=== PATIENT | female | born 1980 | race Caucasian/White ===

== ENCOUNTER 2020-07-13 09:06 | Outpatient (REF) | payer OTHER, SELFPAY | END 2020-07-13 09:07 | disposition home or self-care (01) | LOC: HO.LAB 09:06 | PROVIDERS: PCP Internal Medicine; Visit Provider Internal Medicine | DX: Z20.828 Contact with and (suspected) exposure to other viral communicable diseases (principal) | CPT/HCPCS: C9803; U0003 ==

== ENCOUNTER 2020-07-16 09:55 | Outpatient (REF) | payer OTHER, SELFPAY | END 2020-07-16 09:56 | disposition home or self-care (01) | LOC: HO.LAB 09:55 | PROVIDERS: Visit Provider Internal Medicine | DX: Z20.828 Contact with and (suspected) exposure to other viral communicable diseases (principal) | CPT/HCPCS: C9803; U0003 ==

== ENCOUNTER 2021-01-24 06:27 | Emergency (ER) | payer OTHER, SELFPAY ==
[2021-01-24 06:44] VITALS: BP 129/61; PULSE 81; RESP 18; TEMP 37; O2SAT 97; BMI 29.0
[2021-01-24 07:28] VITALS: BP 122/62; PULSE 69; RESP 18; TEMP 36.9; O2SAT 97
--- NOTE | 2021-01-24 07:32 | ED.SKABFB ---
HPI - Skin/Abscess/Foreign Bdy General Chief complaint: Skin/Abscess/Foreign Body Stated complaint: cyst Time Seen by Provider: 01/24/21 07:19 Source: patient Mode of arrival: ambulatory Limitations: no limitations History of Present Illness HPI narrative: 40-year-old female who presents emergency department for evaluation of a painful vaginal cyst. The patient states that she has had a cyst on her right external labial area for approximately 13 years but it has never bothered her. She states that 2 days prior, she developed pain in this area of the cyst. She states that the pain his gotten worse and is now constant. The pain is 6/10 at its worst. The pain is worse if she puts pressure on the cyst area. She states that she has never had to have this cyst drained. She denied being ill in any other way, she denied fever, chills, fatigue, nausea, vomiting, myalgias or arthralgias. She denied frequency, urgency, dysuria or vaginal discharge. 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 She states it has been difficult to work secondary to the vaginal pain. Related Data Previous Rx's Medication Instructions Recorded citalopram 40 mg tablet 40 mg PO DAILY #90 tab 05/21/20 clonidine HCl 0.1 mg tablet 0.3 mg PO TID PRN #90 tab 08/21/20 clonazepam 1 mg tablet 1.5 mg PO DAILY #90 tab 01/18/21 Allergies Allergy/AdvReac Type Severity Reaction Status Date / Time No Known Allergies Allergy Unverified 04/12/20 19:32 [No Known Allergies*] Review of Systems Review of Systems: Yes all other systems are reviewed and are negative [facility] Past Medical History [facility] Narrative: Past medical history: None. Past surgical history: Cholecystectomy, (14 years prior). Social history: Patient works in healthcare and a dementia unit. She smokes 2-3 cigarettes per day times 22 years. She states she drinks alcohol occasionally. She denies drug use. Medical History (Updated 01/24/21 @ 07:44 by Reyes Minaya MD) Anxiety delivery delivered Depression Surgical History (Updated 01/24/21 @ 06:48 by Yahaira Castro) History of cholecystectomy Social History Social History Patient Tobacco Use Status: Current everyday Tobacco user Use of substances other than those prescribed or required for medical reasons: No Advance Directives: No Advance Directives Information Provided: Yes Patient : Yes Physical Exam Vital Signs: Vital Signs: Last Vital Signs Temp 98.6 F 01/24/21 06:44 Pulse 81 01/24/21 06:44 Resp 18 01/24/21 06:44 BP 129/61 01/24/21 06:44 Pulse Ox 97 01/24/21 06:44 Body Mass Index 29.0 Const: General: cooperative and healthy appearing Orientation/consciousness: oriented to person and oriented to place Limitations: no limitations HENMT: Head: Yes normal to inspection, Yes normocephalic and Yes atraumatic Ears: external ears normal General nose exam: Normal external nose present Face and sinus: Yes normal facial exam Mouth: Normal oral and palatal mucosa present Throat: Yes posterior oropharynx normal Eyes: Periorbital: periorbital findings normal Eyelids: Yes eyelids normal Conjunctivae: conjunctivae normal Sclerae: sclerae normal Corneas: corneas normal Pupils: Equal, round and reactive pupils present Direct Ophthalmoscopy: normal light reflex Neck: Neck: Yes full ROM, Yes no lymphadenopathy, Yes no meningeal signs, Yes trachea midline and Yes supple Chest: Chest palpation & inspection: normal inspection of the chest and normal palpation of entire chest wall Resp: Effort & Inspection: normal respiratory effort and able to speak in complete sentences Auscultation: clear to auscultation bilaterally Cardio: Rate: regular rate Rhythm: regular rhythm Heart sounds: S1 normal heart sound present, S2 normal heart sound present and no murmurs GI: Inspection: Yes normal to inspection Palpation (GI): Soft to palpation, nontender, no guarding, not rigid and No hepatosplenomegaly present : Other: The patient has a area of induration over the lower aspect of the right external labia, this indurated area measures approximately 2 x 1 cm, this area is tender to palpation, there is no flocculence, no erythema or increased warmth. General: Yes no CVA tenderness Back/Spine/Pelvis: Back: no CVA tenderness Cervical Spine: normal cervical lordosis Thoracic/Lumbar Spine: thoracic and lumbar spine normal to inspection Skin: Rashes: no rashes Wounds: no wounds Neuro: General: oriented to person, oriented to place and no meningeal signs Cranial nerves: Yes Equal, round and reactive pupils present Cognition (Neuro): normal cognition Extrem: General: Yes normal to inspection and Yes full ROM Psych: Appearance: well kempt Mental Status: mental status grossly normal Speech and movement: Normal speech and movement present Affect: normal affect Attitude: cooperative Thought process: Normal thought process present Thought content: Normal thought content present Course Course Course Narrative: 40-year-old female who presents emergency department for evaluation of pain and her right vaginal region, the patient has had a cyst in this area for approximately 13 years which is become painful over the past 2 days. Physical examination did reveal induration of the patient's chronic cyst located in the right inferior,external vaginal labia. At this time I think that the patient has an early abscess, there is no flocculence or evidence of cellulitis and I do not think that needs to be drained at this time. The patient will be started on doxycycline 100 mg twice a day, ibuprofen 600 mg 3 times a day and acetaminophen 1000 mg 3 times a day. She will referred to the on-call press assistant and feeder for follow-up within 1 week. The patient was given verbal and printed instructions prior to discharge. The patient was advised to follow-up with Gynecology and to return to the emergency department if their symptoms get worse or if they develop any new symptoms that are concerning to them Discharge Plan Discharge Clinical Impression: Abscess of vagina Patient Disposition: Home, Self-Care Instructions: Abscess (ED) Additional Instructions: Your examination is consistent with an early abscess of the vaginal labia (lip). At this time, the abscess is firm to the touch and is not soft, I do not think that you need this abscess drained at this time however if the abscess starts to get soft then it may need to be drained to remove any pus that may be in the abscess. I am going to start you on an antibiotic, doxycycline 100 mg, 1 pill twice a day for 10 days, hopefully this will treat the early abscess and you do not need an incision and drainage. I do want you to follow-up with our on-call press assistant and feeder for re-evaluation to see if this abscess needs to be drained or if you need any further treatment of the cyst. Take ibuprofen 200 mg pills, 3 pills every 6 hours as needed for pain. Take Tylenol (acetaminophen) 500 mg pills, 2 pills every 6hours as needed for pain. Follow-up with the on-call press assistant and feeder in 7 days Please return to the emergency department if your symptoms get worse or if you develop any symptoms that are concerning to you. Soaking in a warm tub for 15-20 minutes or applying a heating pad on low to the area of pain for 15-20 minutes will help increase the blood flow to the area and help the healing process. Prescriptions: No Action citalopram 40 mg tablet 40 mg PO DAILY Qty: 90 RF: 8 clonidine HCl 0.1 mg tablet 0.3 mg PO TID PRN (Reason: anxiety) Qty: 90 RF: 8 clonazepam 1 mg tablet 1.5 mg PO DAILY Qty: 90 RF: 5 Referrals: Lele Schwarz MD [Physician] - 1 week ( patient with cyst to right inferior external vaginal labia times 13 years, pain x2 days, early abscess with induration , no cellulitis. Started on doxycycline 100 mg twice a day for 10 days. Needs follow-up to determine abscess needs to be drained) Stand Alone Forms: Work/School Release
--- NOTE | 2021-01-24 07:41 | PC.NURSE ---
This RN at bedside while MD evaluated pts vaginal area where abscess is. Pt tolerated well. Pt sts she has had this abscess before but has never had it drained and she has never taken abx for it.
== END 2021-01-24 08:13 | disposition home or self-care (01) ==
PROVIDERS: Emergency Provider Emergency Medicine Emergency Medical Services; PCP Internal Medicine
DX: N76.0 Acute vaginitis (principal)
CPT/HCPCS: 99283; 99284

== ENCOUNTER 2023-03-10 22:57 | Emergency (ER) | payer OTHER, SELFPAY ==
[2023-03-10 23:00] VITALS: BP 130/80; PULSE 92; O2SAT 95
[2023-03-10 23:02] VITALS: BP 144/88; PULSE 74; RESP 18; TEMP 36.4; O2SAT 97; BMI 28.2
--- NOTE | 2023-03-11 00:46 | ED_ITS ---
HPI - Animal Bite General Chief Complaint: Animal Bite Stated Complaint: skunk bite Time Seen by Provider: 03/10/23 23:47 Source: patient Mode of arrival: ambulatory Limitations: no limitations History of Present Illness HPI narrative: Patient is a 42-year-old female who presents to the emergency department via EMS. She reports that 10 minutes prior to arrival she was outdoors pushing the trash down in her trash can when she subsequently got bit by a baby skin on the right middle digit at the distal tip. No acute bleeding. Denies numbness, tingling, cold sensation. Has never received vaccination for rabies. Last tetanus vaccination date is unknown. Full AROM is intact to the digit at this time. Related Data Previous Rx's Medication Instructions Recorded citalopram 40 mg tablet 40 mg PO DAILY #90 tabs 09/29/22 clonidine HCl 0.1 mg tablet 0.3 mg PO TID PRN anxiety #90 tabs 10/09/22 clonazepam 1 mg tablet 1.5 mg PO DAILY #90 tabs 12/03/22 amoxicillin 875 mg-potassium 1 tab PO BID #13 tabs 03/11/23 clavulanate 125 mg tablet Allergies Allergy/AdvReac Type Severity Reaction Status Date / Time No Known Allergies Allergy Verified 11/20/21 10:19 [No Known Allergies*] Review of Systems Review of Systems: Yes all other systems are reviewed and are negative PMFSH Past Medical History Attestation statement: The following information was validated with the patient. Source: old records reviewed Medical History Anxiety delivery delivered Depression Surgical History History of cholecystectomy Social History Social History Housing: House Alcohol intake: never Patient Tobacco Use Status: Former Tobacco user Years Smoked: x 3 months non-smoker Smoked in Last 30 Days: No e-Cigarette/Vaping Use: Never Used Second Hand Smoke Exposure: No Use of substances other than those prescribed or required for medical reasons: No Advance Directives: No Advance Directives Information Provided: Yes service: No Current occupational status: employed Cognitive needs: No Hearing needs: No Vision needs: No Physical Exam ED Vital Signs: Vital Signs - 24 hr 03/10/23 23:02 Temperature 97.5 F Pulse Rate 74 Respiratory Rate 18 Blood Pressure 144/88 H Pulse Oximetry 97 Oxygen Delivery Method Room Air BMI result Body Mass Index 28.2 Appearance: Alert.?Oriented to person, place and time. No acute distress.?Normal affect. Neck: Normal inspection.? Neck supple.?? CVS: Heart sounds normal. Normal heart rate and rhythm.? Pulses normal.?? Respiratory: No respiratory distress.? Lung sounds clear to auscultation bilaterally?? Abdomen: Soft and non-tender. Normoactive bowel sounds. Skin: Skin warm and dry.? Normal skin color.? Right 3rd digit distal tip with 2 puncture cronin, no active bleeding, erythema, swelling. Full AROM is intact to the digit. Neuro: Moves all extremities spontaneously. Sensation intact bilaterally. Ambulates with normal steady gait. Medical Decision Making Medical Decision Making MDM Narrative: Patient is a 42 old female who presents emergency department for evaluation after animal bite as per HPI. Examination of the digit is overall unremarkable aside from puncture cronin present. No obvious deformity. Would defer XR imaging, unlikely to have any osseous involvement at this time. Discussed treatment including tetanus vaccination, rabies vaccination in addition to rabies immune globulin, prophylactic treatment with Augmentin for which she received the 1st dose while in the emergency department. Discussed outpatient management for additional rabies vaccination series. All questions were a nswered. We reviewed signs of infection that would warrant re-evaluation in the emergency department. Stable for discharge. Differential Diagnosis Differential Diagnoses: The differential diagnosis associated with the presentation includes (As noted above) Tests considered The following testing was considered but not selected: I considered XR imaging, as noted above this was deferred. Prescription Management I considered prescription management with: Antibiotic Discharge Plan Discharge Clinical Impression: Bite by animal Patient Disposition: Home, Self-Care Instructions: Rabies Vaccine (By injection), Rabies Immune Globulin (By injection) Additional Instructions: Your tetanus vaccine was updated today, you received the 1st dose of the rabies vaccine in addition to rabies immunoglobulin. You also received the 1st dose of your antibiotic, Augmentin. I have sent a prescription for the remainder of your antibiotic to the pharmacy, please complete this entire course. You should have this re-evaluated if you develop fevers, chills, increasing pain, redness, swelling, warmth, pus-like discharge, inability to move the finger. Please follow the instructions regarding additional rabies vaccination dosing. Follow- up with your primary care provider as needed. Prescriptions: New amoxicillin-pot clavulanate 875-125 mg tablet 1 tab PO BID Qty: 13 0RF No Action citalopram 40 mg tablet 40 mg PO DAILY Qty: 90 8RF clonidine HCl 0.1 mg tablet 0.3 mg PO TID PRN (Reason: anxiety) Qty: 90 8RF Rx Instructions: 1-3 tabs every 8 hours as needed clonazepam 1 mg tablet 1.5 mg PO DAILY Qty: 90 5RF Referrals: Haris Holley MD [Primary Care Provider] -
[2023-03-11] MEDS: Amoxicillin/Potassium Clav 875 MG TABLET PO (01:08)
[2023-03-11] MEDS: Diphth,Pertus(ACell),Tet Adult 0.5 ML SYRINGE IM (01:08)
[2023-03-11] MEDS: Rabies Immune Globulin/PF 900 UNIT/3 ML VIAL 1636 UNIT IM (01:09)
[2023-03-11] MEDS: Rabies Vaccine, Human Diploid (Imovax) 1 ML VIAL IM (01:09)
== END 2023-03-11 01:25 | disposition home or self-care (01) ==
PROVIDERS: Emergency Provider Emergency Medicine Emergency Medical Services; PCP Internal Medicine
DX: S61.252A Open bite of right middle finger without damage to nail, initial encounter (principal); W55.81XA Bitten by other mammals, initial encounter; Y93.H9 Activity, other involving exterior property and land maintenance, building and construction; Y92.007 Garden or yard of unspecified non-institutional (private) residence as the place of occurrence of the external cause; Y99.9 Unspecified external cause status; Z20.3 Contact with and (suspected) exposure to rabies
CPT/HCPCS: 90375; 90471; 90472; 90675; 90715; 96372; 99284

== ENCOUNTER 2023-03-14 09:48 | Outpatient (REF) | payer OTHER, SELFPAY | END 2023-03-14 09:49 | disposition home or self-care (01) | LOC: HO.MDS 09:48 | PROVIDERS: PCP Internal Medicine; Visit Provider Nurse Practitioner Family | DX: T14.8XXA Other injury of unspecified body region, initial encounter (principal); W64.XXXA Exposure to other animate mechanical forces, initial encounter; Y93.9 Activity, unspecified; Y92.9 Unspecified place or not applicable; Y99.9 Unspecified external cause status; Z20.3 Contact with and (suspected) exposure to rabies | CPT/HCPCS: 90471; 90675 ==

== ENCOUNTER 2023-03-18 14:19 | Outpatient (REF) | payer OTHER, SELFPAY | END 2023-03-18 14:20 | disposition home or self-care (01) | LOC: HO.MDS 14:19 | PROVIDERS: PCP Internal Medicine; Visit Provider Nurse Practitioner Family | DX: Z20.3 Contact with and (suspected) exposure to rabies (principal) | CPT/HCPCS: 90471; 90675 ==

== ENCOUNTER 2023-03-23 10:21 | Outpatient (AMB) | payer OTHER, SELFPAY ==
--- NOTE | 2023-03-23 10:22 | MHC.PC.OV ---
Vital Signs 03/23/23 10:25 Height 5 ft 7 in Weight 196 lb 4 oz BMI 30.7 BP 120/70 Blood Pressure Location Lt brachial Position Sitting Pulse 85 Pulse Source Pulse Oximeter Pulse Oximetry (%) 96 Oxygen Delivery Method Room Air Intake Visit Reasons: Skunk bite-excuse for work Intake Note: Patient is here today for a skunk bite, requesting for excuse note. 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: No HPI Skunk bite-excuse for work HPI Details bitten by a skunk 3 weeks ago; has been getting rabies shots and due to pain has been oow ; ready to return on Labor day [facility] Medical History Anxiety delivery delivered Depression Surgical History History of cholecystectomy Family History (Updated 03/23/23 @ 10:29 by ORALIA Rodriguez) Other Mental health disorder Substance use disorder Social History (Updated 03/23/23 @ 10:29 by ORALIA Rodriguez) Housing: House Alcohol intake: current Alcohol intake frequency: holidays/special occasions only Patient Tobacco Use Status: Former Tobacco user Years Smoked: x 3 months non-smoker e-Cigarette/Vaping Use: Never Used Second Hand Smoke Exposure: No service: No Current occupational status: employed Cognitive needs: No Hearing needs: No Vision needs: No Questionnaire PHQ-9 Over the last 2 weeks, how often have you been bothered by any of the following problems? 1. Little interest or pleasure in doing things: not at all 2. Feeling down, depressed, or hopeless: not at all 3. Trouble falling or staying asleep, or sleeping too much: not at all 4. Feeling tired or having little energy: not at all 5. Poor appetite or overeating: not at all 6. Feeling bad about yourself - or that you are a failure or have let yourself or your family down: not at all 7. Trouble concentrating on things, such as reading the newspaper or watching television: not at all 8. Moving or speaking so slowly that other people could have noticed. Or the opposite - being so fidgety or restless that you have been moving around a lot more than usual: not at all 9. Thoughts that you would be better off or of hurting yourself in some way: not at all Total score: 0 Depression Screening Interpretation: Negative Source: Developed by Drs. Harry Pino, Makayla Vasquez, Wenceslao Fenton and colleagues, with an educational benita from [employer]. Thrive Questionnaire Date Thrive assessed: 03/23/23 I am a: Patient What is your living situation today?: I have a steady place to live Within the past 12 months, did the food you bought not last and you didn't have the money to get more?: Never true Within the past 12 months, did you worry whether your food would run out before you got money to buy more?: Never true Do you have trouble paying for medicines?: No Do you have trouble getting transportation to medical appointments?: No Do you have trouble paying your heating and electricity bill?: No Do you have trouble taking care of your child, family member or friend?: No Do you have trouble with day-to-day activities such as bathing, preparing meals, shopping, managing finances, etc.?: No Are you currently unemployed and looking for a job?: No Are you interested in more education?: No Currently or been in a relationship where the following occur: no concerns reported AUDIT C Alcohol Use Questionnaire (AUDIT-C) 1. How often do you have a drink containing alcohol?: Never Total Score: 0 KATHERYN-7 AMB Questionnaire KATHERYN-7 Date KATHERYN - 7 assessed: 03/23/23 Feeling nervous, anxious, or on edge: 1 = Several days (currently on medication) Not being able to stop or control worryin = Not at all Worrying too much about different things: 0 = Not at all Trouble relaxin = Not at all Being so restless that it is hard to sit still: 0 = Not at all Becoming easily annoyed or irritable: 0 = Not at all Feeling afraid as if something awful might happen: 0 = Not at all Total KATHERYN-7 score (0-4 normal; 5-9 mild; 10-14 moderate; 15-21 severe): 1 Source: Developed by Drs. Harry Pino, Makayla Vasquez, Wenceslao Fenton and colleagues, with an educational benita from [employer]. Review of Systems Const Denies chills, Denies headache(s) and Denies weight loss ENT Denies headache(s) Card Denies chest pain, Denies syncope, Denies irregular heart rhythm and Denies dyspnea Resp Denies chest congestion, Denies cough and Denies dyspnea GI Denies abdominal pain, Denies change in stool character, Denies nausea and Denies vomiting Musc Denies deformity and Denies joint swelling Neuro Denies syncope and Denies headache(s) Physical exam (Primary Care) Vital Signs: Last Vital Signs Pulse 85 03/23/23 10:25 BP 120/70 03/23/23 10:25 Pulse Ox 96 03/23/23 10:25 Oxygen Delivery Method Room Air 03/23/23 10:25 BMI result Body Mass Index 30.7 Tobacco/Smoking Status: Tobacco use Status Tobacco use date assessed 03/23/23 03/23/23 10:31 Patient Tobacco Use Status Former Tobacco user 03/23/23 10:31 e-Cigarette/Vaping Use Never Used 03/23/23 10:31 PHQ-9: PHQ-9 Score PHQ-9: Total score 0 03/23/23 10:31 Depression Screening Interpretation: Negative Thrive Assessment: Date of Thrive Assessment Date Thrive assessed 03/23/23 03/23/23 10:31 Currently or been in a relationship where the following occur: no concerns reported Const General: cooperative, healthy appearing and no acute distress HENMT Head: Yes normal to inspection Resp Effort & Inspection: normal respiratory effort Skin Other: puncture wound right index finger; clean Assessment and Plan Assessment & Plan (1) Animal bite of finger: Code(s): S61.259A - Open bite of unspecified finger without damage to nail, initial encounter Plan: cont rabies shots Coding Level of Care Code Est Pt Level 3 (86034) Diagnoses Animal bite of finger S61.259A
[2023-03-23 10:25] VITALS: BP 120/70; PULSE 85; O2SAT 96; BMI 30.7
== END 2023-03-23 10:41 | disposition home or self-care (01) ==
PROVIDERS: PCP Internal Medicine; Visit Provider Internal Medicine
DX: S61.259A Open bite of unspecified finger without damage to nail, initial encounter (principal)
CPT/HCPCS: 99213

== ENCOUNTER 2023-03-25 15:20 | Outpatient (REF) | payer OTHER, SELFPAY | END 2023-03-25 15:21 | disposition home or self-care (01) | LOC: HO.MDS 15:20 | PROVIDERS: PCP Internal Medicine; Visit Provider Nurse Practitioner Family | DX: T14.8XXA Other injury of unspecified body region, initial encounter (principal); W64.XXXA Exposure to other animate mechanical forces, initial encounter; Y93.9 Activity, unspecified; Y92.9 Unspecified place or not applicable; Z20.3 Contact with and (suspected) exposure to rabies | CPT/HCPCS: 90675; 96372 ==

== ENCOUNTER 2023-06-12 11:39 | Outpatient (AMB) | payer OTHER, SELFPAY ==
[2023-06-12 11:33] VITALS: BMI 30.5
--- NOTE | 2023-06-12 11:33 | A.OFFPC_ITS ---
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 per policy Accompanied by: Self / Same As Patient Allergies amoxicillin Allergy (Intermediate, Verified 06/12/23 11:35) Diarrhea Medication List - Last Reconciled 06/12/23 by Haris Holley MD citalopram 40 mg PO DAILY clonazepam 1.5 mg (1.5 x 1 mg) PO DAILY clonidine HCl 0.3 mg (3 x 0.1 mg) PO TID PRN Tobacco use date assessed: 03/23/23 Dental Screening Dental Screen Date: 06/12/23 Did you have a dental visit in the last 12 months?: No Did you have a dental problem in the last 6 months where you did not have access to dental care?: No Was dental information given to patient?: Patient has dentist HPI Covid [phone] HPI Details has covid and still positive and symptomatic a week later; needs oow note for another 5 days [facility] Medical History delivery delivered Anxiety Depression Surgical History History of cholecystectomy Family History Other Mental health disorder Substance use disorder Social History Housing: House Alcohol intake: current Alcohol intake frequency: holidays/special occasions only Patient Tobacco Use Status: Former Tobacco user Years Smoked: x 3 months non-smoker e-Cigarette/Vaping Use: Never Used Second Hand Smoke Exposure: No service: No Current occupational status: employed Cognitive needs: No Hearing needs: No Vision needs: No Questionnaire PHQ-9 Over the last 2 weeks, how often have you been bothered by any of the following problems? 1. Little interest or pleasure in doing things: not at all 2. Feeling down, depressed, or hopeless: not at all 3. Trouble falling or staying asleep, or sleeping too much: not at all 4. Feeling tired or having little energy: not at all 5. Poor appetite or overeating: not at all 6. Feeling bad about yourself - or that you are a failure or have let yourself or your family down: not at all 7. Trouble concentrating on things, such as reading the newspaper or watching television: not at all 8. Moving or speaking so slowly that other people could have noticed. Or the opposite - being so fidgety or restless that you have been moving around a lot more than usual: not at all 9. Thoughts that you would be better off or of hurting yourself in some way: not at all Total score: 0 Depression Screening Interpretation: Negative Depression Screening Done: Yes Source: Developed by Drs. Harry Pino, Makayla Vasquez, Wenceslao Fenton and colleagues, with an educational benita from [employer]. Thrive Questionnaire Date Thrive assessed: 03/23/23 AUDIT C Alcohol Use Questionnaire (AUDIT-C) 1. How often do you have a drink containing alcohol?: Never Total Score: 0 KATHERYN-7 AMB Questionnaire KATHERYN-7 Date KATHERYN - 7 assessed: 03/23/23 Source: Developed by Drs. Harry Pino, Makayla Vasquez, Wenceslao Fenton and colleagues, with an educational benita from [employer]. Review of Systems Const Denies chills, Denies headache(s) and Denies weight loss ENT Denies headache(s) Card Denies chest pain, Denies syncope, Denies irregular heart rhythm and Denies dyspnea Resp Denies chest congestion, Denies cough and Denies dyspnea GI Denies abdominal pain, Denies change in stool character, Denies nausea and Denies vomiting Musc Denies deformity and Denies joint swelling Neuro Denies syncope and Denies headache(s) Physical exam (Primary Care) Vital Signs: Oxygen Delivery Method Room Air 06/12/23 11:33 BMI result Body Mass Index 30.5 Tobacco/Smoking Status: Tobacco use Status Tobacco use date assessed 03/23/23 06/12/23 11:36 Patient Tobacco Use Status Former Tobacco user 06/12/23 11:36 e-Cigarette/Vaping Use Never Used 06/12/23 11:36 PHQ-9: PHQ-9 Score PHQ-9: Total score 0 06/12/23 11:36 Depression Screening Interpretation: Negative Thrive Assessment: Date of Thrive Assessment Date Thrive assessed 03/23/23 06/12/23 11:36 Telehealth Telehealth Location of provider rendering services: practice address Location of patient: address on file Patient Identification confirmed using: Name, : Yes Telehealth method: voice only Patient verbally consented to treatment: Yes Patient verbally consented to billing insurance company: Yes Patient informed of any privacy concerns related to visit: Yes Minutes spent on Phone/Video with Pt.: 15 (telephone) Assessment and Plan Assessment & Plan (1) COVID-19: Code(s): U07.1 - COVID-19 Plan: cont supportive rx; oow another 5 days Coding Level of Care Code Tele Est Pt Level 3 (53257) Diagnoses COVID-19 U07.1
== END 2023-06-12 12:41 | disposition home or self-care (01) ==
LOC: HO.HMGH 11:39
PROVIDERS: PCP Internal Medicine; Visit Provider Internal Medicine
DX: U07.1 COVID-19 (principal)
CPT/HCPCS: 99213

== ENCOUNTER 2023-09-03 13:51 | Outpatient (AMB) | payer OTHER, SELFPAY ==
--- NOTE | 2023-09-03 13:51 | MHC.PC.OV ---
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 Required: No Allergies amoxicillin Allergy (Intermediate, Verified 09/03/23 13:52) Diarrhea Medication List - Last Reconciled 09/04/23 by Haris Holley MD azithromycin take 500 mg today (day 1), then 250 mg for 4 days (days 2-5) PO citalopram 40 mg PO DAILY clonazepam 1.5 mg (1.5 x 1 mg) PO DAILY clonidine HCl 0.3 mg (3 x 0.1 mg) PO TID PRN Tobacco use date assessed: 09/03/23 Dental Screening Dental Screen Date: 09/03/23 HPI flu symptoms HPI Details congested cough for two weeks PFSH Medical History delivery delivered Anxiety Depression Surgical History History of cholecystectomy Family History Other Mental health disorder Substance use disorder Social History Housing: House Alcohol intake: current Alcohol intake frequency: holidays/special occasions only Patient Tobacco Use Status: Former Tobacco user Years Smoked: x 3 months non-smoker e-Cigarette/Vaping Use: Never Used Second Hand Smoke Exposure: No service: No Current occupational status: employed Cognitive needs: No Hearing needs: No Vision needs: No Questionnaire Thrive Questionnaire Date Thrive assessed: 09/03/23 I am a: Patient What is your living situation today?: I have a steady place to live Within the past 12 months, did the food you bought not last and you didn't have the money to get more?: Never true Within the past 12 months, did you worry whether your food would run out before you got money to buy more?: Never true Do you have trouble paying for medicines?: No Do you have trouble getting transportation to medical appointments?: No Do you have trouble paying your heating and electricity bill?: No Do you have trouble taking care of your child, family member or friend?: No Do you have trouble with day-to-day activities such as bathing, preparing meals, shopping, managing finances, etc.?: No Are you currently unemployed and looking for a job?: No Are you interested in more education?: No Please select the resources that you would like help with: None THRIVE Score: 0 AUDIT C Alcohol Use Questionnaire (AUDIT-C) 1. How often do you have a drink containing alcohol?: Never Total Score: 0 KATHERYN-7 AMB Questionnaire KATHERYN-7 Date KATHERYN - 7 assessed: 03/23/23 Source: Developed by Drs. Harry Pino, Makayla Vasquez, Wenceslao Fenton and colleagues, with an educational benita from [employer]. Review of Systems Const Denies chills, Denies headache(s) and Denies weight loss ENT Denies headache(s) Card Denies chest pain, Denies syncope, Denies irregular heart rhythm and Denies dyspnea Resp Denies dyspnea GI Denies abdominal pain, Denies change in stool character, Denies nausea and Denies vomiting Musc Denies deformity and Denies joint swelling Neuro Denies syncope and Denies headache(s) Physical exam (Primary Care) Tobacco/Smoking Status: Tobacco use Status Tobacco use date assessed 09/03/23 09/03/23 13:54 Patient Tobacco Use Status Former Tobacco user 09/03/23 13:54 e-Cigarette/Vaping Use Never Used 09/03/23 13:54 Thrive Assessment: Date of Thrive Assessment Date Thrive assessed 09/03/23 09/03/23 13:54 Telehealth Telehealth Location of provider rendering services: practice address Location of patient: address on file Patient Identification confirmed using: Name, : Yes Telehealth method: video ([employer]) Patient verbally consented to treatment: Yes Patient verbally consented to billing insurance company: Yes Patient informed of any privacy concerns related to visit: Yes Minutes spent on Phone/Video with Pt.: 15 (telephone) Assessment and Plan Assessment & Plan (1) Cough: Code(s): R05.9 - Cough, unspecified Plan: rx sent Medications: New azithromycin take 500 mg today (day 1), then 250 mg for 4 days (days 2-5) PO 6 tabs 0RF Coding Level of Care Code Tele Est Pt Level 3 (07947) Diagnoses Cough R05.9
== END 2023-09-03 14:58 | disposition home or self-care (01) ==
LOC: HO.HMGH 13:51
PROVIDERS: PCP Internal Medicine; Visit Provider Internal Medicine
DX: R05.9 Cough, unspecified (principal); F33.9 Major depressive disorder, recurrent, unspecified
CPT/HCPCS: 99213

== ENCOUNTER 2024-03-10 07:46 | Outpatient (REF) | payer OTHER, SELFPAY ==
--- NOTE | ~2024-03-10 | MM_ITS ---
EXAMINATION: MM DIAGNOSTIC DIGITAL BREAST TOMOSYNTHESIS, BILATERAL US BREAST LIMITED, BILATERAL MAMMOGRAPHY: CLINICAL INFORMATION: 43-year-old female baseline exam, complaining of ulcerated mass with skin dimpling upper outer quadrant right breast, which the patient attributed to her brassiere; noticed since August 2023. Also complaining of thick, milky nipple discharge right side x1 year. Patient has history of breast cancer in paternal grandmother age 58, and 2 maternal cousins. COMPARISON: Mammography: None. Baseline exam. TECHNIQUE: Digital breast tomosynthesis is performed in both the craniocaudal and mediolateral oblique views along with computer-aided detection (CAD). Synthesized 2D images are generated from the tomosynthesis. In addition, full-field bilateral 3-D mediolateral views, a second full-field left CC view, full-field left MLO view, and spot compression 3-D right CC views x2, and MLO view x1. This was followed by bilateral breast ultrasound. FINDINGS: The breasts are heterogeneously dense, which may obscure small masses (ACR BI-RADS breast composition Category c). LEFT BREAST: -There is a spiculated dense irregular mass in the upper outer quadrant left breast, mid to posterior one third, with indistinct borders, desmoplasia, measuring approximately 2.8 x 2.0 cm by mammography. This extends to the skin with associated probable skin ulceration and localized skin containing and retraction. -Immediately anterior and inferior to the mass is a prominent lymph node measuring 1.1 cm in length, suspicious. -Immediately posteromedial to the primary mass is a small satellite spiculated mass measuring 4 mm in diameter. -In the left axilla, there is a subtle spiculated focus abutting and axillary lobe lymph node, suggesting metastasis/metastatic implant. Many left axillary nodes have mildly prominent cortex well, measuring up to 5 mm. -In the lower outer quadrant of the left breast, middle one third, approximate 5:00 axis, there is an oval circumscribed mass which ultrasound will be performed. RIGHT BREAST: -In the periareolar 5:00 region, there is a 3 x 3 mm oval nodule, for which ultrasound will be performed. -There is retroareolar duct ectasia present. -Otherwise, no suspicious masses, grouped calcifications, or areas of architectural distortion in the right breast. No skin or axillary abnormalities. ULTRASOUND: CLINICAL INFORMATION: Numerous abnormalities mammographically left breast, highly suspicious. Ultrasound for characterization. Right breast retroareolar examination for milky discharge. COMPARISON: None TECHNIQUE: Targeted sonographic evaluation was performed using a high frequency linear transducer. Selected archived documentation. FINDINGS: LEFT BREAST: -In the 5:00 axis of the left breast, 2 cm from the nipple, there is a 7 x 8 x 5 mm oval hypoechoic mass with good through transmission, no internal color Doppler flow, circumscribed margins, wider than tall, most likely a benign fibroadenoma. Six-month follow-up recommended of this finding. -In the 2:00 axis, 10 cm from the nipple, there is a extremely hypoechoic irregular spiculated mass with surrounding desmoplasia and internal color Doppler signal, measuring an approximate 1.8 x 2.1 x 1.6 cm sonographically. There is abundant posterior shadowing. This extends into and invades the skin. There is mass effect and retraction of the pectoralis fascia posterior to the mass. This is highly suspicious and ultrasound-guided biopsy recommended (BI-RADS 5). -In the left breast 2:00 low axilla, 15 cm from the nipple, there is a 5 mm hypoechoic irregular spiculated mass, highly suspicious. -Also in the left axilla slightly higher, there is an additional hypoechoic irregular spiculated mass measuring approximately 4 x 5 mm with posterior shadowing. This is highly suspicious. -Left axilla demonstrates several lymph nodes with mildly thickened cortex measuring up to 4 mm, suspicious. RIGHT BREAST: -The 5:00 axis of the right breast, periareolar location, there is an oval hypoechoic complicated cyst versus mass with no internal blood flow, circumscribed margins, wider than tall, no posterior features, measuring 4 x 3 x 3 mm. This correlates well with the 5:00 finding on mammography. This is probably benign, and six-month interval follow-up recommended to ensure stability. -There is retroareolar duct ectasia present throughout the retroareolar region of the right breast. Best seen in the longitudinal plane, immediately inferomedial to the nipple is an irregular appearing dilated duct with some internal echoes, possibly debris although cannot exclude a mass. No internal color Doppler flow. No posterior features. This could represent a papilloma. Recommend ultrasound-guided biopsy (on a separate day than the 3 biopsies recommended for the left). MM/MM tomosynthesis diagnostic BI IMPRESSION: 1. Dominant spiculated irregular hypoechoic shadowing mass left breast 2:00 axis, with small satellite lesion, abutting suspected metastatic lymph node, and 2 metastatic implants within the left mid and low axilla. These are highly suspicious, BI-RADS 5, and 3 site ultrasound-guided biopsy recommended (left axilla, mainly large mass at 2:00, and abutting suspected metastatic node). Surgical and oncologic consultation also recommended. 2. Right breast demonstrating retroareolar duct ectasia, with a ductal irregular filling defect immediately inferomedial to the nipple, for which ultrasound-guided biopsy is recommended. (To be performed on a separate day than the left breast) This may represent an intraductal papilloma. 3. Right breast also demonstrating a 5:00 periareolar small complicated cyst versus small mass, 4 x 3 x 3 mm, probably benign, and six-month follow-up ultrasound recommended. Findings and recommendations discussed with the patient in detail, who is in understanding of the plan. OVERALL ASSESSMENT: Mammography: BI-RADS 5 - Highly suggestive of malignancy Ultrasound: BI-RADS 5 - Highly suggestive of malignancy RECOMMENDATION: Biopsy recommended
== END 2024-03-10 07:47 | disposition home or self-care (01) ==
LOC: HO.MAMMO 07:46
PROVIDERS: PCP Internal Medicine; Visit Provider Internal Medicine
DX: N64.52 Nipple discharge (principal); N63.21 Unspecified lump in the left breast, upper outer quadrant
CPT/HCPCS: 76642; 77062; 77066

== ENCOUNTER → 2024-03-10 08:00 | Outpatient (BNV) | payer OTHER, SELFPAY | PROVIDERS: PCP Internal Medicine; Visit Provider Radiology Diagnostic Radiology | DX: N64.52 Nipple discharge (principal) | CPT/HCPCS: 76642; 77062; 77066 ==

== ENCOUNTER 2024-03-15 08:16 | Outpatient (AMB) | payer OTHER, SELFPAY ==
--- NOTE | 2024-03-15 08:22 | A.OFFVIS_ITS ---
Vital Signs 3 03/15/24 08:23 Height 5 ft 7 in Weight 212 lb BMI 33.2 BP 121/56 L Blood Pressure Location Rt brachial Position Sitting Pulse 72 Intake Visit Reasons: (L) breast mass upper outer quadrant and Intake Note: Patient is seen in office for ultrasound biopsy consult, following left breast upper outer quadrant, 2 axillary masses. Pt c/o: reports mass/lump, reports breast pain and tenderness. 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 She denies a previous history of breast problems or breast surgery but does have a family history of breast cancer in her paternal grandmother and 2 maternal cousins. She reports complaints of pain and skin dimpling in the left breast at the upper outer quadrant since 09/15/2023 and initially thought that this was due to her bra. The pain seems to be increasing and is associated with swelling of the left breast. She reports whitish discharge from the right nipple usually after taking a shower. The discharge is not spontaneous but requires squeezing of the nipple. She denies any bleeding from the nipple. She is 3 para 1 and breastfed her child (Son) for only a very short period of time. Mammogram and ultrasound performed on 03/10/2024 revealed a left breast spiculated mass with an irregular shape in the upper outer quadrant, 2.8 x 2.0 cm extending to the skin. This was felt to be highly suggestive of malignancy ( BI-RADS 5). A dilated duct on the right side in the 5 o'clock periareolar position was felt to be ductal ectasia and six-month follow-up ultrasound recommended. A separate intraductal papilloma was also identified and biopsy was also recommended of this patient under ultrasound guidance. [facility] Medical History delivery delivered Anxiety Depression Surgical History History of cholecystectomy Family History Paternal Grandmother Breast cancer Family/Other Breast cancer Other Mental health disorder Substance use disorder Social History Housing: House Alcohol intake: current Alcohol intake frequency: holidays/special occasions only Patient Tobacco Use Status: Former Tobacco user Years Smoked: x 3 months non-smoker e-Cigarette/Vaping Use: Never Used Second Hand Smoke Exposure: No service: No Current occupational status: employed Cognitive needs: No Hearing needs: No Vision needs: No Female Reproductive History Menstrual Age of Menarche: 10 Total pregnancies: 3 Full term: 1 Review of Systems Const All systems reviewed & are unremarkable except as noted in HPI and below Denies chills, Denies fever(s), Denies headache(s), Denies poor appetite and Denies weakness ENT Denies headache(s) Card Denies chest pain, Denies irregular heart rhythm, Denies palpitations and Denies dyspnea Resp Denies cough, Denies excessive phlegm production and Denies dyspnea GI Denies abdominal pain, Denies bloating, Denies change in bowel habits, Denies constipation, Denies heartburn, Denies diarrhea, Denies nausea and Denies vomiting Denies urinary frequency and Reports nipple discharge Musc Denies back pain, Denies muscle weakness and Denies numbness Skin/Breast Reports breast swelling, Reports breast skin changes, Reports breast pain, Reports breast mass, Denies changing lesions, Reports nipple discharge and Denies unusual bruising Neuro Denies headache(s), Denies numbness, Denies paresthesias and Denies weakness Psych Denies anxiety and Denies depression Endo Denies palpitations Bret/Lymph Denies lymphadenopathy Physical Exam Vital Signs: Last Vital Signs Pulse 72 03/15/24 08:23 BP 121/56 L 03/15/24 08:23 BMI result Body Mass Index 33.2 Const General: cooperative and no acute distress Nutritional Appearance: well nourished Orientation/consciousness: patient oriented x3 Limitations: no limitations HEENT Head: Yes normocephalic and Yes atraumatic Ears: hearing grossly normal bilaterally Chest Other: Left breast: Area of skin dimpling located in the upper outer quadrant with underlying mass measured at least 3 cm in diameter, not apparently fixed to chest wall. Lesion is tender to palpation but no area of redness is noted in the skin. Palpable lymph nodes noted in the low axilla. These were also tender to palpation. No other skin change, nipple discharge or palpable masses appreciated in the left breast. Right breast: No skin change, no nipple retraction, no nipple discharge, no palpable mass, no enlarged lymph nodes Chest/axillae images: 2 1. Area of skin dimpling upper outer quadrant left breast with underlying palpable mass Resp Effort & Inspection: normal respiratory effort, no audible wheezes, no cough and no respiratory distress Cardio Jugular venous distension: no JVD GI Inspection: Yes normal to inspection Skin Other: Warm, dry, no rash Neuro General: patient oriented x3 Extrem General: Yes no clubbing, cyanosis or edema Assessment & Plan Assessment & Plan (1) Breast cancer, left: Code(s): C50.912 - Malignant neoplasm of unspecified site of left female breast Category: Medical Qualifiers: Breast location: upper outer quadrant of breast Estrogen receptor status: unspecified Patient sex: female Qualified Code(s): C50.412 - Malignant neoplasm of upper-outer quadrant of left female breast Plan 43-year-old female patient with an area of palpable mass and skin dimpling located in left breast upper outer quadrant found on mammogram and ultrasound to have a spiculated mass highly suggestive of malignancy (BI-RADS 5. She is scheduled for a ultrasound-guided core biopsy of the breast mass and lymph nodes on 03/21/2024. Examination today does confirm a suspicious mass which is highly suggestive of malignancy. We discussed the biopsy and possible surgical management. We also discussed genetic testing given her family history of breast cancer. She expressed understanding and agrees to proceed with the genetic testing today. I also recommended consultation with Hematology Oncology and discuss this with the oncology department today. They will contact her directly to set up an appointment. The patient expressed understanding and agrees with the plan. Orders: Referrals 2 Hematology & Oncology Referral C50.912 - Malignant neoplasm of unspecified site of left female breast Coding Level of Care Code New Pt Level 4 (08986) Diagnoses Malignant neoplasm of upper-outer quadrant of left female breast, unspecified estrogen receptor status C50.412 Breast location: upper outer quadrant of breast Estrogen receptor status: unspecified Patient sex: female
[2024-03-15 08:23] VITALS: BP 121/56; PULSE 72; BMI 33.2
== END 2024-03-15 08:50 | disposition home or self-care (01) ==
PROVIDERS: PCP Internal Medicine; Visit Provider Surgery
DX: C50.412 Malignant neoplasm of upper-outer quadrant of left female breast (principal)
CPT/HCPCS: 99204

== ENCOUNTER → 2024-03-15 08:16 | Outpatient (BNVA) | payer OTHER, SELFPAY | PROVIDERS: PCP Internal Medicine; Visit Provider Surgery | DX: C50.412 Malignant neoplasm of upper-outer quadrant of left female breast (principal) | CPT/HCPCS: 99202 ==

== ENCOUNTER 2024-03-21 07:50 | Outpatient (REF) | payer OTHER, SELFPAY ==
--- NOTE | ~2024-03-21 | MM_ITS ---
PROCEDURE: US GUIDED BREAST BIOPSY, LEFT CLINICAL INFORMATION: 3 site biopsy left breast: 2:00 axis dominant mass, 2:00 axis abnormal lymph node, and low axillary abnormal lymph node. COMPARISON: Left breast ultrasound and diagnostic mammography 03/10/2024. PROCEDURAL DETAILS: The details of the procedure, as well as the risks, benefits, and alternatives to the procedure were explained to the patient in detail and all of her questions were answered, after which written informed consent was obtained. Site and side were confirmed. SITE A: Prior to the procedure, sonography revealed a dominant large near anechoic shadowing mass at the 2:00 axis left breast, 10 cm from the nipple, with estimated measurements of 2.8 x 2.0 cm. A time-out was performed, the lesion intended for biopsy was targeted, and the overlying skin of the left breast was then marked, prepped and draped in the usual sterile fashion. Using sonographic guidance, sterile technique, and 1% lidocaine without epinephrine for local anesthesia, multiple core biopsies were obtained through the targeted area with a 14G spring loaded Sertera core biopsy device. There was real-time confirmation of appropriate needle passage. Sampling was documented. At the completion of tissue sampling, a single barrel shaped metallic clip was deposited at the biopsy site. There was no evidence of immediate complication. SPECIMEN: 3 well formed core samples were obtained SITE B: Prior to the procedure, sonography revealed an abnormal lymph node immediately anterior and inferior to the dominant mass, measuring 1.1 cm in length, 2:00 axis, 8 cm from the nipple. The lesion intended for biopsy was targeted, and the previous 2 mm skin incision was utilized for biopsy. Using sonographic guidance, sterile technique, and 1% lidocaine without epinephrine for local anesthesia, multiple core biopsies were obtained through the targeted area with a 14G spring loaded Sertera core biopsy device. There was real-time confirmation of appropriate needle passage. Sampling was documented. At the completion of tissue sampling, a single open coil metallic clip was deposited at the biopsy site. There was no evidence of immediate complication. SPECIMEN: 3 well formed core samples were obtained SITE C, AXILLA: Prior to the procedure, sonography revealed a left low axillary lymph node with cortex measuring up to 4 mm, suspicious. A time-out was performed, the lesion intended for biopsy was targeted, and the skin of the overlying left axilla was then marked, prepped and draped in the usual sterile fashion. Using sonographic guidance, sterile technique, and 1% lidocaine without epinephrine for local anesthesia, multiple core biopsies were obtained through the targeted area with a 14G spring loaded [employer] core biopsy device. There was real-time confirmation of appropriate needle passage. Sampling was documented. At the completion of tissue sampling, a single ribbon-shaped metallic clip was deposited at the biopsy site. There was no evidence of immediate complication. SPECIMEN: 3 well formed core samples were obtained DIGITAL POST-PROCEDURE MAMMOGRAPHY: Breast density: The tissue is heterogeneously dense which may obscure small masses. BI-RADS version 5, category C. There are no new mammographic findings demonstrated. The postprocedure 2-view direct digital mammogram reveals satisfactory and accurate positioning of all 3 biopsy clips. No hematoma or complication present. The patient tolerated the procedure well and, after assuring adequate hemostasis, was discharged in good condition after reviewing postbiopsy breast care instructions. Final pathology results are pending. MM/MM tomosynthesis diagnostic LT IMPRESSION: 1. No immediate complication from 3 site ultrasound guided percutaneous biopsy left breast, 2:00 axis, 10 cm from the nipple; 2:00 axis, 8 cm from the nipple; and left low axillary thickened lymph node. 2. Ultrasound was used to localize and guide all 3 marker clip placements. 3. The 2-view direct digital postprocedure mammogram good and accurate positioning of all 3 biopsy clips. No evidence of migration. No complication seen. 4. Final pathology results are pending. A separate report with final recommendations will be issued once these results are made available. Electronically signed by: Jay Kearney MD 03/21/2024 11:19 AM EDT
[2024-03-21] MEDS: Sodium Bicarbonate 8.4% 50 MEQ/50 ML VIAL SUBCUT (09:49)
[2024-03-21] MEDS: Lidocaine HCl 1 % 20 ML VIAL 27 ML SUBCUT (09:51)
== END 2024-03-21 07:51 | disposition home or self-care (01) ==
LOC: HO.MAMMO 07:50
PROVIDERS: Pathology Anatomic Pathology & Clinical Pathology; PCP Internal Medicine; Visit Provider Surgery
DX: C50.412 Malignant neoplasm of upper-outer quadrant of left female breast (principal); R92.8 Other abnormal and inconclusive findings on diagnostic imaging of breast
CPT/HCPCS: 19083; 19084; 36415; 77061; 77065; 88305; 88341; 88342; 88360; 88374; A4648; C1894

== ENCOUNTER → 2024-03-21 08:00 | Outpatient (BNV) | payer OTHER, SELFPAY | PROVIDERS: PCP Internal Medicine; Visit Provider Radiology Diagnostic Radiology | DX: R92.8 Other abnormal and inconclusive findings on diagnostic imaging of breast (principal) | CPT/HCPCS: 19083; 19084; 77065 ==

== ENCOUNTER 2024-03-25 10:23 | Outpatient (AMB) | payer OTHER, SELFPAY ==
--- NOTE | 2024-03-25 10:29 | MHC.OFFVIS ---
Vital Signs 03/25/24 10:36 Height 5 ft 7 in Weight 210 lb BMI 32.9 BP 129/80 Blood Pressure Location Lt brachial Position Sitting Pulse 80 Intake Visit Reasons: biopsy results (L) breast mass Intake Note: Patient is seen in office for ultrasound biopsy results, following left breast upper outer quadrant, 2 axillary masses. Pt c/o: sore in the area, denies discharge, redness or other concerns Pig Breeder Required: No Accompanied by: Self / Same As Patient Allergies tramadol Allergy (Severe, Verified 03/25/24 10:35) Rash amoxicillin Allergy (Intermediate, Verified 03/25/24 10:35) Diarrhea Medication List - Last Reconciled 03/25/24 by Jason Guevara MD citalopram 40 mg PO DAILY clonazepam 1.5 mg (1.5 x 1 mg) PO DAILY clonidine HCl 0.3 mg (3 x 0.1 mg) PO TID PRN HPI Comments Details: 43-year-old female patient presenting for evaluation of pain in the left breast and discharge in the right breast. She denies a previous history of breast problems or breast surgery but does have a family history of breast cancer in her paternal grandmother and 2 maternal cousins. She reports complaints of pain and skin dimpling in the left breast at the upper outer quadrant since 09/15/2023 and initially thought that this was due to her bra. The pain seems to be increasing and is associated with swelling of the left breast. She reports whitish discharge from the right nipple usually after taking a shower. The discharge is not spontaneous but requires squeezing of the nipple. She denies any bleeding from the nipple. She is 3 para 1 and breastfed her child (Son, 16 years old) for only a very short period of time. Mammogram and ultrasound performed on 03/10/2024 revealed a left breast spiculated mass with an irregular shape in the upper outer quadrant, 2.8 x 2.0 cm extending to the skin. This was felt to be highly suggestive of malignancy ( BI-RADS 5). A dilated duct on the right side in the 5 o'clock periareolar position was felt to be ductal ectasia and six-month follow-up ultrasound recommended. A separate intraductal papilloma was also identified and biopsy was also recommended of this patient under ultrasound guidance. She returns today following ultrasound-guided biopsy on 03/21/2024 at the [facility]. Pathology revealed invasive ductal carcinoma grade 2 including the 2nd lesion with lymphoid and adipose tissue. The pathology results were discussed in detail with the patient today. She indicated her preference to undergo bilateral mastectomies given her grandmother's cancer history. [facility] Medical History delivery delivered Anxiety Depression Surgical History History of cholecystectomy Family History Paternal Grandmother Breast cancer Family/Other Breast cancer Other Mental health disorder Substance use disorder Social History Housing: House Alcohol intake: current Alcohol intake frequency: holidays/special occasions only Patient Tobacco Use Status: Former Tobacco user Years Smoked: x 3 months non-smoker e-Cigarette/Vaping Use: Never Used Second Hand Smoke Exposure: No service: No Current occupational status: employed Cognitive needs: No Hearing needs: No Vision needs: No Female Reproductive History Menstrual Age of Menarche: 10 Review of Systems Const All systems reviewed & are unremarkable except as noted in HPI and below Denies chills, Denies fever(s), Denies headache(s), Denies poor appetite and Denies weakness ENT Denies headache(s) Card Denies chest pain, Denies irregular heart rhythm, Denies palpitations and Denies dyspnea Resp Denies cough, Denies excessive phlegm production and Denies dyspnea GI Denies abdominal pain, Denies bloating, Denies change in bowel habits, Denies constipation, Denies heartburn, Denies diarrhea, Denies nausea and Denies vomiting Denies urinary frequency and Reports nipple discharge Musc Denies back pain, Denies muscle weakness and Denies numbness Skin/Breast Reports breast swelling, Reports breast skin changes, Reports breast pain, Reports breast mass, Denies changing lesions, Reports nipple discharge and Denies unusual bruising Neuro Denies headache(s), Denies numbness, Denies paresthesias and Denies weakness Psych Denies anxiety and Denies depression Endo Denies palpitations Bret/Lymph Denies lymphadenopathy Physical Exam Vital Signs: Last Vital Signs Pulse 80 03/25/24 10:36 BP 129/80 03/25/24 10:36 BMI result Body Mass Index 32.9 Const General: cooperative and no acute distress Nutritional Appearance: well nourished Orientation/consciousness: patient oriented x3 Limitations: no limitations HEENT Head: Yes normocephalic and Yes atraumatic Ears: hearing grossly normal bilaterally Chest Other: (previous examination) Left breast: Area of skin dimpling located in the upper outer quadrant with underlying mass measured at least 3 cm in diameter, not apparently fixed to chest wall. Lesion is tender to palpation but no area of redness is noted in the skin. Palpable lymph nodes noted in the low axilla. These were also tender to palpation. No other skin change, nipple discharge or palpable masses appreciated in the left breast. Right breast: No skin change, no nipple retraction, no nipple discharge, no palpable mass, no enlarged lymph nodes Resp Effort & Inspection: normal respiratory effort, no audible wheezes, no cough and no respiratory distress Cardio Jugular venous distension: no JVD GI Inspection: Yes normal to inspection Skin Other: Warm, dry, no rash Neuro General: patient oriented x3 Extrem General: Yes no clubbing, cyanosis or edema Assessment & Plan Assessment & Plan (1) Invasive ductal carcinoma of left breast: Code(s): C50.912 - Malignant neoplasm of unspecified site of left female breast Category: Medical Plan 43-year-old female patient with a strong family history of breast cancer presenting following her recent ultrasound-guided core biopsy of 2 lesions in the left breast. Both lesions are noted to contain invasive ductal carcinoma grade 2. I reviewed the pathology results in detail with the patient. Also genetic testing revealed no clinically significant mutations and 1 variant of unknown significance. A copy of the report was provided to the patient today. As noted above the patient has requested bilateral mastectomies. I recommended left axillary sentinel node biopsy along with the left breast simple mastectomy and prophylactic right breast mastectomy (bilateral simple mastectomies). We also discussed the possibility of immediate reconstruction versus delayed reconstruction. She is comfortable with a delayed reconstruction but wishes to proceed with a mastectomy as soon as possible. After a discussion of the procedure, risks, and alternatives, she consents to bilateral simple mastectomy and left axillary sentinel node biopsy. She will be scheduled as a short-stay admit at her earliest convenience. Coding Level of Care Code Est Pt Level 4 (02682) Diagnoses Invasive ductal carcinoma of left breast C50.912
[2024-03-25 10:36] VITALS: BP 129/80; PULSE 80; BMI 32.9
== END 2024-03-25 11:05 | disposition home or self-care (01) ==
PROVIDERS: PCP Internal Medicine; Visit Provider Surgery
DX: C50.912 Malignant neoplasm of unspecified site of left female breast (principal)
CPT/HCPCS: 99214

== ENCOUNTER → 2024-03-25 10:23 | Outpatient (BNVA) | payer OTHER, SELFPAY | PROVIDERS: PCP Internal Medicine; Visit Provider Surgery | DX: N63.21 Unspecified lump in the left breast, upper outer quadrant (principal); C50.412 Malignant neoplasm of upper-outer quadrant of left female breast; Z80.3 Family history of malignant neoplasm of breast | CPT/HCPCS: 99212 ==

== ENCOUNTER → 2024-04-25 09:48 | Outpatient (BNV) | payer OTHER, SELFPAY | PROVIDERS: PCP Internal Medicine; Referring Provider Surgery; Visit Provider Internal Medicine | DX: C50.412 Malignant neoplasm of upper-outer quadrant of left female breast (principal) | CPT/HCPCS: 99205; 99212; 99214; G2211 ==

== ENCOUNTER → 2024-05-16 07:44 | Outpatient (REF) | payer OTHER, SELFPAY ==
--- NOTE | 2024-05-16 08:09 | CA_ITS ---
Transthoracic Echocardiogram Patient (Last, First, Middle): Lisa Nicole E Gender: Female Date of : 1980 Age: 43 Procedure Date: 05/16/2024 Procedure Type: Transthoracic Echocardiogram Location: OP Height: 170.18 cm Weight: 90.72 kg BSA: 2.02 m2 Heart Rate: bpm BP: 118 / 78 mmHg Flange Turner: ANGUS Referring MD: Sunitha Vivas MD Symptoms: Pre chemo evaluation Study Quality: Adequate ECG Rhythm: Sinus Conclusions: - The left ventricular systolic function is normal. The calculated ejection fraction is 60% by biplane method. - No obvious valvular pathology seen on this study. Findings Left Ventricle Normal left ventricular cavity size. There is normal left ventricular wall thickness. The left ventricular systolic function is normal. The calculated ejection fraction is 60% by biplane method. There is no evidence of regional wall motion abnormalities. Diastolic function is normal for age. LV peak GLS -21.1%. Right Ventricle Normal right ventricular cavity size and systolic function. Atria Both atria are normal in size. Aortic Valve There is a normal trileaflet aortic valve. There is no aortic valve stenosis. There is no aortic valve regurgitation. Mitral Valve The mitral valve appears normal. There is no mitral valve regurgitation. There is no mitral valve stenosis. Pulmonic Valve The pulmonic valve is likely normal. Tricuspid Valve There is no tricuspid valve regurgitation. Tricuspid regurgitation envelope is inadequate for calculation of right ventricular systolic pressure. Great Vessels The asc aorta and aortic arch are normal in size. Venous The inferior vena cava is normal in size and collapses greater than 50% with inspiration. Pericardium/Pleural There is no evidence of pericardial effusion. Prior Study Comparison No prior study available for comparison. Recommendations, Care & Conclusions No obvious valvular pathology seen on this study. Measurements 2D Linear Measurements IVSd: 0.73 0.6-0.9/0.6-1.0 cm LVIDd: 4.63 3.9-5.3/4.2-5.9 cm LVIDd Index: 2.29 2.4-3.2/2.2-3.1 cm/m2 LVIDs: 2.88 2.0-3.6 cm LVPWd: 0.78 0.7-1.1 cm LA Diam: 3.50 2.7-3.8/3.0-4.0 cm LAIDs Index: 1.73 1.5-2.3 cm/m2 LV Mass: 137.04 67-162/88-224 g LV Mass Index: 67.84 43-95/49-115 g/m2 LVOT Diam: 1.90 3.0+(-)1.3 cm 2D Systolic Function EF 4C: 58.10 >55% EF 2C: 63.10 >55% EF BiP: 60.30 >55% Mitral Valve MV Pk E: 0.78 MV PK A: 0.57 MV Decel Time: 254.00 E/A: 1.40 E'Lateral: 12.30 E'Medial: 9.25 E/E' Med: 8.40 E/E' Lat: 6.30 PHT: 74.00 MVA PHT: 2.97 Decel [place]: 3.06 Aortic Valve AoV Pk Ricardo: 1.31 AoV Mn Ricardo: 0.86 AoV VTI: 0.27 AoV Pk Grad: 7.00 Aov Mn Grad: 3.00 CHRISTA Cont.VTI: 2.77 LVOT LVOT Pk Ricardo: 1.17 LVOT Mn Ricardo: 0.76 LVOT VTI: 0.26 LVOT Pk Grad: 5.00 LVOT Mn Grad: 3.00 LVOT Diam: 1.90 LVOT Area: 2.84 Diastolic Function MV Pk E: 0.78 MV Pk A: 0.57 E/A: 1.40 E'Medial: 9.25 E/E' Med: 8.40 E' Laterial: 12.30 E/E' Lat: 6.30 Right Ventricle TAPSE (mm): 26.10 TVS' Ricardo: 11.10 Tricuspid Valve RA Press: 3.00 Great Vessels Aorta Sinus of Valsalva: 2.99 2.0-3.[address] [place]: 2.27 1.7-3.4 cm Ao Asc: 2.90 2.1-3.4 cm Ao Arch: 2.80 Updated in Other Vendor System with Status of Final Vincent Partida MD electronically signed on 05/16/2024 12:36:49 PM with status of Final
== END ==
LOC: HO.CARD 07:44
PROVIDERS: PCP Internal Medicine; Visit Provider Internal Medicine
DX: C50.912 Malignant neoplasm of unspecified site of left female breast (principal)
CPT/HCPCS: 93306; 93356

== ENCOUNTER → 2024-05-16 08:09 | Outpatient (BNV) | payer OTHER, SELFPAY | PROVIDERS: PCP Internal Medicine; Visit Provider Internal Medicine | DX: Z01.818 Encounter for other preprocedural examination (principal) | CPT/HCPCS: 93306; 93356 ==

== ENCOUNTER → 2024-05-17 10:27 | Outpatient (BNV) | payer OTHER, SELFPAY | PROVIDERS: PCP Internal Medicine; Visit Provider Internal Medicine | DX: C50.812 Malignant neoplasm of overlapping sites of left female breast (principal) | CPT/HCPCS: 77049 ==

== ENCOUNTER 2024-05-17 10:28 | Outpatient (REF) | payer OTHER, SELFPAY ==
--- NOTE | ~2024-05-17 | MR_ITS ---
EXAMINATION: MR BREAST WITHOUT AND WITH CONTRAST, BILATERAL CLINICAL INFORMATION: Biopsy-proven invasive ductal carcinoma in the left breast 2 sites 2:00 10 cm from the nipple and 2:00 8 cm from the nipple. Left axillary lymph node biopsy was benign. COMPARISON: Comparison is made with available prior examinations. TECHNIQUE: MR imaging of the breasts was performed using T1, T2 and fat saturation techniques. Dynamic multiphase imaging was also performed after administration of intravenous gadolinium contrast agent. Computer generated 3-D reconstruction was utilized by the radiologist. FINDINGS: There are heterogeneous fibroglandular densities with marked background enhancement. LEFT BREAST: There is a spiculated mass with adjacent mass both previously biopsied with pathology of invasive ductal carcinoma together measuring 33 anterior to posterior by 33 transverse by 37 superior to inferior in the upper outer quadrant 2:00 10 and 8 cm from the nipple. This mass demonstrates skin retraction enhancement and thickening.e Marker clip in the left axilla from previous benign biopsy. There is a spiculated mass in the axilla which was not biopsied series 17 image 39/148 better seen on previous ultrasound at 2:00 15 cm from the nipple. This was not biopsied. There is a suspicious enhancing mass in the central to lower outer breast posterior depth measuring 7 x 6 x 5 mm series 17 image 92/148. There is a 6 x 4 mm oval enhancing mass in the lower anterior outer breast which could represent the previously seen solid mass at 5:00 2 cm from the nipple on ultrasound. RIGHT BREAST: No suspicious enhancing mass or nonmass enhancement. No suspicious internal mammary or axillary adenopathy. Limited views of the chest and abdomen are unremarkable. MR/MR breast BI wo/w con IMPRESSION: Left: 1. Biopsy-proven malignancy at 2:00 2 sites adjacent to each other together measuring 37 mm superior to inferior with associated skin thickening and enhancement and retraction. The patient is under the care of a breast surgeon for excision further management. 2. Additional suspicious spiculated mass in the left axilla 2:00 15 cm from the nipple suspicious mass in the central to lower outer breast posterior depth if conservation therapy is being considered recommend ultrasound-guided core needle biopsy at this time. Left breast mass on ultrasound at 5:00 2 cm from the nipple which could correlate with the enhancing mass in the lower outer breast anterior depth on MRI. If conservation therapy is considered recommend ultrasound guided core needle biopsy at this time for confirmation. Suspicious enhancing mass in the lower outer breast posterior depth for which second look MR edirected ultrasound is recommended at this time for further evaluation if no ultrasound correlate is seen MRI guided core needle biopsy is recommended at this time if conservation therapy is being considered. Right: No MRI evidence of malignancy. As per prior diagnostic report recommend 6 month follow-up ultrasound for the area seen in the retroareolar region and 5:00 for further evaluation of stability these areas were not seen on today's MR imaging. ASSESSMENT: LEFT BREAST: BI-RADS 4 suspicious additional biopsies recommended.. RIGHT BREAST: BI-RADS 1-Negative RECOMMENDATIONS: Recommend breast surgical consultation at this time for excision and further management. If conservation therapy is being considered then additional Second Look MRI directed ultrasound is recommended and biopsy of 3 suspicious masses in the left breast. Electronically signed by: Gypsy Benton DO 06/02/2024 11:05 AM [facility] Workstation: [id number]
[2024-05-17] MEDS: gadobutroL 10 ML VIAL IVPUSH (11:28)
== END 2024-05-17 10:29 | disposition home or self-care (01) ==
LOC: HO.MRI 10:28
PROVIDERS: PCP Internal Medicine; Visit Provider Internal Medicine
DX: C50.912 Malignant neoplasm of unspecified site of left female breast (principal)
CPT/HCPCS: 77049; A9585

== ENCOUNTER 2024-05-19 08:36 | Day surgery (SDC) | payer OTHER, SELFPAY ==
--- NOTE | ~2024-05-19 | IR_ITS ---
CLINICAL HISTORY: Left breast cancer. The patient presents to interventional radiology for placement of a port for chemotherapy. PROCEDURES: 1. Real-time ultrasound-guided access into the right internal jugular vein after documentation of selected vessel patency, and permanent image storing in the patient records. 2. Placement of a 6.6 Armenian single-lumen power port. CLINICIAN: Yony Whalen PA-C MEDICATIONS: - Versed 1 mg, Fentanyl 50 mcg, Lidocaine 1% 10 mL SQ -Antibiotics: Ancef 2g -For additional details, please see nursing flowsheet. Complications: None. Estimated blood loss: <5 ml Specimens: None. Contrast: None. Fluoroscopy time: 0.9 min MODERATE SEDATION TIME: 29 min PROCEDURE NOTE: The procedure, risks, benefits, and alternatives were carefully explained to the patient and written informed consent was obtained. The patient was placed supine on the fluoroscopy table. A timeout was performed. The right neck and chest was prepped and draped in usual sterile fashion. Maximum barrier technique was utilized. Local anesthesia was administered to the access site with 1% lidocaine. Under ultrasound guidance, the right internal jugular vein was accessed with a 5 fr micropuncture set. A 0.035 in wire was advanced into the IVC. A peel-away sheath was advanced over the wire and into the SVC, and the wire was removed. Next, subcutaneous lidocaine was administered to the chest. The port pocket was created after the skin incision, utilizing blunt dissection. Using blunt dissection, a subcutaneous tunnel was created that connects from the port pocket to the venotomy site. Through the peel-away sheath, the 6.6 Armenian port catheter was placed. The catheter position was verified with fluoroscopy to be at the superior vena cava/right atrial junction. The port was connected to the catheter and was placed in the pocket. The venotomy site was closed with a 3-0 Vicryl subcutaneous suture. The port incision site was closed with interrupted 3-0 Vicryl subcutaneous sutures and surgical glue. Prior to closing the skin, 1 g of Ancef solution was placed in the pocket. The port was tested, flushed, and packed with heparin per routine protocol. The patient tolerated the procedure well. The patient was stable after the procedure and was transferred to the PACU. The procedure was performed under moderate sedation and with a dedicated nurse with continuous monitoring of vital signs. A permanent image of the ultrasound the neck and fluoroscopic image of the chest was saved and sent to PACS. FINDINGS: 1. Patent right internal jugular vein 2. Placement of a 6.6 Armenian single lumen power port. 3. Port flushes and aspirates very well with a 10 mL syringe. No pneumothorax. IR/IR cvc insert tunnel w prt/color receiver IMPRESSION: Placement of a 6.6 Armenian single-lumen power port. PLAN: - The patient will be discharged home when stable by sedation protocol. - Port may be used immediately. This procedure was performed by Yony Whalen PA-C, and directly supervised by Dr. Johnson Electronically signed by: Lj Johnson MD 05/19/2024 02:10 PM EDT
[2024-05-19 09:44] VITALS: BMI 31.3
[2024-05-19 10:01] LABS: UPreg QC Valid YES; Urine Pregnancy NEGATIVE (NEGATIVE)
[2024-05-19 10:02] VITALS: BP 114/64; PULSE 62; RESP 16; TEMP 36.6; O2SAT 98
--- NOTE | 2024-05-19 10:30 | MHC.SHP ---
Pre-Procedural Eval Section A - 24 Hr Update-Section A only Date of Service: 05/19/24 Section B - Complete if H&P > 30 days Chief Complaint: MALIGNANT NEOPLASM OF LEFT BREAST Details of Present Illness: 43 y/o female with left breast cancer and poor iv access Relevant Family History (Specify if Yes): No Relevant Social History: None Present Medications: see Short Stay Collaborative assessment Medical History: Significant History History of Previous Operations: Relevant previous surgery/procedure and date(s) Allergies: Allergies Allergy/AdvReac Type Severity Reaction Status Date / Time tramadol Allergy Severe Rash Verified 04/25/24 10:02 amoxicillin Allergy Intermediate Diarrhea Verified 04/25/24 10:02 Review of Systems Sugical H&P ROS: Negative: Constitution, Cardiovascular, Respiratory and Integumentary Exam Surgical H&P Exam: Normal: Heart, Normal: Lungs, Normal: Skin and Normal: Neurological Plan 43 y/o female with left breast cancer -Right port Time Spent With Patient Time: Total time managing care of this patient today ____ minutes.
[2024-05-19 11:50] VITALS: BP 101/56; PULSE 60; RESP 16; TEMP 36.2; O2SAT 96
[2024-05-19 12:05] VITALS: BP 109/56; PULSE 56; RESP 16; TEMP 36.2; O2SAT 100
== END 2024-05-19 12:49 | disposition home or self-care (01) ==
PROVIDERS: Physician Assistant Surgical; Student in an Organized Health Care Education/Training Program; PCP Internal Medicine; Visit Provider Internal Medicine
DX: Z45.2 Encounter for adjustment and management of vascular access device (principal); C50.812 Malignant neoplasm of overlapping sites of left female breast
CPT/HCPCS: 36561; 76937; 81025; 99152; 99153; C1769; C1788; J0131; J0690; J1642; J1644; J2003; J2250; J2310; J3010

== ENCOUNTER → 2024-05-19 10:16 | Outpatient (BNV) | payer OTHER, SELFPAY | PROVIDERS: PCP Internal Medicine; Visit Provider Physician Assistant Surgical | DX: C34.92 Malignant neoplasm of unspecified part of left bronchus or lung (principal) | CPT/HCPCS: 36561; 76937; 77001 ==

== ENCOUNTER → 2024-07-13 08:35 | Outpatient (REF) | payer OTHER, SELFPAY ==
--- NOTE | 2024-07-13 08:40 | CA_ITS ---
Transthoracic Echocardiogram Patient (Last, First, Middle): Lisa Nicole E Gender: Female Date of : 1980 Age: 43 Procedure Date: 07/13/2024 Procedure Type: Transthoracic Echocardiogram Location: OP Height: 170.18 cm Weight: 90.72 kg BSA: 2.02 m2 Heart Rate: bpm BP: 106 / 66 mmHg Supervising Airplane Pilot: ANGUS Referring MD: Sunitha Vivas MD Symptoms: Palpitation, patient receiving Adriamycin Study Quality: Adequate ECG Rhythm: Sinus Conclusions: - The left ventricular systolic function is normal. The calculated ejection fraction is 64% by biplane method. - Moderate plaque is seen in the sino tubular ridge. Findings Left Ventricle Normal left ventricular cavity size. There is normal left ventricular wall thickness. The left ventricular systolic function is normal. The calculated ejection fraction is 64% by biplane method. LV peak GLS -20.5%. Great Vessels Moderate plaque is seen in the sino tubular ridge. Venous The inferior vena cava is normal in size and collapses greater than 50% with inspiration. Prior Study Comparison No significant change compared to prior study dated: 05/16/2024. Aorta better visualized in current study. Measurements 2D Linear Measurements IVSd: 0.92 0.6-0.9/0.6-1.0 cm LVIDd: 4.33 3.9-5.3/4.2-5.9 cm LVIDd Index: 2.14 2.4-3.2/2.2-3.1 cm/m2 LVIDs: 2.63 2.0-3.6 cm LVPWd: 0.95 0.7-1.1 cm LA Diam: 3.40 2.7-3.8/3.0-4.0 cm LAIDs Index: 1.68 1.5-2.3 cm/m2 LV Mass: 163.07 67-162/88-224 g LV Mass Index: 80.73 43-95/49-115 g/m2 LVOT Diam: 2.00 3.0+(-)1.3 cm 2D Systolic Function EF 4C: 62.30 >55% EF 2C: 66.60 >55% EF BiP: 64.00 >55% LVOT LVOT Pk Ricardo: 1.38 LVOT Mn Ricardo: 0.93 LVOT VTI: 0.26 LVOT Pk Grad: 8.00 LVOT Mn Grad: 4.00 LVOT Diam: 2.00 LVOT Area: 3.14 Tricuspid Valve RA Press: 3.00 Updated in Other Vendor System with Status of Final Vincent Partida MD electronically signed on 07/15/2024 11:17:52 AM with status of Final
== END ==
LOC: HO.CARD 08:35
PROVIDERS: PCP Internal Medicine; Visit Provider Internal Medicine
DX: R00.2 Palpitations (principal); C50.912 Malignant neoplasm of unspecified site of left female breast
CPT/HCPCS: 93308; 93356

== ENCOUNTER → 2024-07-13 08:40 | Outpatient (BNV) | payer OTHER, SELFPAY | PROVIDERS: PCP Internal Medicine; Visit Provider Internal Medicine | DX: I70.0 Atherosclerosis of aorta (principal); Z79.632 Long term (current) use of antitumor antibiotic | CPT/HCPCS: 93308; 93356 ==

== ENCOUNTER 2024-07-18 08:12 | Outpatient (REF) | payer OTHER, SELFPAY ==
--- NOTE | ~2024-07-18 | US_ITS ---
EXAMINATION: US DIAGNOSTIC ULTRASOUND BREAST, LEFT CLINICAL INFORMATION: Biopsy-proven left breast invasive ductal carcinoma in 2 areas with additional suspicious lesions seen on MRI and prior ultrasound. Patient is having a bilateral mastectomy. Ultrasound to evaluate previously biopsied area of treatment response. COMPARISON: Comparison is made with relevant prior imaging. TECHNIQUE: Ultrasound of the breast is performed with real-time gant scale imaging and color Doppler. FINDINGS: Left: Targeted color Doppler ultrasound scanning at 5:00 2 cm from nipple demonstrates again a hypoechoic oval solid mass measuring 6 x 7 x 4 mm previously measured 7 x 8 x 4 mm not significant changed in size given differences in measuring technique. Targeted color Doppler ultrasound measuring at 2:00 8 cm from the nipple previously biopsied invasive ductal carcinoma today measures 18 x 7 x 9 mm previously measured 12 x 9 x 5 mm. Targeted color Doppler ultrasound at 2:00 10 cm from the nipple demonstrates an irregular hypoechoic shadowing solid mass measuring 16 x 14 x 3 mm previously measuring 16 x 18 x 21 mm minimally decreased in size but difficult to discern given differences in measuring technique and shadowing. At 2:00 15 cm from the nipple the previously biopsied abnormal axillary lymph node currently measures 18 x 15 x 15 mm the changes could be due to postbiopsy changes and effect of marker clip. At 2:00 15 cm from the nipple there is an additional hypoechoic irregular area previously seen which measures 3 x 3 x 2 mm not significantly changed from prior ultrasound. Targeted ultrasound scanning 3 and 4:00 demonstrates normal fibroglandular breast tissue. The suspicious mass seen on prior MRI was not seen today. Results are discussed with the patient at time of visit. US/US breast LT limited mamm only IMPRESSION: Biopsy-proven malignancy 2:00 8 cm from the nipple and 2:00 10 cm from the nipple. Patient is under the care of a breast surgeon and oncology for excision and further management. Patient is scheduled to have bilateral mastectomy. Minimal decreased size of mass at 2:00 10 cm from the nipple. Minimal increased size of mass at 2:00 8 cm from the nipple which could be due to measuring technique and effect of marker clip on the surrounding tissue. Increased size of left axillary lymph node could be effect of marker clip from the surrounding tissue. ASSESSMENT: BI-RADS 6: Known Biopsy-Proven Malignancy RECOMMENDATION: Recommend plan of bilateral mastectomy and follow-up with breast surgery and oncology for further managment. This patient's information was entered into a reminder system with a target due date for their next mammogram. Electronically signed by: Gypsy Benton DO 07/18/2024 10:44 AM ALLISON
== END 2024-07-18 08:13 | disposition home or self-care (01) ==
LOC: HO.MAMMO 08:12
PROVIDERS: PCP Internal Medicine; Visit Provider Internal Medicine
DX: C50.912 Malignant neoplasm of unspecified site of left female breast (principal)
CPT/HCPCS: 76642

== ENCOUNTER → 2024-07-18 08:45 | Outpatient (BNV) | payer OTHER, SELFPAY | PROVIDERS: PCP Internal Medicine; Visit Provider Internal Medicine | DX: C50.412 Malignant neoplasm of upper-outer quadrant of left female breast (principal); Z01.818 Encounter for other preprocedural examination | CPT/HCPCS: 76642 ==

== ENCOUNTER 2024-10-13 08:42 | Outpatient (AMB) | payer OTHER, SELFPAY ==
--- NOTE | 2024-10-13 08:55 | MHC.OFFVIS ---
Vital Signs 10/13/24 08:57 Weight 227 lb BP 104/60 Blood Pressure Location Lt brachial Position Sitting Intake Visit Reasons: Pre surgery Intake Note: Pt states, I'm here to talk about getting a double mastectomy. Painting Manager Required: No Allergies tramadol Allergy (Severe, Verified 09/13/24 11:40) Rash amoxicillin Allergy (Intermediate, Verified 09/13/24 11:40) Diarrhea taxol Allergy (Intermediate, Uncoded 10/13/24 08:56) Rash Medication List - Last Reconciled 10/13/24 by Miguel Herzog RN calcium carbonate-vitamin D3 600 mg-10 mcg (400 unit) (Calcium 600 with Vitamin D3) 1 tab PO BID citalopram 40 mg PO QAM clonazepam 0.5 mg (1/2 x 1 mg) PO TID clonidine HCl 0.3 mg (3 x 0.1 mg) PO TID PRN hydrocortisone 1% 1 appl topical BID Magic Mouthwash Diphen/Lido/Antacid 1:1:1 10 mL PO TID ondansetron 8 mg PO Q8H PRN HPI Comments Details: 43-year-old female patient presenting for evaluation of pain in the left breast and discharge in the right breast. She denies a previous history of breast problems or breast surgery but does have a family history of breast cancer in her paternal grandmother and 2 maternal cousins. She reports complaints of pain and skin dimpling in the left breast at the upper outer quadrant since 09/15/2023 and initially thought that this was due to her bra. The pain seems to be increasing and is associated with swelling of the left breast. She reports whitish discharge from the right nipple usually after taking a shower. The discharge is not spontaneous but requires squeezing of the nipple. She denies any bleeding from the nipple. She is 3 para 1 and breastfed her child (Son, 16 years old) for only a very short period of time. Mammogram and ultrasound performed on 03/10/2024 revealed a left breast spiculated mass with an irregular shape in the upper outer quadrant, 2.8 x 2.0 cm extending to the skin. This was felt to be highly suggestive of malignancy ( BI-RADS 5). A dilated duct on the right side in the 5 o'clock periareolar position was felt to be ductal ectasia and six-month follow-up ultrasound recommended. A separate intraductal papilloma was also identified and biopsy was also recommended of this patient under ultrasound guidance. She underwent ultrasound-guided biopsy on 03/21/2024 at the [facility]. Pathology revealed invasive ductal carcinoma grade 2 including the 2nd lesion with lymphoid and adipose tissue, clinical stage cT4 N1, stage IIIB. She was evaluated by Dr. Vivas and underwent neoadjuvant chemotherapy with Adriamycin/Cytoxan 4 cycles followed by weekly Taxol 12 cycles. She developed a rash to the Taxol. She returns today to discuss her surgical options. She continues to expressed a desire to have bilateral mastectomies. COUNT INCLUDES THE [facility] Medical History Post-operative nausea and vomiting Breast cancer, left Heartburn Anxiety Depression Surgical History Hx of carpal tunnel repair Hx of section History of cholecystectomy Family History Paternal Grandmother Breast cancer Family/Other Breast cancer Other Mental health disorder Substance use disorder Social History Household Members: Family Household Members Other:: 16 year old son and patient's father Housing: House Are you a primary laboratory animal care veterinarian to a significant other at home: Yes Do you presently have visiting nurse or other home services: No Alcohol intake: current Alcohol intake frequency: holidays/special occasions only Patient Tobacco Use Status: Current everyday Tobacco user Tobacco use type: Cigarette Years Smoked: 26 e-Cigarette/Vaping Use: Never Used Second Hand Smoke Exposure: No Substance Use Type: Marijuana Current occupational status: employed and unemployed Sexual orientation: Straight/Heterosexual Gender identity: Female Cognitive needs: No Hearing needs: No Vision needs: No Female Reproductive History Menstrual Age of Menarche: 10 Physical Exam Vital Signs: Last Vital Signs BP 104/60 10/13/24 08:57 Const General: cooperative and no acute distress Nutritional Appearance: well nourished Orientation/consciousness: patient oriented x3 Limitations: no limitations HEENT Head: Yes normocephalic and Yes atraumatic Ears: hearing grossly normal bilaterally Chest Other: Left breast: Residual area of skin dimpling located in the upper outer quadrant with underlying mass measured at least 2 cm in diameter, not apparently fixed to chest wall. Lesion is tender to palpation but no area of redness is noted in the skin. No new skin changes and no palpable lymph nodes. Right breast: No skin change, no nipple retraction, no nipple discharge, no palpable mass, no enlarged lymph nodes Resp Effort & Inspection: normal respiratory effort, no audible wheezes, no cough and no respiratory distress Cardio Jugular venous distension: no JVD GI Inspection: Yes normal to inspection Skin Other: Skin rash noted in both upper and lower extremities and chest wall. Neuro General: patient oriented x3 Extrem General: Yes no clubbing, cyanosis or edema Assessment & Plan Assessment & Plan (1) Invasive ductal carcinoma of left breast: Code(s): C50.912 - Malignant neoplasm of unspecified site of left female breast Category: Medical Plan 43-year-old female patient with a strong family history of breast cancer diagnosed with invasive ductal carcinoma of the left breast, now returning after undergoing neoadjuvant chemotherapy with Adriamycin/Cytoxan 4 cycles followed by Taxol 12 cycles. She developed a skin rash as result of the Taxol. She continues to have a palpable mass with skin changes in the left breast at the upper outer quadrant. We discussed the surgical options including lumpectomy versus mastectomy. She is requesting bilateral mastectomies. I recommended left breast modified radical mastectomy along with a prophylactic right simple mastectomy. After discussion of the procedure, risks, and alternatives, she consents to the surgery. She will be scheduled as a short-stay admit. She expressed understanding and agrees with the plan. Coding Level of Care Code Est Pt Level 4 (08841) Diagnoses Invasive ductal carcinoma of left breast C50.912
[2024-10-13 08:57] VITALS: BP 104/60
--- OUTSIDE RECORDS SUMMARY | 2024-10-13 09:03 | XMS_ITS | Clinical Summary ---
[facility] [address] [place] [address] Care Team Providers Care Youth Accommodation Support Worker Name Role Phone Unavailable Primary Care Provider Unavailabl e Social History Tobacco Use Types Packs/Day Years Used Date Smoking Tobacco: Never Assessed Comments Unknown Sex and Gender Information Value Date Recorded Sex Assigned at Not on file Legal Sex Female 6:24 PM EDT Gender Identity Not on file Sexual Orientation Not on file Plan of Treatment Health Maintenance Due Date Last Done Comments Breast Cancer Screening 1980 DTaP,Tdap,and Td Vaccines (1 - Tdap) 1997 Hepatitis B Vaccines (1 of 3 - 19+ 3-dose series) 1997 Cervical Cancer Screening: P ap Smear 11/09/1999 COVID-19 Vaccine (2023-2 5 season) 2024 Influenza Vaccine (#1) 2024 Colorectal Cancer Screening: Colonoscopy 05/22/2024 Depression Screening 05/22/2024 HIV Screening 05/22/2024 Hepatitis C Screening 05/22/2024 Social Influencers of Health Screening 05/22/2024 HIB Vaccines Aged Out No longer eligi ble based on patient's age to complete this topic HPV Vaccines Aged Out No longer eligi ble based on patient's age to complete this topic Hepatitis A Vaccines Aged Out No long er eligible based on patient's age to complete this topic IPV Vaccines Aged Out No longer eligi ble based on patient's age to complete this topic MMR Vaccines Aged Out No longer eligi ble based on patient's age to complete this topic Meningococcal ACWY Vaccine Aged Out N o longer eligible based on patient's age to complete this topic Meningococcal B Vacine Aged Out No lo nger eligible based on patient's age to complete this topic Pneumococcal Vaccine: Pediat rics (0 to 5 Years) and At-Risk Patients (6 to 64 Years) Aged Out No longer eligible b ased on patient's age to complete this topic RSV Immunization Patients Un el 20 months Aged Out No longer eligible b ased on patient's age to complete this topic Varicella Vaccines Aged Out No longer eligible based on patient's age to complete this topic
== END 2024-10-13 09:17 | disposition home or self-care (01) ==
LOC: HO.HGS 08:43
PROVIDERS: PCP Internal Medicine; Visit Provider Surgery
DX: C50.912 Malignant neoplasm of unspecified site of left female breast (principal)
CPT/HCPCS: 99214

== ENCOUNTER → 2024-10-13 08:42 | Outpatient (BNVA) | payer OTHER, SELFPAY | PROVIDERS: PCP Internal Medicine; Visit Provider Surgery | DX: Z01.818 Encounter for other preprocedural examination (principal); C50.912 Malignant neoplasm of unspecified site of left female breast | CPT/HCPCS: 99212 ==

== ENCOUNTER 2024-11-02 06:30 | Inpatient (IN) | payer OTHER, SELFPAY ==
[2024-10-25 13:12] VITALS: BP 116/55; PULSE 82; RESP 20; O2SAT 98; BMI 34.3
--- NOTE | 2024-10-25 13:25 | P.CONAN_ITS ---
Documented by User: Linette Carcamo NP 10/25/24 13:37 HPI - Anesthesia Eval Consult details Narrative: 43yo F for Left Mastectomy Modified Radical, Right Mastectomy Simple, 11/02/24 No recent illness. Seasonal allergies tx'd with benadryl No CP/SOB with daily activities. Some limitation with all over pain post chemo Port in situ: Right side. Last chemo 10/04/24 PONV: Will try scop patch PMFSH Active Problems Active Problems: All Active Problems Invasive ductal carcinoma of left breast (Chronic) Breast cancer, left (Acute) Abnormal mammogram (Acute) Nipple discharge (Acute) Animal bite of finger (Acute) COVID-19 (Acute) Depression (Acute) Past Medical History Medical History Muscle pain Port-A-Cath in place Post-operative nausea and vomiting Breast cancer, left Heartburn Anxiety Depression Family History Family History Paternal Grandmother Breast cancer Family/Other Breast cancer Other Mental health disorder Substance use disorder Family history of problems with anesthesia: No Surgical History Surgical History Hx of dilation and curettage Hx of carpal tunnel repair Hx of section History of cholecystectomy History of Problems with Anesthesia: Yes (PONV) Social History Social History Household Members: Family Household Members Other:: 16 year old son and patient's father Housing: House Are you a primary long term care social worker to a significant other at home: Yes (minor son) Do you presently have visiting nurse or other home services: No Alcohol intake: current Alcohol intake frequency: does not drink Patient Tobacco Use Status: Current everyday Tobacco user Tobacco use type: Cigarette Cigarettes Per Day: 6 Years Smoked: 17 e-Cigarette/Vaping Use: Never Used Patient Interested in Nicotine Replacement: Yes Second Hand Smoke Exposure: No Use of substances other than those prescribed or required for medical reasons: No Substance Use Type: Marijuana Have you been hit, kicked, punched, or otherwise hurt by someone within the past year? If so, by whom?: No Spiritual Healthcare Practices: none Nondenominational Healthcare Practices: none Cultural Healthcare Practices: none Are you DNR?: No Advance Directives: Yes Advance Directives Information Provided: Yes Advance Directives on File: Yes Advance Directives Date on File: 05/20/24 Patient : No (no menses since 04/2024 due to chemo.) FDLMP: 04/2024 : No Poor oral hygiene: No (2 extracted teeth lower right molars) Current occupational status: employed and unemployed Sexual orientation: Straight/Heterosexual Gender identity: Female Cognitive needs: No Hearing needs: No Vision needs: No Meds Allergies Allergy/AdvReac Type Severity Reaction Status Date / Time adhesive tape Allergy Severe adh.medical Verified 11/02/24 06:46 tape, steri strips, tegaderm-rash paclitaxel [From Taxol] Allergy Severe Rash Verified 11/02/24 06:46 tramadol Allergy Severe Rash Verified 11/02/24 06:46 amoxicillin AdvReac Intermediate Diarrhea Verified 11/02/24 06:46 Home Medications ?Medication ?Instructions ?Recorded ?Confirmed ?Last Taken ?Type citalopram 40 mg tablet 40 mg PO QAM 04/25/24 11/02/24 11/02/24 History clonazepam 1 mg tablet 0.5 mg PO BID 10/25/24 11/02/24 11/02/24 History clonidine HCl 0.1 mg tablet 0.3 mg PO BID anxiety 10/25/24 11/02/24 11/02/24 History diphenhydramine HCl 25 mg capsule 25 mg PO BEDTIME 10/25/24 11/02/24 Unknown History (Benadryl) melatonin 10 mg chewable tablet 30 mg PO BEDTIME 10/25/24 11/02/24 Unknown History Exam Height,Weight and Vital Signs: Height 5 ft 7 in Weight 99.337 kg Last Vital Signs Pulse 82 10/25/24 13:12 Resp 20 10/25/24 13:12 BP 116/55 L 10/25/24 13:12 Pulse Ox 98 10/25/24 13:12 O2 Del Method Room Air 10/25/24 13:12 Pertinent Lab Results Pertinent Lab Results: Laboratory Tests 10/04/24 11:12 WBC 6.4 Hgb 12.1 Hct 36.6 L Plt Count 210 Sodium 138 Potassium 3.9 Chloride 106 Carbon Dioxide 25 BUN 8 L Creatinine 0.89 Narrative Narrative: ECHO 2023 Conclusions: - The left ventricular systolic function is normal. The calculated ejection fraction is 64% by biplane method. - Moderate plaque is seen in the sino tubular ridge. Airway Mallampati Class: II TM Dist: >3cm Neck ROM: Full Loose/Missing/Broken Teeth: Yes (2 missing right molars) Heart: RRR Lungs: CTAB Assessment and Plan Assessment Anesthesia Assessment: Anesthesia Plan Discussed and PAT Visit Final Anesthetic Review Family History of Problems with Anesthesia: No History of Problems with Anesthesia: Yes (PONV) Documented by User: Malia Leon MD 11/02/24 10:05 [facility] Past Medical History Medical History Muscle pain Port-A-Cath in place Post-operative nausea and vomiting Breast cancer, left Heartburn Anxiety Depression Family History Family History Paternal Grandmother Breast cancer Family/Other Breast cancer Other Mental health disorder Substance use disorder Surgical History Surgical History Hx of dilation and curettage Hx of carpal tunnel repair Hx of section History of cholecystectomy Social History Social History Household Members: Family Household Members Other:: 16 year old son and patient's father Housing: House Are you a primary long term care social worker to a significant other at home: Yes (minor son) Do you presently have visiting nurse or other home services: No Alcohol intake: current Alcohol intake frequency: does not drink Patient Tobacco Use Status: Current everyday Tobacco user Tobacco use type: Cigarette Cigarettes Per Day: 6 Years Smoked: 17 e-Cigarette/Vaping Use: Never Used Patient Interested in Nicotine Replacement: Yes Second Hand Smoke Exposure: No Use of substances other than those prescribed or required for medical reasons: No Substance Use Type: Marijuana Have you been hit, kicked, punched, or otherwise hurt by someone within the past year? If so, by whom?: No Spiritual Healthcare Practices: none Nondenominational Healthcare Practices: none Cultural Healthcare Practices: none Are you DNR?: No Advance Directives: Yes Advance Directives Information Provided: Yes Advance Directives on File: Yes Advance Directives Date on File: 05/20/24 Patient : No (no menses since 04/2024 due to chemo.) FDLMP: 04/2024 : No Poor oral hygiene: No (2 extracted teeth lower right molars) Current occupational status: employed and unemployed Sexual orientation: Straight/Heterosexual Gender identity: Female Cognitive needs: No Hearing needs: No Vision needs: No Meds Allergies Allergy/AdvReac Type Severity Reaction Status Date / Time adhesive tape Allergy Severe adh.medical Verified 11/02/24 06:46 tape, steri strips, tegaderm-rash paclitaxel [From Taxol] Allergy Severe Rash Verified 11/02/24 06:46 tramadol Allergy Severe Rash Verified 11/02/24 06:46 amoxicillin AdvReac Intermediate Diarrhea Verified 11/02/24 06:46 Home Medications ?Medication ?Instructions ?Recorded ?Confirmed ?Last Taken ?Type citalopram 40 mg tablet 40 mg PO QAM 04/25/24 11/02/24 11/02/24 History clonazepam 1 mg tablet 0.5 mg PO BID 10/25/24 11/02/24 11/02/24 History clonidine HCl 0.1 mg tablet 0.3 mg PO BID anxiety 10/25/24 11/02/24 11/02/24 History diphenhydramine HCl 25 mg capsule 25 mg PO BEDTIME 10/25/24 11/02/24 Unknown History (Benadryl) melatonin 10 mg chewable tablet 30 mg PO BEDTIME 10/25/24 11/02/24 Unknown History Assessment and Plan Final Anesthetic Review NPO: Yes ASA Class: III Final Preanesthetic Review: No Changes in Pt Med Stat, Meds/Allgs Chart Reviewed, Consent Obtained/Reviewed and Anes Risks/Benef Reviewed Patient Risk: Intermediate Procedure Risk: Intermediate Anesthetic Plan Anesthetic Plan: GA, Regional Block and Agree w/ Assess. and Plan Disposition: Standard PACU
[2024-11-02] VITALS (10 sets, daily range): BP systolic 112–145; BP diastolic 55–72; PULSE 79–93; RESP 12–18; TEMP 36.1–36.8; O2SAT 95–100; BMI 34.1
--- OUTSIDE RECORDS SUMMARY | 2024-11-02 06:37 | XMS_ITS | Clinical Summary ---
Author Organization [facility] Address [address] [place] [address] Care Team Providers Care Sight Effects Specialist Name Role Phone Unavailable Primary Care Provider [...] age to complete this topic Meningococcal B Vaccine Aged Out No l onger eligible based on patient's age to complete [...]
[2024-11-02 06:45] LABS: UPreg QC Valid YES; Urine Pregnancy NEGATIVE (NEGATIVE)
[2024-11-02] MEDS: Scopolamine 1.5 MG PATCH.TD.3 TRANSDERMA (06:58)
--- NOTE | 2024-11-02 07:05 | PHA.MEDREC ---
Addendum entered by Zora Wright [facility] 11/02/24 13:47: went to confirm with patient that she is on 30 mg of melatonin Original Note: Pharmacy Consult ? Medication Reconciliation Pharmacy has reviewed the medication reconciliation done by RN.
[2024-11-02] MEDS: Lactated Ringers 1,000 ML 100 ML IVCONT ×2 (07:09→16:11)
--- NOTE | 2024-11-02 07:31 | PC.NURSE ---
Patient arrived to preop. Right chest PortACath in place. Patient requests that port is NOT accessed by surgical team, I only let the chemo nurses access this port . Dr. Leon made aware. IV placed in right hand.
--- NOTE | 2024-11-02 07:38 | P.HPSUR_ITS ---
Pre-Procedural Eval Section A - 24 Hr Update-Section A only Date of Service: 11/02/24 The patient is an INPATIENT: No Changes since office visit: No Cold of Flu in the past 2 weeks, No New Medical Problems, No Changes in Medication and No Patient answered all questions The patient has been examined within 24 hours of the surgical procedure. The History & Physical has been completed within 30 days and I have reviewed it.: No Section B - Complete if H&P > 30 days Chief Complaint: left breast invasive ductal carcinoma Details of Present Illness: no change in symptoms Relevant Family History (Specify if Yes): Yes Relevant Social History: None Present Medications: see Short Stay Collaborative assessment Medical History: No relevant PMH History of Previous Operations: No relevant previous surgery Allergies: Allergies Allergy/AdvReac Type Severity Reaction Status Date / Time adhesive tape Allergy Severe adh.medical Verified 11/02/24 06:46 tape, steri strips, tegaderm-rash paclitaxel [From Taxol] Allergy Severe Rash Verified 11/02/24 06:46 tramadol Allergy Severe Rash Verified 11/02/24 06:46 amoxicillin AdvReac Intermediate Diarrhea Verified 11/02/24 06:46 Review of Systems Sugical H&P ROS: Negative: Constitution, Cardiovascular, Respiratory, Neurological, Psychiatric, Hem-Onc, Allergic/Immunologic, Gastrointestinal, Zaynab tourinary, Musculoskeletal, Integumentary, Endocrine and Eyes/Ears/Nose/Throat Exam Surgical H&P Exam: Normal: HEENT, Normal: Heart, Normal: Lungs, Normal: Extremities, Normal: Abdomen, Normal: Skin and Normal: Neurological Plan Diagnosis/Plan: Unchanged I have reviewed the history and physical and performed a pertinent physical examination on my patient. No changes have occurred unless specified. Time Spent With Patient Time: Total time managing care of this patient today ____ minutes.
[2024-11-02] MEDS: ceFAZolin Sodium/Dextrose,Iso 2 GM/50 ML PIGGYBACK IV (07:45)
[2024-11-02] MEDS: Acetaminophen 1,000 MG/100 ML PIGGYBACK 400 MG IV ×3 (07:51→20:20)
--- NOTE | 2024-11-02 12:13 | PM.OP ---
Brief Operative Note Date of Service: 11/02/24 Pre-op diagnosis: Left breast invasive ductal ca with mets to lymph node Post-op diagnosis: same Procedure: Left modified radical mastectomy, right simple mastectomy Implants: none Surgeon: Jason Guevara MD Anesthesia: GLMA Was an Aircraft Structural Repairer used for this Procedure?: No Aircraft Structural Repairer: Gema Alcantar Estimated blood loss (mL): 50 Pathology: other (bilateral mastectomy, left axillary node dissection) Condition: stable Disposition: PACU Complications (if any): none
[2024-11-02] MEDS: oxyCODONE HCl Immed Release 5 MG TABLET 10 MG PO ×2 (13:37→18:59)
--- NOTE | 2024-11-02 13:43 | W.PM.OPN ---
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 She underwent neoadjuvant chemotherapy and presents now for definitive surgical procedure. Operative findings: Large palpable mass noted in the upper outer quadrant left breast. Multiple palpable lymph nodes noted in the left axilla. Specimen: Left mastectomy and axillary node dissection, right simple mastectomy Estimated blood loss: 20 mL Complications: None Procedure details: ERAS protocol was followed Patient was brought to the OR and placed in a supine position. After administering general anesthesia the patient's bilateral breasts were prepped with ChloraPrep and draped in a sterile fashion. A surgical time-out was called the consent confirmed. Patient received preoperative antibiotics and Venodyne boots were in place. Beginning in the left breast an elliptical incision was made to include the nipple and large palpable mass in the upper outer quadrant with the margin of normal skin beyond the tumor. Superior and inferior skin flaps were then created using electrocautery extending the superior skin flap up to the clavicle in the inferior flap down to the lower costal margin. The breast was then dissected off the chest wall beginning superior and medial to lateral inferior using electrocautery. Hemostasis was assured at all times using electrocautery. Dissection was continued laterally up into the axilla. Destiny's nodes were dissected off of the chest wall in the dissection continued around the pectoralis minor muscle. The axillary vein was identified and tissue surrounding this vessel preserved to maintain drainage for the left arm. Level 1 and 2 axillary lymph nodes were dissected taking care to preserve the intercostal brachial, long thoracic and thoracodorsal nerves. The remainder of the breast tissue was then excised using electrocautery and the specimen removed. Hemostasis was again assured using electrocautery. Wounds were irrigated with saline solution and suctioned dry. Two Bradly-De Jesus drains were placed 1 into the lower chest wall and the 2nd into the axilla. These were secured using a 3-0 nylon suture. Skin was then reapproximated using interrupted 3-0 nylon sutures in dermis followed by running subcuticular 4-0 Polysorb suture. Dermabond was then applied followed by 4 x 4 gauze and Tegaderm. Attention was then directed to the right breast where again an elliptical incision was made to include the nipple extending transversely. Superior and inferior skin flaps were then created using electrocautery dissecting superiorly up to the clavicle and inferiorly to the lower costal margin. The breast tissue was then dissected off the chest wall using electrocautery from medial superior to lateral inferior. The dissection was continued up to but not including axillary tissue. Specimen was then removed and sent to pathology for further examination. Hemostasis was assured at all times using electrocautery. Several larger vessels were ligated using free ties of 3-0 Polysorb suture. Wounds were then irrigated with saline solution and suctioned dry. A single Bradly-De Jesus drain was then placed in the lower skin flap. This was secured to the skin using a 3-0 nylon suture. Dermis was then reapproximated using interrupted 3-0 Polysorb sutures. Skin was closed using a running subcuticular 4-0 Polysorb suture. Dermabond was then applied followed by 4 x 4 gauze and Tegaderm. The patient tolerated the procedure well. Sponge, instrument, and needle counts reported as correct. The patient was transferred to PACU in stable condition. Breast Axillary Dissection Resection was performed within the boundaries of the axillary vein, chest wall (serratus anterior), and latissimus dorsi: Yes The long thoracic and thoracodorsal nerves were spared during dissection: Yes Attempts were made to spare the intercostobrachial nerves during dissection if possible: Yes If one or more level III nodes is/are removed, then document why: n/a Procedure performed with curative intent?: Yes General Surg. - Synoptic Notes Breast Axillary Dissection Resection was performed within the boundaries of the axillary vein, chest wall (serratus anterior), and latissimus dorsi: Yes The long thoracic and thoracodorsal nerves were spared during dissection: Yes Attempts were made to spare the intercostobrachial nerves during dissection if possible: Yes If one or more level III nodes is/are removed, then document why: n/a Procedure performed with curative intent?: Yes
[2024-11-02] MEDS: Melatonin 3 MG TABLET 30 MG PO (20:44)
[2024-11-02] MEDS: cloNIDine HCL 0.1 MG TABLET 0.3 MG PO (20:45)
[2024-11-02] MEDS: clonazePAM 0.5 MG TABLET PO (20:47)
[2024-11-02] MEDS: Nicotine 21 MG PATCH.TD24 TRANSDERMA (20:48)
[2024-11-02] MEDS: diphenhydrAMINE HCL 25 MG CAPSULE PO (20:53)
[2024-11-03] MEDS: Acetaminophen 1,000 MG/100 ML PIGGYBACK 400 MG IV ×4 (02:00→20:28)
[2024-11-03] MEDS: oxyCODONE HCl Immed Release 5 MG TABLET 10 MG PO ×3 (02:00→20:24)
[2024-11-03 05:56] LABS: MANUAL DIFF FLAG NO
[2024-11-03 06:01] LABS: Basophils Percent Auto 0.1 % (0-2); Eosinophils Percent Auto 0.1 % (0-4); Hematocrit 29.9 % (37.0-47.0); Hemoglobin 10.1 g/dl (12.0-16.0); Imm Gran Abs Auto 0.06 X10*3/uL (0.00-0.03); Imm Gran Pct Auto 0.4 % (0.0-0.4); Lymphocytes Absolute Auto 1.6 X10*3/uL (1.2-4.9); Lymphocytes Percent Auto 11.7 % (20-40); Mean Corpuscular HGB Conc 33.8 g/dl (31.0-35.0); Mean Corpuscular Hemoglobin 32.2 pg (27.0-33.0); Mean Corpuscular Volume 95.2 fL (80.0-98.0); Mean Platelet Volume 10.3 fL (9.4-12.3); Monocytes Absolute Auto 1.2 X10*3/uL (0.1-1.2); Monocytes Percent Auto 8.4 % (2-11); Neutrophils Absolute Auto 11.1 x10*3/uL (2.0-8.3); Neutrophils Percent Auto 79.3 % (45-73); Platelet Count 208 X10*3/uL (160-400); Red Blood Count 3.14 X10*6/uL (4.20-5.50); Red Cell Distribution Width 13.3 % (11.0-16.0)
[2024-11-03] MEDS: Lactated Ringers 1,000 ML 100 ML IVCONT (06:04)
[2024-11-03 06:10] LABS: Anion Gap 11 (12-20); Blood Urea Nitrogen 11 mg/dL (9-16); Calcium 8.7 mg/dL (8.4-10.2); Carbon Dioxide 25 mmol/L (22-29); Chloride 106 mmol/L (96-108); Creatinine Clr Calc Pharmacy 114.3; Estimated Glomerular Filt Rate > 60; Glucose Fasting 131 mg/dL (60-99); Potassium 4.8 mmol/L (3.3-5.1); Sodium 137 mmol/L (135-145)
--- NOTE | 2024-11-03 06:38 | PM.PNGS ---
Subjective Subjective Date of Service: 11/03/24 <Archie Pretty - Last Filed: 11/03/24 07:24> 11/03/24 <Jason Guevara MD - Last Filed: 11/03/24 08:13> Interval history: No overnight events. Ijeoma is doing well this morning s/p bilateral mastectomy. She reports diffuse chest pain, left > right, which is non-radiating and well-controlled with current pain regimen. She reports mild nausea, well-managed with scopolamine patch, no emesis. Tolerating PO solids and liquids. Ambulating out of bed without syncope or weakness. Drain output: R breast SIN drain: 10 mL serosanguinous L breast SIN drains (two) draining serosanguinous fluid, 15 and 30 mL <Archie Pretty - Last Filed: 11/03/24 07:24> Physical Exam Vital Signs: Vital Signs: Last Vital Signs Temp 97.0 F 11/02/24 23:36 Pulse 79 11/02/24 23:36 Resp 16 11/02/24 23:36 BP 112/55 L 11/02/24 23:36 Pulse Ox 95 11/02/24 23:36 O2 Del Method Room Air 11/02/24 23:36 O2 Flow Rate 4 11/02/24 12:24 BMI result Body Mass Index 34.1 <Archie Pretty - Last Filed: 11/03/24 07:24> Const: General: comfortable and no acute distress <Archie Pretty - Last Filed: 11/03/24 07:24> Orientation/consciousness: patient oriented x3 <Archie Pretty - Last Filed: 11/03/24 07:24> Chest: Other: diffuse TTP, L > R Incision bandages clean and dry SIN drains in place, all 3 draining serosanguinous fluid no erythema no rashes noted <Archie Pretty - Last Filed: 11/03/24 07:24> Resp: Effort & Inspection: normal respiratory effort and able to speak in complete sentences <Archie Pretty - Last Filed: 11/03/24 07:24> Auscultation: clear to auscultation bilaterally <Archie Denneyt - Last Filed: 11/03/24 07:24> Cardio: Rate: regular rate <Archie Sukhwinder - Last Filed: 11/03/24 07:24> Rhythm: regular rhythm <[facility] Last Filed: 11/03/24 07:24> Heart sounds: S1 normal heart sound present and S2 normal heart sound present <[facility] Last Filed: 11/03/24 07:24> GI: Inspection: Yes normal to inspection <[facility] Last Filed: 11/03/24 07:24> Palpation (GI): Soft to palpation and No hepatosplenomegaly present <[facility] Last Filed: 11/03/24 07:24> Skin: General skin exam: no rashes or lesions noted <[facility] Last Filed: 11/03/24 07:24> Neuro: Other: sensation to soft intact bilateral all extremities moving all extremities spontaneously <[facility] Last Filed: 11/03/24 07:24> General: patient oriented x3 <[facility] Filed: 11/03/24 07:24> Motor exam (neuro): Normal motor muscle tone present throughout <[facility] Filed: 11/03/24 07:24> Extrem: Other: no pedal edema <[facility] Last Filed: 11/03/24 07:24> Objective Data Active Medications Calcium Carbonate (Calcium Carbonate 750 Mg Tab.Chew) 750 mg PO Q4H PRN PRN Reason: Heartburn Clonazepam (Clonazepam 0.5 Mg Tablet) 0.5 mg PO BID [facility] Last Admin: 11/02/24 20:47 Dose: 0.5 mg Documented By: DIXIE Clonidine HCl (Clonidine Hcl 0.1 Mg Tablet) 0.3 mg PO BID [facility]; Protocol Last Admin: 11/02/24 20:45 Dose: 0.1 mg Documented By: DIXIE Comments: pt states she only takes 0.1 mg bid Diphenhydramine HCl (Diphenhydramine Hcl 25 Mg Capsule) 25 mg PO BEDTIME [facility] Last Admin: 11/02/24 20:53 Dose: 25 mg Documented By: DIXIE Escitalopram Oxalate (Escitalopram Oxalate 20 Mg Tablet) 20 mg PO DAILY [facility] Hydrocortisone (Hydrocortisone 1 % Cream 28.35 Gm Tube) 1 appl TOPICAL BID [facility] Last Admin: 11/03/24 00:10 Dose: Not Given Documented By: LUCIAN Non-Admin Reason: Patient Refused Hydromorphone HCl (Hydromorphone Hcl 0.5 Mg/0.5 Ml Syringe) 0.5 mg IVPUSH Q3H PRN; Protocol PRN Reason: Pain, Severe (Pain Scale 7-10) Lactated Ringer's (Lr) 1,000 mls @ 100 mls/hr IVCONT .Q10H [facility] Last Admin: 11/03/24 06:04 Dose: 100 mls/hr Documented By: DIXIE Acetaminophen (Ofirmev) 1,000 mg in 100 mls @ 400 mls/hr IV Q6H [facility] Last Admin: 11/03/24 02:00 Dose: 400 mls/hr Documented By: DIXIE Lidocaine/Diphenhydr/Alum/Mg/Simeth (Mag&Al/Sim/Diphenhyd/Lidocaine 10 Ml Oral.Susp) 10 ml PO TID PRN PRN Reason: Mouth Sore Pain Melatonin (Melatonin 3 Mg Tablet) 30 mg PO BEDTIME [facility] Last Admin: 11/02/24 20:44 Dose: 9 mg Documented By: DIXIE Comments: pt states she takes 9 mg not 30 mg Nicotine (Nicotine 21 Mg Patch.Td24) 21 mg TRANSDERMA DAILY [facility] Last Admin: 11/02/24 20:48 Dose: 21 mg Documented By: DIXIE Ondansetron HCl (Ondansetron Hcl 4 Mg/2 Ml Vial) 4 mg IVPUSH Q6H PRN PRN Reason: Nausea and Vomiting Oxycodone HCl (Oxycodone Hcl Immed Release 5 Mg Tablet) 10 mg PO Q4H PRN PRN Reason: Pain, Moderate(Pain Scale 4-6) Last Admin: 11/03/24 02:00 Dose: 10 mg Documented By: DIXIE <Archie Pretty - Last Filed: 11/03/24 07:24> Labs CBC & Chem 7: 11/03/24 05:10 11/03/24 05:10 <Archie Pretty - Last Filed: 11/03/24 07:24> Labs: Laboratory Results - last 24 hr 11/02/24 11/02/24 11/03/24 06:33 06:44 05:10 MCV 95.2 MCH 32.2 MCHC 33.8 RDW 13.3 Plt Count 208 MPV 10.3 Immature Gran % (Auto) 0.4 Neut % (Auto) 79.3 H Lymph % (Auto) 11.7 L R[place] % (Auto) 8.4 Eos % (Auto) 0.1 Baso % (Auto) 0.1 Lymph # (Auto) 1.6 [place] # (Auto) 1.2 Eos # (Auto) 0.0 Baso # (Auto) 0.0 Abs Immat Gran (auto) 0.06 H Absolute Neuts (auto) 11.1 H Absolute Nucleated RBC 0.000 Nucleated RBC % (auto) 0.0 Anion Gap 11 L Estim Creat Clear Calc 114.3 Estimated GFR > 60 Fasting Glucose 131 H Calcium 8.7 Urine Test NEGATIVE Blood Type B Positive Antibody Screen NEGATIVE <Archie Pretty - Last Filed: 11/03/24 07:24> Procedures Date of Service Date of Service: 11/03/24 <Archie Pretty - Last Filed: 11/03/24 07:24> 11/03/24 <Jason Guevara MD - Last Filed: 11/03/24 08:13> Progress Note: A&P Assessment and plan (1) Invasive ductal carcinoma of left breast: Status: Acute <Archie Pretty - Last Filed: 11/03/24 07:24> Assessment and Plan: Lisa is POD 1 from Left modified radical mastectomy, right simple mastectomy. She is doing well, with expected surgical site pain. Tolerating PO intake, ambulating to restroom. SIN drains draining serosanguinous fluid b/l. Continue drains, antibiotics, pain regimen. She is vitally stable, with slight WBC elevation most likely elevated due to surgical stress. Encouraged IS use at least 10 times per hour. Lavelle Pretty KAT <Archie Pretty - Last Filed: 11/03/24 07:24> Lisa is POD 1 from Left modified radical mastectomy, right simple mastectomy. She is doing well, with expected surgical site pain. Tolerating PO intake, ambulating to restroom. SIN drains draining serosanguinous fluid b/l. Continue drains, antibiotics, pain regimen. She is vitally stable, with slight WBC elevation most likely elevated due to surgical stress. Encouraged IS use at least 10 times per hour. Lavelle Pretty MSTori Patient seen and examined independently. POD 1 following left modified radical mastectomy and right simple mastectomy. Initially the patient developed a clot in the SIN on the right side with a is a subsequently let loose and she had a marked increase in drainage from the right side of serosanguineous output of approximately 360 mL. The left drains are more serous or light serosanguineous output. Examination of the chest wall reveals no evidence of hematoma. Patient has adequate pain control this morning but has required Dilaudid p.r.n.. She will need continued hospitalization for pain control. <Jason Guevara MD - Last Filed: 11/03/24 08:13> Time Spent With Patient Time: Total time managing care of this patient today ____ minutes. <Archie Pretty - Last Filed: 11/03/24 07:24> Quality Stroke Does the patient have a stroke diagnosis?: No <Jason Guevara MD - Last Filed: 11/03/24 08:13> VTE Prior VTE?: No <Jason Guevara MD - Last Filed: 11/03/24 08:13> VTE Risk Level:: Surgical - moderate <Jason Guevara MD - Last Filed: 11/03/24 08:13> VTE Device Contraindication: N/A - Device Ordered <Jason Guevara MD - Last Filed: 11/03/24 08:13> VTE Drug Contraindication: Treatment Not Tolerated <Jason Guevara MD - Last Filed: 11/03/24 08:13>
[2024-11-03 07:31] VITALS: BP 128/59; PULSE 85; RESP 16; TEMP 36.7; O2SAT 96
[2024-11-03] MEDS: HYDROmorphone HCl 0.5 MG/0.5 ML SYRINGE IVPUSH ×3 (09:09→23:36)
--- NOTE | 2024-11-03 09:10 | HO.POSTANES ---
Post Anesthesia Evaluation Post Anesthesia Evaluation Date of Service: 11/03/24 Vital Signs: Vital Signs Temp Pulse Resp BP Pulse Ox O2 Del Method 11/03/24 07:31 98.0 F 85 16 128/59 L 96 Room Air 11/02/24 23:36 97.0 F 79 16 112/55 L 95 Room Air Anesthesia: General Endotracheal-GETA Mental Status: Awake Pain Control: Satisfactory Nausea/Vomiting: None Hydration: Adequate Anesthesia-Related Issues: No Anes. Related Issues
[2024-11-03] MEDS: Docusate Sodium 100 MG CAPSULE PO (09:18)
[2024-11-03] MEDS: clonazePAM 0.5 MG TABLET PO ×2 (09:18→20:27)
--- NOTE | 2024-11-03 09:18 | MHC.CM.PN ---
Addendum entered by Deonna Ybarra 11/03/24 09:40: CLARIFICATION: L RADICAL MASTECTOMY AND A R MASTECTOMY Original Note: S/P Left Mastectomy Patient lives with her father and son. She is independent with all functional mobility. No services or DME HCP is on file. 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 She declines home services. DP Home self care, private transport.
[2024-11-03] MEDS: Escitalopram Oxalate 20 MG TABLET PO (09:19)
[2024-11-03] MEDS: cloNIDine HCL 0.1 MG TABLET 0.3 MG PO ×2 (09:20→20:23)
[2024-11-03] MEDS: Nicotine 21 MG PATCH.TD24 TRANSDERMA (09:22)
[2024-11-03 15:42] VITALS: BP 113/56; PULSE 98; RESP 20; TEMP 36.6; O2SAT 98
[2024-11-03 19:34] VITALS: BP 123/60; PULSE 96; RESP 20; TEMP 36.5; O2SAT 95
[2024-11-03 20:23] VITALS: BP 138/66
[2024-11-03] MEDS: Melatonin 3 MG TABLET 30 MG PO (20:26)
[2024-11-03] MEDS: diphenhydrAMINE HCL 25 MG CAPSULE PO (20:27)
[2024-11-03 23:19] VITALS: BP 115/56; PULSE 88; RESP 16; TEMP 36.1; O2SAT 95
[2024-11-04] MEDS: Acetaminophen 1,000 MG/100 ML PIGGYBACK 400 MG IV ×4 (02:20→19:49)
[2024-11-04] MEDS: oxyCODONE HCl Immed Release 5 MG TABLET 10 MG PO ×6 (02:33→23:46)
[2024-11-04 05:41] LABS: MANUAL DIFF FLAG NO
[2024-11-04 05:46] LABS: Basophils Absolute Auto 0.1 X10*3/uL (0.0-0.2); Basophils Percent Auto 0.8 % (0-2); Eosinophils Absolute Auto 0.2 X10*3/uL (0.0-0.4); Eosinophils Percent Auto 2.7 % (0-4); Hematocrit 24.1 % (37.0-47.0); Hemoglobin 7.8 g/dl (12.0-16.0); Imm Gran Abs Auto 0.02 X10*3/uL (0.00-0.03); Imm Gran Pct Auto 0.3 % (0.0-0.4); Lymphocytes Absolute Auto 1.7 X10*3/uL (1.2-4.9); Lymphocytes Percent Auto 24.4 % (20-40); Mean Corpuscular HGB Conc 32.4 g/dl (31.0-35.0); Mean Corpuscular Hemoglobin 31.8 pg (27.0-33.0); Mean Corpuscular Volume 98.4 fL (80.0-98.0); Mean Platelet Volume 10.3 fL (9.4-12.3); Monocytes Absolute Auto 0.7 X10*3/uL (0.1-1.2); Monocytes Percent Auto 9.6 % (2-11); Neutrophils Absolute Auto 4.4 x10*3/uL (2.0-8.3); Neutrophils Percent Auto 62.2 % (45-73); Platelet Count 170 X10*3/uL (160-400); Red Blood Count 2.45 X10*6/uL (4.20-5.50); Red Cell Distribution Width 13.2 % (11.0-16.0); White Blood Count 7.1 X10*3/uL (4.8-10.8)
--- NOTE | 2024-11-04 06:48 | PM.PNGS ---
Subjective Subjective Date of Service: 11/04/24 <Archie Pretty - Last Filed: 11/04/24 07:04> 11/04/24 <Gema Alcantar PA-C - Last Filed: 11/04/24 07:52> 11/04/24 <Jason Guevara MD - Last Filed: 11/04/24 10:13> Interval history: No overnight events. Lisa reports mildly increased chest pain, left worse than right, since yesterday, though pain is tolerable with current pain regimen of Dilaudid. Tolerating po intake, ambulating to restroom, voiding clear urine. She admits to passing flatus but denies having BM since surgery. Denies dyspnea, chest tightness, palpitations, abdominal pain, weakness or syncope. She is nervous about being discharged with drains still in place. Right SIN drained 355 mL over last 24 hrs. Few clots with ~30 mL serosanguinous drainage in tube and bulb, though clearer than yesterday. Left drains drainign serosanginous fluid, clearer than yesterday. ~ 45 mL in L inferior/anterior and ~20-25 mL in L lateral drain and bulb. <Archie Pretty - Last Filed: 11/04/24 07:04> Physical Exam Vital Signs: Vital Signs: Last Vital Signs Temp 97.0 F 11/03/24 23:19 Pulse 88 11/03/24 23:19 Resp 16 11/03/24 23:19 BP 115/56 L 11/03/24 23:19 Pulse Ox 95 11/03/24 23:19 O2 Del Method Room Air 11/03/24 23:19 O2 Flow Rate 4 11/02/24 12:24 BMI result Body Mass Index 34.1 <Archie Sukhwinder - Last Filed: 11/04/24 07:04> Const: General: no acute distress <Archie Sukhwinder - Last Filed: 11/04/24 07:04> Orientation/consciousness: patient oriented x3 <Archie Sukhwinder Last Filed: 11/04/24 07:04> Eyes: Sclerae: sclerae normal <Archie Sukhwinder - Last Filed: 11/04/24 07:04> EOM: EOMs intact bilaterally <Archie Sukhwinder - Last Filed: 11/04/24 07:04> Chest: Other: Diffuse TTP incisions with dry, clean bandages bilaterally. SIN drain in place on R chest SIN drains (two) in place on L chest Binder in place no surrounding erythema, ecchymosis or induration. <[facility] - Last Filed: 11/04/24 07:04> Resp: Effort & Inspection: able to speak in complete sentences and abnormal respiratory pattern <[facility] - Last Filed: 11/04/24 07:04> Auscultation: clear to auscultation bilaterally <[facility] - Last Filed: 11/04/24 07:04> GI: Palpation (GI): Soft to palpation and No hepatosplenomegaly present <[facility] Last Filed: 11/04/24 07:04> Skin: General skin exam: no rashes or lesions noted <[facility] Last Filed: 11/04/24 07:04> Neuro: General: patient oriented x3 <[facility] - Last Filed: 11/04/24 07:04> Extrem: Other: moving all extremities spontaneously <[facility] Last Filed: 11/04/24 07:04> Objective Data Active Medications Calcium Carbonate (Calcium Carbonate 750 Mg Tab.Chew) 750 mg PO Q4H PRN PRN Reason: Heartburn Clonazepam (Clonazepam 0.5 Mg Tablet) 0.5 mg PO BID [facility] Last Admin: 11/03/24 20:27 Dose: 0.5 mg Documented By: DIXIE Clonidine HCl (Clonidine Hcl 0.1 Mg Tablet) 0.3 mg PO BID [facility]; Protocol Last Admin: 11/03/24 20:23 Dose: 0.1 mg Documented By: DIXIE Comments: pt states she only takes 0.1 mg bid-only 0.1 mg po given Diphenhydramine HCl (Diphenhydramine Hcl 25 Mg Capsule) 25 mg PO BEDTIME [facility] Last Admin: 11/03/24 20:27 Dose: 25 mg Documented By: DIXIE Docusate Sodium (Docusate Sodium 100 Mg Capsule) 100 mg PO BID PRN PRN Reason: Constipation Last Admin: 11/03/24 09:18 Dose: 100 mg Documented By: VIVIANA Escitalopram Oxalate (Escitalopram Oxalate 20 Mg Tablet) 20 mg PO DAILY [facility] Last Admin: 11/03/24 09:19 Dose: 20 mg Documented By: VIVIANA Hydrocortisone (Hydrocortisone 1 % Cream 28.35 Gm Tube) 1 appl TOPICAL BID [facility] Last Admin: 11/03/24 23:03 Dose: Not Given Documented By: DIXIE Non-Admin Reason: Patient Refused Hydromorphone HCl (Hydromorphone Hcl 0.5 Mg/0.5 Ml Syringe) 0.5 mg IVPUSH Q3H PRN; Protocol PRN Reason: Pain, Severe (Pain Scale 7-10) Last Admin: 11/03/24 23:36 Dose: 0.5 mg Documented By: DIXIE Acetaminophen (Ofirmev) 1,000 mg in 100 mls @ 400 mls/hr IV Q6H [facility] Last Infusion: 11/04/24 02:36 Dose: Infused Documented By: DIXIE Lidocaine/Diphenhydr/Alum/Mg/Simeth (Mag&Al/Sim/Diphenhyd/Lidocaine 10 Ml Oral.Susp) 10 ml PO TID PRN PRN Reason: Mouth Sore Pain Melatonin (Melatonin 3 Mg Tablet) 30 mg PO BEDTIME [facility] Last Admin: 11/03/24 20:26 Dose: 9 mg Documented By: DIXIE Comments: pt states that she only takes 9 mg of melatonin at hs-9 mg given not 30 mg Nicotine (Nicotine 21 Mg Patch.Td24) 21 mg TRANSDERMA DAILY [facility] Last Admin: 11/03/24 09:22 Dose: 21 mg Documented By: VIVIANA Ondansetron HCl (Ondansetron Hcl 4 Mg/2 Ml Vial) 4 mg IVPUSH Q6H PRN PRN Reason: Nausea and Vomiting Oxycodone HCl (Oxycodone Hcl Immed Release 5 Mg Tablet) 10 mg PO Q4H PRN PRN Reason: Pain, Moderate(Pain Scale 4-6) Last Admin: 11/04/24 06:29 Dose: 10 mg Documented By: DIXIE <Archie Pretty - Last Filed: 11/04/24 07:04> Labs CBC & Chem 7: 11/04/24 05:12 11/03/24 05:10 <Archie Pretty - Last Filed: 11/04/24 07:04> Labs: Laboratory Results - last 24 hr 11/04/24 05:12 MCV 98.4 H MCH 31.8 MCHC 32.4 RDW 13.2 Plt Count 170 MPV 10.3 Immature Gran % (Auto) 0.3 Neut % (Auto) 62.2 Lymph % (Auto) 24.4 [place] % (Auto) 9.6 Eos % (Auto) 2.7 Baso % (Auto) 0.8 Lymph # (Auto) 1.7 [place] # (Auto) 0.7 Eos # (Auto) 0.2 Baso # (Auto) 0.1 Abs Immat Gran (auto) 0.02 Absolute Neuts (auto) 4.4 Absolute Nucleated RBC 0.000 Nucleated RBC % (auto) 0.0 <Archie Pretty - Last Filed: 11/04/24 07:04> Procedures Date of Service Date of Service: 11/04/24 <Archie Prtety - Last Filed: 11/04/24 07:04> 11/04/24 <Gema Alcantar PA-C - Last Filed: 11/04/24 07:52> 11/04/24 <Jason Guevara MD - Last Filed: 11/04/24 10:13> Progress Note: A&P Assessment and plan (1) Invasive ductal carcinoma of left breast: Status: Acute <Archie Pretty - Last Filed: 11/04/24 07:04> (2) S/P mastectomy, bilateral: Status: Acute <Archie Pretty - Last Filed: 11/04/24 07:04> Assessment and Plan: [facility] POD 2 from left radical modified mastectomy and right simple mastectomy. She is vitally stable. Labs reviewed, with Hb trending down from 10.1 to 7.8. SIN drain on right draining 355 mL, with clots in bulb. Could suggest drop from bleeding. Pain well managed, though continues to require hospitalization for pain control and possibility of hematoma. Lavelle Pretty, MS3 <Archie Pretty - Last Filed: 11/04/24 07:04> Lisa POD 2 from left radical modified mastectomy and right simple mastectomy. She is vitally stable. Labs reviewed, with Hb trending down from 10.1 to 7.8. SIN drain on right draining 355 mL, with clots in bulb. Could suggest drop from bleeding. Pain well managed, though continues to require hospitalization for pain control and possibility of hematoma. Lavelle Pretty, MS3 Agree with above assessment. Right SIN drain with sanguineous output but overall downtrending. H/H drifted down this am. She denies any lightheadedness or dizziness, palpitations, chest pain. VSS- HR normal, BP ok. Incisions clean, there is some fullness of right axilla and right lower flap. Will hold off on transfusion for now, begin iron therapy. Compression with multiple sharyn wraps applied, breast binder. Repeat labs later today and tomorrow. Will remain inpatient for pain control, monitoring of H/H. Patient comfortable with plan. <Gema Alcantar PA-C - Last Filed: 11/04/24 07:52> Time Spent With Patient Time: Total time managing care of this patient today ____ minutes. <Archie Pretty - Last Filed: 11/04/24 07:04> Quality Stroke Does the patient have a stroke diagnosis?: No <Archie Pretty - Last Filed: 11/04/24 07:04> VTE Prior VTE?: No <Archie Pretty - Last Filed: 11/04/24 07:04> VTE Risk Level:: Surgical - moderate <Archie Pretty - Last Filed: 11/04/24 07:04> VTE Device Contraindication: N/A - Device Ordered <Archie Pretty - Last Filed: 11/04/24 07:04> VTE Drug Contraindication: Treatment Not Tolerated <Archie Pretty - Last Filed: 11/04/24 07:04>
[2024-11-04 07:42] VITALS: BP 135/64; PULSE 79; RESP 16; TEMP 36.2; O2SAT 97
[2024-11-04] MEDS: polyethylene glycoL 3350 17 GM POWD.PACK PO (08:15)
[2024-11-04] MEDS: Ferrous Sulfate 324 MG TABLET.DR PO (08:15)
[2024-11-04] MEDS: Docusate Sodium 100 MG CAPSULE PO ×2 (08:15→19:45)
[2024-11-04] MEDS: Nicotine 21 MG PATCH.TD24 TRANSDERMA (08:15)
[2024-11-04] MEDS: Escitalopram Oxalate 20 MG TABLET PO (08:16)
[2024-11-04] MEDS: clonazePAM 0.5 MG TABLET PO ×2 (08:16→19:45)
[2024-11-04] MEDS: cloNIDine HCL 0.1 MG TABLET 0.3 MG PO ×2 (08:16→19:45)
[2024-11-04] MEDS: HYDROmorphone HCl 0.5 MG/0.5 ML SYRINGE IVPUSH ×4 (09:37→21:23)
[2024-11-04] MEDS: ondansetron HCL 4 MG/2 ML VIAL IVPUSH ×2 (09:42→19:44)
--- NOTE | 2024-11-04 10:32 | MHC.CLN ---
NUTRITION PATIENT S/P BILATERAL MASTECTOMY. DIET=REGULAR. BMI=34.1, OBESE. NO ADDITIONAL NUTRITION INTERVENTIONS AT THIS TIME.
[2024-11-04 10:37] LABS: Hematocrit 24.8 % (37.0-47.0)
--- NOTE | 2024-11-04 12:39 | MHC.CM.PN ---
pt not ready for dc dc plan remains home
[2024-11-04 15:24] VITALS: BP 127/60; PULSE 88; RESP 18; TEMP 36.1; O2SAT 96
[2024-11-04 16:39] VITALS: RESP 18
[2024-11-04 19:41] VITALS: BP 124/60; PULSE 91; RESP 18; TEMP 36.3; O2SAT 97
[2024-11-04] MEDS: Melatonin 3 MG TABLET 30 MG PO (19:44)
[2024-11-04] MEDS: diphenhydrAMINE HCL 25 MG CAPSULE PO (19:45)
[2024-11-04 21:23] VITALS: RESP 16
[2024-11-04 23:13] VITALS: BP 114/56; PULSE 85; RESP 18; TEMP 36.3; O2SAT 95
[2024-11-05] VITALS (7 sets, daily range): BP systolic 118–137; BP diastolic 58–70; PULSE 75–90; RESP 18; TEMP 36.4–36.8; O2SAT 95–99
[2024-11-05] MEDS: HYDROmorphone HCl 0.5 MG/0.5 ML SYRINGE IVPUSH ×7 (01:23→22:43)
[2024-11-05] MEDS: Acetaminophen 1,000 MG/100 ML PIGGYBACK 400 MG IV ×4 (02:32→19:59)
[2024-11-05] MEDS: oxyCODONE HCl Immed Release 5 MG TABLET 10 MG PO ×4 (04:03→20:14)
[2024-11-05 07:50] LABS: MANUAL DIFF FLAG NO
[2024-11-05] MEDS: Docusate Sodium 100 MG CAPSULE PO ×2 (07:59→19:59)
[2024-11-05] MEDS: Nicotine 21 MG PATCH.TD24 TRANSDERMA (07:59)
[2024-11-05] MEDS: polyethylene glycoL 3350 17 GM POWD.PACK PO (07:59)
[2024-11-05] MEDS: Ferrous Sulfate 324 MG TABLET.DR PO (07:59)
[2024-11-05] MEDS: cloNIDine HCL 0.1 MG TABLET 0.3 MG PO ×2 (07:59→19:59)
[2024-11-05] MEDS: Escitalopram Oxalate 20 MG TABLET PO (07:59)
[2024-11-05] MEDS: clonazePAM 0.5 MG TABLET PO ×2 (07:59→19:59)
[2024-11-05 08:02] LABS: Basophils Absolute Auto 0.1 X10*3/uL (0.0-0.2); Eosinophils Absolute Auto 0.3 X10*3/uL (0.0-0.4); Eosinophils Percent Auto 4.8 % (0-4); Hematocrit 25.5 % (37.0-47.0); Hemoglobin 8.2 g/dl (12.0-16.0); Imm Gran Abs Auto 0.03 X10*3/uL (0.00-0.03); Imm Gran Pct Auto 0.5 % (0.0-0.4); Lymphocytes Absolute Auto 1.4 X10*3/uL (1.2-4.9); Lymphocytes Percent Auto 23.8 % (20-40); Mean Corpuscular HGB Conc 32.2 g/dl (31.0-35.0); Mean Corpuscular Hemoglobin 31.9 pg (27.0-33.0); Mean Corpuscular Volume 99.2 fL (80.0-98.0); Mean Platelet Volume 10.4 fL (9.4-12.3); Monocytes Absolute Auto 0.6 X10*3/uL (0.1-1.2); Monocytes Percent Auto 9.1 % (2-11); Neutrophils Absolute Auto 3.7 x10*3/uL (2.0-8.3); Neutrophils Percent Auto 60.8 % (45-73); Platelet Count 196 X10*3/uL (160-400); Red Blood Count 2.57 X10*6/uL (4.20-5.50); Red Cell Distribution Width 13.2 % (11.0-16.0); White Blood Count 6.1 X10*3/uL (4.8-10.8)
--- NOTE | 2024-11-05 13:44 | P.PNGS_ITS ---
Subjective Subjective Date of Service: 11/05/24 Interval history: Patient had uneventful evening. Still having incisional discomfort. SIN drain from right side markedly slow down. H&H improving. Vital signs stable. Physical Exam 2 Vital Signs: Vital Signs: Last Vital Signs Temp 97.6 F 11/05/24 07:23 Pulse 78 11/05/24 07:23 Resp 18 11/05/24 07:23 BP 118/70 11/05/24 07:23 Pulse Ox 97 11/05/24 07:23 O2 Del Method Room Air 11/05/24 07:23 O2 Flow Rate 4 11/02/24 12:24 BMI result Body Mass Index 34.1 Chest: Other: Bilateral incisions healing very well. Minimal Serosanguineous drainage in SIN drains. Objective Data Active Medications Calcium Carbonate (Calcium Carbonate 750 Mg Tab.Chew) 750 mg PO Q4H PRN PRN Reason: Heartburn Clonazepam (Clonazepam 0.5 Mg Tablet) 0.5 mg PO BID [facility] Last Admin: 11/05/24 07:59 Dose: 0.5 mg Documented By: JONAS Clonidine HCl (Clonidine Hcl 0.1 Mg Tablet) 0.3 mg PO BID [facility]; Protocol Last Admin: 11/05/24 07:59 Dose: 0.1 mg Documented By: JONAS Diphenhydramine HCl (Diphenhydramine Hcl 25 Mg Capsule) 25 mg PO BEDTIME [facility] Last Admin: 11/04/24 19:45 Dose: 25 mg Documented By: ARAM Docusate Sodium (Docusate Sodium 100 Mg Capsule) 100 mg PO BID [facility] Last Admin: 11/05/24 07:59 Dose: 100 mg Documented By: JONAS Escitalopram Oxalate (Escitalopram Oxalate 20 Mg Tablet) 20 mg PO DAILY [facility] Last Admin: 11/05/24 07:59 Dose: 20 mg Documented By: JONAS Ferrous Sulfate (Ferrous Sulfate 324 Mg Tablet.) 324 mg PO DAILY [facility] Last Admin: 11/05/24 07:59 Dose: 324 mg Documented By: JONAS Hydrocortisone (Hydrocortisone 1 % Cream 28.35 Gm Tube) 1 appl TOPICAL BID [facility] Last Admin: 11/05/24 08:06 Dose: Not Given Documented By: JONAS Non-Admin Reason: Patient Refused Hydromorphone HCl (Hydromorphone Hcl 0.5 Mg/0.5 Ml Syringe) 0.5 mg IVPUSH Q3H PRN; Protocol PRN Reason: Pain, Severe (Pain Scale 7-10) Last Admin: 11/05/24 11:59 Dose: 0.5 mg Documented By: JONAS Acetaminophen (Ofirmev) 1,000 mg in 100 mls @ 400 mls/hr IV Q6H [facility] Last Infusion: 11/05/24 13:34 Dose: Infused Documented By: JONAS Lidocaine/Diphenhydr/Alum/Mg/Simeth (Mag&Al/Sim/Diphenhyd/Lidocaine 10 Ml Oral.Susp) 10 ml PO TID PRN PRN Reason: Mouth Sore Pain Melatonin (Melatonin 3 Mg Tablet) 30 mg PO BEDTIME [facility] Last Admin: 11/04/24 19:44 Dose: 9 mg Documented By: ARAM Comments: patient requested 2 tabs Nicotine (Nicotine 21 Mg Patch.Td24) 21 mg TRANSDERMA DAILY [facility] Last Admin: 11/05/24 07:59 Dose: 21 mg Documented By: JONAS Ondansetron HCl (Ondansetron Hcl 4 Mg/2 Ml Vial) 4 mg IVPUSH Q6H PRN PRN Reason: Nausea and Vomiting Last Admin: 11/04/24 19:44 Dose: 4 mg Documented By: ARAM Oxycodone HCl (Oxycodone Hcl Immed Release 5 Mg Tablet) 10 mg PO Q4H PRN PRN Reason: Pain, Moderate(Pain Scale 4-6) Last Admin: 11/05/24 13:12 Dose: 10 mg Documented By: JONAS Polyethylene Glycol (Polyethylene Glycol 3350 17 Gm Powd.Pack) 17 gm PO DAILY [facility] Last Admin: 11/05/24 07:59 Dose: 17 gm Documented By: JONAS Labs 11/05/24 07:17 11/03/24 05:10 Labs: Laboratory Results - last 24 hr 11/05/24 07:17 MCV 99.2 H MCH 31.9 MCHC 32.2 RDW 13.2 Plt Count 196 MPV 10.4 Immature Gran % (Auto) 0.5 H Neut % (Auto) 60.8 Lymph % (Auto) 23.8 [place] % (Auto) 9.1 Eos % (Auto) 4.8 H Baso % (Auto) 1.0 Lymph # (Auto) 1.4 [place] # (Auto) 0.6 Eos # (Auto) 0.3 Baso # (Auto) 0.1 Abs Immat Gran (auto) 0.03 Absolute Neuts (auto) 3.7 Absolute Nucleated RBC 0.000 Nucleated RBC % (auto) 0.0 Procedures Date of Service Date of Service: 11/05/24 Progress Note: A&P Assessment and plan (1) S/P mastectomy, bilateral: Status: Acute Plan Patient was not feel she is ready for home yet. Strongly encouraged to get out of bed/ambulate, incentive spirometry, diet as tolerated, analgesia as needed. All questions answered. Time Spent With Patient Time: Total time managing care of this patient today ____ minutes. Quality Stroke Does the patient have a stroke diagnosis?: No VTE Prior VTE?: No VTE Risk Level:: Surgical - moderate VTE Device Contraindication: N/A - Device Ordered VTE Drug Contraindication: Treatment Not Tolerated
--- NOTE | 2024-11-05 18:45 | PC.NURSE ---
Pt noticed some swelling in L armpit. observed though out the day. Checked @ 1800 and its still swollen, and firm. Perhaps developing some swelling/lymphadema in her L armpit. Notified Dr Mcbride who is covering for Elpidio.
[2024-11-05] MEDS: ondansetron HCL 4 MG/2 ML VIAL IVPUSH (19:56)
[2024-11-05] MEDS: diphenhydrAMINE HCL 25 MG CAPSULE PO (19:59)
[2024-11-05] MEDS: Melatonin 3 MG TABLET 30 MG PO (20:14)
[2024-11-06] MEDS: oxyCODONE HCl Immed Release 5 MG TABLET 10 MG PO ×5 (00:18→21:11)
[2024-11-06] MEDS: HYDROmorphone HCl 0.5 MG/0.5 ML SYRINGE IVPUSH ×6 (02:21→23:35)
[2024-11-06] MEDS: Acetaminophen 1,000 MG/100 ML PIGGYBACK 400 MG IV ×3 (02:21→13:09)
[2024-11-06 07:18] VITALS: BP 118/58; PULSE 82; RESP 18; TEMP 36.5; O2SAT 97
[2024-11-06] MEDS: Ferrous Sulfate 324 MG TABLET.DR PO (08:41)
[2024-11-06] MEDS: cloNIDine HCL 0.1 MG TABLET 0.3 MG PO ×2 (08:42→20:03)
[2024-11-06] MEDS: Nicotine 21 MG PATCH.TD24 TRANSDERMA (08:42)
[2024-11-06] MEDS: Docusate Sodium 100 MG CAPSULE PO ×2 (08:42→20:03)
[2024-11-06] MEDS: Escitalopram Oxalate 20 MG TABLET PO (08:42)
[2024-11-06] MEDS: polyethylene glycoL 3350 17 GM POWD.PACK PO (08:42)
[2024-11-06] MEDS: clonazePAM 0.5 MG TABLET PO ×2 (08:42→20:05)
[2024-11-06 15:03] VITALS: BP 132/60; PULSE 84; RESP 18; TEMP 36.2; O2SAT 97
[2024-11-06] MEDS: 0.9 % Sodium Chloride Flush 3 ML SYRINGE IVFLUSH ×2 (15:54→20:05)
--- NOTE | 2024-11-06 16:06 | P.PNGS_ITS ---
Subjective Subjective Date of Service: 11/06/24 Interval history: Patient having incisional discomfort which is relieved with IV meds. Drain output bilaterally has markedly diminished. Patient developing a small seroma in the left axilla but no other acute issues. H and H from yesterday slowly increasing. Physical Exam 2 Vital Signs: Vital Signs: Last Vital Signs Temp 97.1 F 11/06/24 15:03 Pulse 84 11/06/24 15:03 Resp 18 11/06/24 15:03 BP 132/60 11/06/24 15:03 Pulse Ox 97 11/06/24 15:03 O2 Del Method Room Air 11/06/24 15:03 O2 Flow Rate 4 11/02/24 12:24 BMI result Body Mass Index 34.1 Chest: Other: Bilateral incisions clean dry and intact. Seroma as noted above. SIN drain with scant output bilaterally Objective Data Active Medications Calcium Carbonate (Calcium Carbonate 750 Mg Tab.Chew) 750 mg PO Q4H PRN PRN Reason: Heartburn Clonazepam (Clonazepam 0.5 Mg Tablet) 0.5 mg PO BID [facility] Last Admin: 11/06/24 08:42 Dose: 0.5 mg Documented By: JONAS Clonidine HCl (Clonidine Hcl 0.1 Mg Tablet) 0.3 mg PO BID [facility]; Protocol Last Admin: 11/06/24 08:42 Dose: 0.1 mg Documented By: JONAS Diphenhydramine HCl (Diphenhydramine Hcl 25 Mg Capsule) 25 mg PO BEDTIME [facility] Last Admin: 11/05/24 19:59 Dose: 25 mg Documented By: NOELLE Docusate Sodium (Docusate Sodium 100 Mg Capsule) 100 mg PO BID [facility] Last Admin: 11/06/24 08:42 Dose: 100 mg Documented By: JONAS Escitalopram Oxalate (Escitalopram Oxalate 20 Mg Tablet) 20 mg PO DAILY [facility] Last Admin: 11/06/24 08:42 Dose: 20 mg Documented By: JONAS Ferrous Sulfate (Ferrous Sulfate 324 Mg Tablet.) 324 mg PO DAILY [facility] Last Admin: 11/06/24 08:41 Dose: 324 mg Documented By: JONAS Hydrocortisone (Hydrocortisone 1 % Cream 28.35 Gm Tube) 1 appl TOPICAL BID [facility] Last Admin: 11/06/24 08:48 Dose: Not Given Documented By: JONAS Non-Admin Reason: Patient Refused Hydromorphone HCl (Hydromorphone Hcl 0.5 Mg/0.5 Ml Syringe) 0.5 mg IVPUSH Q3H PRN; Protocol PRN Reason: Pain, Severe (Pain Scale 7-10) Last Admin: 11/06/24 15:53 Dose: 0.5 mg Documented By: SHEELA Acetaminophen (Ofirmev) 1,000 mg in 100 mls @ 400 mls/hr IV Q6H [facility] Last Infusion: 11/06/24 13:31 Dose: Infused Documented By: JONAS Lidocaine/Diphenhydr/Alum/Mg/Simeth (Mag&Al/Sim/Diphenhyd/Lidocaine 10 Ml Oral.Susp) 10 ml PO TID PRN PRN Reason: Mouth Sore Pain Melatonin (Melatonin 3 Mg Tablet) 30 mg PO BEDTIME [facility] Last Admin: 11/05/24 20:14 Dose: 9 mg Documented By: NOELLE Comments: Patient requested to take 9mg Nicotine (Nicotine 21 Mg Patch.Td24) 21 mg TRANSDERMA DAILY [facility] Last Admin: 11/06/24 08:42 Dose: 21 mg Documented By: JONAS Ondansetron HCl (Ondansetron Hcl 4 Mg/2 Ml Vial) 4 mg IVPUSH Q6H PRN PRN Reason: Nausea and Vomiting Last Admin: 11/05/24 19:56 Dose: 4 mg Documented By: NOELLE Oxycodone HCl (Oxycodone Hcl Immed Release 5 Mg Tablet) 10 mg PO Q4H PRN PRN Reason: Pain, Moderate(Pain Scale 4-6) Last Admin: 11/06/24 13:09 Dose: 10 mg Documented By: JONAS Polyethylene Glycol (Polyethylene Glycol 3350 17 Gm Powd.Pack) 17 gm PO DAILY [facility] Last Admin: 11/06/24 08:42 Dose: 17 gm Documented By: JONAS Sodium Chloride (0.9 % Sodium Chloride Flush 3 Ml Syringe) 3 ml IVFLUSH QSHIFT [facility] Last Admin: 11/06/24 15:54 Dose: 3 ml Documented By: SHEELA Labs 11/05/24 07:17 11/03/24 05:10 Procedures Date of Service Date of Service: 11/06/24 Progress Note: A&P Assessment and plan (1) S/P mastectomy, bilateral: Status: Acute Plan Encouraged to continue ambulating, incentive spirometry, analgesia as needed. SIN drain management per Dr. Guevara tomorrow. Time Spent With Patient Time: Total time managing care of this patient today ____ minutes. Quality Stroke Does the patient have a stroke diagnosis?: No VTE Prior VTE?: No VTE Risk Level:: Surgical - moderate VTE Device Contraindication: N/A - Device Ordered VTE Drug Contraindication: Treatment Not Tolerated
[2024-11-06] MEDS: diphenhydrAMINE HCL 25 MG CAPSULE PO (20:05)
[2024-11-06] MEDS: Melatonin 3 MG TABLET 30 MG PO (20:05)
[2024-11-06 20:12] VITALS: BP 118/55; PULSE 91; RESP 18; TEMP 36.9; O2SAT 100
[2024-11-06] MEDS: ondansetron HCL 4 MG/2 ML VIAL IVPUSH (20:22)
[2024-11-06 23:47] VITALS: BP 116/56; PULSE 95; RESP 20; TEMP 37.4; O2SAT 97
[2024-11-07] MEDS: Acetaminophen 1,000 MG/100 ML PIGGYBACK 400 MG IV ×4 (01:58→19:31)
[2024-11-07] MEDS: oxyCODONE HCl Immed Release 5 MG TABLET 10 MG PO ×6 (02:02→23:32)
[2024-11-07 04:10] VITALS: BP 112/56; PULSE 84; RESP 18; TEMP 36.7; O2SAT 98
[2024-11-07] MEDS: HYDROmorphone HCl 0.5 MG/0.5 ML SYRINGE IVPUSH ×5 (04:12→20:49)
[2024-11-07 07:11] VITALS: BP 136/63; PULSE 90; RESP 16; TEMP 36.7; O2SAT 96
[2024-11-07] MEDS: Nicotine 21 MG PATCH.TD24 TRANSDERMA (07:12)
[2024-11-07] MEDS: polyethylene glycoL 3350 17 GM POWD.PACK PO (07:12)
[2024-11-07] MEDS: Docusate Sodium 100 MG CAPSULE PO ×2 (07:14→19:59)
[2024-11-07] MEDS: cloNIDine HCL 0.1 MG TABLET 0.3 MG PO ×2 (07:14→19:59)
[2024-11-07] MEDS: Ferrous Sulfate 324 MG TABLET.DR PO (07:14)
[2024-11-07] MEDS: Escitalopram Oxalate 20 MG TABLET PO (07:14)
[2024-11-07] MEDS: clonazePAM 0.5 MG TABLET PO ×2 (07:14→19:59)
--- NOTE | 2024-11-07 08:01 | P.PNGS_ITS ---
Subjective Subjective Date of Service: 11/07/24 Interval history: Continues to require parenteral pain medication which is affective. Notes some swelling in the left axilla. Drains on the right not producing much at this time. Physical Exam 2 Vital Signs: Vital Signs: Last Vital Signs Temp 98.1 F 11/07/24 07:11 Pulse 90 11/07/24 07:11 Resp 16 11/07/24 07:11 BP 136/63 11/07/24 07:11 Pulse Ox 96 11/07/24 07:11 O2 Del Method Room Air 11/07/24 07:11 O2 Flow Rate 4 11/02/24 12:24 BMI result Body Mass Index 34.1 Const: General: no acute distress Nutritional Appearance: well nourished Orientation/consciousness: patient oriented x3 Chest: Other: Dressings changed to chest wounds. Wounds are clean and intact. There is some swelling in the left axilla suggestive of the seroma. No seroma noted on the right side. Drains milked and a large amount of serosanguineous fluid (thin) evacuated from right chest wall drain. Minimal serous fluid from both the left chest drains. Clean dressings applied, new six-inch Varun followed by new breast binder. Resp: Effort & Inspection: normal respiratory effort Skin: Other: Warm, dry, no rash Neuro: General: patient oriented x3 Extrem: Other: No arm edema Objective Data Active Medications Calcium Carbonate (Calcium Carbonate 750 Mg Tab.Chew) 750 mg PO Q4H PRN PRN Reason: Heartburn Clonazepam (Clonazepam 0.5 Mg Tablet) 0.5 mg PO BID [facility] Last Admin: 11/07/24 07:14 Dose: 0.5 mg Documented By: ALICE Clonidine HCl (Clonidine Hcl 0.1 Mg Tablet) 0.3 mg PO BID [facility]; Protocol Last Admin: 11/07/24 07:14 Dose: 0.1 mg Documented By: ALICE Diphenhydramine HCl (Diphenhydramine Hcl 25 Mg Capsule) 25 mg PO BEDTIME [facility] Last Admin: 11/06/24 20:05 Dose: 25 mg Documented By: CAMPBELL-CONNJennifer Docusate Sodium (Docusate Sodium 100 Mg Capsule) 100 mg PO BID [facility] Last Admin: 11/07/24 07:14 Dose: 100 mg Documented By: ALICE Escitalopram Oxalate (Escitalopram Oxalate 20 Mg Tablet) 20 mg PO DAILY [facility] Last Admin: 11/07/24 07:14 Dose: 20 mg Documented By: ALICE Ferrous Sulfate (Ferrous Sulfate 324 Mg Tablet.) 324 mg PO DAILY [facility] Last Admin: 11/07/24 07:14 Dose: 324 mg Documented By: ALICE Hydrocortisone (Hydrocortisone 1 % Cream 28.35 Gm Tube) 1 appl TOPICAL BID [facility] Last Admin: 11/07/24 07:14 Dose: Not Given Documented By: ALICE Non-Admin Reason: Patient Refused Hydromorphone HCl (Hydromorphone Hcl 0.5 Mg/0.5 Ml Syringe) 0.5 mg IVPUSH Q3H PRN; Protocol PRN Reason: Pain, Severe (Pain Scale 7-10) Last Admin: 11/07/24 04:12 Dose: 0.5 mg Documented By: DINAH Acetaminophen (Ofirmev) 1,000 mg in 100 mls @ 400 mls/hr IV Q6H [facility] Last Infusion: 11/07/24 07:39 Dose: Infused Documented By: ALICE Lidocaine/Diphenhydr/Alum/Mg/Simeth (Mag&Al/Sim/Diphenhyd/Lidocaine 10 Ml Oral.Susp) 10 ml PO TID PRN PRN Reason: Mouth Sore Pain Melatonin (Melatonin 3 Mg Tablet) 30 mg PO BEDTIME [facility] Last Admin: 11/06/24 20:05 Dose: 9 mg Documented By: DINAH Comments: pt states she takes 9mg Nicotine (Nicotine 21 Mg Patch.Td24) 21 mg TRANSDERMA DAILY [facility] Last Admin: 11/07/24 07:12 Dose: 21 mg Documented By: ALICE Ondansetron HCl (Ondansetron Hcl 4 Mg/2 Ml Vial) 4 mg IVPUSH Q6H PRN PRN Reason: Nausea and Vomiting Last Admin: 11/06/24 20:22 Dose: 4 mg Documented By: DINAH Oxycodone HCl (Oxycodone Hcl Immed Release 5 Mg Tablet) 10 mg PO Q4H PRN PRN Reason: Pain, Moderate(Pain Scale 4-6) Last Admin: 11/07/24 07:11 Dose: 10 mg Documented By: ALICE Polyethylene Glycol (Polyethylene Glycol 3350 17 Gm Powd.Pack) 17 gm PO DAILY [facility] Last Admin: 11/07/24 07:12 Dose: 17 gm Documented By: ALICE Sodium Chloride (0.9 % Sodium Chloride Flush 3 Ml Syringe) 3 ml IVFLUSH QSHIFT [facility] Last Admin: 11/07/24 07:39 Dose: Not Given Documented By: ALICE Non-Admin Reason: IV Running Labs 11/05/24 07:17 11/03/24 05:10 Procedures Date of Service Date of Service: 11/07/24 Progress Note: A&P Assessment and plan (1) Invasive ductal carcinoma of left breast: Status: Acute (2) S/P mastectomy, bilateral: Status: Acute Plan POD 5 following left modified radical mastectomy, right simple mastectomy. Continued need for parenteral pain medication. Wounds are clean and intact. Some swelling in the left axilla. Drains checked and clot evacuated from right chest drain. Continue to monitor output. Encouraged out of bed, switch to oral pain meds. Patient expressed understanding and agrees with plan. Time Spent With Patient Time: Total time managing care of this patient today ____ minutes. Quality Stroke Does the patient have a stroke diagnosis?: No VTE Prior VTE?: No VTE Risk Level:: Surgical - moderate VTE Device Contraindication: N/A - Device Ordered VTE Drug Contraindication: Treatment Not Tolerated
[2024-11-07 08:45] LABS: MANUAL DIFF FLAG NO
[2024-11-07 08:49] LABS: Basophils Percent Auto 0.6 % (0-2); Eosinophils Absolute Auto 0.3 X10*3/uL (0.0-0.4); Eosinophils Percent Auto 4.3 % (0-4); Hematocrit 27.3 % (37.0-47.0); Hemoglobin 8.6 g/dl (12.0-16.0); Imm Gran Abs Auto 0.03 X10*3/uL (0.00-0.03); Imm Gran Pct Auto 0.4 % (0.0-0.4); Lymphocytes Absolute Auto 1.7 X10*3/uL (1.2-4.9); Lymphocytes Percent Auto 24.5 % (20-40); Mean Corpuscular HGB Conc 31.5 g/dl (31.0-35.0); Mean Corpuscular Hemoglobin 31.4 pg (27.0-33.0); Mean Corpuscular Volume 99.6 fL (80.0-98.0); Mean Platelet Volume 9.9 fL (9.4-12.3); Monocytes Absolute Auto 0.7 X10*3/uL (0.1-1.2); Monocytes Percent Auto 9.7 % (2-11); Neutrophils Absolute Auto 4.1 x10*3/uL (2.0-8.3); Neutrophils Percent Auto 60.5 % (45-73); Platelet Count 259 X10*3/uL (160-400); Red Blood Count 2.74 X10*6/uL (4.20-5.50); Red Cell Distribution Width 14.2 % (11.0-16.0); White Blood Count 6.8 X10*3/uL (4.8-10.8)
--- NOTE | 2024-11-07 09:26 | MHC.CLN ---
F/U DIET=REGULAR. PO INTAKE APPEARS TO BE GOOD. NO ADDITIONAL NUTRITION INTERVENTIONS AT THIS TIME.
[2024-11-07] MEDS: ondansetron HCL 4 MG/2 ML VIAL IVPUSH (13:34)
[2024-11-07 15:25] VITALS: BP 109/54; PULSE 91; RESP 16; TEMP 36.7; O2SAT 98
[2024-11-07] MEDS: 0.9 % Sodium Chloride Flush 3 ML SYRINGE IVFLUSH ×2 (16:50→20:36)
[2024-11-07] MEDS: Milk of Magnesia 30 ML ORAL.SUSP PO (17:25)
[2024-11-07] MEDS: Melatonin 3 MG TABLET 30 MG PO (19:55)
[2024-11-07 19:59] VITALS: BP 125/58
[2024-11-07] MEDS: diphenhydrAMINE HCL 25 MG CAPSULE PO (20:01)
[2024-11-07 23:13] VITALS: BP 112/53; PULSE 89; RESP 18; TEMP 36.1; O2SAT 95
[2024-11-08] MEDS: HYDROmorphone HCl 0.5 MG/0.5 ML SYRINGE IVPUSH ×6 (00:48→23:13)
[2024-11-08] MEDS: Acetaminophen 1,000 MG/100 ML PIGGYBACK 400 MG IV ×2 (01:29→07:46)
[2024-11-08 07:02] VITALS: BP 124/62; PULSE 80; RESP 12; TEMP 37; O2SAT 93
[2024-11-08] MEDS: Nicotine 21 MG PATCH.TD24 TRANSDERMA (07:42)
[2024-11-08] MEDS: cloNIDine HCL 0.1 MG TABLET 0.3 MG PO ×2 (07:43→20:13)
[2024-11-08] MEDS: Docusate Sodium 100 MG CAPSULE PO ×2 (07:44→19:26)
[2024-11-08] MEDS: oxyCODONE HCl Immed Release 5 MG TABLET 10 MG PO ×4 (07:44→22:04)
--- NOTE | 2024-11-08 07:44 | PM.PNGS ---
Subjective Subjective Date of Service: 11/08/24 <Gema Alcantar PA-C - Last Filed: 11/08/24 07:47> 11/08/24 <Jason Guevara MD - Last Filed: 11/08/24 07:58> Interval history: Had a difficult night due to pain again and not receiving pain meds when needed. Needing IV dilaudid and oxycodone. <Gema Alcantar PA-C - Last Filed: 11/08/24 07:47> Physical Exam Vital Signs: Vital Signs: Last Vital Signs Temp 98.6 F 11/08/24 07:02 Pulse 80 11/08/24 07:02 Resp 12 11/08/24 07:02 BP 124/62 11/08/24 07:02 Pulse Ox 93 11/08/24 07:02 O2 Del Method Room Air 11/08/24 07:02 O2 Flow Rate 4 11/02/24 12:24 BMI result Body Mass Index 34.1 <Gema Alcantar PA-C - Last Filed: 11/08/24 07:47> Const: General: comfortable, no acute distress, alert and tired appearing <Gema Alcantar PA-C - Last Filed: 11/08/24 07:47> Orientation/consciousness: patient oriented x3 <ANJELICA Geronimo Last Filed: 11/08/24 07:47> Chest: Other: right SIN drain still remains sanguineous but getting thinner left SIN drains serosanguineous <Gema Alcantar PA-C - Last Filed: 11/08/24 07:47> Resp: Effort & Inspection: normal respiratory effort <Gema Alcantar PA-C - Last Filed: 11/08/24 07:47> Skin: General skin exam: no rashes or lesions noted <ANJELICA Geronimo Last Filed: 11/08/24 07:47> Neuro: General: patient oriented x3 and moves all extremities <ANJELICA Geronimo Last Filed: 11/08/24 07:47> Objective Data Active Medications Acetaminophen (Acetaminophen 325 Mg Tablet) 975 mg PO Q6H [facility] Calcium Carbonate (Calcium Carbonate 750 Mg Tab.Chew) 750 mg PO Q4H PRN PRN Reason: Heartburn Clonazepam (Clonazepam 0.5 Mg Tablet) 0.5 mg PO BID [facility] Last Admin: 11/07/24 19:59 Dose: 0.5 mg Documented By: CEE Clonidine HCl (Clonidine Hcl 0.1 Mg Tablet) 0.3 mg PO BID [facility]; Protocol Last Admin: 11/07/24 19:59 Dose: 0.1 mg Documented By: CEE Comments: per pt only takes, 0.1mg at home Diphenhydramine HCl (Diphenhydramine Hcl 25 Mg Capsule) 25 mg PO BEDTIME [facility] Last Admin: 11/07/24 20:01 Dose: 25 mg Documented By: CEE Docusate Sodium (Docusate Sodium 100 Mg Capsule) 100 mg PO BID [facility] Last Admin: 11/07/24 19:59 Dose: 100 mg Documented By: CEE Escitalopram Oxalate (Escitalopram Oxalate 20 Mg Tablet) 20 mg PO DAILY [facility] Last Admin: 11/07/24 07:14 Dose: 20 mg Documented By: ALICE Ferrous Sulfate (Ferrous Sulfate 324 Mg Tablet.Dr) 324 mg PO DAILY [facility] Last Admin: 11/07/24 07:14 Dose: 324 mg Documented By: ALICE Hydrocortisone (Hydrocortisone 1 % Cream 28.35 Gm Tube) 1 appl TOPICAL BID [facility] Last Admin: 11/07/24 20:35 Dose: Not Given Documented By: CEE Non-Admin Reason: Patient Refused Hydromorphone HCl (Hydromorphone Hcl 0.5 Mg/0.5 Ml Syringe) 0.5 mg IVPUSH Q3H PRN; Protocol PRN Reason: Pain, Severe (Pain Scale 7-10) Last Admin: 11/08/24 04:53 Dose: 0.5 mg Documented By: CEE Ibuprofen (Ibuprofen 600 Mg Tablet) 600 mg PO Q8H [facility] Lidocaine/Diphenhydr/Alum/Mg/Simeth (Mag&Al/Sim/Diphenhyd/Lidocaine 10 Ml Oral.Susp) 10 ml PO TID PRN PRN Reason: Mouth Sore Pain Magnesium Hydroxide (Milk Of Magnesia 30 Ml Oral.Susp) 30 ml PO DAILY PRN PRN Reason: Constipation Last Admin: 11/07/24 17:25 Dose: 30 ml Documented By: JE Melatonin (Melatonin 3 Mg Tablet) 30 mg PO BEDTIME [facility] Last Admin: 11/07/24 19:55 Dose: 9 mg Documented By: CEE Comments: pt reports taking 9mg of melatonin Nicotine (Nicotine 21 Mg Patch.Td24) 21 mg TRANSDERMA DAILY [facility] Last Admin: 11/07/24 07:12 Dose: 21 mg Documented By: ALICE Ondansetron HCl (Ondansetron Hcl 4 Mg/2 Ml Vial) 4 mg IVPUSH Q6H PRN PRN Reason: Nausea and Vomiting Last Admin: 11/07/24 13:34 Dose: 4 mg Documented By: ALICE Oxycodone HCl (Oxycodone Hcl Immed Release 5 Mg Tablet) 10 mg PO Q4H PRN PRN Reason: Pain, Moderate(Pain Scale 4-6) Last Admin: 11/07/24 23:32 Dose: 10 mg Documented By: CEE Polyethylene Glycol (Polyethylene Glycol 3350 17 Gm Powd.Pack) 17 gm PO DAILY [facility] Last Admin: 11/07/24 07:12 Dose: 17 gm Documented By: ALICE Sodium Chloride (0.9 % Sodium Chloride Flush 3 Ml Syringe) 3 ml IVFLUSH QSHIFT [facility] Last Admin: 11/07/24 20:36 Dose: 3 ml Documented By: CEE <Gema Alcantar PA-C - Last Filed: 11/08/24 07:47> Labs CBC & Chem 7: 11/07/24 08:13 11/03/24 05:10 <Gema Alcantar PA-C - Last Filed: 11/08/24 07:47> Labs: Laboratory Results - last 24 hr 11/07/24 08:13 MCV 99.6 H MCH 31.4 MCHC 31.5 RDW 14.2 Plt Count 259 D MPV 9.9 Immature Gran % (Auto) 0.4 Neut % (Auto) 60.5 Lymph % (Auto) 24.5 [place] % (Auto) 9.7 Eos % (Auto) 4.3 H Baso % (Auto) 0.6 Lymph # (Auto) 1.7 [place] # (Auto) 0.7 Eos # (Auto) 0.3 Baso # (Auto) 0.0 Abs Immat Gran (auto) 0.03 Absolute Neuts (auto) 4.1 Absolute Nucleated RBC 0.000 Nucleated RBC % (auto) 0.0 <Gema Alcantar PA-C - Last Filed: 11/08/24 07:47> Procedures Date of Service Date of Service: 11/08/24 <Gema Alcantar PA-C - Last Filed: 11/08/24 07:47> 11/08/24 <Jason Guevara MD - Last Filed: 11/08/24 07:58> Progress Note: A&P Assessment and plan (1) S/P mastectomy, bilateral: Status: Acute <Gema Alcantar PA-C - Last Filed: 11/08/24 07:47> (2) Invasive ductal carcinoma of left breast: Status: Acute <Gema Alcantar PA-C - Last Filed: 11/08/24 07:47> Assessment and Plan: POD 6 following left modified radical mastectomy, right simple mastectomy. Overall doing well but continued need for parenteral pain medication. Wounds are clean and intact. Some edema and induration of the left axilla. SIN drain output downtrending. Continue to monitor output. Encouraged out of bed, switch to oral pain meds- tylenol and motrin PO ATC in preparation of dc. Patient expressed understanding and agrees with plan. <Gema Alcantar PA-C - Last Filed: 11/08/24 07:47> Time Spent With Patient Time: Total time managing care of this patient today ____ minutes. <Gema Alcantar PA-C - Last Filed: 11/08/24 07:47> Quality Stroke Does the patient have a stroke diagnosis?: No <Gema Alcantar PA-C - Last Filed: 11/08/24 07:47> VTE Prior VTE?: No <Gema Alcantar PA-C - Last Filed: 11/08/24 07:47> VTE Risk Level:: Surgical - moderate <Gema Alcantar PA-C - Last Filed: 11/08/24 07:47> VTE Device Contraindication: N/A - Device Ordered <ANJELICA Geronimo Last Filed: 11/08/24 07:47> VTE Drug Contraindication: Treatment Not Tolerated <Gema Alcantar PA-C - Last Filed: 11/08/24 07:47>
[2024-11-08] MEDS: clonazePAM 0.5 MG TABLET PO ×2 (07:45→20:13)
[2024-11-08] MEDS: Escitalopram Oxalate 20 MG TABLET PO (07:45)
[2024-11-08] MEDS: Ferrous Sulfate 324 MG TABLET.DR PO (07:46)
[2024-11-08] MEDS: 0.9 % Sodium Chloride Flush 3 ML SYRINGE IVFLUSH ×3 (07:46→20:15)
[2024-11-08] MEDS: polyethylene glycoL 3350 17 GM POWD.PACK PO (07:46)
[2024-11-08] MEDS: Ibuprofen 600 MG TABLET PO ×2 (07:57→16:45)
[2024-11-08] MEDS: Milk of Magnesia 30 ML ORAL.SUSP PO (13:24)
[2024-11-08] MEDS: Acetaminophen 325 MG TABLET 975 MG PO ×2 (13:39→19:24)
[2024-11-08 15:18] VITALS: BP 146/64; PULSE 89; RESP 18; TEMP 36.1; O2SAT 96
[2024-11-08] MEDS: Ondansetron ODT 8 MG TAB.RAPDIS TRANSLINGU (15:29)
[2024-11-08] MEDS: Melatonin 3 MG TABLET 30 MG PO (20:12)
[2024-11-08 20:13] VITALS: BP 146/64
[2024-11-08] MEDS: diphenhydrAMINE HCL 25 MG CAPSULE PO (20:13)
[2024-11-08] MEDS: Magnesium Citrate 300 ML SOLUTION PO (20:18)
[2024-11-08] MEDS: Calcium Carbonate 750 MG TAB.CHEW PO (22:09)
[2024-11-08 23:35] VITALS: BP 120/53; PULSE 89; RESP 20; TEMP 36; O2SAT 94
[2024-11-09] MEDS: HYDROmorphone HCl 0.5 MG/0.5 ML SYRINGE IVPUSH ×6 (04:49→23:47)
[2024-11-09] MEDS: Milk of Magnesia 30 ML ORAL.SUSP PO (04:49)
[2024-11-09] MEDS: oxyCODONE HCl Immed Release 5 MG TABLET 10 MG PO ×4 (06:21→19:51)
[2024-11-09] MEDS: Ondansetron ODT 8 MG TAB.RAPDIS TRANSLINGU (06:21)
[2024-11-09 06:34] VITALS: BP 136/63; PULSE 101; RESP 18; TEMP 36.4; O2SAT 94
[2024-11-09] MEDS: polyethylene glycoL 3350 17 GM POWD.PACK PO (08:24)
[2024-11-09] MEDS: Docusate Sodium 100 MG CAPSULE PO (08:25)
[2024-11-09] MEDS: Ibuprofen 600 MG TABLET PO ×3 (08:25→23:48)
[2024-11-09] MEDS: clonazePAM 0.5 MG TABLET PO ×2 (08:25→19:49)
[2024-11-09] MEDS: Escitalopram Oxalate 20 MG TABLET PO (08:25)
[2024-11-09] MEDS: Ferrous Sulfate 324 MG TABLET.DR PO (08:26)
[2024-11-09] MEDS: Acetaminophen 325 MG TABLET 975 MG PO ×3 (08:27→19:49)
[2024-11-09] MEDS: cloNIDine HCL 0.1 MG TABLET 0.3 MG PO ×2 (08:27→19:49)
[2024-11-09] MEDS: Nicotine 21 MG PATCH.TD24 TRANSDERMA (08:28)
--- NOTE | 2024-11-09 10:44 | P.PNGS_ITS ---
Subjective Subjective Date of Service: 11/09/24 <Gema Alcantar PA-C - Last Filed: 11/09/24 10:49> 11/09/24 <Jason Guevara MD - Last Filed: 11/09/24 13:59> Interval history: Now reporting abd discomfort and cramping- no BM x 1 week. Drank mag citrate yesterday without significant results. Tolerating solid diet. OOB and ambulating. Still using dilaudid and oxycodone for pain control. Does not feel comfortable going home without BM. <Gema Alcantar PA-C - Last Filed: 11/09/24 10:49> Physical Exam 2 Vital Signs: Vital Signs: Last Vital Signs Temp 97.6 F 11/09/24 06:34 Pulse 101 H 11/09/24 06:34 Resp 18 11/09/24 06:34 BP 136/63 11/09/24 06:34 Pulse Ox 94 11/09/24 06:34 O2 Del Method Room Air 11/09/24 06:34 O2 Flow Rate 4 11/02/24 12:24 BMI result Body Mass Index 34.1 <Gema Alcantar PA-C - Last Filed: 11/09/24 10:49> Const: General: comfortable, no acute distress and alert <ANJELICA Geronimo Last Filed: 11/09/24 10:49> Orientation/consciousness: patient oriented x3 <Gema Alcantar PA-C - Last Filed: 11/09/24 10:49> Chest: Other: b/l mastectomy incisions clean; moderate ecchymosis of right side and fullness of lower flap right SIN remains more sanguineous left JPs serosanguineous <Gema Alcantar PA-C - Last Filed: 11/09/24 10:49> Resp: Effort & Inspection: normal respiratory effort <ANJELICA Geronimo Last Filed: 11/09/24 10:49> GI: Inspection: No distended <ANJELICA Geronimo Last Filed: 11/09/24 10:49> Palpation (GI): Soft to palpation, nontender and no guarding <ANJELICA Geronimo Last Filed: 11/09/24 10:49> Skin: General skin exam: no rashes or lesions noted <Gema Alcantar PA-C - Last Filed: 11/09/24 10:49> Neuro: General: patient oriented x3 and moves all extremities <Gema Alcantar PA-C - Last Filed: 11/09/24 10:49> Objective Data Active Medications Acetaminophen (Acetaminophen 325 Mg Tablet) 975 mg PO Q6H [facility] Last Admin: 11/09/24 08:27 Dose: 975 mg Documented By: AYESHA Calcium Carbonate (Calcium Carbonate 750 Mg Tab.Chew) 750 mg PO Q4H PRN PRN Reason: Heartburn Last Admin: 11/08/24 22:09 Dose: 750 mg Documented By: CEE Clonazepam (Clonazepam 0.5 Mg Tablet) 0.5 mg PO BID [facility] Last Admin: 11/09/24 08:25 Dose: 0.5 mg Documented By: AYESHA Clonidine HCl (Clonidine Hcl 0.1 Mg Tablet) 0.3 mg PO BID [facility]; Protocol Last Admin: 11/09/24 08:27 Dose: 0.1 mg Documented By: AYESHA Comments: per pt request Diphenhydramine HCl (Diphenhydramine Hcl 25 Mg Capsule) 25 mg PO BEDTIME [facility] Last Admin: 11/08/24 20:13 Dose: 25 mg Documented By: CEE Docusate Sodium (Docusate Sodium 100 Mg Capsule) 100 mg PO BID [facility] Last Admin: 11/09/24 08:25 Dose: 100 mg Documented By: AYESHA Escitalopram Oxalate (Escitalopram Oxalate 20 Mg Tablet) 20 mg PO DAILY [facility] Last Admin: 11/09/24 08:25 Dose: 20 mg Documented By: AYESHA Ferrous Sulfate (Ferrous Sulfate 324 Mg Tablet.Dr) 324 mg PO DAILY [facility] Last Admin: 11/09/24 08:26 Dose: 324 mg Documented By: AYESHA Hydrocortisone (Hydrocortisone 1 % Cream 28.35 Gm Tube) 1 appl TOPICAL BID [facility] Last Admin: 11/09/24 08:30 Dose: Not Given Documented By: AYESHA Non-Admin Reason: Patient Refused Hydromorphone HCl (Hydromorphone Hcl 0.5 Mg/0.5 Ml Syringe) 0.5 mg IVPUSH Q3H PRN; Protocol PRN Reason: Pain, Severe (Pain Scale 7-10) Last Admin: 11/09/24 08:41 Dose: 0.5 mg Documented By: AYESHA Ibuprofen (Ibuprofen 600 Mg Tablet) 600 mg PO Q8H [facility] Last Admin: 11/09/24 08:25 Dose: 600 mg Documented By: AYESHA Lidocaine/Diphenhydr/Alum/Mg/Simeth (Mag&Al/Sim/Diphenhyd/Lidocaine 10 Ml Oral.Susp) 10 ml PO TID PRN PRN Reason: Mouth Sore Pain Magnesium Hydroxide (Milk Of Magnesia 30 Ml Oral.Susp) 30 ml PO DAILY PRN PRN Reason: Constipation Last Admin: 11/09/24 04:49 Dose: 30 ml Documented By: CEE Melatonin (Melatonin 3 Mg Tablet) 30 mg PO BEDTIME [facility] Last Admin: 11/08/24 20:12 Dose: 9 mg Documented By: CEE Comments: per patient only takes 9mg Nicotine (Nicotine 21 Mg Patch.Td24) 21 mg TRANSDERMA DAILY [facility] Last Admin: 11/09/24 08:28 Dose: 21 mg Documented By: AYESHA Ondansetron HCl (Ondansetron Odt 8 Mg Tab.Rapdis) 8 mg TRANSLINGU Q8H PRN PRN Reason: Nausea and Vomiting Last Admin: 11/09/24 06:21 Dose: 8 mg Documented By: CEE Oxycodone HCl (Oxycodone Hcl Immed Release 5 Mg Tablet) 10 mg PO Q4H PRN PRN Reason: Pain, Moderate(Pain Scale 4-6) Last Admin: 11/09/24 10:27 Dose: 10 mg Documented By: ALICE Polyethylene Glycol (Polyethylene Glycol 3350 17 Gm Powd.Pack) 17 gm PO DAILY [facility] Last Admin: 11/09/24 08:24 Dose: 17 gm Documented By: AYESHA Sodium Chloride (0.9 % Sodium Chloride Flush 3 Ml Syringe) 3 ml IVFLUSH QSHIFT [facility] Last Admin: 11/08/24 20:15 Dose: 3 ml Documented By: CEE <Gema Alcantar PA-C - Last Filed: 11/09/24 10:49> Labs CBC & Chem 7: 11/07/24 08:13 11/03/24 05:10 <Gema Alcantar PA-C - Last Filed: 11/09/24 10:49> Procedures Date of Service Date of Service: 11/09/24 <Gema Alcantar PA-C - Last Filed: 11/09/24 10:49> 11/09/24 <Jason Guevara MD - Last Filed: 11/09/24 13:59> Progress Note: A&P Assessment and plan (1) S/P mastectomy, bilateral: Status: Acute <Gema Alcantar PA-C - Last Filed: 11/09/24 10:49> (2) Invasive ductal carcinoma of left breast: Status: Acute <Gema Alcantar PA-C - Last Filed: 11/09/24 10:49> Assessment and Plan: POD 7 following left modified radical mastectomy, right simple mastectomy. Now with constipation and no BM x 1 week. On colace, miralax, MOM, given mag citrate bottle yesterday. Refusing enema or suppository. Continues t need for parenteral and oral pain medication. Wounds are clean and intact. Some edema and induration of the left axilla and fullness of right inferior flap, moderate ecchymosis of right incision. SIN drain output downtrending, right remains more sanguineous but tapered off. Continue to monitor output. Encouraged out of bed, activity. Did discuss the use of analgesics contributing to constipation and she expresses understanding. Will add lactulose today. Patient expressed understanding and agrees with plan. Hopefully home tomorrow with VNA services. < Gema Alcantar PA-C - Last Filed: 11/09/24 10:49> POD 7 following left modified radical mastectomy, right simple mastectomy. Now with constipation and no BM x 1 week. On colace, miralax, MOM, given mag citrate bottle yesterday. Refusing enema or suppository. Continues t need for parenteral and oral pain medication. Wounds are clean and intact. Some edema and induration of the left axilla and fullness of right inferior flap, moderate ecchymosis of right incision. SIN drain output downtrending, right remains more sanguineous but tapered off. Continue to monitor output. Encouraged out of bed, activity. Did discuss the use of analgesics contributing to constipation and she expresses understanding. Will add lactulose today. Patient expressed understanding and agrees with plan. Hopefully home tomorrow with VNA services. Patient seen and examined agree with the above assessment and plan. Patient with continued constipation despite extensive efforts. This may be as result of the narcotic use and she was encouraged to wean off the Dilaudid which is almost certainly causing the constipation. <Jason Guevara MD - Last Filed: 11/09/24 13:59> Time Spent With Patient Time: Total time managing care of this patient today ____ minutes. <Gema Alcantar PA-C - Last Filed: 11/09/24 10:49> Quality Stroke Does the patient have a stroke diagnosis?: No <Gema Alcantar PA-C - Last Filed: 11/09/24 10:49> VTE Prior VTE?: No <Gema Alcantar PA-C - Last Filed: 11/09/24 10:49> VTE Risk Level:: Surgical - moderate <Gema Alcantar PA-C - Last Filed: 11/09/24 10:49> VTE Device Contraindication: N/A - Device Ordered <Gema Alcantar PA-C - Last Filed: 11/09/24 10:49> VTE Drug Contraindication: Treatment Not Tolerated <Gema Alcantar PA-C - Last Filed: 11/09/24 10:49>
[2024-11-09] MEDS: 0.9 % Sodium Chloride Flush 3 ML SYRINGE IVFLUSH ×2 (11:08→17:33)
[2024-11-09] MEDS: Lactulose 20 GM/30 ML SOLUTION 30 GM PO (11:53)
--- NOTE | 2024-11-09 13:45 | MHC.CM.PN ---
pt not medically ready for dc having abdominal pain dc plan remains for home
[2024-11-09 15:17] VITALS: BP 141/67; PULSE 101; RESP 18; TEMP 36; O2SAT 96
--- NOTE | 2024-11-09 16:04 | PC.NURSE ---
Pt c/o constipation throughout the day. aware. Prune juice, lactulose given with no effect. Encouraged pt to ambulate in arceo. Pt ambulates to BR and in room. States when goes to BR is pulling out small hard stool . Gema Alcantar aware, soraida enema ordered. Pharmacy called to deliver enema to unit
[2024-11-09] MEDS: Sodium Phosphate,Mono-Dibasic 133 ML ENEMA PR (16:29)
--- NOTE | 2024-11-09 18:58 | PC.NURSE ---
1700- Fleet enema given to pt. Pt not able to hold for long. Able to pass a small amount of stool per pt. Requesting an additional enema. Contacted Gema Alcantar, new orders obtained for additional fleet. 1800-Pt states she is feeling a little better and requesting to hold on the additional fleet enema for now to see if she is able to pass more stool without. Will monitor
[2024-11-09 19:49] VITALS: BP 128/60
[2024-11-09] MEDS: diphenhydrAMINE HCL 25 MG CAPSULE PO (19:50)
[2024-11-09] MEDS: Melatonin 3 MG TABLET 30 MG PO (19:50)
[2024-11-09 23:35] VITALS: BP 128/61; PULSE 87; RESP 16; TEMP 36.4; O2SAT 94
[2024-11-10] MEDS: 0.9 % Sodium Chloride Flush 3 ML SYRINGE IVFLUSH ×2 (00:32→07:51)
[2024-11-10] MEDS: Acetaminophen 325 MG TABLET 975 MG PO ×3 (01:46→13:28)
[2024-11-10] MEDS: oxyCODONE HCl Immed Release 5 MG TABLET 10 MG PO ×3 (01:47→11:18)
[2024-11-10] MEDS: HYDROmorphone HCl 0.5 MG/0.5 ML SYRINGE IVPUSH ×2 (03:42→07:53)
[2024-11-10] MEDS: cloNIDine HCL 0.1 MG TABLET 0.3 MG PO (07:40)
[2024-11-10] MEDS: Ibuprofen 600 MG TABLET PO (07:42)
[2024-11-10 07:44] VITALS: BP 119/58; PULSE 62; RESP 16; TEMP 36.6; O2SAT 96
[2024-11-10] MEDS: Escitalopram Oxalate 20 MG TABLET PO (07:46)
[2024-11-10] MEDS: clonazePAM 0.5 MG TABLET PO (07:48)
--- NOTE | 2024-11-10 07:48 | P.PNGS_ITS ---
Subjective Subjective Date of Service: 11/10/24 <Gema Alcantar PA-C - Last Filed: 11/10/24 07:51> 11/10/24 <Jason Guevara MD - Last Filed: 11/10/24 08:02> Interval history: Given two enemas last night with good results. Now with good bowel function. Pain is improved. <Gema Alcantar PA-C - Last Filed: 11/10/24 07:51> Physical Exam 2 Vital Signs: Vital Signs: Last Vital Signs Temp 97.9 F 11/10/24 07:44 Pulse 62 11/10/24 07:44 Resp 16 11/10/24 07:44 BP 119/58 L 11/10/24 07:44 Pulse Ox 96 11/10/24 07:44 O2 Del Method Room Air 11/09/24 23:35 O2 Flow Rate 4 11/02/24 12:24 BMI result Body Mass Index 34.1 <Gema Alcantar PA-C - Last Filed: 11/10/24 07:51> Const: General: comfortable, no acute distress and alert <Gema Alcantar PA-C - Last Filed: 11/10/24 07:51> Orientation/consciousness: patient oriented x3 <ANJELICA Geronimo Last Filed: 11/10/24 07:51> Chest: Other: right SIN drain still remains sanguineous but getting thinner left SIN drains serosanguineous <Gema Alcantar PA-C - Last Filed: 11/10/24 07:51> Resp: Effort & Inspection: normal respiratory effort <Gema Alcantar PA-C - Last Filed: 11/10/24 07:51> Skin: General skin exam: no rashes or lesions noted <ANJELICA Geronimo Last Filed: 11/10/24 07:51> Neuro: General: patient oriented x3 and moves all extremities <ANJELICA Geronimo Last Filed: 11/10/24 07:51> Objective Data Active Medications Acetaminophen (Acetaminophen 325 Mg Tablet) 975 mg PO Q6H [facility] Last Admin: 11/10/24 01:46 Dose: 975 mg Documented By: [email or web address] Calcium Carbonate (Calcium Carbonate 750 Mg Tab.Chew) 750 mg PO Q4H PRN PRN Reason: Heartburn Last Admin: 11/08/24 22:09 Dose: 750 mg Documented By: CEE Clonazepam (Clonazepam 0.5 Mg Tablet) 0.5 mg PO BID [facility] Last Admin: 11/09/24 19:49 Dose: 0.5 mg Documented By: RICK Clonidine HCl (Clonidine Hcl 0.1 Mg Tablet) 0.3 mg PO BID [facility]; Protocol Last Admin: 11/09/24 19:49 Dose: 0.3 mg Documented By: RICK Diphenhydramine HCl (Diphenhydramine Hcl 25 Mg Capsule) 25 mg PO BEDTIME [facility] Last Admin: 11/09/24 19:50 Dose: 25 mg Documented By: RICK Docusate Sodium (Docusate Sodium 100 Mg Capsule) 100 mg PO BID [facility] Last Admin: 11/09/24 22:24 Dose: Not Given Documented By: RICK Non-Admin Reason: Patient Refused Escitalopram Oxalate (Escitalopram Oxalate 20 Mg Tablet) 20 mg PO DAILY [facility] Last Admin: 11/09/24 08:25 Dose: 20 mg Documented By: AYESHA Ferrous Sulfate (Ferrous Sulfate 324 Mg Tablet.Dr) 324 mg PO DAILY [facility] Last Admin: 11/09/24 08:26 Dose: 324 mg Documented By: AYESHA Hydrocortisone (Hydrocortisone 1 % Cream 28.35 Gm Tube) 1 appl TOPICAL BID [facility] Last Admin: 11/09/24 22:24 Dose: Not Given Documented By: RICK Non-Admin Reason: Patient Refused Hydromorphone HCl (Hydromorphone Hcl 0.5 Mg/0.5 Ml Syringe) 0.5 mg IVPUSH Q3H PRN; Protocol PRN Reason: Pain, Severe (Pain Scale 7-10) Last Admin: 11/10/24 03:42 Dose: 0.5 mg Documented By: RICK Ibuprofen (Ibuprofen 600 Mg Tablet) 600 mg PO Q8H [facility] Last Admin: 11/09/24 23:48 Dose: 600 mg Documented By: RICK Lactulose (Lactulose 20 Gm/30 Ml Solution) 30 gm PO BID [facility] Last Admin: 11/09/24 22:24 Dose: Not Given Documented By: RICK Non-Admin Reason: Patient Refused Lidocaine/Diphenhydr/Alum/Mg/Simeth (Mag&Al/Sim/Diphenhyd/Lidocaine 10 Ml Oral.Susp) 10 ml PO TID PRN PRN Reason: Mouth Sore Pain Magnesium Hydroxide (Milk Of Magnesia 30 Ml Oral.Susp) 30 ml PO DAILY PRN PRN Reason: Constipation Last Admin: 11/09/24 04:49 Dose: 30 ml Documented By: CEE Melatonin (Melatonin 3 Mg Tablet) 30 mg PO BEDTIME [facility] Last Admin: 11/09/24 19:50 Dose: 30 mg Documented By: RICK Nicotine (Nicotine 21 Mg Patch.Td24) 21 mg TRANSDERMA DAILY [facility] Last Admin: 11/09/24 08:28 Dose: 21 mg Documented By: AYESHA Ondansetron HCl (Ondansetron Odt 8 Mg Tab.Rapdis) 8 mg TRANSLINGU Q8H PRN PRN Reason: Nausea and Vomiting Last Admin: 11/09/24 06:21 Dose: 8 mg Documented By: CEE Oxycodone HCl (Oxycodone Hcl Immed Release 5 Mg Tablet) 10 mg PO Q4H PRN PRN Reason: Pain, Moderate(Pain Scale 4-6) Last Admin: 11/10/24 06:20 Dose: 10 mg Documented By: RICK Polyethylene Glycol (Polyethylene Glycol 3350 17 Gm Powd.Pack) 17 gm PO DAILY [facility] Last Admin: 11/09/24 08:24 Dose: 17 gm Documented By: AYESHA Sodium Biphosphate/Sodium Phosphate (Sodium Phosphate,Rock-Dibasic 133 Ml Enema) 133 ml MO ONCE PRN PRN Reason: Constipation Sodium Chloride (0.9 % Sodium Chloride Flush 3 Ml Syringe) 3 ml IVFLUSH QSHIFT [facility] Last Admin: 11/10/24 00:32 Dose: 3 ml Documented By: RICK <Gema Alcantar PA-C - Last Filed: 11/10/24 07:51> Labs CBC & Chem 7: 11/07/24 08:13 11/03/24 05:10 <Gema Alcantar PA-C - Last Filed: 11/10/24 07:51> Procedures Date of Service Date of Service: 11/10/24 <Gema Alcantar PA-C - Last Filed: 11/10/24 07:51> 11/10/24 <Jason Guevara MD - Last Filed: 11/10/24 08:02> Progress Note: A&P Assessment and plan (1) S/P mastectomy, bilateral: Status: Acute <Gema Alcantar PA-C - Last Filed: 11/10/24 07:51> (2) Invasive ductal carcinoma of left breast: Status: Acute <Gema Alcantar PA-C - Last Filed: 11/10/24 07:51> Assessment and Plan: POD 7 following left modified radical mastectomy, right simple mastectomy. Doing well. Now with good bowel movements. Wounds are clean and intact. SIN drain output downtrending. Patient feels ready for dc to home with VNA services. Will go home with drains in place. F/u in office 1 week. < Gema Alcantar PA-C - Last Filed: 11/10/24 07:51> POD 7 following left modified radical mastectomy, right simple mastectomy. Doing well. Now with good bowel movements. Wounds are clean and intact. SIN drain output downtrending. Patient feels ready for dc to home with VNA services. Will go home with drains in place. F/u in office 1 week. Patient finally had good results with large and multiple bowel movements continuing last evening. She reports less abdominal pain and distention. She reports having a great night and feels ready for discharge. Wounds remain clean and intact and SIN output is trending downward. Pathology results reviewed with the patient today. Pathology revealed a left breast invasive ductal carcinoma, 35 mm, with DCIS, margins clear by 15 mm. One of 18 axillary lymph nodes with metastatic disease, ER/MO positive, HER2 [place], FISH negative, high Ki-67. Right breast with no carcinoma or atypia, 7 incidental lymph nodes negative for metastatic disease. TNM: ypT2 ypNmi (AJCC 8th ed.) <Jason Guevara MD - Last Filed: 11/10/24 08:02> Time Spent With Patient Time: Total time managing care of this patient today ____ minutes. <Gema Alcantar PA-C - Last Filed: 11/10/24 07:51> Quality Stroke Does the patient have a stroke diagnosis?: No <Gema Alcantar PA-C - Last Filed: 11/10/24 07:51> VTE Prior VTE?: No <Gema Alcantar PA-C - Last Filed: 11/10/24 07:51> VTE Risk Level:: Surgical - moderate <Gema Alcantar PA-C - Last Filed: 11/10/24 07:51> VTE Device Contraindication: N/A - Device Ordered <Gema Alcantar PA-C - Last Filed: 11/10/24 07:51> VTE Drug Contraindication: Treatment Not Tolerated <Gema Alcantar PA-C - Last Filed: 11/10/24 07:51>
[2024-11-10] MEDS: Nicotine 21 MG PATCH.TD24 TRANSDERMA (07:50)
[2024-11-10] MEDS: Ferrous Sulfate 324 MG TABLET.DR PO (07:54)
--- NOTE | 2024-11-10 09:10 | MHC.CM.PN ---
CM MET WITH PT TO DISCUSS DC PLANNING PT REPORTS SHE DOES NOT FEEL SHE NEEDS A VNA SHE SAYS SHE WORKS IN THE [employer] AND KNOWS THE SIGNS OF INFECTION SHE ALSO NOTES SHE CAN SEND PICS/MESSAGES VIA THE [facility] IF SHE HAS ANY WORRIES SHE NOTES SHE IS FEELING BETTER AND READY TO GO, HOWEVER WILL NOT BE ABLE TO LEAVE UNTIL [id number] SHE SAYS SHE WANTS TO WAIT UNTIL HER SON IS OUT OF SCHOOL SO HE CAN HELP HER FATHER GET HER HOME AND SITUATED PT WILL DC HOME TODAY SHE IS DECLINING HOME SERVICES FAMILY WILL TRANSPORT
--- NOTE | 2024-11-10 12:43 | PM.DS ---
DS: Providers Provider Date of Service: 11/10/24 Date of admission: 11/02/24 06:30 Date of discharge: 11/10/24 Primary care physician: Uriel Marie MD Attending physician on admission: Jason Guevara Attending physician on discharge: Jason Guevara DS: Diagnosis Discharge Diagnosis (1) S/P mastectomy, bilateral: Status: Acute (2) Invasive ductal carcinoma of left breast: Status: Acute DS: Summary Hospital Course Hospital Course: HPI AT ADMISSION: 43-year-old female patient presenting for evaluation of pain in the left breast and discharge in the right breast. She denies a previous history of breast problems or breast surgery but does have a family history of breast cancer in her paternal grandmother and 2 maternal cousins. She reports complaints of pain and skin dimpling in the left breast at the upper outer quadrant since 09/15/2023 and initially thought that this was due to her bra. The pain seems to be increasing and is associated with swelling of the left breast. She reports whitish discharge from the right nipple usually after taking a shower. The discharge is not spontaneous but requires squeezing of the nipple. She denies any bleeding from the nipple. She is 3 para 1 and breastfed her child (Son, 16 years old) for only a very short period of time. Mammogram and ultrasound performed on 03/10/2024 revealed a left breast spiculated mass with an irregular shape in the upper outer quadrant, 2.8 x 2.0 cm extending to the skin. This was felt to be highly suggestive of malignancy ( BI-RADS 5). A dilated duct on the right side in the 5 o'clock periareolar position was felt to be ductal ectasia and six-month follow-up ultrasound recommended. A separate intraductal papilloma was also identified and biopsy was also recommended of this patient under ultrasound guidance. She underwent ultrasound-guided biopsy on 03/21/2024 at the [facility]. Pathology revealed invasive ductal carcinoma grade 2 including the 2nd lesion with lymphoid and adipose tissue, clinical stage cT4 N1, stage IIIB. She was evaluated by Dr. Vivas and underwent neoadjuvant chemotherapy with Adriamycin/Cytoxan 4 cycles followed by weekly Taxol 12 cycles. She developed a rash to the Taxol. She returns today to discuss her surgical options. She continues to expressed a desire to have bilateral mastectomies. It was recommended to proceed with left breast modified radical mastectomy along with a prophylactic right simple mastectomy. She presents for the planned procedure. HOSPITAL COURSE: On 11/02/24, left modified radical mastectomy, right simple mastectomy was performed by Dr. Guevara without immediate complication. The patient tolerated the procedure well and was admitted post operatively for observation. She had a lengthy recovery course and remained inpatient for several days due to need for parenteral analgesics. She had a moderate to high amount of sanguineous drainage from her right SIN drain with a drift down in her H/H the first post operative day. She however remained asymptomatic and was hemodynamically stable and this was treated conservatively with compression to the mastectomy site, ice. No transfusion was required. Her H/H remained stable and began to trend up. She was started on oral iron therapy. Her activity was gradually increased over her stay. Her drain output gradually tapered off and became more serous appearing. She develop constipation despite colace therapy and was given mag citrate and then fleet enemas with good results. On the day of discharge, she was tolerating a solid diet without nausea or vomiting. Her pain was well controlled and she was comfortable. She was ambulating without difficulty. She was hemodynamically stable. Her b/l mastectomy incision sites were clean appearing and well approximated, moderate ecchymosis of flaps but viable appearing. She had some fullness of the right inferior flap with continued sanguineous appearing drainage but overall improved, likely due to old hematoma draining. Left SIN drains serosanguineous appearing. She felt ready for discharge and was discharged to home on 11/10/24 in stable condition with VNA services. She is to follow up in the office in 1 week. Status at Discharge Functional status at discharge: independent ambulation Overall status at discharge: patient is progressing back to baseline Time Attestation Discharge Coordination Time (in mins): 50 Quality: Safe Use of Opioids Does Pt have an Active Cancer Diagnosis on the Problem List?: Yes Opioid Measure Date for [facility] Report: 10/12/24 Opioid Measure Time for [facility] Report: 09:48 Quality: Stroke Does the patient have a stroke diagnosis?: No Physical Exam Vital Signs: Vital Signs: Last Vital Signs Temp 97.9 F 11/10/24 07:44 Pulse 62 11/10/24 07:44 Resp 16 11/10/24 07:44 BP 119/58 L 11/10/24 07:44 Pulse Ox 96 11/10/24 07:44 O2 Del Method Room Air 11/09/24 23:35 O2 Flow Rate 4 11/02/24 12:24 BMI result Body Mass Index 34.1 Const: Orientation/consciousness: patient oriented x3 Chest: Other: b/l masectomy incisions clean and well approximated moderate ecchymosis of right upper flap into axilla, some fullness of lower flap with ecchymosis at drain site right SIN with more sanguineous appearing drainage mild ecchymosis of left site, some induration of tissues into axilla, SIN drains with more serous drainage Resp: Effort & Inspection: normal respiratory effort Skin: General skin exam: no rashes or lesions noted Neuro: General: patient oriented x3 and moves all extremities DS: Data Data Completed and Pending Completed studies during hospitalization [Text1]: Pending at discharge 11/02/24 10:17 Surgical Path [Surgical] [PTH] Routine A. Breast, left, mastectomy: -Invasive ductal carcinoma, MSBR 2, 35 mm (ypT2) -Margins free of tumor by 15 mm. -Ductal carcinoma in situ, nuclear grade 2-3. -Margins free of tumor by 15 mm. -Currently one of eighteen lymph nodes positive for metastatic carcinoma (ypNmi). -One lymph node positive with 2 mm tumor. -One lymph node with biopsy changes, no definitive tumor (previously positive with 5 mm tumor, [id number]) -Tattoo pigment noted. -Fibrocystic change with dense stromal fibrosis, small sclerotic papillomas, sclerotic fibroadenomatous change, and focal sclerosing adenosis. -Nipple with epidermal inclusion cysts with inflammation, fibrosis, and foreign body giant cell reaction to keratin debris. -Biopsy site change with marker. B. Breast, right, mastectomy: -Fibrocystic change with focal usual ductal hyperplasia, and duct ectasia. -Seven lymph nodes negative for metastatic carcinoma, with focal tattoo pigment noted. -Nipple with epidermal inclusion cysts with inflammation, fibrosis, and foreign body giant cell reaction to keratin debris. Discharge Plan Discharge Anticipated Discharge Date/Time: 11/08/24 11:24 Patient Disposition: Home Health Service Discharge Diagnosis: s/p mastectomy, bilateral Referrals: Jason Guevara MD [Physician] - 1 Week Po,Uriel Rodriguez MD [Primary Care Provider] - 1 Week Discharge Medications: New docusate sodium [Colace] 100 mg capsule 100 mg PO BID Qty: 30 0RF oxycodone 5 mg tablet 5 mg PO Q4H PRN (Reason: pain (scale score 7-10)) Qty: 30 0RF Rx Instructions: Partial Fill upon patient request. nicotine 21 mg/24 hr Patch 24 Hour 21 mg transdermal DAILY 30 Days Qty: 30 3RF ferrous sulfate 324 mg (65 mg iron) Tablet,Delayed Release (Dr/Ec) 324 mg PO DAILY 90 Days Qty: 90 3RF Continued Calcium 600 with Vitamin D3 600 mg-10 mcg (400 unit) Tablet,Chewable 1 tab PO BID Qty: 60 3RF Magic Mouthwash Diphen/Lido/Antacid 1:1:1 240 mL Suspension 10 ml PO TID Qty: 240 1RF Rx Instructions: Lidocaine Viscous 2 % 80mL; diphenhydramine 12.5 mg/5 mL 80mL; aluminum-mag hydrox-simeth [id number]/5mL 80mL ondansetron 8 mg Tablet,Disintegrating 8 mg PO Q8H PRN (Reason: Nausea) Qty: 30 3RF hydrocortisone 1 % Lotion 1 appl TOPICAL BID Qty: 100 2RF diphenhydramine HCl [Benadryl] 25 mg Capsule 25 mg PO BEDTIME clonidine HCl 0.1 mg tablet 0.3 mg PO BID Rx Instructions: 1-3 tabs every 8 hours as needed clonazepam 1 mg tablet 0.5 mg PO BID melatonin 10 mg Tablet,Chewable 30 mg PO BEDTIME citalopram 40 mg tablet 40 mg PO QAM Discharge Orders: Discharge Order (Routine); Ordered 11/10/24 Ordered By: Jason Guevara Diet: Advance to usual diet Activity on Discharge: No heavy lifting Stand Alone Forms: Patient Portal Discharge page Print Language: Ukrainian Activity Restrictions/Additional Instructions: If the incision area is tender, you may apply an ice pack for short intervals (No more than 20 minutes on, followed by at least 20 minutes off). Do not apply heat. Do not use creams, lotions, or topical antibiotics. These can cause infection or allergic reaction. Ok to shower. NO HEAVY LIFTING (>10lbs). SIN drain care- empty drain BID and as needed. Record output. Bring record to follow up appointment. Take Tylenol Extra-strength 1-2 tabs every 6 hours as needed. Oxycodone every 6-8 hours as needed for pain. Colace 100 mg morning and night as needed for constipation. Follow up in office with Dr. Guevara in 1 week. ([phone]) Call Your Doctor If: ? ? -Your temperature exceeds 101? F? ? ? -You experience excessive pain or swelling ? ? -You have an unexpected reaction to medication ? ? -You have excessive bleeding ? ? -You experience continued vomiting/nausea ? ? -Your incision begins to separate ?? ? -Your incision shows signs of infection such as increased redness, swelling, excessive pain, drainage (light blood or clear fluid is normal) or heat Care Plan Goals: Return to baseline health and resume normal activities following recovery period. SIN drain removal. Health Concerns: invasive ductal CA of left breast Plan of Treatment: s/p modified radical mastectomy of left breast, simple mastectomy of right breast F/u in office in 1 week SIN drain care Pain control Assessment: Doing well post op. Patient Instructions: Bradly-De Jesus Drain Care (DC), Mastectomy (DC) Discharge Date/Time: 11/10/24 14:09
== END 2024-11-10 14:09 | disposition home health service (06) | DRG 362 ==
LOC: HO.SSSA 06:35 → HO.S3 12:42
PROVIDERS: Anesthesiology; Physician Assistant Surgical; Admitting Provider Surgery; PCP Internal Medicine; Visit Provider Surgery
PROC: 0HTV0ZZ Resection of Bilateral Breast, Open Approach (ICD-10-PCS; CPT 19307; principal; 2024-11-02 08:40)
PROC: 0HTV0ZZ Resection of Bilateral Breast, Open Approach (ICD-10-PCS; CPT 19303; 2024-11-02 08:40)
DX: C50.412 Malignant neoplasm of upper-outer quadrant of left female breast (principal); C77.3 Secondary and unspecified malignant neoplasm of axilla and upper limb lymph nodes; F17.210 Nicotine dependence, cigarettes, uncomplicated; G89.18 Other acute postprocedural pain; Z71.6 Tobacco abuse counseling; Z79.899 Other long term (current) drug therapy
CPT/HCPCS: 36415; 80048; 81025; 85014; 85018; 85025; 86850; 86900; 86901; 88307; 88309; 88342; J0131; J0690; J1100; J1171; J2003; J2250; J2371; J2405; J2704; J2795; J3010; J7120

== ENCOUNTER → 2024-11-02 06:30 | Outpatient (BNV) | payer OTHER, SELFPAY | PROVIDERS: Admitting Provider Surgery; PCP Internal Medicine; Visit Provider Surgery | DX: C50.912 Malignant neoplasm of unspecified site of left female breast (principal); Z90.13 Acquired absence of bilateral breasts and nipples | CPT/HCPCS: 19303; 19305; 99024 ==

== ENCOUNTER → 2024-11-15 13:52 | Outpatient (BNVA) | payer OTHER, SELFPAY | PROVIDERS: PCP Internal Medicine; Visit Provider Surgery | DX: Z48.00 Encounter for change or removal of nonsurgical wound dressing (principal) | CPT/HCPCS: 99211 ==

== ENCOUNTER → 2024-11-16 10:18 | Outpatient (BNVA) | payer OTHER, SELFPAY | PROVIDERS: PCP Internal Medicine; Visit Provider Surgery | DX: Z48.03 Encounter for change or removal of drains (principal); Z98.890 Other specified postprocedural states | CPT/HCPCS: 99211 ==

== ENCOUNTER 2024-11-22 10:50 | Outpatient (AMB) | payer OTHER, SELFPAY ==
--- NOTE | 2024-11-22 11:02 | MHC.OFFVIS ---
Vital Signs 11/22/24 11:03 Height 5 ft 7 in Intake Visit Reasons: s/p bilateral mastectomy Addiction Treatment Counselor Required: No Allergies adhesive tape Allergy (Severe, Verified 11/18/24 09:49) adh.medical tape, steri strips, tegaderm-rash paclitaxel [From Taxol] Allergy (Severe, Verified 11/18/24 09:49) Rash tramadol Allergy (Severe, Verified 11/18/24 09:49) Rash amoxicillin Adverse Reaction (Intermediate, Verified 11/18/24 09:49) Diarrhea Medication List - Last Reconciled 11/22/24 by Miguel Herzog RN calcium carbonate-vitamin D3 600 mg-10 mcg (400 unit) (Calcium 600 with Vitamin D3) 1 tab PO BID citalopram 40 mg PO QAM clonazepam 0.5 mg PO BID clonidine HCl 0.3 mg PO BID diphenhydramine HCl (Benadryl) 25 mg PO BEDTIME docusate sodium (Colace) 100 mg PO BID duloxetine 30 mg PO DAILY ferrous sulfate 324 mg PO DAILY 90 days gabapentin 100 mg PO BID hydrocortisone 1% 1 appl topical BID leuprolide (3 month) (Lupron Depot) 11.25 mg IM [id number] Magic Mouthwash Diphen/Lido/Antacid 1:1:1 10 mL PO TID melatonin 30 mg PO BEDTIME nicotine 21 mg transdermal DAILY 30 days ondansetron 8 mg PO Q8H PRN oxycodone 5 mg PO Q4H PRN HPI Comments Details: Patient presents for follow up. She underwent left modified radical mastectomy, right simple mastectomy on 11/02/[address] Guevara for left breast invasive ductal carcinoma with metastasis to lymph node, right prophylactic mastectomy. Pathology of the left breast revealed invasive ductal carcinoma, MS BR grade 2, 3.5 cm, margins free of tumor, DCIS nuclear grade 2-3 margins free of tumor, with one of 18 lymph nodes positive for metastatic carcinoma, lymph node metastasis measured 2 mm. Another lymph node with biopsy changes with no definitive tumor, previously positive with 5 mm tumor. Right breast was benign with seven lymph nodes negative. She was seen by Dr. Vivas last week and due to the positive lymph node, she was referred to radiation oncology for recommendations about adjuvant radiation therapy. She did develope a small hematoma of the inferior right flap post operatively inpatient managed conservatively. She reports doing well since discharge. Her left SIN drains had scant serous output <30cc and both were removed by TY Rivera last week. She reports significant improvement in her left sided pain with the drain removal but she continues to take oxycodone every 6 hours due to the pain from the drain site on the right. She tries to alternate with tylenol. Her drain output log shows around 70-90cc daily from the right SIN drain still. She is hoping to have the drain removed today as it is limiting her ROM exercises. She reports a good appetite. She is moving her bowels ok. She has no other concerns. [facility] Medical History Muscle pain Port-A-Cath in place Post-operative nausea and vomiting Breast cancer, left Heartburn Anxiety Depression Surgical History S/P mastectomy, bilateral (11/02/24) Invasive ductal carcinoma of left breast Hx of dilation and curettage Hx of carpal tunnel repair Hx of section History of cholecystectomy Family History Paternal Grandmother Breast cancer Family/Other Breast cancer Other Mental health disorder Substance use disorder Social History Household Members: Family Household Members Other:: Son and Dad Housing: House Are you a primary out of school hours care worker to a significant other at home: Yes (minor son) Do you presently have visiting nurse or other home services: No Alcohol intake: current Alcohol intake frequency: does not drink Comment: counts correct Patient Tobacco Use Status: Current everyday Tobacco user Tobacco use type: Cigarette Cigarettes Per Day: 6 Years Smoked: 17 e-Cigarette/Vaping Use: Never Used Second Hand Smoke Exposure: No Substance Use Type: Marijuana Advance Directives Date on File: 05/20/24 service: No Current occupational status: employed and unemployed Sexual orientation: Straight/Heterosexual Gender identity: Female Cognitive needs: No Hearing needs: No Vision needs: No Female Reproductive History Menstrual Age of Menarche: 10 Review of Systems Const Denies chills and Denies fever(s) Card Denies dyspnea Resp Denies dyspnea GI Denies constipation and Denies vomiting Skin/Breast Denies rash Physical Exam Const General: comfortable, no acute distress and alert Orientation/consciousness: patient oriented x3 Chest Other: left mastectomy site incision well approximated and healing well, no erythema, no evidence of seroma; drain sites closed right mastectomy site incision healing well, no erythema, continued fullness of inferior flap, SIN drain continues with sanguineous output, decreasing Resp Effort & Inspection: normal respiratory effort Skin General skin exam: no rashes or lesions noted Neuro General: patient oriented x3 and moves all extremities Assessment & Plan Assessment & Plan (1) Breast cancer, left: Code(s): C50.912 - Malignant neoplasm of unspecified site of left female breast Category: Medical Qualifiers: Breast location: upper outer quadrant of breast Estrogen receptor status: unspecified Patient sex: female Qualified Code(s): C50.412 - Malignant neoplasm of upper-outer quadrant of left female breast Plan 3 weeks s/p left modified radical mastectomy, right simple mastectomy for left breast invasive ductal carcinoma with metastasis to lymph node, right prophylactic mastectomy. She is being referred to radiation oncology for further recommendations in regards to her one positive lymph node on pathology. She is overall convalescing well. Her left mastectomy site is healing well without evidence of infection or seroma. Her right mastectomy incision is clean appearing. Her SIN drain continues with 70-90cc sanguineous output daily with persistent fullness of the inferior flap. Discussed leaving the drain in place until the hematoma is evacuated to prevent secondary infection. Encouraged hot packs/heating pack to area to promote drainage of this. Her recent labs show H/H gradually trending up on recent labs. Return in 1 week for wound check and hopefully drain removal. All questions answered. Medications: New oxycodone Partial Fill upon patient request. 5 mg PO Q6H PRN 30 tabs 0RF pain (scale score 7-10) 1 week C50.412 - Malignant neoplasm of upper-outer quadrant of left female breast Coding Level of Care Code Global (75391) Diagnoses Malignant neoplasm of upper-outer quadrant of left female breast, unspecified estrogen receptor status C50.412 Breast location: upper outer quadrant of breast Estrogen receptor status: unspecified Patient sex: female
--- OUTSIDE RECORDS SUMMARY | 2024-11-22 12:34 | XMS_ITS | Clinical Summary ---
Author Organization [facility] Address [address] [place] [address] Care Team Providers Care Product Development Coordinator Name Role Phone Unavailable Primary Care Provider [...] 11/09/1999 COVID-19 Vaccine (2023-2 5 season) 2024 Colorectal Cancer Screening: Colonoscopy 05/22/2024 Depression Screening 05/22/2024 HIV Screening 05/22/2024 Hepatitis C Screening 05/22/2024 Social Influencers of Health Screening 05/22/2024 Influenza Vaccine (Season Ended) 2025 HIB Vaccines Aged Out No longer eligi [...]
== END 2024-11-22 11:24 | disposition home or self-care (01) ==
LOC: HO.HGS 10:51
PROVIDERS: PCP Internal Medicine; Visit Provider Physician Assistant Surgical
DX: C50.412 Malignant neoplasm of upper-outer quadrant of left female breast (principal)
CPT/HCPCS: 99024

== ENCOUNTER → 2024-11-22 10:50 | Outpatient (BNVA) | payer OTHER, SELFPAY | PROVIDERS: PCP Internal Medicine; Visit Provider Physician Assistant Surgical | DX: C50.412 Malignant neoplasm of upper-outer quadrant of left female breast (principal) | CPT/HCPCS: 99212 ==

== ENCOUNTER 2024-11-25 09:26 | Outpatient (AMB) | payer OTHER, SELFPAY ==
[2024-11-25 09:43] VITALS: BP 140/69; PULSE 83; BMI 32.1
--- NOTE | 2024-11-25 09:43 | MHC.OFFVIS ---
Vital Signs 11/25/24 09:43 Height 5 ft 7 in Weight 205 lb BMI 32.1 BP 140/69 H Blood Pressure Location Lt popliteal Position Sitting Pulse 83 Intake Visit Reasons: fluid pooling from (l) breast drain tube removal Intake Note: Patient here s/p bilateral mastectomy. Reports Lt breast no longer oozing. Drain site healing well. Feels tender to touch. 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 She underwent left modified radical mastectomy, right simple mastectomy on 11/02/[address] Guevara. Her left SIN drains were <30cc per day and removed a week and a half ago. She was seen on Thursday and had been overall doing well without evidence of seroma. She reports she noticed a small amount of fluid on Thursday and it worsened yesterday. She denies pain at the site but can feel the fluid moving around. Denies nausea/vomiting, fever, chills. [facility] Medical History Muscle pain Port-A-Cath in place Post-operative nausea and vomiting Breast cancer, left Heartburn Anxiety Depression Surgical History S/P mastectomy, bilateral (11/02/24) Invasive ductal carcinoma of left breast Hx of dilation and curettage Hx of carpal tunnel repair Hx of section History of cholecystectomy Family History Paternal Grandmother Breast cancer Family/Other Breast cancer Other Mental health disorder Substance use disorder Social History Household Members: Family Household Members Other:: Son and Dad Housing: House Are you a primary ocular care aide to a significant other at home: Yes (minor son) Do you presently have visiting nurse or other home services: No Alcohol intake: current Alcohol intake frequency: does not drink Comment: counts correct Patient Tobacco Use Status: Current everyday Tobacco user Tobacco use type: Cigarette Cigarettes Per Day: 6 Years Smoked: 17 e-Cigarette/Vaping Use: Never Used Second Hand Smoke Exposure: No Substance Use Type: Marijuana Advance Directives Date on File: 05/20/24 service: No Current occupational status: employed and unemployed Sexual orientation: Straight/Heterosexual Gender identity: Female Cognitive needs: No Hearing needs: No Vision needs: No Female Reproductive History Menstrual Age of Menarche: 10 Review of Systems Const Denies chills and Denies fever(s) GI Denies nausea and Denies vomiting Skin/Breast Reports as per HPI Physical Exam Vital Signs: Last Vital Signs Pulse 83 11/25/24 09:43 BP 140/69 H 11/25/24 09:43 BMI result Body Mass Index 32.1 Const General: comfortable, no acute distress and alert Orientation/consciousness: patient oriented x3 Chest Other: left mastectomy site with obvious large fluid collection of mastectomy and axilla, no overlying skin changes, incision remains clean and well approximated right mastectomy site fullness of lower flap feels to be improving, SIN drain in place with sanguineous output Resp Effort & Inspection: normal respiratory effort Neuro General: patient oriented x3 and moves all extremities Office Procedures Aspiration of Seroma Details: The site of procedure was confirmed by the patient. After assuring informed consent, the skin of the inferior lateral aspect of the left mastectomy site was prepped with betadine. 10cc 1% lidocaine local anesthesia was then infiltrated over a dependent area of the fluid collection. The fluid collection was then aspirated using an 18 gauge needle and syringe. 150cc serous appearing fluid was drained. No bleeding was noted from aspiration site. The patient tolerated the procedure very well. She will return in 1 week for wound examination. Aspiration of Seroma: 40820 Seroma Aspiration All charges added?: Procedure code (CPT) selection complete Assessment & Plan Assessment & Plan (1) Seroma of skin or subcutaneous tissue after non-dermatologic procedure: Code(s): L76.34 - Postprocedural seroma of skin and subcutaneous tissue following other procedure Category: Medical Plan Seroma of left mastectomy site. 150cc aspirated uneventfully today. Patient tolerated the procedure well. Recommended to continue compression with her breast binder. She is to return in 1 week or sooner if needed. Coding Level of Care Code Est Pt Level 3 (40534) Diagnoses Seroma of skin or subcutaneous tissue after non-dermatologic procedure L76.34 CPT Codes Aspiration of Seroma ([id number])
--- OUTSIDE RECORDS SUMMARY | 2024-11-25 10:14 | XMS_ITS | Encounter Summary ---
Author Organization [facility] Address [address] [place] [address] Care Team Providers Care Layer Up Name Role Phone Uriel Marie MD Primary Care Provider [phone] Encounter Details Date Type Department Care Team (Late st Contact Info) Description 11/24/2024 Telephone [facility] Radiation Oncology [address] [place] [phone] Jessi Peters MA Social History Tobacco Use Types Packs/Day Years Used Date Smoking Tobacco: Every Day Cigarettes Smokeless Tobacco: Never Alcohol Use Standard Drinks/Week Comments Yes 4 (1 standard drink = 0.6 oz pur e alcohol) Comments Unknown Sex and Gender Information Value Date Recorded Sex Assigned at Not on file Legal Sex Female 6:24 PM EDT Gender Identity Not on file Sexual Orientation Not on file documented as of this encounter Progress Notes * Jessi Peters MA - 11/24/2024 1:40 PM EDT Spoke with pt confirmed consult appt scheduled for 12/01/24 @ 1:30 arrival time 1:15. Pt will be speaking with Louann also to fill put PT1 form for future appts. documented in this encounter Plan of Treatment Upcoming Encounters Date Type Department Care Team (Late st Contact Info) Description 12/01/2024 1:30 PM EDT Appointment [facility] Radiation Oncology [address] [place] [phone] 12/01/2024 2:00 PM EDT Appointment [facility] Radiation Oncology [address] [place] [phone] Meagan Leiva MD [address] [place] [address] documented as of this encounter Visit Diagnoses Not on filedocumented in this encounter Care Teams Layer Up Relationship Specialty Start Date End Date Uriel Marie MD [address] [place] [phone] PCP - General Internal Medicine 11/23/24 documented as of this encounter
--- OUTSIDE RECORDS SUMMARY | 2024-11-25 10:14 | XMS_ITS | Encounter Summary ---
Author Organization [facility] Address [address] [place] [address] Care Team Providers Care Child Development Professor Name Role Phone Uriel Marie MD Primary Care Provider [phone] Encounter Details Date Type Department Care Team (Late Contact Info) Description 11/23/2024 Telephone [facility] Radiation Oncology [address] [place] [phone] Jessi Peters MA Social History Tobacco Use Types Packs/Day Years Used Date Smoking Tobacco: Never Assessed Comments Unknown Sex and Gender Information Value Date Recorded Sex Assigned at Not on file Legal Sex Female 6:24 PM EDT Gender Identity Not on file Sexual Orientation Not on file documented as of this encounter Progress Notes * Jessi Peters MA - 11/23/2024 1:21 PM EDT Left detailed voice message to schedule consult appt. Requested a call back. documented in this encounter Plan of Treatment Upcoming Encounters Date Type Department Care Team (Late st Contact Info) Description 12/01/2024 1:30 PM EDT Appointment [facility] Radiation Oncology [address] [place] [address] [phone] 12/01/2024 2:00 PM EDT Appointment [facility] Radiation Oncology [address] [place] [phone] Meagan Leiva MD [address] [place] [address] documented as of this encounter Visit Diagnoses Not on filedocumented in this encounter Care Teams Child Development Professor Relationship Specialty Start Date End Date Uriel Marie MD [address] [place] [phone] PCP - General Internal Medicine 11/23/24 documented as of this encounter
--- OUTSIDE RECORDS SUMMARY | 2024-11-25 10:14 | XMS_ITS | Encounter Summary ---
Author Organization [facility] Address [address] [place] [address] Care Team Providers Care Liner Reroll Tender Name Role Phone Uriel Marie MD Primary Care Provider [phone] Encounter Details Date Type Department Care Team (Late Contact Info) Description 11/24/2024 Telephone [facility] Radiation Oncology [address] [place] [phone] Jessi Peters MA Social History Tobacco Use [...] on file documented as of this encounter Plan of Treatment Upcoming Encounters Date Type Department Care Team (Late st Contact Info) Description 12/01/2024 1:30 PM EDT Appointment [facility] Radiation Oncology [address] [place] [phone] 12/01/2024 2:00 PM EDT Appointment [facility] Radiation Oncology [address] [place] [phone] Meagan Leiva MD [address] [place] [address] documented as of this encounter Visit Diagnoses Not on filedocumented in this encounter Care Teams Liner Reroll Tender Relationship Specialty Start Date End Date Uriel Marie MD [address] [place] [phone] PCP - General Internal Medicine 11/23/24 documented as of this encounter
--- OUTSIDE RECORDS SUMMARY | 2024-11-25 10:14 | XMS_ITS | Clinical Summary ---
Author Organization [facility] Address [address] [place] [address] Care Team Providers Care Mine Promotor Name Role Phone Uriel Marie MD Primary Care Provider Allergies Active Allergy Reactions Criticality Noted Date Comments Adhesive Tape-Silicones Rash 11/24/2024 Amoxicillin Diarrhea 11/24/2024 Paclitaxel Rash 11/24/2024 Tramadol Rash 11/24/2024 Medications citalopram (CeleXA) 40 mg tablet Take 1 tablet (40 mg total) by mouth 1 (one) time each day in the morning. Active clonazePAM (KlonoPIN) 1 mg tablet Take 0.5 mg by mouth 2 (two) times a day. Max Daily Amount: 1 mg Active cloNIDine (CATAPRES) 0.1 mg tablet Take 1 tablet (0.1 mg total) by mouth 2 (two) times a day. Active diphenhydrAMINE (BENADRYL) 25 mg tablet Take 1 tablet (25 mg total) by mouth at bedtime as needed for sleep. Active melatonin 10 mg capsule Take 3 capsules (30 mg total) by mouth at bedtime. Active Active Problems Problem Noted Date Diagnosed Date Anxiety 11/24/2024 Malignant neoplasm of left b reast (CMS/HCC V24, CMS/HCC V28) 11/24/2024 Depression 11/24/2024 Heartburn 11/24/2024 Port-A-Cath in place 11/24/2024 Muscle pain 11/24/2024 Encounters Date Type Department Care Team Description 11/24/2024 Telephone [facility] Radiation Oncology [address] [place] [phone] Jessi Peters MA 11/24/2024 Telephone [facility] Radiation Oncology [address] [phone] Jessi Peters MA 11/23/2024 Telephone [facility] Radiation Oncology [address] [place] [phone] Jessi Peters MA 11/23/2024 Telephone [facility] Radiation Oncology [address] [place] [phone] Jessi Peters MA from Last 3 Months Surgical History Surgery Date Site/Laterality Comments SECTION DILATION AND CURETTAGE OF UTERUS Family History Medical History Relation Name Comments Prostate cancer Father Breast cancer Paternal Grandmother Relation Name Status Comments Father Paternal Grandmother Social History Tobacco Use Types Packs/Day Years Used Date Smoking Tobacco: Every Day Cigarettes Smokeless Tobacco: Never Tobacco Cessation:Ready to Q uit: Not Asked; Counseling Given: Not Answered Alcohol Use Standard Drinks/Week Comments Yes 4 (1 standard drink = 0.6 oz pur e alcohol) Comments Unknown Sex and Gender Information Value Date Recorded Sex Assigned at Not on file Legal Sex Female 6:24 PM EDT Gender Identity Not on file Sexual Orientation Not on file Obstetrics History Plan of Treatment Upcoming Encounters Date Type Department Care Team (Late st Contact Info) Description 12/01/2024 1:30 PM EDT Appointment [facility] Radiation Oncology [address] [place] [phone] 12/01/2024 2:00 PM EDT Appointment [facility] Radiation Oncology [address] [place] [phone] Meagan Leiva MD [address] [place] [address] Health Maintenance Due Date Last Done Comments Breast Cancer Screening 1978 COVID-19 Vaccine (#1) 11/09/1983 DTaP,Tdap,and Td Vaccines (1 - Tdap) 1997 Hepatitis B Vaccines (1 of 3 - 19+ 3-dose series) 1997 Pneumococcal Vaccine: Pediat rics (0 to 5 Years) and At-Risk Patients (6 to 64 Years) (1 of 2 - PCV) 1997 Cervical Cancer Screening: P ap Smear 11/09/1999 Cholesterol Screening (Lipid Panel) 05/22/2024 Colorectal Cancer Screening: Colonoscopy 05/22/2024 Depression Screening [...] on patient's age to complete this topic Insurance [facility] Care Teams Mine Promotor Relationship Specialty Start Date End Date Uriel Marie MD [address] [place] [phone] PCP - General Internal Medicine 11/23/24
--- OUTSIDE RECORDS SUMMARY | 2024-11-25 10:14 | XMS_ITS | Encounter Summary ---
Author Organization [facility] Address [address] [place] [address] Care Team Providers Care Supervisor Pipe Finishing Name Role Phone Uriel Marie MD Primary Care Provider [phone] Encounter Details Date Type Department Care Team (Late st Contact Info) Description 11/23/2024 Telephone [facility] Radiation Oncology [address] [place] [phone] Jessi Peters MA Social History Tobacco Use Types Packs/Day Years Used Date Smoking Tobacco: Never Assessed Comments Unknown Sex and Gender Information Value Date Recorded Sex Assigned at Not on file Legal Sex Female 6:24 PM EDT Gender Identity Not on file Sexual Orientation Not on file documented as of this encounter Progress Notes * Jessi Peters MA - 11/23/2024 3:08 PM EDT Spoke with pt aware of date/time for consult appt. documented in this encounter Plan of Treatment Upcoming Encounters Date Type Department Care Team (Late st Contact Info) Description 12/01/2024 1:30 PM EDT Appointment [facility] Radiation Oncology [address] [place] [phone] 12/01/2024 2:00 PM EDT Appointment [facility] Radiation Oncology [address] [place] [phone] Meagan Leiva MD [address] [place] [address] documented as of this encounter Visit Diagnoses Not on filedocumented in this encounter Care Teams Supervisor Pipe Finishing Relationship Specialty Start Date End Date Uriel Marie MD [address] [place] [phone] PCP - General Internal Medicine 11/23/24 documented as of this encounter
== END 2024-11-25 09:58 | disposition home or self-care (01) ==
LOC: HO.HGS 09:27
PROVIDERS: PCP Internal Medicine; Visit Provider Physician Assistant Surgical
DX: L76.34 Postprocedural seroma of skin and subcutaneous tissue following other procedure (principal)
CPT/HCPCS: 99024

== ENCOUNTER → 2024-11-25 09:26 | Outpatient (BNVA) | payer OTHER, SELFPAY | PROVIDERS: PCP Internal Medicine; Visit Provider Physician Assistant Surgical | DX: L76.34 Postprocedural seroma of skin and subcutaneous tissue following other procedure (principal); Z90.13 Acquired absence of bilateral breasts and nipples | CPT/HCPCS: 99212 ==

== ENCOUNTER 2024-12-01 12:44 | Outpatient (AMB) | payer OTHER, SELFPAY ==
--- NOTE | 2024-12-01 14:16 | A.OFFVIS_ITS ---
Intake Visit Reasons: check seroma Allergies adhesive tape Allergy (Severe, Verified 11/25/24 09:45) adh.medical tape, steri strips, tegaderm-rash paclitaxel [From Taxol] Allergy (Severe, Verified 11/25/24 09:45) Rash tramadol Allergy (Severe, Verified 11/25/24 09:45) Rash amoxicillin Adverse Reaction (Intermediate, Verified 11/25/24 09:45) Diarrhea HPI Comments Details: Patient presents here today with c/o fluid in left mastectomy site. She underwent left modified radical mastectomy, right simple mastectomy on 11/02/[address] Guevara. She was seen last week with concern of seroma formation and 150cc was drained from the left mastectomy site. She called earlier this week with concern that the fluid reaccumulated. She brought in her drain output for her right SIN and it has been around 40cc per day for the past few days. She would very much like this removed. She also reports dropping her oxycodone bottle down the drain and is requesting more pain meds. She attempted taking tylenol without relief. [facility] Medical History Muscle pain Port-A-Cath in place Post-operative nausea and vomiting Breast cancer, left Heartburn Anxiety Depression Surgical History S/P mastectomy, bilateral (11/02/24) Invasive ductal carcinoma of left breast Hx of dilation and curettage Hx of carpal tunnel repair Hx of section History of cholecystectomy Family History Paternal Grandmother Breast cancer Family/Other Breast cancer Other Mental health disorder Substance use disorder Social History Household Members: Family Household Members Other:: Son and Dad Housing: House Are you a primary rn patient care to a significant other at home: Yes (minor son) Do you presently have visiting nurse or other home services: No Alcohol intake: current Alcohol intake frequency: does not drink Comment: counts correct Patient Tobacco Use Status: Current everyday Tobacco user Tobacco use type: Cigarette Cigarettes Per Day: 6 Years Smoked: 17 e-Cigarette/Vaping Use: Never Used Second Hand Smoke Exposure: No Substance Use Type: Marijuana Advance Directives Date on File: 05/20/24 service: No Current occupational status: employed and unemployed Sexual orientation: Straight/Heterosexual Gender identity: Female Cognitive needs: No Hearing needs: No Vision needs: No Female Reproductive History Menstrual Age of Menarche: 10 Review of Systems Const Denies chills and Denies fever(s) Skin/Breast Reports as per HPI Physical Exam Const General: comfortable, no acute distress and alert Orientation/consciousness: patient oriented x3 Chest Other: right mastectomy incision well healed, mild residual induration/fullness of lower flap, scant SIN output left mastectomy incision well healed, with large fluid collection, no overlying skin changes Resp Effort & Inspection: normal respiratory effort Skin General skin exam: no rashes or lesions noted Neuro General: patient oriented x3 and moves all extremities Office Procedures Aspiration of Seroma Details: The site of procedure was confirmed by the patient. After assuring informed consent, the skin of the inferior lateral aspect of the left mastectomy site near the axilla was prepped with betadine. 5cc 1% lidocaine local anesthesia was then infiltrated at the prepped area. The fluid collection was then aspirated using an 18 gauge needle and syringe and 160cc serous appearing fluid was drained. There was still residual collection of the breast however this was not easily aspirated near the axilla and she was therefore repositioned sitting and the fluid became more dependent medially. An area of the medial aspect of the right mastectomy site was prepped and then 5cc 1% lidocaine was infiltrated. The fluid collection was then aspirated using an 18 gauge needle and syringe and 100cc serous appearing fluid was drained. No further collection noted. No bleeding was noted from aspiration site. Dry dressings placed at aspiration site. The patient tolerated the procedure very well. She will return in 1 week. Aspiration of Seroma: [id number] Seroma Aspiration All charges added?: Procedure code (CPT) selection complete Assessment & Plan Assessment & Plan (1) Seroma of skin or subcutaneous tissue after non-dermatologic procedure: Code(s): L76.34 - Postprocedural seroma of skin and subcutaneous tissue following other procedure Category: Medical (2) Breast cancer, left: Code(s): C50.912 - Malignant neoplasm of unspecified site of left female breast Category: Medical Qualifiers: Breast location: upper outer quadrant of breast Estrogen receptor status: unspecified Patient sex: female Qualified Code(s): C50.412 - Malignant neoplasm of upper-outer quadrant of left female breast Plan Recurrent seroma of left mastectomy site. 260cc aspirated uneventfully today. Patient tolerated the procedure well. Right SIN drain has also diminished and is minimal and it was therefore removed. Recommended to continue compression with her breast binder. She is to return in 1 week or sooner if needed. Medications: New oxycodone Partial Fill upon patient request. 5 mg PO BID PRN 14 tabs 0RF pain Jason Guevara MD oxycodone Partial Fill upon patient request. 5 mg PO Q4H PRN 14 tabs 0RF pain (scale score 7-10) 4 days Gema Alcantar PA-C docusate sodium (Colace) 100 mg PO BID 30 caps 0RF Gema Alcantar PA-C Coding Level of Care Code Procedure Only Diagnoses Seroma of skin or subcutaneous tissue after non-dermatologic procedure L76.34 Malignant neoplasm of upper-outer quadrant of left female breast, unspecified estrogen receptor status C50.412 Breast location: upper outer quadrant of breast Estrogen receptor status: unspecified Patient sex: female CPT Codes Aspiration of Seroma ([id number])
== END 2024-12-01 13:57 | disposition home or self-care (01) ==
LOC: HO.HGS 12:45
PROVIDERS: Visit Provider Physician Assistant Surgical
DX: Z48.89 Encounter for other specified surgical aftercare (principal)
CPT/HCPCS: 99024

== ENCOUNTER → 2024-12-16 09:30 | Outpatient (BNVA) | payer OTHER, SELFPAY | PROVIDERS: Visit Provider Surgery ==

== ENCOUNTER 2024-12-20 10:45 | Outpatient (AMB) | payer OTHER, SELFPAY ==
[2024-12-20 11:03] VITALS: BP 128/61; PULSE 92; BMI 30.1
--- NOTE | 2024-12-20 11:03 | A.OFFVIS_ITS ---
Vital Signs 12/20/24 11:03 Height 5 ft 7 in Weight 192 lb BMI 30.1 BP 128/61 Blood Pressure Location Rt popliteal Position Sitting Pulse 92 Intake Visit Reasons: pain, redness, ? infection Intake Note: Patient scheduled today's visit c/o Lt axilla pain along incision site. Noticed clear discharge after wearing binder. Patient c/o: seroma spreading from axilla to chest. Painful and warm to touch. Taking abx as prescribed. Requesting pain medication refill. Business Management Associate Required: No Accompanied by: Self / Same As Patient Allergies adhesive tape Allergy (Severe, Verified 12/20/24 11:07) adh.medical tape, steri strips, tegaderm-rash paclitaxel [From Taxol] Allergy (Severe, Verified 12/20/24 11:07) Rash tramadol Allergy (Severe, Verified 12/20/24 11:07) Rash amoxicillin Adverse Reaction (Intermediate, Verified 12/20/24 11:07) Diarrhea HPI HPI pain, redness, ? infection: Details: Patient returns to the office reporting pain and redness of the left incision site that began over the weekend, she is concerned for infection. States she had a mild temperature associated with chills over the weekend. She states she was using a scar tape that she got on [employer] which may have contributed to this. She removed the tape and no longer plans to use it. She reports there is still some fluid collection, not as significant as last times it needed to be drained. She denies any discharge coming from the incision site [facility] Medical History Muscle pain Port-A-Cath in place Post-operative nausea and vomiting Breast cancer, left Heartburn Anxiety Depression Surgical History S/P mastectomy, bilateral (11/02/24) Invasive ductal carcinoma of left breast Hx of dilation and curettage Hx of carpal tunnel repair Hx of section History of cholecystectomy Family History Paternal Grandmother Breast cancer Family/Other Breast cancer Other Mental health disorder Substance use disorder Social History Household Members: Family Household Members Other:: Son and Dad Housing: House Are you a primary director of critical care to a significant other at home: Yes (minor son) Do you presently have visiting nurse or other home services: No Alcohol intake: current Alcohol intake frequency: does not drink Comment: counts correct Patient Tobacco Use Status: Current everyday Tobacco user Tobacco use type: Cigarette Cigarettes Per Day: 6 Years Smoked: 17 e-Cigarette/Vaping Use: Never Used Second Hand Smoke Exposure: No Substance Use Type: Marijuana Advance Directives Date on File: 05/20/24 service: No Current occupational status: employed and unemployed Sexual orientation: Straight/Heterosexual Gender identity: Female Cognitive needs: No Hearing needs: No Vision needs: No Female Reproductive History Menstrual Age of Menarche: 10 Review of Systems Const All systems reviewed & are unremarkable except as noted in HPI and below Physical Exam Vital Signs: Last Vital Signs Pulse 92 12/20/24 11:03 BP 128/61 12/20/24 11:03 BMI result Body Mass Index 30.1 Chest Other: S/p Bilateral mastectomy. Right incision site appears to be healing well, previous hematoma is much improved, the area around this incision site is soft, no surrounding erythema. Left incision site: The area surrounding the incision site appears red, warm. There is some small evidence of folliculitis in the surrounding area towards the axillary end of the incision site. There remains a fluid collection, however this is less significant than in previous visits. There is pain to palpation along the entirety of the incision site Assessment & Plan Assessment & Plan (1) Seroma of skin or subcutaneous tissue after non-dermatologic procedure: Code(s): L76.34 - Postprocedural seroma of skin and subcutaneous tissue following other procedure Category: Medical (2) Breast cancer, left: Code(s): C50.912 - Malignant neoplasm of unspecified site of left female breast Category: Medical Qualifiers: Breast location: upper outer quadrant of breast Estrogen receptor status: unspecified Patient sex: female Qualified Code(s): C50.412 - Malignant neoplasm of upper-outer quadrant of left female breast (3) Cellulitis: Comment: Left chest, surrounding incision site Code(s): L03.90 - Cellulitis, unspecified Category: Medical Plan 44-year-old female s/p bilateral radical mastectomy on 11/02/2024. Patient returning for concern of infection of the left mastectomy incision site. Patient was using scar tape that she got off [employer] when she began to experience redness and pain in this area. She reports feeling fever, chills over the weekend, she has no documented fever at home. The incision site on the right appears to be healing well. On the left the surrounding area of the incision is erythematous, warm and tender to the touch. There was no discharge able to be expressed from the area. This appears to be more superficial in nature, likely cellulitis of the area. There is noted folliculitis towards the axillary end of the incision. There is noted fluid collection however this has been an ongoing problem, she has required multiple aspirations of this area due to postoperative seroma. Would not recommend aspiration of this today as it is largely unchanged from her last visit. I will prescribe a week of Keflex to manage this area of cellulitis. We will also refill prescription for oxycodone for pain as needed. Patients date for starting radiation therapy remains pending. Patient instructed that she can follow-up sooner than her next appointment on 12/30/2024 with any concerns Medications: New cephalexin 500 mg PO QID 7 days 28 caps 0RF Refilled oxycodone Partial Fill upon patient request. 5 mg PO Q8H 4 days PRN 10 tabs 0RF pain (scale score 7-10) Coding Level of Care Code Est Pt Level 3 (81483) Diagnoses Seroma of skin or subcutaneous tissue after non-dermatologic procedure L76.34 Malignant neoplasm of upper-outer quadrant of left female breast, unspecified estrogen receptor status C50.412 Breast location: upper outer quadrant of breast Estrogen receptor status: unspecified Patient sex: female Cellulitis L03.90 Time Spent (min) 32
--- OUTSIDE RECORDS SUMMARY | 2024-12-20 11:35 | XMS_ITS | Clinical Summary ---
Author Organization [facility] Address [address] [place] [address] Care Team Providers Care Harpooner Name Role Phone Madhu Ritchie Debra Primary Care Provider [phone] Allergies Active Allergy Reactions Criticality Noted Date [...] mg total) by mouth at bedtime. Active calcium carbonate-vitam in D 600 mg-10 mcg (400 unit) per tablet Take 1 tablet by mouth 2 (two) times a day. 11/18/2024 Active docusate sodium (COLACE) 100 mg capsule Take 1 capsule (100 mg total) by mouth 2 (two) times a day. 12/01/2024 Active oxyCODONE (ROXICODONE) 5 mg immediate release tablet Take 1 tablet (5 mg total) by mouth 2 (two) times a day. Max Daily Amount: 10 mg 12/12/2024 Active nicotine (NICODERM CQ) 21 mg/[address] 2 PATCH TO SKIN DAILY 12/05/2024 Active gabapentin (NEURONTIN) 100 mg capsule Take 1 capsule (100 mg total) by mouth 2 (two) times a day. 11/18/2024 Active ferrous sulfate 324 mg (65 mg elemental iron) EC tablet Take 1 tablet (324 mg total) by mouth 1 (one) time each day. 11/10/2024 Active DULoxetine (CYMBALTA) [address] capsule Take 1 capsule (30 mg total) by mouth 1 (one) time each day. 11/18/2024 Active leuprolide (LUPRON) 11.25 mg injection Inject 11.25 mg into the shoulder, thigh, or buttocks every 3 (three) months. Active Active Problems Problem Noted Date Diagnosed Date Anxiety 11/24/2024 Malignant neoplasm of left b reast ([facility] V24, [facility] V28) 11/24/2024 Depression 11/24/2024 Heartburn 11/24/2024 Port-A-Cath in place 11/24/2024 Muscle pain 11/24/2024 Encounters Date Type Department Care Team Description 12/14/2024 Social Work [facility] [address] [place] [phone] Cortes Holloway LMSW 12/13/2024 8:49 AM EDT - 12/13/2024 11:59 PM EDT Hospital Encounter [facility] [address] [place] [phone] Meagan Leiva MD Breast cancer ([facility] V24, [facility] V28) Discharge Disposition: Home or Self Care 12/13/2024 8:48 AM EDT - 12/13/2024 11:59 PM EDT Hospital Encounter [facility] [address] [place] [phone] Discharge Disposition: Home or Self Care 12/08/2024 Telephone [facility] [address] [place] [phone] Jessi Peters MA 11/30/2024 Telephone [facility] [address] [place] [phone] Jessi Peters MA 11/24/2024 [facility] Oncology [address] [place] [address] Jessi Peters MA 11/24/2024 Telephone [facility] [address] [place] [phone] Jessi Peters MA 11/23/2024 [facility]cology [address] [place] [address] Jessi Peters MA 11/23/2024 [facility] [address] [place] [phone] Jessi Peters MA from Last 3 Months Surgical History Surgery Date Site/Laterality Comments SECTION DILATION AND CURETTAGE OF UTERUS MASTECTOMY Family History Medical History Relation Name Comments Prostate cancer Father Breast cancer Paternal Grandmother Relation Name Status Comments Father Paternal Grandmother Social History Tobacco Use Types Packs/Day Years Used Date Smoking Tobacco: Some Days Cigarettes Smokeless Tobacco: Never Tobacco Cessation:Ready to Q uit: Not Asked; Counseling Given: Not Answered Alcohol Use Standard Drinks/Week Comments Not Currently 0 (1 standard drink = 0.6 oz pur e alcohol) Comments Unknown Sex and Gender Information Value Date Recorded Sex Assigned at Not on file Legal Sex Female 6:24 PM EDT Gender Identity Not on file Sexual Orientation Not on file Occupation Industry Job Start Date Job End Date Disability Not on file Not on file Not on file Obstetrics History Para Term AB IAB SAB Ectopic Multiple Livin g Live Births 3 1 1 Date Outcome GA Total Labor Labor/2nd/3rd Weight Sex Type Anes PTL Joan A1 A5 Name Clin Para Last Filed Vital Signs Vital Sign Reading Time Taken Comments Blood Pressure 148/105 12/13/2024 9:44 AM EDT Pulse 80 12/13/2024 9:44 AM EDT Temperature - - Respiratory Rate - - Oxygen Saturation 99% 12/13/2024 9:44 AM EDT Inhaled Oxygen Concentration - - Weight 90.7 kg (200 lb) 12/13/2024 9:44 AM EDT Height 170.2 cm (5' 7 ) 12/13/2024 9:44 AM EDT Body Mass Index 31.32 12/13/2024 9:44 AM EDT Plan of Treatment Health Maintenance Due Date Last Done Comments Breast Cancer Screening 1978 Pneumococcal Vaccine: Pediatrics (0 to 5 Years) and At-Risk Patients (6 to 64 Years) (1 of 2 - PCV) 1997 Cervical Cancer Screening: Pap Smear 11/09/1999 Hepatitis B Vaccines (2 of 3 - 19+ 3-dose series) 09/01/2023 08/04/2023 COVID-19 Vaccine (4 - 2023- season) 2024 09/19/2021, 09/30/2020, 09/09/2020 Cholesterol Screening (Lipid Panel) 05/22/2024 Colorectal Cancer Screening: Colonoscopy 05/22/2024 Depression Screening 05/22/2024 HIV Screening 05/22/2024 Hepatitis C Screening 05/22/2024 Social Influencers of Health Screening 05/22/2024 Influenza Vaccine (Season Ended) 2025 09/23/2023, 08/04/2023, 04/11/2021, Additional history exists DTaP,Tdap,and Td Vaccines (2 - Td or Tdap) 03/11/2033 03/11/2023 HIB Vaccines Aged Out No longer eligi [...] to complete this topic RSV Immunization Patients Under 20 months Aged Out No longer eligible based on patient's age to complete this topic Varicella Vaccines Aged Out No longer eligible based on patient's age to complete this topic Insurance [place] [address] Care Teams Harpooner Relationship Specialty Start Date End Date Madhu Ritchie [address] [place] [address], [address] [place], [place] [phone] PCP - General Family Medicine 12/13/24
== END 2024-12-20 11:36 | disposition home or self-care (01) ==
LOC: HO.HGS 10:46
PROVIDERS: Visit Provider Physician Assistant Surgical
DX: L76.34 Postprocedural seroma of skin and subcutaneous tissue following other procedure (principal); C50.412 Malignant neoplasm of upper-outer quadrant of left female breast; L03.90 Cellulitis, unspecified
CPT/HCPCS: 99024

== ENCOUNTER → 2024-12-20 10:45 | Outpatient (BNVA) | payer OTHER, SELFPAY | PROVIDERS: Visit Provider Physician Assistant Surgical | DX: L76.34 Postprocedural seroma of skin and subcutaneous tissue following other procedure (principal); L03.90 Cellulitis, unspecified; C50.912 Malignant neoplasm of unspecified site of left female breast; Z90.13 Acquired absence of bilateral breasts and nipples | CPT/HCPCS: 99212 ==

== ENCOUNTER 2024-12-26 08:42 | Outpatient (AMB) | payer OTHER, SELFPAY ==
--- NOTE | 2024-12-26 08:32 | A.OFFPC_ITS ---
Vital Signs 12/26/24 08:49 Height 5 ft 7 in Weight 192 lb BMI 30.1 BP 126/78 Blood Pressure Location Lt brachial Position Sitting Pulse 78 Pulse Source Pulse Oximeter Pulse Oximetry (%) 94 Oxygen Delivery Method Room Air Intake Visit Reasons: transfer from [facility] Pack Worker Required: No Accompanied by: Self / Same As Patient Allergies adhesive tape Allergy (Severe, Verified 01/01/25 03:38) adh.medical tape, steri strips, tegaderm-rash paclitaxel [From Taxol] Allergy (Severe, Verified 01/01/25 03:38) Rash tramadol Allergy (Severe, Verified 01/01/25 03:38) Rash amoxicillin Adverse Reaction (Intermediate, Verified 01/01/25 03:38) Diarrhea Medication List - Last Reconciled 01/01/25 by CECELIA Gonzalez acetaminophen-codeine 300-30 mg 1 tab PO Q8H PRN calcium carbonate-vitamin D3 600 mg-10 mcg (400 unit) (Calcium 600 with Vitamin D3) 1 tab PO BID clonazepam 0.5 mg (1/2 x 1 mg) PO TID 90 days clonidine HCl 0.3 mg (3 x 0.1 mg) PO BID 90 days diphenhydramine HCl (Benadryl) 25 mg PO BEDTIME doxycycline hyclate 100 mg PO BID duloxetine 30 mg PO DAILY ferrous sulfate 324 mg PO DAILY 90 days gabapentin 100 mg PO BID hydrocortisone 1% 1 appl topical BID leuprolide (3 month) (Lupron Depot) 11.25 mg IM [id number] Magic Mouthwash Diphen/Lido/Antacid 1:1:1 10 mL PO TID melatonin 30 mg PO BEDTIME nicotine 21 mg transdermal DAILY 30 days ondansetron 8 mg PO Q8H PRN oxycodone 5 mg PO BID PRN Tobacco use date assessed: 12/26/24 Dental Screening Dental Screen Date: 12/26/24 Did you have a dental visit in the last 12 months?: No Did you have a dental problem in the last 6 months where you did not have access to dental care?: No Was dental information given to patient?: No HPI transfer from [facility] HPI Details The patient is a 44-year-old female presenting for transition of care from Dr. Holley, who retired. Reports breast cancer and related complications. Initially diagnosed with left breast cancer approximately seven to eight years ago, the patient underwent bilateral mastectomy and chemotherapy. Post-surgical complications include chronic seroma development, with concerns of infection exhibiting worsening wound issues despite being on Cephalexin. Anemia, attributed to chemotherapy, has resulted in fatigue and decreased physical endurance. The patient confirms joint pain and describes the need for afternoon naps. A history of depression and anxiety has been reported, with initial management through citalopram, now transitioned to duloxetine for simultaneous management of pain and hot flashes related to cancer treatment. While not formally engaging with a therapist at present, the patient expressed an understanding of the value of therapy for managing cancer-related emotional distress and anticipates involvement in the near future. Reports that she used was taking clonazepam 0.5 mg three times a day and had it reduced to two times a day. She is requesting that this medication be increased back to three times due to the increased stress of dealing with her breast cancer combined with the fact that she is not working anymore and has more time to sit and worry about the situation. [facility] Medical History (Updated 01/01/25 @ 04:25 by CECELIA Gonzalez) Muscle pain Port-A-Cath in place Post-operative nausea and vomiting Breast cancer, left Heartburn Anxiety Depression Surgical History S/P mastectomy, bilateral (11/02/24) Invasive ductal carcinoma of left breast Hx of dilation and curettage Hx of carpal tunnel repair Hx of section History of cholecystectomy Family History Paternal Grandmother Breast cancer Family/Other Breast cancer Other Mental health disorder Substance use disorder Social History Household Members: Family Household Members Other:: Son and Dad Housing: House Are you a primary healthcare facility administrator to a significant other at home: Yes (minor son) Do you presently have visiting nurse or other home services: No Alcohol intake: current Alcohol intake frequency: does not drink Comment: counts correct Patient Tobacco Use Status: Current everyday Tobacco user Tobacco use type: Cigarette Cigarettes Per Day: 6 Years Smoked: 17 e-Cigarette/Vaping Use: Never Used Second Hand Smoke Exposure: No Substance Use Type: Marijuana Advance Directives Date on File: 05/20/24 service: No Current occupational status: employed and unemployed Sexual orientation: Straight/Heterosexual Gender identity: Female Cognitive needs: No Hearing needs: No Vision needs: No Female Reproductive History Menstrual Age of Menarche: 10 Questionnaire PHQ-9 Over the last 2 weeks, how often have you been bothered by any of the following problems? 1. Little interest or pleasure in doing things: not at all 2. Feeling down, depressed, or hopeless: not at all 3. Trouble falling or staying asleep, or sleeping too much: not at all 4. Feeling tired or having little energy: not at all 5. Poor appetite or overeating: not at all 6. Feeling bad about yourself - or that you are a failure or have let yourself or your family down: not at all 7. Trouble concentrating on things, such as reading the newspaper or watching television: not at all 8. Moving or speaking so slowly that other people could have noticed. Or the opposite - being so fidgety or restless that you have been moving around a lot more than usual: not at all 9. Thoughts that you would be better off or of hurting yourself in some way: not at all Total score: 0 Depression Screening Interpretation: Negative Depression Screening Done: Yes 95034 - PHQ-9 Billing: Yes Source: Developed by Drs. Harry Pino, Makayla Vasquez, Wenceslao Fenton and colleagues, with an educational benita from [employer]. Thrive Questionnaire Date Thrive assessed: 12/26/24 I am a: Patient What is your living situation today?: I have a steady place to live Within the past 12 months, did the food you bought not last and you didn't have the money to get more?: Often true Within the past 12 months, did you worry whether your food would run out before you got money to buy more?: Often true Do you have trouble paying for medicines?: No Do you have trouble getting transportation to medical appointments?: No Do you have trouble paying your heating and electricity bill?: No Do you have trouble taking care of your child, family member or friend?: No Do you have trouble with day-to-day activities such as bathing, preparing meals, shopping, managing finances, etc.?: No Are you currently unemployed and looking for a job?: No Are you interested in more education?: I choose not to answer this question Please select the resources that you would like help with: Food Currently or been in a relationship where the following occur: No concerns reported THRIVE Score: 2 AUDIT C Alcohol Use Questionnaire (AUDIT-C) 1. How often do you have a drink containing alcohol?: Never 3. How often do you have six or more drinks on one occasion?: Never Total Score: 0 KATHERYN-7 AMB Questionnaire KATHERYN-7 Date KATHERYN - 7 assessed: 12/26/24 Feeling nervous, anxious, or on edge: 0 = Not at all Not being able to stop or control worryin = Not at all Worrying too much about different things: 0 = Not at all Trouble relaxin = Not at all Being so restless that it is hard to sit still: 0 = Not at all Becoming easily annoyed or irritable: 0 = Not at all Feeling afraid as if something awful might happen: 0 = Not at all Total KATHERYN-7 score (0-4 normal; 5-9 mild; 10-14 moderate; 15-21 severe): 0 Source: Developed by Drs. Harry Pino, Makayla Vasquez, Wenceslao Fenton and colleagues, with an educational benita from [employer]. KATHERYN-7 Assessment Billing KATHERYN-7 Assessment Tool: KATHERYN-7 Assessment 43466 Review of Systems Const Denies headache(s) Eyes Denies loss of vision ENT Denies vertigo, Denies dizziness, Denies headache(s) and Denies sore throat Card Denies chest pain, Denies leg edema and Denies lightheadedness Resp Denies cough, Denies hemoptysis and Denies wheezing GI Denies abdominal pain, Denies melena, Denies constipation, Denies diarrhea and Denies vomiting Denies urinary frequency, Denies dysuria and Denies urinary urgency Musc Reports arthralgias, Denies joint swelling, Denies numbness and Denies tingling Skin/Breast Reports wounds (left breast wound s/p mastectomy/chemotherapy) Neuro Denies Abnormal speech present, Denies behavioral changes, Denies vertigo, Denies dizziness, Denies headache(s), Denies loss of vision, Denies memory loss, Denies numbness and Denies tingling Psych Reports anxiety, Denies behavioral changes, Reports depression, Denies memory loss and Denies panic attacks Bret/Lymph Denies easy bleeding and Denies easy bruising Aller/Immun Denies wheezing Physical exam (Primary Care) Vital Signs: Last Vital Signs Pulse 78 12/26/24 08:49 BP 126/78 12/26/24 08:49 Pulse Ox 94 12/26/24 08:49 Oxygen Delivery Method Room Air 12/26/24 08:49 BMI result Body Mass Index 30.1 Tobacco/Smoking Status: Tobacco use Status Tobacco use date assessed 12/26/24 12/26/24 09:03 Patient Tobacco Use Status Current everyday Tobacco 12/26/24 08:34 Tobacco use type Cigarette 12/26/24 08:34 e-Cigarette/Vaping Use Never Used 12/26/24 08:34 PHQ-9: PHQ-9 Score PHQ-9: Total score 0 12/26/24 10:07 Depression Screening Interpretation: Negative Thrive Assessment: Date of Thrive Assessment Date Thrive assessed 12/26/24 12/26/24 09:03 Currently or been in a relationship where the following occur: No concerns reported Const General: healthy appearing, no acute distress, alert and awake Nutritional Appearance: well nourished Orientation/consciousness: oriented to person, oriented to place and oriented to time HENMT Ears: TM's normal bilaterally General nose exam: Normal nasal mucous membranes and turbinates present Eyes Conjunctivae: conjunctivae normal Sclerae: sclerae normal Pupils: Equal, round and reactive pupils present Neck Neck: Yes no lymphadenopathy and Yes no JVD Thyroid: Thyroid normal Carotids: no bruits Chest Chest palpation & inspection: deferred (reports that she will be go to surgeon today to reval) Resp Effort & Inspection: normal respiratory effort and not tachypneic Auscultation: no crackles, no rales, no rhonchi and no wheezes Cardio Rate: regular rate Rhythm: regular rhythm Heart sounds: no murmurs and normal S1 and S2 GI Palpation (GI): Soft to palpation, nontender, no hepatomegaly and no splenomegaly Auscultation: normal bowel sounds General: Yes no CVA tenderness Back/Spine/Pelvis Back: no CVA tenderness Thoracic/Lumbar Spine: No thoracic spinal tenderness and No lumbar spinal tenderness Skin General skin exam: no rashes or lesions noted and dry skin Neuro General: oriented to person, oriented to place and oriented to time Cranial nerves: Yes Equal, round and reactive pupils present Speech: No Abnormal speech present Gait exam (Neuro): Normal gait present Motor exam (neuro): no tremor noted Extrem Right upper extremity: full ROM Left upper extremity: full ROM Right lower extremity: full ROM; no edema Left lower extremity: full ROM; no edema Psych Mental Status: mental status grossly normal Speech and movement: Normal speech and movement present Affect: normal affect Attitude: cooperative Thought process: Normal thought process present Results Reviewed Results Reviewed: Laboratory Tests 11/18/24 10:40 WBC 6.6 RBC 2.98 L Hgb 9.1 L Hct 28.6 L MCV 96.0 MCH 30.5 MCHC 31.8 RDW 14.5 Plt Count 227 Sodium 138 Potassium 3.6 D Chloride 105 Carbon Dioxide 26 Anion Gap 11 L BUN 6 L Creatinine 0.78 Estim Creat Clear Calc 107.8 Estimated GFR > 60 Random Glucose 123 H Calcium 8.9 Total Bilirubin 0.3 AST 20 ALT 15 Alkaline Phosphatase 65 Total Protein 5.7 L Albumin 3.2 L 25-OH Vitamin D Total 20.5 L Coding Level of Care Code Est Pt Level 3 (18382) Diagnoses Malignant neoplasm of upper-outer quadrant of left female breast, unspecified e strogen receptor status C50.412 Breast location: upper outer quadrant of breast Estrogen receptor status: unspecified Patient sex: female Depression, unspecified depression type F32.A Depression Type: unspecified Anxiety F41.9 Arthralgia, unspecified joint M25.50 Joint pain location: unspecified Anemia, unspecified type D64.9 Anemia type: unspecified type Additional Codes PHQ-9 - 96836 - PHQ-9 Billing: Yes ([id number]) KATHERYN-7 Assessment Billing - KATHERYN-7 Assessment Tool: KATHERYN-7 Assessment 16421 ([id number]) Time Spent (min) 37 Assessment & Plan Assessment & Plan (1) Breast cancer, left: Code(s): C50.912 - Malignant neoplasm of unspecified site of left female breast Category: Medical Qualifiers: Breast location: upper outer quadrant of breast Estrogen receptor status: unspecified Patient sex: female Qualified Code(s): C50.412 - Malignant neoplasm of upper-outer quadrant of left female breast Plan: Invasive ductal carcinoma of the left breast with status post mastectomy, bilateral 11/02/2024. Patient reporting ongoing infection to the left breast despite treatment with Keflex. She is concerned that she might has MRSA called into the surgeon and was granted an urgent appt. She is planning on going after this appointment and wants to speed up this visit. Left breast assessment deferred. Follow up with surgeon to possibly switching antibiotics. (2) Depression: Code(s): F32.9 - Major depressive disorder, single episode, unspecified Category: Medical Qualifiers: Depression Type: unspecified Qualified Code(s): F32.A - Depression, unspecified Plan: Encouraged CBT Continue duloxetine 30 mg daily (3) Anxiety: Code(s): F41.9 - Anxiety disorder, unspecified Category: Medical Plan: Encouraged CBT Continue duloxetine 30 mg daily, clonidine 0.3 mg b.i.d., increased clonazepam to 0.5 mg t.i.d. Denies SI/HI (4) Joint pain: Code(s): M25.50 - Pain in unspecified joint Category: Medical Qualifiers: Joint pain location: unspecified Qualified Code(s): M25.50 - Pain in unspecified joint Plan: Continue duloxetine 30 mg daily, gabapentin 100 mg b.i.d., acetaminophen-codeine 300-30 mg daily Q 8 H p.r.n., oxycodone 5 mg b.i.d. p.r.n. Follow up with General surgery as scheduled (5) Anemia: Code(s): D64.9 - Anemia, unspecified Category: Medical Qualifiers: Anemia type: unspecified type Qualified Code(s): D64.9 - Anemia, unspecified Plan: Anemia ongoing Suspect B12 or folate given patient's of reports of alcoholism We will also do an iron profile a long with B12 and folate and advise Orders: Orders Lipid Panel 12/26/24 Z00.00 - Encounter for general adult medical examination without abnormal findings Vitamin D 25-OH Total 12/26/24 Z00.00 - Encounter for general adult medical examination without abnormal findings Vitamin B12 and Folate 12/26/24 D64.9 - Anemia, unspecified, Z00.00 - Encounter for general adult medical examination without abnormal findings IRON PROFILE 12/26/24 Z00.00 - Encounter for general adult medical examination without abnormal findings Medications: Changed From clonazepam 0.5 mg (1/2 x 1 mg) PO BID 60 tabs 0RF To clonazepam 0.5 mg (1/2 x 1 mg) PO TID 90 days 90 tabs 0RF
[2024-12-26 08:49] VITALS: BP 126/78; PULSE 78; O2SAT 94; BMI 30.1
--- OUTSIDE RECORDS SUMMARY | 2024-12-26 09:05 | XMS_ITS | Clinical Summary ---
Author Organization [facility] Address [address] [place] [address] Care Team Providers Care Real Estate Coordinator Name Role Phone Madhu Ritchie Debra Primary Care Provider [phone] Allergies Active Allergy Reactions Criticality Noted Date [...] 11/24/2024 Malignant neoplasm of left b reast ([facility] V24, [facility] V28) 11/24/2024 Depression 11/24/2024 Heartburn 11/24/2024 Port-A-Cath in place 11/24/2024 Muscle pain 11/24/2024 Encounters Date Type Department Care Team Description 12/14/2024 Social Work [facility] [address] [place] [phone] Cortes Holloway LMSW 12/13/2024 8:49 AM EDT - 12/13/2024 11:59 PM EDT Hospital Encounter [facility] [address] [place] [phone] Meagan Leiva MD Malignant neoplasm of left female breast, unspecified estrogen receptor status, unspecified site of breast ([facility] V24, [facility] V28) (Primary Dx); Breast cancer ([facility] V24, [facility] V28) Discharge Disposition: Home or Self Care 12/13/2024 8:48 AM EDT - 12/13/2024 11:59 PM EDT Hospital Encounter [facility] [address] [place] [phone] Discharge Disposition: Home or Self Care 12/08/2024 Telephone [facility] [address] [place] [phone] Jessi Peters MA 11/30/2024 Telephone [facility] [address] [place] [phone] Jessi Peters MA 11/24/2024 Telephone [facility] [address] [place] [phone] Jessi Peters MA 11/24/2024 Telephone [facility] [address] [place] [phone] Jessi Peters MA 11/23/2024 Telephone [facility] [address] [place] [phone] Jessi Peters MA 11/23/2024 [facility] [address] [place] [phone] Jessi Peters MA from Last 3 Months [...] 19+ 3-dose series) 09/01/2023 08/04/2023 COVID-19 Vaccine (2023- season) 2024 09/19/2021, 09/30/2020, 09/09/2020 Cholesterol Screening [...] patient's age to complete this topic Insurance [place] [address] PLAN Care Teams Real Estate Coordinator Relationship Specialty Start Date End Date Madhu Ritchie [address] [place] [address], [address] [place], [place] [id number] PCP - General Family Medicine 12/13/24
== END 2024-12-26 11:15 | disposition home or self-care (01) ==
LOC: HO.HMCH 08:43
DX: C50.412 Malignant neoplasm of upper-outer quadrant of left female breast (principal); F32.A Depression, unspecified; F41.9 Anxiety disorder, unspecified; M25.50 Pain in unspecified joint; D64.9 Anemia, unspecified

== ENCOUNTER 2024-12-26 08:42 | Outpatient (REF) | payer OTHER, SELFPAY | END 2024-12-26 08:43 | disposition home or self-care (01) | LOC: HO.LNP 08:42 | DX: L76.34 Postprocedural seroma of skin and subcutaneous tissue following other procedure (principal); B95.61 Methicillin susceptible Staphylococcus aureus infection as the cause of diseases classified elsewhere; C50.412 Malignant neoplasm of upper-outer quadrant of left female breast; Z90.13 Acquired absence of bilateral breasts and nipples; F32.A Depression, unspecified; F41.9 Anxiety disorder, unspecified; M25.50 Pain in unspecified joint; D64.9 Anemia, unspecified; Z79.899 Other long term (current) drug therapy | CPT/HCPCS: 10160; 87070; 87077; 87186; 87205; 96127; 99212 ==

== ENCOUNTER 2024-12-26 10:19 | Outpatient (AMB) | payer OTHER, SELFPAY ==
--- NOTE | 2024-12-26 10:20 | MHC.OFFVIS ---
Vital Signs 12/26/24 10:30 Height 5 ft 7 in Weight 193 lb 6 oz BMI 30.3 BP 127/66 Blood Pressure Location Lt brachial Position Sitting Pulse 82 Intake Visit Reasons: ? infection Intake Note: Patient is seen in office for possible infection, post bilateral mastectomy. 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: Examination Proctor Present Accompanied by: Self / Same As Patient Allergies adhesive tape Allergy (Severe, Verified 12/26/24 10:30) adh.medical tape, steri strips, tegaderm-rash paclitaxel [From Taxol] Allergy (Severe, Verified 12/26/24 10:30) Rash tramadol Allergy (Severe, Verified 12/26/24 10:30) Rash amoxicillin Adverse Reaction (Intermediate, Verified 12/26/24 10:30) Diarrhea Medication List - Last Reconciled 12/26/24 by Jason Guevara MD acetaminophen-codeine 300-30 mg 1 tab PO Q8H PRN calcium carbonate-vitamin D3 600 mg-10 mcg (400 unit) (Calcium 600 with Vitamin D3) 1 tab PO BID clonazepam 0.5 mg (1/2 x 1 mg) PO TID 90 days clonidine HCl 0.3 mg (3 x 0.1 mg) PO BID 90 days diphenhydramine HCl (Benadryl) 25 mg PO BEDTIME doxycycline hyclate 100 mg PO BID duloxetine 30 mg PO DAILY ferrous sulfate 324 mg PO DAILY 90 days gabapentin 100 mg PO BID hydrocortisone 1% 1 appl topical BID leuprolide (3 month) (Lupron Depot) 11.25 mg IM [id number] Magic Mouthwash Diphen/Lido/Antacid 1:1:1 10 mL PO TID melatonin 30 mg PO BEDTIME nicotine 21 mg transdermal DAILY 30 days ondansetron 8 mg PO Q8H PRN HPI Comments Details: Patient returns with complaints of increased redness in the left chest despite starting antibiotics. She also reports increased pain associated with this. She is convinced that she has a MRSA infection. She denies any bleeding or discharge. [facility] Medical History Muscle pain Port-A-Cath in place Post-operative nausea and vomiting Breast cancer, left Heartburn Anxiety Depression Surgical History S/P mastectomy, bilateral (11/02/24) Invasive ductal carcinoma of left breast Hx of dilation and curettage Hx of carpal tunnel repair Hx of section History of cholecystectomy Family History Paternal Grandmother Breast cancer Family/Other Breast cancer Other Mental health disorder Substance use disorder Social History Household Members: Family Household Members Other:: Son and Dad Housing: House Are you a primary childcare administrator to a significant other at home: Yes (minor son) Do you presently have visiting nurse or other home services: No Alcohol intake: current Alcohol intake frequency: does not drink Comment: counts correct Patient Tobacco Use Status: Current everyday Tobacco user Tobacco use type: Cigarette Cigarettes Per Day: 6 Years Smoked: 17 e-Cigarette/Vaping Use: Never Used Second Hand Smoke Exposure: No Substance Use Type: Marijuana Advance Directives Date on File: 05/20/24 service: No Current occupational status: employed and unemployed Sexual orientation: Straight/Heterosexual Gender identity: Female Cognitive needs: No Hearing needs: No Vision needs: No Female Reproductive History Menstrual Age of Menarche: 10 Physical Exam Vital Signs: Last Vital Signs Pulse 82 12/26/24 10:30 BP 127/66 12/26/24 10:30 BMI result Body Mass Index 30.3 Const General: no acute distress Nutritional Appearance: well nourished Orientation/consciousness: patient oriented x3 Chest Other: Procedure: After assuring informed consent and confirming the site of surgery in the left chest, the skin was prepped with Betadine and draped in a sterile fashion. Local anesthesia consisting of 1% lidocaine with epinephrine was then infiltrated below the mastectomy incision in the lower outer quadrant. An 18 gauge needle was then inserted and approximately 25 mL of clear serous fluid was aspirated. Wound culture was sent. A sterile bandage was then applied. The patient tolerated the procedure well was discharged in stable condition. Chest/axillae images: 1. 2. 3. Area of seroma palpable in the subcutaneous tissue. Erythema noted in the same location suggestive of a seroma or abscess. Needle aspiration of the fluid is recommended. Skin Other: Redness in left chest wall as noted above Neuro General: patient oriented x3 Assessment & Plan Assessment & Plan (1) Breast cancer, left: Code(s): C50.912 - Malignant neoplasm of unspecified site of left female breast Category: Medical Qualifiers: Breast location: upper outer quadrant of breast Estrogen receptor status: unspecified Patient sex: female Qualified Code(s): C50.412 - Malignant neoplasm of upper-outer quadrant of left female breast Plan 44-year-old female patient status post bilateral mastectomy now with redness in the left chest wall incision. On examination there appears to be a palpable seroma with overlying erythema. Needle aspiration was performed with production of approximately 2.5 mL clear yellow fluid. Fluid did not appear to be purulent although a wound culture has been sent. I will switch her to doxycycline and follow up on Thursday. She should stop the cephalexin. Medications: New acetaminophen-codeine 300-30 mg 1 tab PO Q8H PRN 20 tabs 0RF pain (scale score 7-10) C50.412 - Malignant neoplasm of upper-outer quadrant of left female breast doxycycline hyclate 100 mg PO BID 20 tabs 0RF Discontinued cephalexin Discontinued Reason: Duplicate 500 mg PO QID 28 caps 0RF 7 days Coding Level of Care Code Global (40141) Diagnoses Malignant neoplasm of upper-outer quadrant of left female breast, unspecified estrogen receptor status C50.412 Breast location: upper outer quadrant of breast Estrogen receptor status: unspecified Patient sex: female
[2024-12-26 10:30] VITALS: BP 127/66; PULSE 82; BMI 30.3
== END 2024-12-26 10:52 | disposition home or self-care (01) ==
LOC: HO.HGS 10:19
PROVIDERS: Visit Provider Surgery
DX: C50.412 Malignant neoplasm of upper-outer quadrant of left female breast (principal)
CPT/HCPCS: 99024

== ENCOUNTER 2024-12-30 09:16 | Outpatient (AMB) | payer OTHER, SELFPAY ==
--- NOTE | 2024-12-30 09:18 | MHC.OFFVIS ---
Vital Signs 12/30/24 09:25 Height 5 ft 7 in Weight 190 lb 6 oz BMI 29.8 BP 129/81 Blood Pressure Location Lt brachial Position Sitting Pulse 108 H Intake Visit Reasons: seroma, post bilateral mastectomy Intake Note: Patient is seen in office for wound check, post bilateral mastectomy. 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 Financial Services: Product Manager Financial Services Present Accompanied by: Self / Same As Patient Allergies adhesive tape Allergy (Severe, Verified 12/30/24 09:25) adh.medical tape, steri strips, tegaderm-rash paclitaxel [From Taxol] Allergy (Severe, Verified 12/30/24 09:25) Rash tramadol Allergy (Severe, Verified 12/30/24 09:25) Rash amoxicillin Adverse Reaction (Intermediate, Verified 12/30/24 09:25) Diarrhea Medication List - Last Reconciled 12/30/24 by Jason Guevara MD acetaminophen-codeine 300-30 mg 1 tab PO Q8H PRN calcium carbonate-vitamin D3 600 mg-10 mcg (400 unit) (Calcium 600 with Vitamin D3) 1 tab PO BID clonazepam 0.5 mg (1/2 x 1 mg) PO TID 90 days clonidine HCl 0.3 mg (3 x 0.1 mg) PO BID 90 days diphenhydramine HCl (Benadryl) 25 mg PO BEDTIME doxycycline hyclate 100 mg PO BID duloxetine 30 mg PO DAILY ferrous sulfate 324 mg PO DAILY 90 days gabapentin 100 mg PO BID hydrocortisone 1% 1 appl topical BID leuprolide (3 month) (Lupron Depot) 11.25 mg IM [id number] Magic Mouthwash Diphen/Lido/Antacid 1:1:1 10 mL PO TID melatonin 30 mg PO BEDTIME nicotine 21 mg transdermal DAILY 30 days ondansetron 8 mg PO Q8H PRN oxycodone 5 mg PO BID PRN HPI Comments Details: Patient returns today for follow-up examination of her right chest wall erythema. Needle aspiration was performed earlier this week and wound cultures revealed sensitive staph aureus. She reports some discharge from the needle site earlier this week but no further discharge is noted. She feels the chest is still red and sore. [facility] Medical History Muscle pain Port-A-Cath in place Post-operative nausea and vomiting Breast cancer, left Heartburn Anxiety Depression Surgical History S/P mastectomy, bilateral (11/02/24) Invasive ductal carcinoma of left breast Hx of dilation and curettage Hx of carpal tunnel repair Hx of section History of cholecystectomy Family History Paternal Grandmother Breast cancer Family/Other Breast cancer Other Mental health disorder Substance use disorder Social History Household Members: Family Household Members Other:: Son and Dad Housing: House Are you a primary caregivers non medical to a significant other at home: Yes (minor son) Do you presently have visiting nurse or other home services: No Alcohol intake: current Alcohol intake frequency: does not drink Comment: counts correct Patient Tobacco Use Status: Current everyday Tobacco user Tobacco use type: Cigarette Cigarettes Per Day: 6 Years Smoked: 17 e-Cigarette/Vaping Use: Never Used Second Hand Smoke Exposure: No Substance Use Type: Marijuana Advance Directives Date on File: 05/20/24 service: No Current occupational status: employed and unemployed Sexual orientation: Straight/Heterosexual Gender identity: Female Cognitive needs: No Hearing needs: No Vision needs: No Female Reproductive History Menstrual Age of Menarche: 10 Physical Exam Vital Signs: Last Vital Signs Pulse 108 H 12/30/24 09:25 BP 129/81 12/30/24 09:25 BMI result Body Mass Index 29.8 Const General: no acute distress Nutritional Appearance: well nourished Orientation/consciousness: patient oriented x3 Chest Other: Left chest is much less erythematous and only a small amount of fluid remains palpable. Swelling is markedly improved as well. There is minimal tenderness to palpation. Right side is normal postoperative change Chest/axillae images: 1. 2. Skin Other: Redness in left chest wall as noted above Neuro General: patient oriented x3 Extrem Other: No upper extremity edema Assessment & Plan Assessment & Plan (1) Seroma of breast: Code(s): N64.89 - Other specified disorders of breast Category: Medical (2) Breast cancer, left: Code(s): C50.912 - Malignant neoplasm of unspecified site of left female breast Category: Medical Qualifiers: Breast location: upper outer quadrant of breast Estrogen receptor status: unspecified Patient sex: female Qualified Code(s): C50.412 - Malignant neoplasm of upper-outer quadrant of left female breast Plan Overall patient is much improved with decreased erythema in the left chest wall. We will continue the oral antibiotics which seemed to be helping. I have asked the patient to return in 1 week for wound examination. Patient requested additional prescription for pain medication as well. Medications: Refilled doxycycline hyclate 100 mg PO BID 20 tabs 0RF oxycodone Partial Fill upon patient request. 5 mg PO BID PRN 14 tabs 0RF pain (scale score 7-10) Coding Level of Care Code Global (46873) Diagnoses Seroma of breast N64.89 Malignant neoplasm of upper-outer quadrant of left female breast, unspecified estrogen receptor status C50.412 Breast location: upper outer quadrant of breast Estrogen receptor status: unspecified Patient sex: female
[2024-12-30 09:25] VITALS: BP 129/81; PULSE 108; BMI 29.8
--- OUTSIDE RECORDS SUMMARY | 2024-12-30 09:50 | XMS_ITS | Clinical Summary ---
Author Organization [facility] Address [address] [place] [address] Care Team Providers Care Wireless Consultant Name Role Phone Madhu Ritchie Debra Primary Care Provider [phone] Allergies Active Allergy Reactions Criticality Noted Date [...] 11/24/2024 Malignant neoplasm of left b reast ([facility] [place], [facility] [place] 11/24/2024 Depression 11/24/2024 Heartburn 11/24/2024 Port-A-Cath in place 11/24/2024 Muscle pain 11/24/2024 Encounters Date Type Department Care Team Description 12/14/2024 Social Work [facility] [address] [place] [phone] Cortes Holloway LMSW 12/13/2024 8:49 AM EDT - 12/13/2024 11:59 PM EDT Hospital Encounter [facility] [address] [place] [phone] Meagan Leiva MD Malignant neoplasm of left female breast, unspecified estrogen receptor status, unspecified site of breast ([facility] [place], [facility]28) (Primary Dx); Breast cancer ([facility] [place], [facility] V28) Discharge Disposition: Home or Self Care 12/13/2024 8:48 AM EDT - 12/13/2024 11:59 PM EDT Hospital Encounter [facility] [address] [place] [phone] Discharge Disposition: Home or Self Care 12/08/2024 Telephone [facility] [address] [place] [phone] Jessi Peters MA 11/30/2024 Telephone [facility] [address] [place] [address] Jessi Peters MA 11/24/2024 Telephone [facility] [address] [place] [phone] Jessi Peters MA 11/24/2024 Telephone [facility] [address] [place] [phone] Jessi Peters MA 11/23/2024 Telephone [facility] [address] [place] [address] Jessi Peters MA 11/23/2024 [facility] [address] [place] [address] Jessi Peters MA from Last 3 Months [...] patient's age to complete this topic [place] [address] [address] [place] [address] PLAN Care Teams Wireless Consultant Relationship Specialty Start Date End Date Madhu Ritchie [address] [place] [address], [address] [place], [place] [phone] PCP - General Family Medicine 12/13/24
== END 2024-12-30 09:48 | disposition home or self-care (01) ==
LOC: HO.HGS 09:17
PROVIDERS: Visit Provider Surgery
DX: N64.89 Other specified disorders of breast (principal); C50.412 Malignant neoplasm of upper-outer quadrant of left female breast
CPT/HCPCS: 99024

== ENCOUNTER → 2024-12-30 09:16 | Outpatient (BNVA) | payer OTHER, SELFPAY | PROVIDERS: Visit Provider Surgery | DX: N64.89 Other specified disorders of breast (principal); C50.412 Malignant neoplasm of upper-outer quadrant of left female breast; Z90.13 Acquired absence of bilateral breasts and nipples | CPT/HCPCS: 99212 ==

== ENCOUNTER 2025-01-06 09:16 | Outpatient (AMB) | payer OTHER, SELFPAY ==
--- NOTE | 2025-01-06 09:19 | MHC.OFFVIS ---
Vital Signs 01/06/25 09:29 Height 5 ft 7 in Weight 189 lb BMI 29.6 BP 157/79 H Blood Pressure Location Lt brachial Position Sitting Pulse 97 Intake Visit Reasons: seroma, post bilateral mastectomy Intake Note: Patient is seen in office for wound check, post bilateral mastectomy. Pt c/o:continued discharge in the left breast, yellowish with foul odor, burning pain, started on Anastrozole and has joint pain Barkeep Required: No Accompanied by: Self / Same As Patient Allergies adhesive tape Allergy (Severe, Verified 01/06/25 09:29) adh.medical tape, steri strips, tegaderm-rash paclitaxel [From Taxol] Allergy (Severe, Verified 01/06/25 09:29) Rash tramadol Allergy (Severe, Verified 01/06/25 09:29) Rash amoxicillin Adverse Reaction (Intermediate, Verified 01/06/25 09:29) Diarrhea Medication List - Last Reconciled 01/06/25 by Jason Guevara MD acetaminophen-codeine 300-30 mg 1 tab PO Q8H PRN anastrozole (Arimidex) 1 mg PO DAILY calcium carbonate-vitamin D3 600 mg-10 mcg (400 unit) (Calcium 600 with Vitamin D3) 1 tab PO BID clonazepam 0.5 mg (1/2 x 1 mg) PO TID 90 days clonidine HCl 0.3 mg (3 x 0.1 mg) PO BID 90 days diphenhydramine HCl (Benadryl) 25 mg PO BEDTIME doxycycline hyclate 100 mg PO BID duloxetine 30 mg PO DAILY ferrous sulfate 324 mg PO DAILY 90 days gabapentin 300 mg PO BID hydrocortisone 1% 1 appl topical BID leuprolide (3 month) (Lupron Depot) 11.25 mg IM [id number] Magic Mouthwash Diphen/Lido/Antacid 1:1:1 10 mL PO TID melatonin 30 mg PO BEDTIME nicotine 21 mg transdermal DAILY 30 days ondansetron 8 mg PO Q8H PRN oxycodone 5 mg PO BID PRN ribociclib 400 mg PO DAILY HPI Comments Details: Lisa returns today for wound check of the left breast incision. She reports a significant amount of discharge earlier in the week but now reports no further discharge. She still has soreness which is burning in nature along the medial portion of the incision left side but definitely feels improved. She continues with the antibiotics. She started on Arimidex in his noting increased joint pain. She has decided to decline radiation therapy. [facility] Medical History Muscle pain Port-A-Cath in place Post-operative nausea and vomiting Breast cancer, left Heartburn Anxiety Depression Surgical History S/P mastectomy, bilateral (11/02/24) Invasive ductal carcinoma of left breast Hx of dilation and curettage Hx of carpal tunnel repair Hx of section History of cholecystectomy Family History Paternal Grandmother Breast cancer Family/Other Breast cancer Other Mental health disorder Substance use disorder Social History Household Members: Family Household Members Other:: Son and Dad Housing: House Are you a primary aged or disabled care worker to a significant other at home: Yes (minor son) Do you presently have visiting nurse or other home services: No Alcohol intake: current Alcohol intake frequency: does not drink Comment: counts correct Patient Tobacco Use Status: Current everyday Tobacco user Tobacco use type: Cigarette Cigarettes Per Day: 6 Years Smoked: 17 e-Cigarette/Vaping Use: Never Used Second Hand Smoke Exposure: No Substance Use Type: Marijuana Advance Directives Date on File: 05/20/24 service: No Current occupational status: employed and unemployed Sexual orientation: Straight/Heterosexual Gender identity: Female Cognitive needs: No Hearing needs: No Vision needs: No Female Reproductive History Menstrual Age of Menarche: 10 Physical Exam Vital Signs: Last Vital Signs Pulse 97 01/06/25 09:29 BP 157/79 H 01/06/25 09:29 BMI result Body Mass Index 29.6 Const General: no acute distress Nutritional Appearance: well nourished Orientation/consciousness: patient oriented x3 Chest Other: Left chest with minimal to no erythema. No palpable fluid remaining this time. No swelling and axilla. Right chest wall reveals white extra skin laterally. GI Inspection: Yes normal to inspection Skin Other: No further redness and chest wall Neuro General: patient oriented x3 Extrem Other: No upper extremity edema Assessment & Plan Assessment & Plan (1) Breast cancer, left: Code(s): C50.912 - Malignant neoplasm of unspecified site of left female breast Category: Medical Qualifiers: Breast location: upper outer quadrant of breast Estrogen receptor status: unspecified Patient sex: female Qualified Code(s): C50.412 - Malignant neoplasm of upper-outer quadrant of left female breast Plan Patient continues to have incisional pain in the left side but overall the infection is resolved. I recommended a follow up visit in approximately 2 weeks. She is welcome to call sooner for any new concerns. Medications: New oxycodone Partial Fill upon patient request. 5 mg PO BID PRN 20 tabs 0RF pain (scale score 7-10) C50.412 - Malignant neoplasm of upper-outer quadrant of left female breast Discontinued oxycodone Partial Fill upon patient request. Discontinued Reason: Patient Completed Course 5 mg PO BID PRN 14 tabs 0RF pain (scale score 7-10) Coding Level of Care Code Global (85015) Diagnoses Malignant neoplasm of upper-outer quadrant of left female breast, unspecified estrogen receptor status C50.412 Breast location: upper outer quadrant of breast Estrogen receptor status: unspecified Patient sex: female
[2025-01-06 09:29] VITALS: BP 157/79; PULSE 97; BMI 29.6
--- OUTSIDE RECORDS SUMMARY | 2025-01-06 09:39 | XMS_ITS | Clinical Summary ---
Author Organization [facility] Address [address] [place] [address] Care Team Providers Care Applied Researcher Name Role Phone Madhu Ritchie Debra Primary Care Provider [phone] Allergies Active Allergy Reactions Criticality Noted Date [...] 11/24/2024 Malignant neoplasm of left b reast [place] [place] [facility] [place] 11/24/2024 Depression 11/24/2024 Heartburn 11/24/2024 Port-A-Cath in place 11/24/2024 Muscle pain 11/24/2024 Encounters Date Type Department Care Team Description 12/14/[address] [facility] [address] [place] [phone] Cortes Holloway LMSW 12/13/2024 8:49 AM EDT - 12/13/2024 11:59 PM EDT Hospital Encounter [facility] [address] [place] [phone] Meagan Leiva MD Malignant neoplasm of left female breast, unspecified estrogen receptor status, unspecified site of breast ([facility] [place], [facility] V28) (Primary Dx); Breast cancer ([facility], [facility] V28) Discharge Disposition: Home or Self Care 12/13/2024 8:48 AM EDT - 12/13/2024 11:59 PM EDT Hospital Encounter [facility] [address] [place] [phone] Discharge Disposition: Home or Self Care 12/08/[address] [facility] [address] [place] [phone] Jessi Peters MA 11/30/[address] [facility] [address] [place] [address] Jessi Peters MA 11/24/[address] [facility] [address] [place] [phone] Jessi Peters MA 11/24/[address] [facility] [address] [place] [address] Jessi Peters MA 11/23/[address] [facility] [address] [place] [phone] Jessi Peters MA 11/23/2024 [facility] [address] [place] [address] Jessi Peters MA from Last 3 Months [...] patient's age to complete this topic Insurance [place] [address] [place] [address] Care Teams Applied Researcher Relationship Specialty Start Date End Date Madhu Ritchie [address] [place] [address], [address] [place], [place] [phone] PCP - General Family Medicine 12/13/24
== END 2025-01-06 09:38 | disposition home or self-care (01) ==
LOC: HO.HGS 09:17
PROVIDERS: Visit Provider Surgery
DX: C50.412 Malignant neoplasm of upper-outer quadrant of left female breast (principal)
CPT/HCPCS: 99024

== ENCOUNTER → 2025-01-06 09:16 | Outpatient (BNVA) | payer OTHER, SELFPAY | PROVIDERS: Visit Provider Surgery | DX: S21.002A Unspecified open wound of left breast, initial encounter (principal); C50.412 Malignant neoplasm of upper-outer quadrant of left female breast; Z48.89 Encounter for other specified surgical aftercare | CPT/HCPCS: 99212 ==

== ENCOUNTER 2025-01-19 09:09 | Outpatient (AMB) | payer OTHER, SELFPAY ==
--- NOTE | 2025-01-19 09:13 | MHC.OFFVIS ---
Vital Signs 01/19/25 09:21 Height 5 ft 7 in Weight 189 lb BMI 29.6 BP 125/71 Blood Pressure Location Lt brachial Position Sitting Pulse 87 Intake Visit Reasons: seroma, post bilateral mastectomy Intake Note: Patient is seen in office for 2 weeks follow up visit, post bilateral mastectomy. 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 Accompanied by: Self / Same As Patient Allergies adhesive tape Allergy (Severe, Verified 01/19/25 09:21) adh.medical tape, steri strips, tegaderm-rash paclitaxel (From Taxol) Allergy (Severe, Verified 01/19/25 09:21) Rash tramadol Allergy (Severe, Verified 01/19/25 09:21) Rash amoxicillin Adverse Reaction (Intermediate, Verified 01/19/25 09:21) Diarrhea Medication List - Last Reconciled 01/19/25 by Jason Guevara MD acetaminophen-codeine 300-30 mg 1 tab PO Q8H PRN anastrozole (Arimidex) 1 mg PO DAILY calcium carbonate-vitamin D3 600 mg-10 mcg (400 unit) (Calcium 600 with Vitamin D3) 1 tab PO BID clonazepam 0.5 mg (1/2 x 1 mg) PO TID 90 days clonidine HCl 0.3 mg (3 x 0.1 mg) PO BID 90 days diphenhydramine HCl (Benadryl) 25 mg PO BEDTIME doxycycline hyclate 100 mg PO BID duloxetine 30 mg PO DAILY ferrous sulfate 324 mg PO DAILY 90 days gabapentin 300 mg PO BID hydrocortisone 1% 1 appl topical BID leuprolide (3 month) (Lupron Depot) 11.25 mg IM [id number] Magic Mouthwash Diphen/Lido/Antacid 1:1:1 10 mL PO TID melatonin 30 mg PO BEDTIME nicotine 21 mg transdermal DAILY 30 days ondansetron 8 mg PO Q8H PRN oxycodone 5 mg PO Q8H PRN ribociclib 400 mg PO DAILY HPI Comments Details: 44-year-old female patient returning for left breast cancer follow-up. She was diagnosed with a left breast invasive ductal carcinoma on 02/2024 after noting a palpable lump with dimpling in the skin since August 2023. Ultrasound-guided core biopsy performed on 03/21/2024 revealed invasive ductal carcinoma, grade 2 and biopsy of a node at the 2 o'clock position left breast revealed invasive carcinoma involving lymphoid and fibroadipose tissue, ER positive, OR positive, HER2 negative by FISH. She was referred to Dr. Vivas started neoadjuvant chemotherapy on April 2024. She completed 4 cycles of Adriamycin/Cytoxan followed by weekly Taxol. She subsequently underwent a left modified radical mastectomy and right simple mastectomy on 11/02/2024. Pathology revealed invasive ductal carcinoma grade 2, 35 mm with margins free of tumor by 15 mm. Also noted was ductal carcinoma in-situ, grade 2-3, margins free of tumor by 15 mm. One of 18 lymph nodes was positive for metastatic carcinoma. The right breast was negative for carcinoma. She tolerated the procedure well but postoperatively developed bilateral seromas. This has subsequently subsided she currently feels much improved. She does have some reaction to the current medication which is causing joint pains especially in the shoulders and feet. She continues to follow with Dr. Vivas. She denies any new chest symptoms. [facility] Medical History Muscle pain Port-A-Cath in place Post-operative nausea and vomiting Breast cancer, left Heartburn Anxiety Depression Surgical History S/P mastectomy, bilateral (11/02/24) Invasive ductal carcinoma of left breast Hx of dilation and curettage Hx of carpal tunnel repair Hx of section History of cholecystectomy Family History Paternal Grandmother Breast cancer Family/Other Breast cancer Other Mental health disorder Substance use disorder Social History Household Members: Family Household Members Other:: Son and Dad Housing: House Are you a primary career resource technician to a significant other at home: Yes (minor son) Do you presently have visiting nurse or other home services: No Alcohol intake: current Alcohol intake frequency: does not drink Comment: counts correct Patient Tobacco Use Status: Current everyday Tobacco user Tobacco use type: Cigarette Cigarettes Per Day: 6 Years Smoked: 17 e-Cigarette/Vaping Use: Never Used Second Hand Smoke Exposure: No Substance Use Type: Marijuana Advance Directives Date on File: 05/20/24 service: No Current occupational status: employed and unemployed Sexual orientation: Straight/Heterosexual Gender identity: Female Cognitive needs: No Hearing needs: No Vision needs: No Female Reproductive History Menstrual Age of Menarche: 10 Review of Systems Const All systems reviewed & are unremarkable except as noted in HPI and below Reports body aches Skin/Breast Reports breast skin changes and Denies breast pain Physical Exam Vital Signs: Last Vital Signs Pulse 87 01/19/25 09:21 BP 125/71 01/19/25 09:21 BMI result Body Mass Index 29.6 Const General: no acute distress Nutritional Appearance: well nourished Orientation/consciousness: patient oriented x3 Chest Other: Left chest with minimal to no erythema. No palpable fluid remaining this time. No swelling and axilla. Right chest wall reveals mild extra skin laterally. GI Inspection: Yes normal to inspection Skin Other: No further redness and chest wall Neuro General: patient oriented x3 Extrem Other: No upper extremity edema Assessment & Plan Assessment & Plan (1) Breast cancer, left: Code(s): C50.912 - Malignant neoplasm of unspecified site of left female breast Category: Medical Qualifiers: Breast location: upper outer quadrant of breast Estrogen receptor status: unspecified Patient sex: female Qualified Code(s): C50.412 - Malignant neoplasm of upper-outer quadrant of left female breast Plan 44-year-old female patient returning status post left modified radical mastectomy and right simple mastectomy (prophylactic) for postop wound check. Her wounds remain clean without any further seroma or evidence of infection. Her pain is much improved as well. She will continue her follow-up with Dr. Vivas and returned to our office in approximately 3 months. She is welcome to call sooner for any new concerns. Coding Level of Care Code Global (22064) Diagnoses Malignant neoplasm of upper-outer quadrant of left female breast, unspecified estrogen receptor status C50.412 Breast location: upper outer quadrant of breast Estrogen receptor status: unspecified Patient sex: female
[2025-01-19 09:21] VITALS: BP 125/71; PULSE 87; BMI 29.6
--- OUTSIDE RECORDS SUMMARY | 2025-01-19 09:59 | XMS_ITS | Clinical Summary ---
Author Organization [facility] Address [address] [place] [address] Care Team Providers Care Pens [employer] Penc[employer] Dipper Name Role Phone Chau Madhu CORDOVA Primary Care Provider Allergies Active Allergy Reactions [...] 11/24/2024 Malignant neoplasm of left b reast ([facility] V24, [facility] V28) 11/24/2024 Depression 11/24/2024 Heartburn 11/24/2024 Port-A-Cath in place 11/24/2024 Muscle pain 11/24/2024 Encounters Date Type Department Care Team Description 12/14/2024 Social Work [facility] [address] [place] [phone] Cortes Holloway [facility] [place] 12/13/2024 8:49 AM EDT - 12/13/2024 11:59 PM EDT Hospital Encounter [facility] [address] [place] [phone] Meagan Leiva MD Malignant neoplasm of left female breast, unspecified estrogen receptor status, unspecified site of breast ([facility] V24, [facility] V28) (Primary Dx); Breast cancer ([facility] V24, [facility] V28) Discharge Disposition: Home or Self Care 12/13/2024 8:48 AM EDT - 12/13/2024 11:59 PM EDT Hospital Encounter [facility] [address] [place] [phone] Discharge Disposition: Home or Self Care 12/08/2024 Telephone [facility] [address] [place] [phone] Jessi Peters MA 11/30/2024 [facility] [address] [place] [address] Jessi Peters MA 11/24/2024 [facility] [address] [place] [phone] Jessi Peters MA 11/24/2024 [facility] [address] [place] [phone] Jessi Peters MA 11/23/2024 [facility] [address] [place] [address] Jessi Peters MA 11/23/2024 [facility] [address] [place] [phone] Jessi Peters MA from Last 3 Months [...] patient's age to complete this topic Insurance [facility] [place] [address] Care Teams Pens And Pencils Dipper Relationship Specialty Start Date End Date Madhu Ritchie FNP [address] [place] [address] PCP - General Family Medicine 12/13/24
== END 2025-01-19 09:26 | disposition home or self-care (01) ==
LOC: HO.HGS 09:10
PROVIDERS: Visit Provider Surgery
DX: C50.412 Malignant neoplasm of upper-outer quadrant of left female breast (principal)
CPT/HCPCS: 99024

== ENCOUNTER → 2025-01-19 09:09 | Outpatient (BNVA) | payer OTHER, SELFPAY | PROVIDERS: Visit Provider Surgery | DX: C50.412 Malignant neoplasm of upper-outer quadrant of left female breast (principal); Z98.890 Other specified postprocedural states; Z90.12 Acquired absence of left breast and nipple; Z90.11 Acquired absence of right breast and nipple | CPT/HCPCS: 99212 ==

== ENCOUNTER 2025-03-18 14:49 | Emergency (ER) | payer OTHER, SELFPAY ==
--- OUTSIDE RECORDS SUMMARY | 2025-03-16 23:59 | XMS_ITS | Continuity of Care Document ---
Author Organization [facility] Address [address] [place] [phone]- Care Team Providers Care Certified Flight Instructor Name Role Phone Chau FUNEZ, Madhu Singleton Primary Care Physicia n Encounter [facility] [place] [place] Date(s): 02/14/25 - 03/16/25 [facility] [address] [place] [phone] Attending Physician: Juan Ellis Admitting Physician: Juan Ellis Referring Physician: AdmtrJuan Encounter Type: Triage Allergies, Adverse Reactions, Alerts Substance Criticality Severity Reaction Reaction Severity Status amoxicillin D - Diarrhea Rash Active Taxol Rash SOB - Shortness of breath Active Adhesive Bandage Rash Act george traMADol Rash Active Medications biotin 2.5 mg oral tablet 1 tablet = 2.5 mg, By Mouth, Daily, 0 Refills, Maintenance, 02/14/25 10:49:00 AM EDT, Partial fill upon patient request if the prescription is for a schedule II opioid drug. Start Date: 02/14/25 Status: Ordered Repeat number: 1 CALCIUM 600 WITH VIT D CHEW TB CALCIUM 600 WITH VIT D CHEW TB, 0 Refills, Maintenance, 02/14/25 10:43:00 AM EDT Start Date: 02/14/25 Status: Ordered Repeat number: 1 clonazePAM 1 mg oral tablet TAKE 1/2 TABLET 3 TIMES A DAY FOR 90 DAYS Start Date: 02/14/25 Status: Ordered Repeat number: 1 duloxetine 30 mg oral enteric coated capsule 1 capsule = 30 mg, By Mouth, Daily, do not crush or chew, 0 Refills, Maintenance, 02/14/25 10:42:00 AM EDT, CR Capsule, Partial fill upon patient request if the prescription is for a schedule II opioid drug. Start Date: 02/14/25 Status: Ordered Repeat number: 1 exemestane 25 mg oral tablet 1 tablet = 25 mg, By Mouth, Daily, # 30 tablet, 0 Refills, Maintenance, 02/14/25 10:43:00 AM EDT, Tablet, Partial fill upon patient request if the prescription is for a schedule II opioid drug. Start Date: 02/14/25 Status: Ordered Quantity: 30.0 Unit: tablet Repeat number: 1 ferrous sulfate 324 mg (65 mg elemental iron) oral delayed release tablet TAKE 1 TABLET BY MOUTH EVERY DAY Start Date: 02/14/25 Status: Ordered Repeat number: 1 gabapentin 300 mg oral capsule TAKE 1 CAPSULE BY MOUTH TWICE A DAY Start Date: 02/14/25 Status: Ordered Repeat number: 1 Kisqali (400 mg daily dose) 0 Refills, Maintenance, 02/14/25 10:46:00 AM EDT, Partial fill upon patient request if the prescription is for a schedule II opioid drug. Start Date: 02/14/25 Status: Ordered Repeat number: 1 Lupron Depot 11.25 mg/3 months intramuscular powder for injection, extended release = 11.25 mg, Intramuscular, Every 3 months, 0 Refills, Maintenance, 02/14/25 10:45:00 AM EDT, Partialfill upon patient request if the prescription is for a schedule II opioid drug. Start Date: 02/14/25 Status: Ordered Repeat number: 1 Magnesium Chloride 800 mg, 0 Refills, Maintenance, 02/14/25 10:47:00 AM EDT, Partial fill upon patient request if the prescription is for a schedule II opioid drug. Start Date: 02/14/25 Status: Ordered Repeat number: 1 naloxone 4 mg/0.1 mL nasal spray SPRAY 1 DOSE INTO ONE NOSTRIL ALTERNATE NOSTRILS WITH EACH DOSE EVERY 2 MINUTES UNTIL HELP ARRIVES Start Date: 02/14/25 Status: Ordered Repeat number: 1 ondansetron 8 mg oral tablet, disintegrating 1 tablet = 8 mg, By Mouth, 3 times a day, 0 Refills, Maintenance, 02/14/25 10:47:00 AM EDT, Partial fill upon patient request if the prescription is for a schedule II opioid drug. Start Date: 02/14/25 Status: Ordered Repeat number: 1 oxyCODONE 5 mg oral tablet TAKE 1 TABLET ORALLY EVERY 8 HOURS NEEDED FOR PAIN PARTIAL FILL UPON PATIENT REQUEST. Start Date: 02/14/25 Status: Ordered Repeat number: 1 tart jackson 600mg tart jackson 600mg, Refills 0, Maintenance, 02/14/25 10:48:00 AM EDT, Supply Start Date: 02/14/25 Status: Ordered Repeat number: 1 Problem List Condition Confirmation Course Effective Dates Status Health St atus Informant Anxiety Confirmed Active Depression Confirmed Active Heart burn Confirmed Active Breast cancer Confirmed Active Muscle pain Confirmed Active Social History Social History Type Response Smoking Status 5-9 cigarettes (betw een 1/4 to 1/2 pack)/day in last 30 days entered on: 02/14/25 Sex Sex Representation Female (finding) Patient Care team information Care Team Personnel Name: Chau FUNEZ, Madhu Singleton Position: Reference Physician Member Role: PCP Address: [address] [place] [address] Telecom: Care Team Related Persons Name: JOHN MURRAY Insurance Providers Guarantor name: JANEY MCKENZIEBEN Health Plan Information #: 1 Payer: [employer] Payer Identifier: ZAC Member Number: [id number] Group Number: [id number] Subscriber Identifier: [id number] Relationship to Subscriber: self Coverage Type: NA Coverage Verification Date: NA Telecom: NA Address:
[2025-03-18 15:02] VITALS: BP 145/74; PULSE 98; RESP 17; TEMP 36.6; O2SAT 98; BMI 32.1
--- NOTE | 2025-03-18 15:02 | ECG_ITS ---
Test Reason : PALPITATIONS Blood Pressure : */* mmHG Vent. Rate : 66 BPM Atrial Rate : 66 BPM P-R Int : 160 ms QRS Dur : 82 ms QT Int : 416 ms P-R-T Axes : 37 39 49 degrees QTcB Int : 436 ms Normal sinus rhythm Normal ECG When compared with ECG of 07-Dec-2018 07:49, No significant change was found Referred By: Generic ED Physician Electronically Signed By: ANANT WHIPPLE
--- OUTSIDE RECORDS SUMMARY | 2025-03-18 15:06 | XMS_ITS | Clinical Summary ---
Author Organization [facility] Address [address] [place] [address] Care Team Providers Care [employer] Name Role Phone Chau Madhu CORDOVA Primary [...] 11/24/2024 Malignant neoplasm of left b reast ([facility] V24, [facility] V28) 11/24/2024 Depression 11/24/2024 Heartburn 11/24/2024 Port-A-Cath in place 11/24/2024 Muscle pain 11/24/2024 Surgical History Surgery Date Site/Laterality Comments SECTION [...] 12/13/2024 9:44 AM EDT Plan of Treatment Upcoming Encounters Date Type Department Care Team (Late st Contact Info) Description 04/19/2025 2:30 PM EDT Consult Breast [facility] [address] [place] [phone] Corie Coats MD [address] [facility] [address] [place] [address] Health Maintenance Due Date Last Done Comments Breast Cancer Screening 1978 Pneumococcal Vaccine: Pediatrics (0 to 5 Years) and At-Risk Patients (6 to 49 Years) (1 of 2 - PCV) 1997 Cervical Cancer Screening: Pap Smear 11/09/1999 Hepatitis B Vaccines (2 of 3 - 19+ 3-dose series) 09/01/2023 08/04/2023 COVID-19 Vaccine ( - season) 2024 09/19/2021, 09/30/2020, 09/09/2020 Cholesterol Screening (Lipid Panel) 05/22/2024 Colorectal Cancer Screening: Colonoscopy 05/22/2024 HIV Screening 05/22/2024 Hepatitis C Screening 05/22/2024 Social Influencers of Health Screening 05/22/2024 Depression Screening 07/27/2024 Influenza Vaccine (#1) 2025 4, 08/04/2023, 04/11/2021, Additional history exists DTaP,Tdap,and Td [...] patient's age to complete this topic Insurance [facility] Care Teams [employer] Relationship Specialty Start Date End Date Madhu Ritchie FNP [address] [place] [address] PCP - General Family Medicine 12/13/24
[2025-03-18 15:24] LABS: Hematocrit 38.3 % (37.0-47.0); Hemoglobin 12.6 g/dl (12.0-16.0); Imm Gran Abs Auto 0.01 X10*3/uL (0.00-0.03); Imm Gran Pct Auto 0.2 % (0.0-0.4); Lymphocytes Absolute Auto 1.8 X10*3/uL (1.2-4.9); MANUAL DIFF FLAG NO; Mean Corpuscular HGB Conc 32.9 g/dl (31.0-35.0); Mean Corpuscular Hemoglobin 28.1 pg (27.0-33.0); Mean Corpuscular Volume 85.5 fL (80.0-98.0); NRBC Abs Auto 0.000 X10*3/uL (0.0-0.012); NRBC Pct Auto 0.0 /100WBC (0.0-0.2); Platelet Count 241 X10*3/uL (160-400); Red Blood Count 4.48 X10*6/uL (4.20-5.50); White Blood Count 4.5 X10*3/uL (4.8-10.8)
[2025-03-18 15:30] LABS: Appearance Urine Clear; Glucose Urine UA Negative (Negative); PH 5.5 (5.0-9.0); Specific Gravity - Urine 1.020 (1.005-1.025); UMIC TRIGGER UACC YES
[2025-03-18 15:39] LABS: Alanine Aminotransferase 245 U/L (0-31); Albumin Level 4.3 g/dL (3.5-5.0); Alkaline Phosphatase 90 U/L (39-117); Anion Gap 16 (12-20); Aspartate Amino Transferase 374 U/L (5-31); Blood Urea Nitrogen 15 mg/dL (9-16); Calcium 9.8 mg/dL (8.4-10.2); Carbon Dioxide 25 mmol/L (22-29); Chloride 105 mmol/L (96-108); Creatinine Clr Calc Pharmacy 70.3; Estimated Glomerular Filt Rate 50; Lipase 49 U/L (8-78); Potassium 4.2 mmol/L (3.3-5.1); Sodium 142 mmol/L (135-145); Total Protein 6.8 g/dL (6.5-8.0)
[2025-03-18 15:42] LABS: UACC Culture Trigger YES
--- NOTE | 2025-03-18 16:02 | ED.GENADULT ---
HPI - General Adult General Chief complaint: Abdominal Pain Stated complaint: abd pain Time Seen by Provider: 03/18/25 16:01 Source: patient Mode of arrival: ambulatory Limitations: no limitations History of Present Illness ED Provider: Dr. Sethi HPI narrative: This is a 44-year-old female history of breast cancer status post mastectomy currently on chemotherapy and hormonal therapy. History of cholecystectomy presented hospital today for epigastric right upper quadrant pain nausea and vomiting for the past 3 days. Patient stated that she has been having diarrhea episode as well. Denies any fever. Denies any chest pain or shortness of breath. Denies any dysuria or abnormal vaginal discharge. Patient stated that her symptoms are worsened whenever she eats. She has been taking ibuprofen to help with her pain. Related Data Home Medications ?Medication ?Instructions ?Recorded ?Confirmed diphenhydramine HCl 25 mg capsule 25 mg PO BEDTIME 10/25/24 01/19/25 (Benadryl) melatonin 10 mg chewable tablet 30 mg PO BEDTIME 10/25/24 01/19/25 leuprolide (3 month) 11.25 mg (3 11.25 mg IM [id number] 11/22/24 01/19/25 month) intramuscular syringe kit (Lupron Depot) biotin 10,000 mcg chewable tablet 10,000 mcg PO DAILY 02/10/25 02/10/25 (Hair, Skin and Nails (biotin)) magnesium 250 mg tablet 400 mg 02/10/25 vit C 30 mg-s.appiah 250 mg-celery 600 cap PO 02/10/25 seed 75 mg-grape seed extrt capsule (Tart App[place]) Previous Rx's ?Medication ?Instructions ?Recorded hydrocortisone 1 % lotion 1 appl topical BID #100 mL 10/07/24 ferrous sulfate 324 mg (65 mg 324 mg PO DAILY 90 days #90 tabs 11/10/24 iron) tablet,delayed release clonidine HCl 0.1 mg tablet 0.3 mg (3 x 0.1 mg) PO BID anxiety 12/15/24 90 days #540 tabs acetaminophen 300 mg-codeine 30 mg 1 tab PO Q8H PRN pain (scale score 12/26/24 tablet 7-10) #20 tabs doxycycline hyclate 100 mg tablet 100 mg PO BID #20 tabs 12/30/24 gabapentin 300 mg capsule 300 mg PO BID #120 caps 01/03/25 ondansetron 8 mg disintegrating 8 mg PO Q8H PRN Nausea #30 tabs 01/10/25 tablet naloxone 4 mg/actuation nasal 4 mg intranasal Q2M PRN opioid 01/31/25 spray (Narcan) overdose #2 ea calcium 600 mg (as carbonate)-vit 1 tab PO BID #60 tabs 02/10/25 D3 10 mcg (400 unit) chewable tablet (Calcium 600 with Vitamin D3) exemestane 25 mg tablet 25 mg PO DAILY #30 tabs 02/10/25 Magic Mouthwash 10 ml PO TID #240 mL 02/21/25 Diphen/Lido/Antacid 1:1:1 240 mL suspension duloxetine 40 mg capsule,delayed 40 mg PO DAILY #30 caps 02/21/25 release ribociclib 400 mg/day (200 mg x 2) 400 mg PO DAILY #42 tabs 02/21/25 tablets fezolinetant 45 mg tablet (Veozah) 45 mg PO DAILY #30 tabs 03/06/25 acetaminophen 300 mg-codeine 30 mg 1 tab PO Q8H PRN pain #15 tabs 03/13/25 tablet clonazepam 1 mg tablet 0.5 mg (1/2 x 1 mg) PO TID 90 days 03/13/25 #90 tabs duloxetine 30 mg capsule,delayed 30 mg PO DAILY #90 caps 03/13/25 release exemestane 25 mg tablet 25 mg PO DAILY #90 tabs 03/13/25 nicotine 21 mg/24 hr daily 21 mg transdermal DAILY 30 days 03/13/25 transdermal patch #30 ea omeprazole 20 mg capsule,delayed 20 mg PO DAILY 14 days #14 caps 03/18/25 release oxycodone 5 mg capsule 5 mg PO Q8H PRN pain 4 days #12 03/18/25 caps Allergies Allergy/AdvReac Type Severity Reaction Status Date / Time adhesive tape Allergy Severe adh.medical Verified 03/18/25 15:05 tape, steri strips, tegaderm-rash paclitaxel (From Taxol) Allergy Severe Rash Verified 03/18/25 15:05 tramadol Allergy Severe Rash Verified 03/18/25 15:05 amoxicillin AdvReac Intermediate Diarrhea Verified 03/18/25 15:05 Review of Systems Review of Systems: Pertinent review of systems as mentioned in HPI. All other system otherwise negative. PMFSH Past Medical History [facility] Narrative: Medical history as mentioned in HPI Medical History (Updated 03/18/25 @ 17:19 by Sarah Sethi DO) Muscle pain Port-A-Cath in place Post-operative nausea and vomiting Breast cancer, left Heartburn Anxiety Depression Surgical History (Updated 02/10/25 @ 13:12 by Sunitha Vivas MD) S/P mastectomy, bilateral (11/02/24) Invasive ductal carcinoma of left breast Hx of dilation and curettage Hx of carpal tunnel repair Hx of section History of cholecystectomy Family History Family History Paternal Grandmother Breast cancer Family/Other Breast cancer Other Mental health disorder Substance use disorder Social History Social History Household Members: Family Household Members Other:: Son and Dad Housing: House Are you a primary home care manager to a significant other at home: Yes (minor son) Do you presently have visiting nurse or other home services: No Alcohol intake: current Alcohol intake frequency: does not drink Comment: counts correct Patient Tobacco Use Status: Current everyday Tobacco user Tobacco use type: Cigarette Cigarettes Per Day: 6 Years Smoked: 17 Smoked in Last 30 Days: Yes e-Cigarette/Vaping Use: Never Used Second Hand Smoke Exposure: No Substance Use Type: Marijuana Advance Directives: Yes Advance Directives on File: Yes Advance Directives Date on File: 02/13/25 service: No Current occupational status: employed and unemployed Sexual orientation: Straight/Heterosexual Gender identity: Female Cognitive needs: No Hearing needs: No Vision needs: No Physical Exam ED Exam Exam: General: Pleasant, no distress, interacting appropriately Head: Normacephalic, atraumatic ENT: neck supple, no tracheal deviation Cardiovascular: regular rate, regular rhythm, no murmurs, rubbing, gallops Respiratory: CTAB, no wheeze, rales, rhonchi Gastrointestinal: Soft, non distended, epigastric tenderness on palpation, right upper quadrant tenderness on palpation Neurological: Awake and alert, no facial droop noted Skin: Warm and dry Psychiatric: Appropriate mood and thoughts Vital Signs: Vital Signs - 24 hr 03/18/25 15:02 Temperature 97.8 F Pulse Rate 98 Respiratory Rate 17 Blood Pressure 145/74 H Pulse Oximetry 98 Oxygen Delivery Method Room Air BMI result Body Mass Index 32.1 Medications Administered Discontinued Medications Generic Name Dose Route Start Last Admin Trade Name Luis PRN Reason Stop Dose Admin Al Hydroxide/Mg Hydroxide 30 ml 03/18/25 16:16 03/18/25 16:28 Magnesium Hydrox/Alum Hydrox 30 Ml Oral.Susp PO 03/18/25 16:17 30 ml ONCE ONE Administration Famotidine 20 mg 03/18/25 16:14 03/18/25 16:24 Famotidine/Pf 20 Mg/2 Ml Vial IVPUSH 03/18/25 16:15 20 mg ONCE ONE Administration Sodium Chloride 1,000 mls @ 999 mls/hr 03/18/25 16:15 03/18/25 16:22 Ns IV 03/18/25 17:15 999 mls/hr .Q1H1M ANTWAN Administration Lidocaine HCl 15 ml 03/18/25 16:16 03/18/25 16:28 Lidocaine Hcl Viscous 2 % 15 Ml Solution MUCOUS MEM 03/18/25 16:17 15 ml ONCE ONE Administration Ondansetron HCl 4 mg 03/18/25 16:14 03/18/25 16:24 Ondansetron Hcl 4 Mg/2 Ml Vial IVPUSH 03/18/25 16:15 4 mg ONCE ONE Administration Oxycodone HCl 5 mg 03/18/25 16:33 03/18/25 16:38 Oxycodone Hcl Immed Release 5 Mg Tablet PO 03/18/25 16:34 5 mg ONCE ONE Administration Medical Decision Making Medical Decision Making [facility] Narrative: This is a 44-year-old female history of breast cancer status post mastectomy, history of cholecystectomy presented hospital today for nausea vomiting and diarrhea for the past 3 days with epigastric and right upper quadrant pain Patient's may have possible choledocholithiasis versus gastritis based on exam. Patient does have right upper quadrant tenderness on exam however she has a cholecystectomy. We will plan to give patient some IV fluid, IV Pepcid, IV Zofran for her symptoms. Also plan to challenge her with some Maalox and viscous lidocaine. To see if this may be gastritis in nature. However based on patient's abdominal lab work that were obtained she does have finding of transaminitis. I discussed with the patient. I do recommend additional imaging to see whether his transaminitis is a structural in nature versus a possible infection however patient has kindly declined. She states that she thinks this is likely secondary to her chemotherapy medication. Have offered CT imaging or ultrasound however patient states she has CT imaging next week and would prefer to defer it till then and follow up with her oncologist. I did offer ultrasound as we will have her patient has kindly declined. Also offered to test for hepatitis and acetaminophen level however patient has kindly declined these testing as well. We will plan to reassess patient after medication. A dose of oxycodone will be given for her pain. On reassessment patient stated her pain has improved. She did get epigastric relief after GI cocktail. She still complained of some right upper quadrant pain likely secondary to inflammation of her liver. We will plan to discharge patient at this time we will do a short course of omeprazole, she does have Zofran at home. We will also prescribe a short course of pain medicine for patient. Patient prefers to follow up with her oncology team for her transaminitis on the lab work. Return precautions provided patient. She agrees and understands this plan. Differential Diagnosis Differential Diagnoses: The differential diagnosis associated with the presentation includes Acetaminophen toxicity, hepatitis, gastritis, choledocholithiasis, gastritis, chemotherapy side effect Lab Data MDM Lab Attestation statement: I reviewed the patient's lab results. 03/18/25 15:17 03/18/25 15:17 Labs: Lab Results 03/18/25 03/18/25 Range/Units 15:17 15:23 WBC 4.5 L (4.8-10.8) X10*3/uL RBC 4.48 (4.20-5.50) X10*6/uL Hgb 12.6 (12.0-16.0) g/dl Hct 38.3 (37.0-47.0) % MCV 85.5 (80.0-98.0) fL MCH 28.1 (27.0-33.0) pg MCHC 32.9 (31.0-35.0) g/dl RDW 21.9 H (11.0-16.0) % Plt Count 241 (160-400) X10*3/uL MPV 9.2 L (9.4-12.3) fL Immature Gran % (Auto) 0.2 (0.0-0.4) % Neut % (Auto) 51.4 (45-73) % Lymph % (Auto) 39.2 (20-40) % Dewitt % (Auto) 6.6 (2-11) % Eos % (Auto) 1.3 (0-4) % Baso % (Auto) 1.3 (0-2) % Lymph # (Auto) 1.8 (1.2-4.9) X10*3/uL [place]itt # (Auto) 0.3 (0.1-1.2) X10*3/uL Eos # (Auto) 0.1 (0.0-0.4) X10*3/uL Baso # (Auto) 0.1 (0.0-0.2) X10*3/uL Abs Immat Gran (auto) 0.01 (0.00-0.03) X10*3/uL Absolute Neuts (auto) 2.3 (2.0-8.3) x10*3/uL Absolute Nucleated RBC 0.000 (0.0-0.012) X10*3/uL Nucleated RBC % (auto) 0.0 (0.0-0.2) /100WBC Sodium 142 (135-145) mmol/L Potassium 4.2 (3.3-5.1) mmol/L Chloride 105 (96-108) mmol/L Carbon Dioxide 25 (22-29) mmol/L Anion Gap 16 (12-20) BUN 15 (9-16) mg/dL Creatinine 1.17 (0.5-1.4) mg/dL Estim Creat Clear Calc 70.3 Estimated GFR 50 Random Glucose 83 (60-115) mg/dL Calcium 9.8 (8.4-10.2) mg/dL Total Bilirubin 0.6 (0.0-1.0) mg/dL Direct Bilirubin 0.2 (0.0-0.5) mg/dL AST 374 H (5-31) U/L ALT 245 H (0-31) U/L Alkaline Phosphatase 90 (39-117) U/L Total Protein 6.8 (6.5-8.0) g/dL Albumin 4.3 (3.5-5.0) g/dL Lipase 49 (8-78) U/L Urine Color Yellow Urine Appearance Clear Urine pH 5.5 (5.0-9.0) Ur Specific [place] 1.020 (1.005-1.025) Urine Protein Trace (Neg-Trace) mg/dL Urine Glucose (UA) Negative (Negative) mg/dL Urine Ketones Negative (Negative) mg/dL Urine Blood Negative (Negative) Urine Nitrite Negative (Negative) Ur Leukocyte Esterase Small (1+) H (Negative) Urine RBC 0-2 (0-2) /HPF Urine WBC 0-5 (0-5) /HPF Ur Squamous Epith Cells 3-5 (0-2) /HPF Urine Bacteria Trace (None Seen) Hyaline Casts 0-2 (0-2) /LPF Discharge Plan Discharge Clinical Impression: Transaminitis, Gastritis Patient Disposition: Home, Self-Care Instructions: Gastritis (ED) Additional Instructions: Avoid further ibuprofen use for the time being. Please follow up with your oncology team. If there are any other concerns and you do not feel well. Return to the ED Prescriptions: New omeprazole 20 mg capsule,delayed release(DR/EC) 20 mg PO DAILY 14 Days Qty: 14 0RF oxycodone 5 mg capsule 5 mg PO Q8H PRN (Reason: pain) 4 Days Qty: 12 0RF Rx Instructions: Partial Fill upon patient request. No Action clonidine HCl 0.1 mg tablet 0.3 mg PO BID 90 Days Qty: 540 3RF naloxone [Narcan] 4 mg/actuation spray,non-aerosol 4 mg intranasal Q2M PRN (Reason: opioid overdose) Qty: 2 0RF Rx Instructions: spray 1 dose into ONE nostril; alternate nostrils w each dose until help arrives clonazepam 1 mg tablet 0.5 mg PO TID 90 Days Qty: 90 0RF nicotine 21 mg/24 hr patch 24 hour 21 mg transdermal DAILY 30 Days Qty: 30 3RF acetaminophen-codeine 300-30 mg tablet 1 tab PO Q8H PRN (Reason: pain) Qty: 15 0RF hydrocortisone 1 % Lotion 1 appl TOPICAL BID Qty: 100 2RF gabapentin 300 mg Capsule 300 mg PO BID Qty: 120 3RF ondansetron 8 mg Tablet,Disintegrating 8 mg PO Q8H PRN (Reason: Nausea) Qty: 30 3RF magnesium 250 mg Tablet 400 mg Tart [place] [id number] mg Capsule 600 cap PO Hair, Skin and Nails (biotin) 10,000 mcg Tablet,Chewable 10,000 mcg PO DAILY exemestane 25 mg Tablet 25 mg PO DAILY Qty: 30 1RF Rx Instructions: must administer after a meal Calcium 600 with Vitamin D3 600 mg-10 mcg (400 unit) Tablet,Chewable 1 tab PO BID Qty: 60 3RF Magic Mouthwash Diphen/Lido/Antacid 1:1:1 240 mL Suspension 10 ml PO TID Qty: 240 1RF Rx Instructions: Lidocaine Viscous 2 % 80mL; diphenhydramine 12.5 mg/5 mL 80mL; aluminum-mag hydrox-simeth [id number]/5mL 80mL duloxetine 40 mg Capsule,Delayed Release(Dr/Ec) 40 mg PO DAILY Qty: 30 0RF ribociclib 400 mg/day (200 mg x 2) Tablet 400 mg PO DAILY Qty: 42 3RF Rx Instructions: administer for 21 days; off 7 days per 28-day cycle Veozah 45 mg Tablet 45 mg PO DAILY Qty: 30 0RF exemestane 25 mg Tablet 25 mg PO DAILY Qty: 90 3RF Rx Instructions: must administer after a meal diphenhydramine HCl [Benadryl] 25 mg Capsule 25 mg PO BEDTIME melatonin 10 mg Tablet,Chewable 30 mg PO BEDTIME ferrous sulfate 324 mg (65 mg iron) Tablet,Delayed Release (Dr/Ec) 324 mg PO DAILY 90 Days Qty: 90 3RF duloxetine 30 mg Capsule,Delayed Release(Dr/Ec) 30 mg PO DAILY Qty: 90 1RF Lupron Depot (3 month) 11.25 mg syringe kit 11.25 mg IM [id number] doxycycline hyclate 100 mg tablet 100 mg PO BID Qty: 20 0RF acetaminophen-codeine 300-30 mg tablet 1 tab PO Q8H PRN (Reason: pain (scale score 7-10)) Qty: 20 0RF Print Language: Greenlandic
[2025-03-18] MEDS: Lidocaine HCl Viscous 2 % 15 ML SOLUTION MUCOUS MEM (16:28)
[2025-03-18] MEDS: Magnesium Hydrox/Alum Hydrox 30 ML ORAL.SUSP PO (16:28)
[2025-03-18] MEDS: oxyCODONE HCl Immed Release 5 MG TABLET PO (16:38)
[2025-03-18 17:36] VITALS: BP 137/65; PULSE 67; RESP 18; TEMP 36.6; O2SAT 97
== END 2025-03-18 17:50 | disposition home or self-care (01) ==
PROVIDERS: Emergency Provider Student in an Organized Health Care Education/Training Program
DX: R10.13 Epigastric pain (principal); K29.70 Gastritis, unspecified, without bleeding; R11.2 Nausea with vomiting, unspecified; R74.01 Elevation of levels of liver transaminase levels; R00.2 Palpitations; F17.210 Nicotine dependence, cigarettes, uncomplicated; Z79.899 Other long term (current) drug therapy
CPT/HCPCS: 36415; 80053; 81001; 82248; 83690; 85025; 87086; 93005; 96361; 96374; 96375; 99284; 99285; J1308; J2405

== ENCOUNTER → 2025-03-18 15:02 | Outpatient (BNV) | payer OTHER, SELFPAY | PROVIDERS: Emergency Provider Student in an Organized Health Care Education/Training Program; Visit Provider Internal Medicine | DX: R00.2 Palpitations (principal) | CPT/HCPCS: 93010 ==

== ENCOUNTER 2025-03-19 13:15 | Emergency (ER) | payer OTHER, SELFPAY ==
--- NOTE | 2025-03-19 | ECG_ITS ---
Test Reason : PALPITATIONS Blood Pressure : */* mmHG Vent. Rate : 64 BPM Atrial Rate : 64 BPM P-R Int : 160 ms QRS Dur : 84 ms QT Int : 416 ms P-R-T Axes : 85 76 59 degrees QTcB Int : 429 ms Normal sinus rhythm Normal ECG When compared with ECG of 18-Mar-2025 15:11, No significant change was found Referred By: Generic ED Physician Electronically Signed By: ANANT WHIPPLE
[2025-03-19 13:21] VITALS: BP 155/86; PULSE 70; RESP 18; TEMP 37.1; O2SAT 98; BMI 31.0
--- NOTE | 2025-03-19 13:24 | ED.GENADULT ---
HPI - General Adult General Chief complaint: Abdominal Pain Stated complaint: heart palpitations Related Data Home Medications ?Medication ?Instructions ?Recorded ?Confirmed diphenhydramine HCl 25 mg capsule 25 mg PO BEDTIME 10/25/24 01/19/25 (Benadryl) melatonin 10 mg chewable tablet 30 mg PO BEDTIME 10/25/24 01/19/25 leuprolide (3 month) 11.25 mg (3 11.25 mg IM [id number] 11/22/24 01/19/25 month) intramuscular syringe kit (Lupron Depot) biotin 10,000 mcg chewable tablet 10,000 mcg PO DAILY 02/10/25 02/10/25 (Hair, Skin and Nails (biotin)) magnesium 250 mg tablet 400 mg 02/10/25 vit C 30 mg-s.appiah 250 mg-celery 600 cap PO 02/10/25 seed 75 mg-grape seed extrt capsule (Tart [place]) Previous Rx's ?Medication ?Instructions ?Recorded hydrocortisone 1 % lotion 1 appl topical BID #100 mL 10/07/24 ferrous sulfate 324 mg (65 mg 324 mg PO DAILY 90 days #90 tabs 11/10/24 iron) tablet,delayed release clonidine HCl 0.1 mg tablet 0.3 mg (3 x 0.1 mg) PO BID anxiety 12/15/24 90 days #540 tabs acetaminophen 300 mg-codeine 30 mg 1 tab PO Q8H PRN pain (scale score 12/26/24 tablet 7-10) #20 tabs doxycycline hyclate 100 mg tablet 100 mg PO BID #20 tabs 12/30/24 gabapentin 300 mg capsule 300 mg PO BID #120 caps 01/03/25 ondansetron 8 mg disintegrating 8 mg PO Q8H PRN Nausea #30 tabs 01/10/25 tablet naloxone 4 mg/actuation nasal 4 mg intranasal Q2M PRN opioid 01/31/25 spray (Narcan) overdose #2 ea calcium 600 mg (as carbonate)-vit 1 tab PO BID #60 tabs 02/10/25 D3 10 mcg (400 unit) chewable tablet (Calcium 600 with Vitamin D3) exemestane 25 mg tablet 25 mg PO DAILY #30 tabs 02/10/25 Magic Mouthwash 10 ml PO TID #240 mL 02/21/25 Diphen/Lido/Antacid 1:1:1 240 mL suspension duloxetine 40 mg capsule,delayed 40 mg PO DAILY #30 caps 02/21/25 release ribociclib 400 mg/day (200 mg x 2) 400 mg PO DAILY #42 tabs 02/21/25 tablets fezolinetant 45 mg tablet (Veozah) 45 mg PO DAILY #30 tabs 03/06/25 acetaminophen 300 mg-codeine 30 mg 1 tab PO Q8H PRN pain #15 tabs 03/13/25 tablet clonazepam 1 mg tablet 0.5 mg (1/2 x 1 mg) PO TID 90 days 03/13/25 #90 tabs duloxetine 30 mg capsule,delayed 30 mg PO DAILY #90 caps 03/13/25 release exemestane 25 mg tablet 25 mg PO DAILY #90 tabs 03/13/25 nicotine 21 mg/24 hr daily 21 mg transdermal DAILY 30 days 03/13/25 transdermal patch #30 ea omeprazole 20 mg capsule,delayed 20 mg PO DAILY 14 days #14 caps 03/18/25 release oxycodone 5 mg capsule 5 mg PO Q8H PRN pain 4 days #12 03/18/25 caps Allergies Allergy/AdvReac Type Severity Reaction Status Date / Time adhesive tape Allergy Severe adh.medical Verified 03/19/25 13:24 tape, steri strips, tegaderm-rash paclitaxel (From Taxol) Allergy Severe Rash Verified 03/19/25 13:24 tramadol Allergy Severe Rash Verified 03/19/25 13:24 amoxicillin AdvReac Intermediate Diarrhea Verified 03/19/25 13:24 [facility] Past Medical History Medical History (Updated 03/26/25 @ 09:05 by Yony Bonilla) Muscle pain Port-A-Cath in place Post-operative nausea and vomiting Breast cancer, left Heartburn Anxiety Depression Surgical History (Updated 02/10/25 @ 13:12 by Sunitha Vivas MD) S/P mastectomy, bilateral (11/02/24) Invasive ductal carcinoma of left breast Hx of dilation and curettage Hx of carpal tunnel repair Hx of section History of cholecystectomy Family History Family History Paternal Grandmother Breast cancer Family/Other Breast cancer Other Mental health disorder Substance use disorder Social History Social History Household Members: Family Household Members Other:: Son and Dad Housing: House Are you a primary team primary care physician to a significant other at home: Yes (minor son) Do you presently have visiting nurse or other home services: No Alcohol intake: current Alcohol intake frequency: does not drink Comment: counts correct Patient Tobacco Use Status: Current everyday Tobacco user Tobacco use type: Cigarette Years Smoked: 17 e-Cigarette/Vaping Use: Never Used Second Hand Smoke Exposure: No Use of substances other than those prescribed or required for medical reasons: Yes Substance Use Type: Marijuana Do you feel safe in your current relationship?: No Current Relationship Advance Directives Date on File: 02/13/25 Do you have thoughts of harming others: None Do you have a plan to hurt others: No Plan service: No Current occupational status: employed and unemployed Sexual orientation: Straight/Heterosexual Gender identity: Female Cognitive needs: No Hearing needs: No Vision needs: No Physical Exam ED Vital Signs: Vital Signs - 24 hr 03/19/25 13:21 Temperature 98.7 F Pulse Rate 70 Respiratory Rate 18 Blood Pressure 155/86 H Pulse Oximetry 98 Oxygen Delivery Method Room Air BMI result Body Mass Index 31.0 Course Course Course Narrative: RME, this is a rapid medical exam performed by Mik Bonilla please refer to primary provider for complete H&P- 44-year-old female presents for evaluation abdominal pain, palpitations. She was seen here yesterday and immediately discharge. She reports her symptoms are worsening. Plan for EKG with the palpitations, labs Medical Decision Making Lab Data 03/19/25 13:38 03/19/25 13:38 Labs: Lab Results 03/19/25 Range/Units 13:38 WBC 4.4 L (4.8-10.8) X10*3/uL RBC 4.40 (4.20-5.50) X10*6/uL Hgb 12.5 (12.0-16.0) g/dl Hct 38.4 (37.0-47.0) % MCV 87.3 (80.0-98.0) fL MCH 28.4 (27.0-33.0) pg MCHC 32.6 (31.0-35.0) g/dl RDW 21.6 H (11.0-16.0) % Plt Count 224 (160-400) X10*3/uL MPV 9.3 L (9.4-12.3) fL Immature Gran % (Auto) 0.2 (0.0-0.4) % Neut % (Auto) 59.1 (45-73) % Lymph % (Auto) 33.0 (20-40) % [place] % (Auto) 4.3 (2-11) % Eos % (Auto) 1.8 (0-4) % Baso % (Auto) 1.6 (0-2) % Lymph # (Auto) 1.5 (1.2-4.9) X10*3/uL [place] # (Auto) 0.2 (0.1-1.2) X10*3/uL Eos # (Auto) 0.1 (0.0-0.4) X10*3/uL Baso # (Auto) 0.1 (0.0-0.2) X10*3/uL Abs Immat Gran (auto) 0.01 (0.00-0.03) X10*3/uL Absolute Neuts (auto) 2.6 (2.0-8.3) x10*3/uL Absolute Nucleated RBC 0.000 (0.0-0.012) X10*3/uL Nucleated RBC % (auto) 0.0 (0.0-0.2) /100WBC Smear Tech's Comments VERIFIED Sodium 143 (135-145) mmol/L Potassium 3.9 (3.3-5.1) mmol/L Chloride 106 (96-108) mmol/L Carbon Dioxide 26 (22-29) mmol/L Anion Gap 15 (12-20) BUN 14 (9-16) mg/dL Creatinine 1.03 (0.5-1.4) mg/dL Estim Creat Clear Calc 78.5 Estimated GFR 58 Random Glucose 96 (60-115) mg/dL Calcium 9.6 (8.4-10.2) mg/dL Magnesium 1.9 (1.6-2.6) mg/dL Total Bilirubin 0.9 (0.0-1.0) mg/dL AST 272 H (5-31) U/L ALT 360 H (0-31) U/L Alkaline Phosphatase 120 H (39-117) U/L Troponin I High Sens 2.8 (<3.5-17.0) ng/L Total Protein 6.9 (6.5-8.0) g/dL Albumin 4.2 (3.5-5.0) g/dL Lipase 59 (8-78) U/L Discharge Plan Discharge Clinical Impression: Heart palpitations Patient Disposition: Left W/O Completing Treatment Prescriptions: No Action clonidine HCl 0.1 mg tablet 0.3 mg PO BID 90 Days Qty: 540 3RF naloxone [Narcan] 4 mg/actuation spray,non-aerosol 4 mg intranasal Q2M PRN (Reason: opioid overdose) Qty: 2 0RF Rx Instructions: spray 1 dose into ONE nostril; alternate nostrils w each dose until help arrives clonazepam 1 mg tablet 0.5 mg PO TID 90 Days Qty: 90 0RF nicotine 21 mg/24 hr patch 24 hour 21 mg transdermal DAILY 30 Days Qty: 30 3RF acetaminophen-codeine 300-30 mg tablet 1 tab PO Q8H PRN (Reason: pain) Qty: 15 0RF hydrocortisone 1 % Lotion 1 appl TOPICAL BID Qty: 100 2RF gabapentin 300 mg Capsule 300 mg PO BID Qty: 120 3RF ondansetron 8 mg Tablet,Disintegrating 8 mg PO Q8H PRN (Reason: Nausea) Qty: 30 3RF magnesium 250 mg Tablet 400 mg Tart [place] [id number] mg Capsule 600 cap PO Hair, Skin and Nails (biotin) 10,000 mcg Tablet,Chewable 10,000 mcg PO DAILY exemestane 25 mg Tablet 25 mg PO DAILY Qty: 30 1RF Rx Instructions: must administer after a meal Calcium 600 with Vitamin D3 600 mg-10 mcg (400 unit) Tablet,Chewable 1 tab PO BID Qty: 60 3RF Magic Mouthwash Diphen/Lido/Antacid 1:1:1 240 mL Suspension 10 ml PO TID Qty: 240 1RF Rx Instructions: Lidocaine Viscous 2 % 80mL; diphenhydramine 12.5 mg/5 mL 80mL; aluminum-mag hydrox-simeth [id number]/5mL 80mL duloxetine 40 mg Capsule,Delayed Release(Dr/Ec) 40 mg PO DAILY Qty: 30 0RF ribociclib 400 mg/day (200 mg x 2) Tablet 400 mg PO DAILY Qty: 42 3RF Rx Instructions: administer for 21 days; off 7 days per 28-day cycle Veozah 45 mg Tablet 45 mg PO DAILY Qty: 30 0RF exemestane 25 mg Tablet 25 mg PO DAILY Qty: 90 3RF Rx Instructions: must administer after a meal diphenhydramine HCl [Benadryl] 25 mg Capsule 25 mg PO BEDTIME melatonin 10 mg Tablet,Chewable 30 mg PO BEDTIME ferrous sulfate 324 mg (65 mg iron) Tablet,Delayed Release (Dr/Ec) 324 mg PO DAILY 90 Days Qty: 90 3RF duloxetine 30 mg Capsule,Delayed Release(Dr/Ec) 30 mg PO DAILY Qty: 90 1RF omeprazole 20 mg capsule,delayed release(DR/EC) 20 mg PO DAILY 14 Days Qty: 14 0RF oxycodone 5 mg capsule 5 mg PO Q8H PRN (Reason: pain) 4 Days Qty: 12 0RF Rx Instructions: Partial Fill upon patient request. Lupron Depot (3 month) 11.25 mg syringe kit 11.25 mg IM [id number] doxycycline hyclate 100 mg tablet 100 mg PO BID Qty: 20 0RF acetaminophen-codeine 300-30 mg tablet 1 tab PO Q8H PRN (Reason: pain (scale score 7-10)) Qty: 20 0RF Discharge Date/Time: 03/19/25 15:42
[2025-03-19 13:50] LABS: Hematocrit 38.4 % (37.0-47.0); Hemoglobin 12.5 g/dl (12.0-16.0); Imm Gran Abs Auto 0.01 X10*3/uL (0.00-0.03); Imm Gran Pct Auto 0.2 % (0.0-0.4); Lymphocytes Absolute Auto 1.5 X10*3/uL (1.2-4.9); MANUAL DIFF FLAG SCAN; Mean Corpuscular HGB Conc 32.6 g/dl (31.0-35.0); Mean Corpuscular Hemoglobin 28.4 pg (27.0-33.0); Mean Corpuscular Volume 87.3 fL (80.0-98.0); NRBC Abs Auto 0.000 X10*3/uL (0.0-0.012); NRBC Pct Auto 0.0 /100WBC (0.0-0.2); Platelet Count 224 X10*3/uL (160-400); Red Blood Count 4.40 X10*6/uL (4.20-5.50); SCAN SMEAR FLAG 1; White Blood Count 4.4 X10*3/uL (4.8-10.8)
[2025-03-19 14:07] LABS: Alanine Aminotransferase 360 U/L (0-31); Albumin Level 4.2 g/dL (3.5-5.0); Alkaline Phosphatase 120 U/L (39-117); Anion Gap 15 (12-20); Aspartate Amino Transferase 272 U/L (5-31); Blood Urea Nitrogen 14 mg/dL (9-16); Calcium 9.6 mg/dL (8.4-10.2); Carbon Dioxide 26 mmol/L (22-29); Chloride 106 mmol/L (96-108); Creatinine Clr Calc Pharmacy 78.5; Estimated Glomerular Filt Rate 58; Lipase 59 U/L (8-78); Magnesium 1.9 mg/dL (1.6-2.6); Potassium 3.9 mmol/L (3.3-5.1); Sodium 143 mmol/L (135-145); Total Protein 6.9 g/dL (6.5-8.0)
[2025-03-19 14:14] LABS: Troponin-I High Sensitivity 2.8 ng/L (<3.5-17.0)
== END 2025-03-19 15:42 | disposition left against medical advice (07) ==
PROVIDERS: Physician Assistant; Emergency Provider Emergency Medicine
DX: R00.2 Palpitations (principal); Z53.21 Procedure and treatment not carried out due to patient leaving prior to being seen by health care provider
CPT/HCPCS: 36415; 80053; 83690; 83735; 84484; 85025; 93005; 99283

== ENCOUNTER → 2025-03-19 13:34 | Outpatient (BNV) | payer OTHER, SELFPAY | PROVIDERS: Emergency Provider Emergency Medicine; Visit Provider Internal Medicine | DX: R00.2 Palpitations (principal) | CPT/HCPCS: 93010 ==

== ENCOUNTER 2025-03-28 08:31 | Outpatient (AMB) | payer OTHER, SELFPAY ==
--- NOTE | 2025-03-28 08:45 | A.OFFPC_ITS ---
Vital Signs 03/28/25 08:47 Height 5 ft 7 in Weight 201 lb 4 oz BMI 31.5 BP 130/64 Blood Pressure Location Lt femoral Position Sitting Temp 97.1 F Temp Source Temporal Artery Scan Intake Visit Reasons: anxiety/anemia Intake Note: Patient is here to follow up on Anxiety and anemia. Wellness Specialist Required: No Cable Television Program Director: Not Required per policy Accompanied by: Self / Same As Patient Allergies adhesive tape Allergy (Severe, Verified 03/28/25 09:09) adh.medical tape, steri strips, tegaderm-rash paclitaxel (From Taxol) Allergy (Severe, Verified 03/28/25 09:09) Rash tramadol Allergy (Severe, Verified 03/28/25 09:09) Rash amoxicillin Adverse Reaction (Intermediate, Verified 03/28/25 09:09) Diarrhea Medication List - Last Reconciled 03/28/25 by CECELIA Gonzalez acetaminophen-codeine 300-30 mg 1 tab PO Q8H PRN biotin (Hair, Skin and Nails (biotin)) 10,000 mcg PO DAILY calcium carbonate-vitamin D3 600 mg-10 mcg (400 unit) (Calcium 600 with Vitamin D3) 1 tab PO BID clonazepam 0.5 mg (1/2 x 1 mg) PO TID 90 days clonidine HCl 0.3 mg (3 x 0.1 mg) PO BID 90 days duloxetine 40 mg PO DAILY duloxetine 30 mg PO DAILY exemestane 25 mg PO DAILY ferrous sulfate 324 mg PO DAILY 90 days fezolinetant (Veozah) 45 mg PO DAILY gabapentin 300 mg PO BID leuprolide (3 month) (Lupron Depot) 11.25 mg IM [id number] Magic Mouthwash Diphen/Lido/Antacid 1:1:1 10 mL PO TID magnesium 400 mg melatonin 10 mg PO BEDTIME naloxone 4 mg/actuation (Narcan) 4 mg intranasal Q2M PRN nicotine 21 mg transdermal DAILY 30 days omeprazole 20 mg PO DAILY 14 days ondansetron 8 mg PO Q8H PRN oxycodone 5 mg PO Q8H PRN 4 days ribociclib 400 mg PO DAILY vit C-s.tavnqh-mjfnfo-skeyv sd [id number] mg (Tart [place]) 600 caps PO Tobacco use date assessed: 03/28/25 Dental Screening Dental Screen Date: 12/26/24 HPI anxiety/anemia HPI Details 44-year-old female past medical history of breast cancer, depression, anxiety, x1 smoker cigarettes. 04/[address] [facility] with Adriamycin/Cytoxan followed by weekly Taxol. On October 2024 left mastectomy with SLND, no breasts reconstruction and right mastectomy. The patient is taking duloxetine for hot flashes which started with Lupron. Menses stopped with chemotherapy. The patient is concerned due to paternal grandmother's history of breast cancer with metastasized intra-abdominally to involve her over his an uterus. The patient presenting today for follow up appointment for anxiety and anemia The patient reports significant joint pain in her knees and hips, describing it as bone on bone. She uses magnesium and a topical cream for relief, but the pain persists, affecting her activities. Gabapentin is prescribed for her feet and arthritis pain, with limited options from Dr. Vivas for further pain management. She experiences insomnia and anxiety, waking up with anxiety and having trouble sleeping. Gabapentin does not cause drowsiness, and an increased dosage is considered for pain relief. The patient has liver dysfunction due to excessive Tylenol intake, leading to elevated liver enzymes and an emergency room visit. Oxycodone was prescribed for pain management during this episode. Cholesterol screening is needed as part of preventative care, which has not been done recently. [facility] Medical History (Updated 03/28/25 @ 10:46 by CECELIA Gonzalez) Muscle pain Port-A-Cath in place Post-operative nausea and vomiting Breast cancer, left Heartburn Anxiety Depression Surgical History S/P mastectomy, bilateral (11/02/24) Invasive ductal carcinoma of left breast Hx of dilation and curettage Hx of carpal tunnel repair Hx of section History of cholecystectomy Family History Paternal Grandmother Breast cancer Family/Other Breast cancer Other Mental health disorder Substance use disorder Social History Household Members: Family Household Members Other:: Son and Dad Housing: House Are you a primary health care recruiter to a significant other at home: Yes (minor son) Do you presently have visiting nurse or other home services: No Alcohol intake: current Alcohol intake frequency: does not drink Comment: counts correct Patient Tobacco Use Status: Former Tobacco user Tobacco use type: Cigarette Cigarettes Per Day: 6 Years Smoked: 17 e-Cigarette/Vaping Use: Never Used Second Hand Smoke Exposure: Yes Substance Use Type: Marijuana Advance Directives Date on File: 02/13/25 service: No Current occupational status: employed and unemployed Sexual orientation: Straight/Heterosexual Gender identity: Female Cognitive needs: No Hearing needs: No Vision needs: No Female Reproductive History Menstrual Age of Menarche: 10 Questionnaire Thrive Questionnaire Date Thrive assessed: 11/22/24 I am a: Patient What is your living situation today?: I have a steady place to live Within the past 12 months, did the food you bought not last and you didn't have the money to get more?: Often true Within the past 12 months, did you worry whether your food would run out before you got money to buy more?: Often true Do you have trouble paying for medicines?: No Do you have trouble getting transportation to medical appointments?: No Do you have trouble paying your heating and electricity bill?: No Do you have trouble taking care of your child, family member or friend?: No Do you have trouble with day-to-day activities such as bathing, preparing meals, shopping, managing finances, etc.?: No Are you currently unemployed and looking for a job?: No Are you interested in more education?: I choose not to answer this question Please select the resources that you would like help with: Food Currently or been in a relationship where the following occur: No concerns reported THRIVE Score: 2 KATHERYN-7 AMB Questionnaire KATHERYN-7 Date KATHERYN - 7 assessed: 03/28/25 Feeling nervous, anxious, or on edge: 3 = Nearly every day Not being able to stop or control worryin = Not at all Worrying too much about different things: 0 = Not at all Trouble relaxin = Not at all Being so restless that it is hard to sit still: 3 = Nearly every day Becoming easily annoyed or irritable: 3 = Nearly every day Feeling afraid as if something awful might happen: 0 = Not at all Total KATHERYN-7 score (0-4 normal; 5-9 mild; 10-14 moderate; 15-21 severe): 9 Source: Developed by Drs. Harry Pino, Makayla Vasquez, Wenceslao Fenton and colleagues, with an educational benita from [employer]. Review of Systems Const Denies body aches, Denies chills, Reports difficulty sleeping, Denies fever(s), Denies headache(s) and Denies poor appetite Eyes Reports no additional complaints ENT Denies dysphagia, Denies dizziness, Denies headache(s) and Denies odynophagia Card Denies chest pain, Denies syncope, Denies edema, Denies irregular heart rhythm, Denies lightheadedness and Denies dyspnea Resp Denies cough and Denies dyspnea GI Denies abdominal pain, Denies constipation, Denies dysphagia, Denies diarrhea, Denies nausea, Denies odynophagia and Denies vomiting Reports no additional complaints Musc Reports arthralgias (Bilateral knees and hips-feels like she is walking on bone on bone) Skin/Breast Reports system reviewed and no additional complaints, except as documented Neuro Denies dizziness, Denies syncope, Denies headache(s) and Reports paresthesias (BLE) Psych Reports anxiety and Reports depression Physical exam (Primary Care) Vital Signs: Last Vital Signs Temp 97.1 F 03/28/25 08:47 BP 130/64 03/28/25 08:47 BMI result Body Mass Index 31.5 Tobacco/Smoking Status: Tobacco use Status Tobacco use date assessed 03/28/25 03/28/25 08:52 Patient Tobacco Use Status Former Tobacco user 03/28/25 09:02 Tobacco use type Cigarette 03/28/25 08:52 e-Cigarette/Vaping Use Never Used 03/28/25 08:52 Thrive Assessment: Date of Thrive Assessment Date Thrive assessed 11/22/24 03/28/25 08:52 Currently or been in a relationship where the following occur: No concerns reported Const General: cooperative, healthy appearing, comfortable and no acute distress Orientation/consciousness: patient oriented x3 HENMT Head: Yes normocephalic Ears: hearing grossly normal bilaterally General nose exam: Normal external nose present Eyes General: appearance normal, both eyes and all related structures Conjunctivae: conjunctivae normal Neck Neck: Yes full ROM and Yes no lymphadenopathy Resp Effort & Inspection: normal respiratory effort Auscultation: clear to auscultation bilaterally, no crackles, no rales, no rhonchi and no wheezes Cardio Rate: regular rate Rhythm: regular rhythm Skin General skin exam: no rashes or lesions noted Neuro General: patient oriented x3 Gait exam (Neuro): Normal gait present Extrem General: Yes normal to inspection, Yes full ROM and No edema Right lower extremity: hip/thigh Details: no tenderness and knee Details: no tenderness and no swelling Left lower extremity: hip/thigh Details: no tenderness and knee Details: no tenderness and no swelling Psych Affect: normal affect Attitude: cooperative Insight: Good insight present (Psych) Judgement: Good judgement present (Psych) Coding Level of Care Code Est Pt Level 3 (90079) Diagnoses Depression, unspecified depression type F32.A Depression Type: unspecified Anxiety F41.9 Invasive ductal carcinoma of left breast C50.912 Pain in both knees, unspecified chronicity M25.561; M25.562 Chronicity: unspecified Bilateral hip pain M25.551; M25.552 Insomnia, unspecified type G47.00 Insomnia type: unspecified Time Spent (min) 35 Assessment & Plan Assessment & Plan (1) Depression: Code(s): F32.9 - Major depressive disorder, single episode, unspecified Category: Medical Qualifiers: Depression Type: unspecified Qualified Code(s): F32.A - Depression, unspecified (2) Anxiety: Code(s): F41.9 - Anxiety disorder, unspecified Category: Medical (3) Invasive ductal carcinoma of left breast: Comment: October 2024 left radical modified mastectomy, right simple mastectomy Code(s): C50.912 - Malignant neoplasm of unspecified site of left female breast Category: Surgical (4) Bilateral knee pain: Code(s): M25.561 - Pain in right knee; M25.562 - Pain in left knee Category: Medical Qualifiers: Chronicity: unspecified Qualified Code(s): M25.561 - Pain in right knee; M25.562 - Pain in left knee (5) Bilateral hip pain: Code(s): M25.551 - Pain in right hip; M25.552 - Pain in left hip Category: Medical (6) Insomnia: Code(s): G47.00 - Insomnia, unspecified Category: Medical Qualifiers: Insomnia type: unspecified Qualified Code(s): G47.00 - Insomnia, unspecified Plan Plan Patient was informed and verbally consented to the use of an ambient scribe for clinic note documentation during this visit. 1. Osteoarthritis X-rays of the knees and hips will be conducted to assess osteoarthritis, with a referral to pain management for chronic pain evaluation. 2. Neuropathy Gabapentin dosage adjustment to 600 mg twice daily is considered for neuropathic pain control and knees, hips pain. 3. Insomnia Trazodone will be initiated at bedtime to improve sleep quality. 4. Anxiety Anxiety will be managed in conjunction with insomnia treatment using trazodone and clonazepam 0.5 mg t.i.d.. Orders: Orders XR hips JUANITA min 3V Today M25.551 - Pain in right hip, M25.552 - Pain in left hip Lipid Panel Today Z00.00 - Encounter for general adult medical examination without abnormal findings XR Knee Juanita 3V Today M25.561 - Pain in right knee, M25.562 - Pain in left knee Medications: New 2 trazodone 50 mg PO BEDTIME PRN 30 tabs 3RF sleep Changed From gabapentin 300 mg PO BID 120 caps 3RF To gabapentin 600 mg (2 x 300 mg) PO BID 120 caps 3RF
[2025-03-28 08:47] VITALS: BP 130/64; TEMP 36.2; BMI 31.5
--- OUTSIDE RECORDS SUMMARY | 2025-03-28 09:10 | XMS_ITS | Clinical Summary ---
Author Organization [facility] Address [address] [place] [address] Care Team Providers Care Manager Crisis Name Role Phone Chau Madhu CORDOVA Primary [...] 11/24/2024 Malignant neoplasm of left b reast ([facility] V24, [facility] V28) 11/24/2024 Depression 11/24/2024 Heartburn 11/24/2024 [...] 2:30 PM EDT Consult [facility] [address] [id number] Corie Coats MD [address] [place] [phone] Health Maintenance Due Date Last Done Comments Breast Cancer Screening 1978 Pneumococcal Vaccine: Pediatrics (0 to 5 Years) and At-Risk Patients (6 to 49 Years) (1 of 2 - PCV) 1997 Cervical Cancer Screening: Pap Smear 11/09/1999 Hepatitis B Vaccines (2 of 3 - 19+ 3-dose series) 09/01/2023 08/04/2023 Cholesterol Screening (Lipid Panel) 05/22/2024 Colorectal Cancer Screening: Colonoscopy 05/22/2024 HIV Screening 05/22/2024 Hepatitis C Screening 05/22/2024 Social Influencers of Health Screening 05/22/2024 Depression Screening 07/27/2024 COVID-19 Vaccine ( - season) 2025 09/19/2021, 09/30/2020, 09/09/2020 Influenza Vaccine (#1) 2025 4, 08/04/2023, 04/11/2021, [...] patient's age to complete this topic Insurance [facility] PLAN Care Teams Manager Crisis Relationship Specialty Start Date End Date Madhu Ritchie FNP [address] [place] [id number] PCP - General Family Medicine 12/13/24
--- OUTSIDE RECORDS SUMMARY | 2025-03-28 09:10 | XMS_ITS | Clinical Summary ---
Author Organization [facility] Address [address] [place] [address] Phone Care Team Providers Care Change Agent Name Role Phone Haris Holley MD Primary Care Provider [phone] Allergies No known active allergies Medications citalopram (CELEXA) 40 MG tablet Take 40 mg by mouth daily. Active cloNIDine HCL (CATAPRES) 0.1 MG tablet Take 0.1 mg by mouth 2 (two) times a day. Active clonazePAM (KLONOPIN) 1 MG tablet Take 1 mg by mouth 2 (two) times a day as needed for anxiety. Active Social History Tobacco Use Types Packs/Day Years Used Date Smoking Tobacco: Every Day Smokeless Tobacco: Never Alcohol Use Standard Drinks/Week Comments Yes 0 (1 standard drink = 0.6 oz pur e alcohol) occasionally Education Answer Date Recorded Are you interested in more education? Not on kayleigh e 11/21/2022 Are you concerned about learning? Not on file 11/21/2022 No 11/21/2022 No 11/21/2022 Digital Access Answer Date Recorded No 12/20/2022 No 12/20/2022 No 12/20/2022 Reliable internet access at home? Not on file 12/20/2022 Device with a working camera? Not on file Comments Unknown Sex and Gender Information Value Date Recorded Sex Assigned at Not on file Legal Sex Female 3:20 PM EDT Gender Identity Not on file Sexual Orientation Not on file Last Filed Vital Signs Vital Sign Reading Time Taken Comments Blood Pressure 122/84 03/16/2020 3:31 PM EDT Pulse 76 03/16/2020 3:31 PM EDT Temperature 36.7 C (98.1 F) 03/16/2020 3:31 PM EDT Respiratory Rate - - Oxygen Saturation 97% 03/16/2020 3:31 PM EDT Inhaled Oxygen Concentration - - Weight 79.4 kg (175 lb) 03/16/2020 3:31 PM EDT Height 170.2 cm (5' 7 ) 03/16/2020 3:31 PM EDT Body Mass Index 27.41 03/16/2020 3:31 PM EDT Plan of Treatment Health Maintenance Due Date Last Done Comments Adult Td,Tdap Booster 1980 LIPID PANEL 1978 DEPRESSION SCREENING 1990 SMOKING Hx and SMOKELESS TOBACCO SCREENING 11/09/1991 HEPATITIS C SCREENING 1996 HIV ONE-TIME SCREENING (18-6 5 YEARS) 1996 PNEUMOCOCCAL VACCINES (0-49 years) (1 of 2 - PCV) 1997 PAP SMEAR 11/09/1999 MAMMOGRAM 2018 COLOGUARD 11/09/2023 COLONOSCOPY 11/09/2023 COLORECTAL CANCER SCREENING 11/09/2023 FIT TEST 11/09/2023 FOBT 11/09/2023 SIGMOIDOSCOPY 11/09/2023 VIRTUAL COLONOSCOPY 11/09/2023 COVID-19 VACCINE (3 - 2023-2 5 season) 2024 09/30/2020, 09/09/2020 HEPATITIS A VACCINES Aged Out No long er eligible based on patient's age to complete this topic HIB VACCINES Aged Out No longer eligi ble based on patient's age to complete this topic MENINGOCOCCAL VACCINES (ACWY) Aged Out No longer eligible based on patient's age to complete this topic MENINGOCOCCAL VACCINES (B) Aged Out N o longer eligible based on patient's age to complete this topic Medical Devices Not on file Insurance [facility] [place] [address] [place] [address] [place] [facility] [place] Member Subscriber Plan / Payer (Ef fective 2020-Present) Name:Lisa Nicole Relation to Subscriber:Self Name:Lisa Nicole Payer ID:[id number] Group ID:[id number] Type:Medicaid [address] [place] [address] [place] Member Subscriber Plan / Payer (Ef fective 2020-Present) Name:Lisa Nicole Relation to Subscriber:Self Name:Lisa Nicole Payer ID:[id number] Group ID:[id number] Type:Medicaid Address: [address] [place] [address] ACO Member Subscriber Plan / Payer (Ef fective 2020-Present) Name:Lisa Nicole Relation to Subscriber:Self Name:Lisa Nicole Payer ID:[id number] Group ID:[id number] Type:Medicaid [address] Member Subscriber Plan / Payer (Ef fective 2020-Present) Name:Lisa Nicole Relation to Subscriber:Self Name:Lisa Nicole Payer ID:[id number] Group ID:[id number] Type:Medicaid Address[address] [place] [address] [place] [facility] [employer] Care Teams Change Agent Relationship Specialty Start Date End Date Haris Holley MD [address] [place] [address] [place] [address] PCP - General Internal Medicine 03/16/20 Additional Source Comments The information contained in this document represents components of the legal health record. It is not the complete legal health record.[facility]
== END 2025-03-28 09:29 | disposition home or self-care (01) ==
LOC: HO.HMCH 08:31
DX: F32.A Depression, unspecified (principal); F41.9 Anxiety disorder, unspecified; C50.912 Malignant neoplasm of unspecified site of left female breast; M25.561 Pain in right knee; M25.562 Pain in left knee; M25.551 Pain in right hip; M25.552 Pain in left hip; G47.00 Insomnia, unspecified

== ENCOUNTER → 2025-03-28 08:31 | Outpatient (BNVA) | payer OTHER, SELFPAY | DX: M25.561 Pain in right knee (principal); M25.562 Pain in left knee; M25.511 Pain in right shoulder; M25.552 Pain in left hip; D64.9 Anemia, unspecified; F41.9 Anxiety disorder, unspecified; F32.A Depression, unspecified; F17.210 Nicotine dependence, cigarettes, uncomplicated; G47.00 Insomnia, unspecified; Z85.3 Personal history of malignant neoplasm of breast | CPT/HCPCS: 99212 ==

== ENCOUNTER 2025-04-03 09:35 | Outpatient (REF) | payer OTHER, SELFPAY ==
--- NOTE | ~2025-04-03 | XR_ITS ---
EXAMINATION: XR BILATERAL HIPS WITH AP PELVIS CLINICAL INFORMATION: M25.551 - Pain in right hip COMPARISON: None available. TECHNIQUE: AP and frog-leg lateral views of each hip and an AP view of the pelvis. FINDINGS: No fracture. Hip joint spaces are maintained. Alignment is anatomic. Sacroiliac joints are symmetrical and unremarkable. Pubic symphysis joint demonstrates degenerative irregularity with mild patchy sclerosis and small marginal osteophytes. No abnormal soft tissue calcifications. Bilateral hip joint space is preserved and congruent. XR/XR hips JUANITA min 3V IMPRESSION: Unremarkable pelvis and hips aside from mild degenerative changes in the pubic symphysis joint. Electronically signed by: Bill Choe MD 04/03/2025 10:08 AM EDT
--- NOTE | ~2025-04-03 | XR_ITS ---
Exam: X-ray, bilateral knees.XR KNEE 3 VIEWS BILATERAL TECHNIQUE: Three views lower extremity joint, bilateral knees INDICATION: bilateral knee pain COMPARISON: None available. FINDINGS: RIGHT KNEE: Joint spaces are preserved. There is no joint effusion. There is small enthesophyte in the anterior mid to lower patella at the patellar tendon attachment. There is also an enthesophyte at the tibial tuberosity. LEFT KNEE: Minute marginal osteophytes are present along the medial joint line and lateral patellofemoral joint. Tibial spines are peaked. Joint spaces are preserved. No joint effusion is present. XR/XR Knee Graeme 3V IMPRESSION: Right knee: Unremarkable Left knee: Early changes of osteoarthritis Electronically signed by: Bill Choe MD 04/03/2025 10:10 AM EDT
--- OUTSIDE RECORDS SUMMARY | 2025-04-03 10:58 | XMS_ITS | Clinical Summary ---
Author Organization [facility] Address [address] [place] [address] Care Team Providers Care Firmware Test Engineer Name Role Phone ChauCeceMadhugaurav CORDOVA Primary Care Provider Allergies Active Allergy [...] 11/24/2024 Malignant neoplasm of left b reast ([facility] V24, [facility] V28) 11/24/2024 Depression 11/24/2024 Heartburn 11/24/2024 [...] 2:30 PM EDT Consult [facility] [address] [phone] Corie Coats MD [address] [place] [phone] Health Maintenance Due Date Last Done Comments [...] patient's age to complete this topic Insurance [facility] PLAN Care Teams Firmware Test Engineer Relationship Specialty Start Date End Date Madhu Ritchie FNP [address] [place] [address] PCP - General Family Medicine 12/13/24
--- OUTSIDE RECORDS SUMMARY | 2025-04-03 10:58 | XMS_ITS | Clinical Summary ---
Author Organization [facility] Address [address] [place] [address] Phone Care Team Providers Care Product Sales Engineer Name Role Phone Haris Holley MD Primary Care Provider [phone] Allergies No known active allergies Medications citalopram [...] FOBT 11/09/2023 SIGMOIDOSCOPY 11/09/2023 VIRTUAL COLONOSCOPY 11/09/2023 INFLUENZA VACCINE (#1) 2025 , 05/26/2018 COVID-19 VACCINE (3 - 2024-2 6 season) 2025 09/30/2020, 09/09/2020 HEPATITIS A VACCINES Aged Out [...] topic Medical Devices Not on file Insurance [facility] Member Subscriber Plan / Payer (Ef fective 2020-Present) Name:Lisa Nicole Relation to Subscriber:Self Name:Lisa Nicole Payer ID:[id number] Group ID:[id number] Type:Medicaid Address: [address] [address] [place] [address] [place] [address] [place] [facility] [place] Member Subscriber Plan / Payer (Ef fective 2020-Present) Name:Lisa Nicole Relation to Subscriber:Self Name:Lisa Nicole Payer ID:[id number] Group ID:[id number] Type:Medicaid Address: [address] [address] [place] Member Subscriber Plan / Payer (Ef fective 2020-Present) Name:Lisa Nicole Relation to Subscriber:Self Name:Lisa Nicole Payer ID:[id number] Group ID:[id number] Type:Medicaid Address: [address] [address] ACO Member Subscriber Plan / Payer (Ef fective 2020-Present) Name:Lisa Nicole Relation to Subscriber:Self Name:Lisa Nicole Payer ID:[id number] Group ID:[id number] Type:Medicaid [facility] [address] [facility] Care Teams Product Sales Engineer Relationship Specialty Start Date End Date Haris Holley MD [address] [place] [phone] PCP - General Internal Medicine 03/16/20 Additional Source Comments The information contained in this document represents components of the legal health record. It is not the complete legal health record.[facility]
== END 2025-04-03 09:36 | disposition home or self-care (01) ==
LOC: HO.XRAY 09:35
DX: M25.551 Pain in right hip (principal); M25.552 Pain in left hip; M25.561 Pain in right knee; M25.562 Pain in left knee
CPT/HCPCS: 73522; 73562

== ENCOUNTER → 2025-04-03 09:37 | Outpatient (BNV) | payer OTHER, SELFPAY | PROVIDERS: Visit Provider Radiology Diagnostic Radiology | DX: M25.859 Other specified joint disorders, unspecified hip (principal); M17.12 Unilateral primary osteoarthritis, left knee | CPT/HCPCS: 73522; 73562 ==

== ENCOUNTER → 2025-04-11 09:15 | Outpatient (BNV) | payer OTHER, SELFPAY | PROVIDERS: Visit Provider Radiology Diagnostic Radiology | DX: R20.2 Paresthesia of skin (principal); R25.1 Tremor, unspecified | CPT/HCPCS: 70553 ==

== ENCOUNTER 2025-04-11 10:15 | Outpatient (REF) | payer OTHER, SELFPAY ==
--- NOTE | ~2025-04-11 | MR_ITS ---
EXAMINATION: MR BRAIN WITHOUT AND WITH CONTRAST CLINICAL INFORMATION: 44-year-old female, history of breast CA. Left arm numbness and tremor and hand. Rule out metastases. COMPARISON: None available. TECHNIQUE: Multiplanar, multisequence MRI of the brain was obtained before and after the intravenous administration of 9.5 mL Gadavist. Examination performed on a 1.5 Meaghan Siemens high-field unit. FINDINGS: There is no diffusion restriction. There is no intracranial hemorrhage, acute infarction, mass effect, or edema. Ventricles, sulci, and cisterns are normal in size and configuration for patient age. No shift of midline. No abnormal hemosiderin deposition is identified. There are no white matter signal abnormalities identified. There is no abnormal intra or extra-axial contrast enhancement present. Midline structures appear normally formed. The pituitary gland appears normal. Posterior fossa structures appear normal. Cerebellar tonsils are appropriately located. Major flow voids are preserved within the skull base. The globes and orbital contents demonstrate no abnormalities. Paranasal sinuses are clear bilaterally. The mastoids and tympanic cavities are normally aerated. Extracranial soft tissues demonstrate a small retention cyst in the adenoidal soft tissues, but are otherwise normal. No suspicious bone marrow changes are evident. Atlantoaxial joint is normal. MR/MR head/brain wo/w con IMPRESSION: 1. No evidence of intracranial hemorrhage, acute infarction, mass effect, edema, or abnormal contrast enhancement. There is no evidence of metastatic disease. Electronically signed by: Jay Kearney MD 04/11/2025 11:35 AM EDT
--- OUTSIDE RECORDS SUMMARY | 2025-04-11 13:27 | XMS_ITS | Clinical Summary ---
Author Organization [facility] Address [address] [place] [address] Care Team Providers Care Show Operations Supervisor Name Role Phone Madhu Ritchie Primary Care Provider Allergies Active Allergy Reactions [...] 11/24/2024 Malignant neoplasm of left b reast ([facility] V24, [facility] V28) 11/24/2024 Depression 11/24/2024 Heartburn 11/24/2024 [...] Care Team (Late st Contact Info) Description 05/18/2025 9:40 AM EDT Consult Breast Care Center [facility] [address] [place] [phone] Lynne Dickerson MD [address] [place] [address] Health Maintenance Due Date Last Done Comments [...] 05/22/2024 Depression Screening 07/27/2024 COVID-19 Vaccine ( season) 2025 09/19/2021, 09/30/2020, 09/09/2020 Influenza Vaccine [...] patient's age to complete this topic [place] [address] [address] PLAN Care Teams Show Operations Supervisor Relationship Specialty Start Date End Date Madhu Ritchie FNP [address] [place] [address] [place] [id number] PCP - General Family Medicine 12/13/24
--- OUTSIDE RECORDS SUMMARY | 2025-04-11 13:27 | XMS_ITS | Clinical Summary ---
Author Organization [facility] Address [address] [place] [address] Phone Care Team Providers Care Hide Handler Name Role Phone Haris Holley MD Primary Care Provider [phone] Allergies No known active allergies Medications citalopram [...] Devices Not on file Insurance [facility] [place] Member Subscriber Plan / Payer (Ef fective 2020-Present) Name:Lisa Nicole Relation to Subscriber:Self Name:Lisa Nicole Payer ID:[id number] Group ID:[id number] Type:Medicaid [address] [address] [place] [place] [address] [place] [facility] [place] Member Subscriber Plan / Payer (Ef fective 2020-Present) Name:Lisa Nicole Relation to Subscriber:Self Name:Lisa Nicole Payer ID:[id number] Group ID[id number] Type:Medicaid Address: [address] [place] [address] [place] Member Subscriber Plan / Payer (Ef fective 2020-Present) Name:Lisa Nicole Relation to Subscriber:Self Name:Lisa Nicole Payer ID:[id number] Group ID:[id number] Type:Medicaid Address: [address] [place] [address] ACO Member Subscriber Plan / Payer (Ef fective 2020-Present) Name:Lisa Nicole Relation to Subscriber:Self Name:Lisa Nicole Payer ID:[id number] Group ID:[id number] Type:Medicaid [facility] [address] [facility] Care Teams Hide Handler Relationship Specialty Start Date End Date Haris Holley MD [address] [place] [id number] PCP - General Internal Medicine 03/16/20 Additional Source Comments The information contained in this document represents components of the legal health record. It is not the complete legal health record.[facility]
== END 2025-04-11 10:16 | disposition home or self-care (01) ==
LOC: HO.MRI 10:15
PROVIDERS: Visit Provider Internal Medicine
DX: C50.912 Malignant neoplasm of unspecified site of left female breast (principal)
CPT/HCPCS: 70553; A9585

== ENCOUNTER 2025-04-21 07:58 | Outpatient (REF) | payer OTHER, SELFPAY ==
--- NOTE | ~2025-04-21 | CT_ITS ---
EXAMINATION: CT CHEST WITH CONTRAST CLINICAL INFORMATION: Chest wall protuberance COMPARISON: None available. TECHNIQUE: Multidetector volumetric CT imaging of the chest was obtained after the administration of 65 mL of Omnipaque 350 intravenous contrast without immediate adverse reactions. Axial MIP volume rendering provided. Sagittal and coronal reformatted images were obtained. This CT examination was performed using dose optimization techniques as appropriate, variously including the following: *Automated exposure control *Adjustment of mA and/or kV according to patient size (this includes techniques or standardized protocols for targeted exams where dose is matched to indication/reason for exam; i.e. extremities or head) *Use of iterative reconstruction technique DLP: 207 mGy centimeter. FINDINGS: POWER STATION OPERATOR: Right-sided Port-A-Cath with the tip at the right atrium level. No hyperinflation. Cardiomediastinal silhouette size is normal. Vascular clips in the right upper quadrant abdomen. Patient's large body habitus. Both upper extremities at the size of the head. LUNGS: No acute airspace disease. No gross pulmonary nodules. No bronchiectasis. No honeycombing. 2 mm calcified pulmonary nodule right lung base likely granuloma. MEDIASTINUM: Nonspecific less than 9 mm lymph nodes, mediastinal or perihilar. No pericardial effusion. No pneumomediastinum. No aneurysm or dissection, thoracic aorta. Normal patency of the main pulmonary artery and its main branches. The heart is not enlarged. A right-sided Port-A-Cath ends in the right atrium. Calcified plaques in the main branches of the aortic arch. The thyroid gland is not enlarged. Calcified plaques in the coronary arteries.. PLEURA: No pleural effusion. No pneumothorax. No calcified pleural plaques. AXILLA: No lymphadenopathy. Post surgical/treatment changes in the left breast. No fluid collections or discrete mass. UPPER ABDOMEN: Status post cholecystectomy. There is a radiopaque/calcific tablets in the antrum of the stomach. Calcified plaque at the origin of the right main renal artery. 1 cm accessory spleen.. OSSEOUS STRUCTURES: Multilevel spondylosis throughout the axial skeleton without acute fracture or listhesis. Sternum is intact. No periosteal bone reaction in the sternum. No lytic or blastic lesions. No acute rib fracture. Degenerative changes in the right acromioclavicular joint and right glenohumeral joint. CT/CT chest w IV con IMPRESSION: Posttreatment changes, left breast. No gross mass or fluid collections in the presternal region. No acute airspace disease. Fleischner guidelines were followed. Electronically signed by: Fili Fernández MD 04/21/2025 08:39 AM EDT RP
--- OUTSIDE RECORDS SUMMARY | 2025-04-21 08:01 | XMS_ITS | Clinical Summary ---
Author Organization [facility] Address [address] [place] [address] Phone Care Team Providers Care Nanotechnology Engineering Technician Name Role Phone Haris Holley MD Primary Care Provider [phone] Allergies No known active allergies Medications citalopram [...] topic Medical Devices Not on file Insurance [facility] [place] Member Subscriber Plan / Payer (Ef fective 2020-Present) Name:Lisa Nicole Relation to Subscriber:Self Name:Lisa Nicole Payer ID:[id number] Group ID:[id number] Type:Medicaid Address: [address] [place] [address] [place] [address] [place] [address] [place] [facility] [place] Member Subscriber Plan / Payer (Ef fective 2020-Present) Name:Lisa Nicole Relation to Subscriber:Self Name:Lisa Nicole Payer ID:[id number] Group ID:[id number] Type:Medicaid Address: [address] [place] [address] [place] Member Subscriber Plan / Payer (Ef fective 2020-Present) Name:Lisa Nicole Relation to Subscriber:Self Name:Lisa Nicole Payer ID:[id number] Group ID:[id number] Type:Medicaid Address: [address] [place] [address] ACO Member Subscriber Plan / Payer (Ef fective 2020-Present) Name:Lisa Nicole Relation to Subscriber:Self Name:Lisa Nicole Payer ID:[id number] Group ID:[id number] Type:Medicaid [address] [facility] Care Teams Nanotechnology Engineering Technician Relationship Specialty Start Date End Date Haris Holley MD [address] [place] [id number] PCP - General Internal Medicine 03/16/20 Additional Source Comments The information contained in this document represents components of the legal health record. It is not the complete legal health record.[facility]
--- OUTSIDE RECORDS SUMMARY | 2025-04-21 08:01 | XMS_ITS | Clinical Summary ---
Author Organization [facility] Address [address] [place] [address] Care Team Providers Care Control Clerk Auditing Name Role Phone Madhu Ritchie Primary Care [...] 11/24/2024 Malignant neoplasm of left b reast ([facility] V24, [facility] V28) 11/24/2024 Depression 11/24/2024 Heartburn 11/24/2024 Port-A-Cath [...] 9:40 AM EDT Consult Breast Care Center [facility] [address] [place] [address] Lynne Dickerson MD [address] [place] [address] Health Maintenance Due Date Last Done Comments [...] patient's age to complete this topic [place] [address] [place] [address] PLAN Care Teams Control Clerk Auditing Relationship Specialty Start Date End Date Madhu Ritchie FNP [address] [place] [address] [place] [id number] PCP - General Family Medicine 12/13/24
[2025-04-21] MEDS: iohexoL 350 MG/ML 100 ML INFUS..BTL IV (08:29)
== END 2025-04-21 07:59 | disposition home or self-care (01) ==
LOC: HO.CT 07:58
PROVIDERS: Visit Provider Internal Medicine
DX: C50.912 Malignant neoplasm of unspecified site of left female breast (principal)
CPT/HCPCS: 71260; Q9967

== ENCOUNTER → 2025-04-21 08:00 | Outpatient (BNV) | payer OTHER, SELFPAY | PROVIDERS: Visit Provider Radiology Diagnostic Radiology | DX: R91.1 Solitary pulmonary nodule (principal); I70.0 Atherosclerosis of aorta | CPT/HCPCS: 71260 ==

== ENCOUNTER 2025-04-25 09:11 | Outpatient (AMB) | payer OTHER, SELFPAY ==
--- NOTE | 2025-04-25 09:18 | A.OFFVIS_ITS ---
Vital Signs 04/25/25 09:19 Height 5 ft 7 in Weight 204 lb BMI 31.9 BP 123/72 Blood Pressure Location Rt radial Position Sitting Pulse 77 Intake Visit Reasons: 3mth fuv seroma, post bilateral mastectomy Intake Note: Patient is seen in office for 3 month follow up visit, breast exam. Pt c/o: no concerns. Denies pain, oozing. Reports no changes in medical hx since last visit. mm: b/L mastectomy Assembler Utility Buildings Required: No Accompanied by: Self / Same As Patient Allergies adhesive tape Allergy (Severe, Verified 04/25/25 09:19) adh.medical tape, steri strips, tegaderm-rash paclitaxel (From Taxol) Allergy (Severe, Verified 04/25/25 09:19) Rash tramadol Allergy (Severe, Verified 04/25/25 09:19) Rash amoxicillin Adverse Reaction (Intermediate, Verified 04/25/25 09:19) Diarrhea HPI Comments Details: 44-year-old female patient returning for left breast cancer follow-up. She was diagnosed with a left breast invasive ductal carcinoma on 02/2024 after noting a palpable lump with dimpling in the skin since August 2023. Ultrasound-guided core biopsy performed on 03/21/2024 revealed invasive ductal carcinoma, grade 2 and biopsy of a node at the 2 o'clock position left breast revealed invasive carcinoma involving lymphoid and fibroadipose tissue, ER positive, NV positive, HER2 negative by FISH. She was referred to Dr. Vivas started neoadjuvant chemotherapy on April 2024. She completed 4 cycles of Adriamycin/Cytoxan followed by weekly Taxol. She subsequently underwent a left modified radical mastectomy and right simple mastectomy on 11/02/2024. Pathology revealed invasive ductal carcinoma grade 2, 35 mm with margins free of tumor by 15 mm. Also noted was ductal carcinoma in-situ, grade 2-3, margins free of tumor by 15 mm. One of 18 lymph nodes was positive for metastatic carcinoma. The right breast was negative for carcinoma. She tolerated the procedure well but postoperatively de veloped bilateral seromas. This has subsequently subsided she currently feels much improved. She is currently being treated by Dr. Vivas with Natalio. She denies any new chest symptoms. [facility] Medical History Muscle pain Port-A-Cath in place Post-operative nausea and vomiting Breast cancer, left Heartburn Anxiety Depression Surgical History S/P mastectomy, bilateral (11/02/24) Invasive ductal carcinoma of left breast Hx of dilation and curettage Hx of carpal tunnel repair Hx of section History of cholecystectomy Family History Paternal Grandmother Breast cancer Family/Other Breast cancer Other Mental health disorder Substance use disorder Social History Household Members: Family Household Members Other:: Son and Dad Housing: House Are you a primary nurse wound care to a significant other at home: Yes (minor son) Do you presently have visiting nurse or other home services: No Alcohol intake: current Alcohol intake frequency: does not drink Comment: counts correct Patient Tobacco Use Status: Former Tobacco user Tobacco use type: Cigarette Cigarettes Per Day: 6 Years Smoked: 17 e-Cigarette/Vaping Use: Never Used Second Hand Smoke Exposure: Yes Substance Use Type: Marijuana Advance Directives Date on File: 02/13/25 service: No Current occupational status: employed and unemployed Sexual orientation: Straight/Heterosexual Gender identity: Female Cognitive needs: No Hearing needs: No Vision needs: No Female Reproductive History Menstrual Age of Menarche: 10 Review of Systems Const All systems reviewed & are unremarkable except as noted in HPI and below Reports body aches Skin/Breast Reports breast skin changes and Denies breast pain Physical Exam Const General: no acute distress Nutritional Appearance: well nourished Orientation/consciousness: patient oriented x3 Chest Other: Bilateral mastectomy incisions are clean, dry and intact with no underlying seroma or hematoma. Inflammation is much improved. There is a small dog-ear noted in the medial left incision in the lateral right incision. No palpable masses are noted in the skin flaps or axilla. GI Inspection: Yes normal to inspection Skin Other: No further redness and chest wall Neuro General: patient oriented x3 Extrem Other: No upper extremity edema Assessment & Plan Assessment & Plan (1) Breast cancer, left: Code(s): C50.912 - Malignant neoplasm of unspecified site of left female breast Category: Medical Qualifiers: Breast location: upper outer quadrant of breast Estrogen receptor status: unspecified Patient sex: female Qualified Code(s): C50.412 - Malignant neoplasm of upper-outer quadrant of left female breast Plan 44-year-old female patient returning status post left modified radical mastectomy and right simple mastectomy (prophylactic) for postop wound check. Overall she feels much improved with no significant chest wall pain. Examination reveals well-healed bilateral flaps with no underlying seroma, hematoma or palpable masses. She will follow up in 3 months (patient's request). No further mammograms are required. Coding Level of Care Code Est Pt Level 3 (98266) Complex EM visit Add On G2211 Diagnoses Malignant neoplasm of upper-outer quadrant of left female breast, unspecified estrogen receptor status C50.412 Breast location: upper outer quadrant of breast Estrogen receptor status: unspecified Patient sex: female
[2025-04-25 09:19] VITALS: BP 123/72; PULSE 77; BMI 31.9
--- OUTSIDE RECORDS SUMMARY | 2025-04-25 09:56 | XMS_ITS | Clinical Summary ---
Author Organization [facility] Address [address] [place] [address] Phone Care Team Providers Care Push Connector Assembler Name Role Phone Haris Holley MD Primary Care Provider [phone] Allergies No known active allergies Medications citalopram [...] topic Medical Devices Not on file Insurance [facility] [place] Member Subscriber Plan / Payer (Ef fective 2020-Present) Name:Lisa Nicole Relation to Subscriber:Self Name:Lisa Nicole Payer ID:[id number] Group ID[id number] Type:Medicaid [address] [place] [address] [place] [address] [place] [facility] [place] Member Subscriber Plan / Payer (Ef fective 2020-Present) Name:Lisa Nicole Relation to Subscriber:Self Name:Lisa Nicole Payer ID:[id number] Group ID:[id number] Type:Medicaid Address: [address] [place] [address] [place] Member Subscriber Plan / Payer (Ef fective 2020-Present) Name:Lisa Nicole Relation to Subscriber:Self Name:Lisa Nicole Payer ID:[id number] Group ID:[id number] Type:Medicaid Address[address] [place] [address] ACO Member Subscriber Plan / Payer (Ef fective 2020-Present) Name:Lisa Nicole Relation to Subscriber:Self Name:Lisa Nicole Payer ID:[id number] Group ID:[id number] Type:Medicaid [facility] [address] [facility] Care Teams Push Connector Assembler Relationship Specialty Start Date End Date Haris Holley MD [address] [place] [id number] PCP - General Internal Medicine 03/16/20 Additional Source Comments The information contained in this document represents components of the legal health record. It is not the complete legal health record.[facility]
--- OUTSIDE RECORDS SUMMARY | 2025-04-25 09:56 | XMS_ITS | Clinical Summary ---
Author Organization [facility] Address [address] [place] [address] Care Team Providers Care Honeycomb Decapper Name Role Phone Madhu Ritchie Primary Care Provider [phone] Allergies Active Allergy Reactions Criticality Noted Date [...] 11/24/2024 Malignant neoplasm of left b reast ([facility] V24, [facility] V28) 11/24/2024 Depression [...] 05/18/2025 9:40 AM EDT Consult Breast Care [facility] [address] [place] [address] Lynne Dickerson MD [address] [place] [address] Health Maintenance Due Date Last Done Comments Breast Cancer Screening 1978 Colorectal Cancer Screening: Colonoscopy 1980 Pneumococcal Vaccine: Pediatrics (0 to 5 Years) and At-Risk Patients (6 to 49 Years) (1 of 2 - PCV) 1997 Cervical Cancer Screening: Pap Smear 11/09/1999 Hepatitis B Vaccines (2 of 3 - 19+ 3-dose series) 09/01/2023 08/04/2023 Cholesterol Screening (Lipid Panel) 05/22/2024 HIV Screening 05/22/2024 Hepatitis C Screening 05/22/2024 Social Influencers of Health Screening 05/22/2024 Depression Screening 07/27/2024 COVID-19 Vaccine ( season) 2025 09/19/2021, 09/30/2020, 09/09/2020 Influenza Vaccine (#1) 2025 4, 08/04/2023, 04/11/2021, Additional history exists DTaP,Tdap,and Td Vaccines (2 - Td or Tdap) 03/11/2033 03/11/2023 RSV Immunization Adult Patients (1 - 1-dose 75+ series) 2053 HIB Vaccines Aged Out No longer eligi [...] patient's age to complete this topic Insurance [place] [address] PLAN Care Teams Honeycomb Decapper Relationship Specialty Start Date End Date Madhu Ritchie FNP [address] [place] [address] PCP - General Family Medicine 12/13/24
== END 2025-04-25 09:37 | disposition home or self-care (01) ==
PROVIDERS: Visit Provider Surgery
DX: C50.412 Malignant neoplasm of upper-outer quadrant of left female breast (principal)
CPT/HCPCS: 99213

== ENCOUNTER → 2025-04-25 09:11 | Outpatient (BNVA) | payer OTHER, SELFPAY | PROVIDERS: Visit Provider Surgery | DX: Z48.3 Aftercare following surgery for neoplasm (principal); Z90.13 Acquired absence of bilateral breasts and nipples | CPT/HCPCS: 99212 ==

== ENCOUNTER 2025-07-14 08:27 | Outpatient (AMB) | payer OTHER, SELFPAY ==
--- OUTSIDE RECORDS SUMMARY | 2025-07-14 08:33 | XMS_ITS | Clinical Summary ---
Author Organization [facility] Address [address] [place] [address] Care Team Providers Care Power Crane Operator Name Role Phone Madhu Ritchie Primary Care [...] Date Anxiety 11/24/2024 Malignant neoplasm of left breast 11/24/2024 Depression 11/24/2024 Heartburn 11/24/2024 Port-A-Cath in [...] Care Team (Late st Contact Info) Description 09/21/2025 11:20 AM EST Consult Breast Care Center [facility] [address] [place] [address] Lynne Dickerson MD [address] [place] [address] Health Maintenance Due Date Last Done Comments [...] 09/19/2021, 09/30/2020, 09/09/2020 Influenza Vaccine (#1) 2025 , 08/04/2023, 04/11/2021, Additional history exists DTaP,Tdap,and Td [...] patient's age to complete this topic [place] [address] [address] PLAN Care Teams Power Crane Operator Relationship Specialty Start Date End Date Madhu Ritchie FNP [address] [place] [address] [address] [place] [address] PCP - General Family Medicine 12/13/24
[2025-07-14 08:38] VITALS: BP 126/68; PULSE 85; RESP 18; O2SAT 98; BMI 34.0
--- NOTE | 2025-07-14 08:38 | A.OFFPC_ITS ---
Vital Signs 07/14/25 08:38 Height 5 ft 7 in Weight 217 lb BMI 34.0 BP 126/68 Blood Pressure Location Rt radial Position Sitting Respiration 18 Pulse 85 Pulse Source Pulse Oximeter Temp Source Temporal Artery Scan Pulse Oximetry (%) 98 Oxygen Delivery Method Room Air Intake Visit Reasons: 3 month [employer] Required: No Accompanied by: Self / Same As Patient Allergies adhesive tape Allergy (Severe, Verified 07/16/25 20:04) adh.medical tape, steri strips, tegaderm-rash paclitaxel (From Taxol) Allergy (Severe, Verified 07/16/25 20:04) Rash tramadol Allergy (Severe, Verified 07/16/25 20:04) Rash amoxicillin Adverse Reaction (Intermediate, Verified 07/16/25 20:04) Diarrhea Medication List - Last Reconciled 07/14/25 by CECELIA Gonzalez acetaminophen-codeine 300-30 mg 1 tab PO Q8H PRN biotin (Hair, Skin and Nails (biotin)) 10,000 mcg PO DAILY calcium carbonate-vitamin D3 600 mg-10 mcg (400 unit) (Calcium 600 + D(3)) 1 tab PO DAILY clonazepam 0.5 mg (1/2 x 1 mg) PO TID 30 days clonidine HCl 0.3 mg (3 x 0.1 mg) PO BID 90 days duloxetine 40 mg PO DAILY duloxetine 30 mg PO DAILY exemestane 25 mg PO DAILY ferrous sulfate 324 mg PO DAILY 90 days gabapentin 600 mg (2 x 300 mg) PO BID leuprolide acetate (3 month) (Lupron Depot) 11.25 mg IM [id number] magnesium 400 mg PO DAILY naloxone 4 mg/actuation (Narcan) 4 mg intranasal Q2M PRN nicotine 21 mg transdermal DAILY 30 days omeprazole 20 mg PO DAILY 14 days prochlorperazine maleate (Compazine) 5 mg PO BID PRN ribociclib 400 mg PO DAILY trazodone 50 mg PO BEDTIME vit C-s.kxvfkg-cskrdg-dcsac sd [id number] mg ([place]) 600 caps PO DAILY Tobacco use date assessed: 07/14/25 Dental Screening Dental Screen Date: 07/14/25 Did you have a dental visit in the last 12 months?: No Did you have a dental problem in the last 6 months where you did not have access to dental care?: No Was dental information given to patient?: No HPI HPI Comments History of Present Illness Details The patient is a 44-year-old female who presents for a follow-up visit to manage chronic conditions and address new concerns. She has a history of estrogen- positive breast cancer and is currently being monitored by oncology every three months. She reports no recurrence and has a port that requires regular flushing. Her treatment includes exemestane and Kisqali, which she notes cause weight gain. The patient reports new-onset pain on her right upper quadrant of abdomen , which she believes may be related to her liver and medication, Kisqali. This pain sometimes radiates to her back, though her recent lab work showed normal liver enzymes. Regarding her mental health, she reports an increase in depression, while her anxiety remains stable. She currently takes duloxetine 30 mg and has requested an increase in her dosage. The patient has a high BMI and is concerned about being prediabetic, due to a previous high random glucose reading, though she had consumed coffee with sugar prior to that test. She is interested in starting Zepbound for weight loss, due to arthritis and her history of estrogen-positive breast cancer. She reports that she has been walking, eating a healthy diet, and attending physical therapy twice a week. Other ongoing issues include mild anemia, for which she takes ferrous sulfate, and bilateral hip and knee pain, for which she is undergoing physical therapy. She has experienced consistently high blood pressure in the past, though it was lower during today's visit. The patient requests medication refills for omeprazole, clonazepam, and nicotine patches. Health Maintenance - The patient is under surveillance for breast cancer and is monitored by an oncologist every three months. - She engages in walking, follows a heal thy diet, and attends physical therapy twice a week to work on her core strength. - An A1c was performed and the result wa s 5.2, indicating no prediabetes. - The patient was screened for contraind ications to Zepbound, and she denies any family history of thyroid cancer or pancreatitis. - The patient uses nicotine patches for tobacco cessation. Social History - Tobacco: The patient uses nicotine pat ches. - Exercise: The patient walks and attend s physical therapy two times a week, where she works on strengthening her core. - Diet: The patient reports she is eatin g healthy. Results - Labs: - Hemoglobin A1c: 5.2. - Electrolytes: Normal. - Liver enzymes: Normal. - Complete blood count: Reveals slight a nemia. - Fasting glucose: Previously elevated. [facility] Medical History Muscle pain Port-A-Cath in place Post-operative nausea and vomiting Breast cancer, left Heartburn Anxiety Depression Surgical History S/P mastectomy, bilateral (11/02/24) Invasive ductal carcinoma of left breast Hx of dilation and curettage Hx of carpal tunnel repair Hx of section History of cholecystectomy Family History Paternal Grandmother Breast cancer Family/Other Breast cancer Other Mental health disorder Substance use disorder Social History Household Members: Family Household Members Other:: Son and Dad Housing: House Are you a primary pediatric care coordinator to a significant other at home: Yes (minor son) Do you presently have visiting nurse or other home services: No Alcohol intake: current Alcohol intake frequency: does not drink Comment: counts correct Patient Tobacco Use Status: Former Tobacco user Tobacco use type: Cigarette Cigarettes Per Day: 6 Years Smoked: 17 e-Cigarette/Vaping Use: Never Used Second Hand Smoke Exposure: Yes Substance Use Type: Marijuana Advance Directives Date on File: 02/13/25 service: No Current occupational status: employed and unemployed Sexual orientation: Straight/Heterosexual Gender identity: Female Cognitive needs: No Hearing needs: No Vision needs: No Female Reproductive History Menstrual Age of Menarche: 10 Questionnaire Thrive Questionnaire Date Thrive assessed: 07/14/25 I am a: Patient What is your living situation today?: I have a steady place to live Within the past 12 months, did the food you bought not last and you didn't have the money to get more?: Often true Within the past 12 months, did you worry whether your food would run out before you got money to buy more?: Often true Do you have trouble paying for medicines?: No Do you have trouble getting transportation to medical appointments?: No Do you have trouble paying your heating and electricity bill?: No Do you have trouble taking care of your child, family member or friend?: No Do you have trouble with day-to-day activities such as bathing, preparing meals, shopping, managing finances, etc.?: No Are you currently unemployed and looking for a job?: No Are you interested in more education?: I choose not to answer this question Currently or been in a relationship where the following occur: No concerns reported THRIVE Score: 2 KATHERYN-7 AMB Questionnaire KATHERYN-7 Date KATHERYN - 7 assessed: 03/28/25 Source: Developed by Drs. Harry Pino, Makayla Vasquez, Wenceslao Fenton and colleagues, with an educational benita from [employer]. Review of Systems Narrative Review of Systems - Psychiatric: Reports an increase in depressive symptoms. Denies worsening anxiety. - Gastrointestinal: Reports pain in the right upper quadrant, which she describes as feeling like her liver is inflamed, with occasional radiation to her neck. Denies history of pancreatitis. - Constitutional: Reports being overweight with a high BMI. - Musculoskeletal: Reports pain in bilateral hips and knees and arthritis. - Endocrine: Denies any family history of thyroid cancer. - Hematologic: Reports being slightly anemic. Const Denies body aches, Denies chills, Reports difficulty sleeping, Denies fever(s), Denies headache(s) and Denies poor appetite Eyes Reports no additional complaints ENT Denies dysphagia, Denies dizziness, Denies headache(s) and Denies odynophagia Card Denies chest pain, Denies syncope, Denies edema, Denies irregular heart rhythm, Denies lightheadedness and Denies dyspnea Resp Denies cough and Denies dyspnea GI Reports abdominal pain (RUQ), Denies constipation, Denies dysphagia, Denies diarrhea, Denies nausea, Denies odynophagia and Denies vomiting Reports no additional complaints Musc Reports arthralgias (Bilateral knees and hips-feels like she is walking on bone on bone) Skin/Breast Denies lesions and Denies rash Neuro Denies dizziness, Denies syncope, Denies headache(s) and Reports paresthesias (BLE) Psych Reports anxiety and Reports depression Physical exam (Primary Care) Vital Signs: Last Vital Signs Pulse 85 07/14/25 08:38 Resp 18 07/14/25 08:38 BP 126/68 07/14/25 08:38 Pulse Ox 98 07/14/25 08:38 Oxygen Delivery Method Room Air 07/14/25 08:38 BMI result Body Mass Index 34.0 Tobacco/Smoking Status: Tobacco use Status Tobacco use date assessed 07/14/25 07/14/25 08:47 Patient Tobacco Use Status Former Tobacco user 07/14/25 08:47 Tobacco use type Cigarette 07/14/25 08:47 e-Cigarette/Vaping Use Never Used 07/14/25 08:47 Thrive Assessment: Date of Thrive Assessment Date Thrive assessed 07/14/25 07/14/25 08:47 Currently or been in a relationship where the following occur: No concerns reported Narrative Physical Exam - Vitals: Blood pressure was rechecked manually and was noted to be lower than previous readings. - Lungs: Clear to auscultation bilaterally. Const General: cooperative, healthy appearing, comfortable and no acute distress Orientation/consciousness: patient oriented x3 HENMT Head: Yes normocephalic Ears: hearing grossly normal bilaterally General nose exam: Normal external nose present Eyes General: appearance normal, both eyes and all related structures Conjunctivae: conjunctivae normal Neck Neck: Yes full ROM and Yes no lymphadenopathy Resp Effort & Inspection: normal respiratory effort Auscultation: clear to auscultation bilaterally, no crackles, no rales, no rho nchi and no wheezes Cardio Rate: regular rate Rhythm: regular rhythm GI Palpation (GI): Soft to palpation and Tenderness to palpation present (GI) in the RUQ Auscultation: normal bowel sounds General: Yes no CVA tenderness Back/Spine/Pelvis Back: no CVA tenderness Skin General skin exam: no rashes or lesions noted Neuro General: patient oriented x3 Gait exam (Neuro): Normal gait present Extrem General: Yes normal to inspection, Yes full ROM and No edema Right lower extremity: hip/thigh Details: no tenderness and knee Details: no tenderness and no swelling Left lower extremity: hip/thigh Details: no tenderness and knee Details: no tenderness and no swelling Psych Affect: normal affect Attitude: cooperative Insight: Good insight present (Psych) Judgement: Good judgement present (Psych) Results AMB Hemoglobin A1c AMB Hemoglobin A1c 5.2 % Last Edit by Zahra Akbar MA on 07/14/25 09:56 Results Reviewed Results Reviewed: Laboratory Last Values Hgb A1c (Clinic) 5.2 % (4.0-6.0) 12/19/25 09:23 Laboratory Tests 06/30/25 10:55 WBC 5.5 RBC 3.92 L Hgb 13.0 Hct 39.2 MCV 100.0 H MCH 33.2 H MCHC 33.2 RDW 13.0 Plt Count 178 Sodium 142 Potassium 3.7 Chloride 107 Carbon Dioxide 25 Anion Gap 14 BUN 9 Creatinine 1.02 Estim Creat Clear Calc 83.3 Estimated GFR 58 Random Glucose 142 H Calcium 9.6 Total Bilirubin 0.4 AST 28 ALT 15 Alkaline Phosphatase 78 Total Protein 7.1 Albumin 4.4 Coding Level of Care Code Est Pt Level 4 (46387) Diagnoses Depression, unspecified depression type F32.A Depression Type: unspecified Anxiety F41.9 Obesity (BMI 30.0-34.9) E66.811 Right upper quadrant abdominal pain R10.11 Anemia, unspecified type D64.9 Anemia type: unspecified type S/P mastectomy, bilateral Z90.13 Pain in both knees, unspecified chronicity M25.561; M25.562 Chronicity: unspecified Bilateral hip pain M25.551; M25.552 Insomnia, unspecified type G47.00 Insomnia type: unspecified Time Spent (min) 38 Assessment & Plan Assessment & Plan (1) Depression: Code(s): F32.9 - Major depressive disorder, single episode, unspecified Category: Medical Qualifiers: Depression Type: unspecified Qualified Code(s): F32.A - Depression, unspecified (2) Anxiety: Code(s): F41.9 - Anxiety disorder, unspecified Category: Medical (3) Obesity (BMI 30.0-34.9): Code(s): E66.811 - Obesity, class 1 Category: Medical (4) Right upper quadrant abdominal pain: Code(s): R10.11 - Right upper quadrant pain Category: Medical (5) Anemia: Code(s): D64.9 - Anemia, unspecified Category: Medical Qualifiers: Anemia type: unspecified type Qualified Code(s): D64.9 - Anemia, unspecified (6) S/P mastectomy, bilateral: Onset Date: 11/02/24 Comment: left radical modified mastectomy, right simple mastectomy- Jason Guevara MD Code(s): Z90.13 - Acquired absence of bilateral breasts and nipples Category: Surgical (7) Bilateral knee pain: Code(s): M25.561 - Pain in right knee; M25.562 - Pain in left knee Category: Medical Qualifiers: Chronicity: unspecified Qualified Code(s): M25.561 - Pain in right knee; M25.562 - Pain in left knee (8) Bilateral hip pain: Code(s): M25.551 - Pain in right hip; M25.552 - Pain in left hip Category: Medical (9) Insomnia: Code(s): G47.00 - Insomnia, unspecified Category: Medical Qualifiers: Insomnia type: unspecified Qualified Code(s): G47.00 - Insomnia, unspecified Plan Plan Patient was informed and verbally consented to the use of an ambient scribe for clinic note documentation during this visit. 1. Depression The patient reports an increase in depressive symptoms. In response to her req uest, her duloxetine will be increased from 30 mg to 40 mg daily. The patient duloxetine was prescribed for a dual effect. The patient has bilateral hips and knees arthritis let her managed with gabapentin 300 mg b.i.d. and duloxetine. A 30-day supply will be prescribed to assess the effectiveness of the new dose before increasing the supply. 2. Obesity The patient has a high BMI and has requested a prescription for Zepbound to assist with weight loss, citing concerns about her arthritis and the estrogen- producing effects of being overweight in relation to her history of estrogen- positive breast cancer. After screening for contraindications, which she denied, a prescription will be sent. The patient was counseled that prior authorization is required and there may be barriers to approval from insurance. 3. Right Upper Quadrant Pain The patient reports new-onset right upper quadrant pain, which she believes is related to her liver and medication, with occasional radiation to her back. Although her liver enzymes are normal, an urgent ultrasound of the upper abdomen will be ordered to investigate for potential causes. 4. Mild Anemia Recent labs indicate the patient is slightly anemic. She was advised to continue taking her iron supplement, and a refill for ferrous sulfate will be sent to the pharmacy. 5. Medication Management Refills were requested for omeprazole, clonazepam, and nicotine patches, all of which have been sent to the pharmacy. The patient will follow up in three months to recheck labs and monitor her conditions. Reinforced sleep hygiene. Reinforced dietary restrictions, continue omeprazole 20 mg daily Discussion Notes I have discussed the plan with the patient, including the decision to increase her duloxetine to 40 mg for her depression, with a 30-day supply to monitor its effectiveness. For her right-sided pain, I explained that an ultrasound is the appropriate initial step to investigate the cause, and I have placed an urgent order for this. We had an extensive discussion about her request for Zepbound for weight loss. I acknowledged the potential benefits for her arthritis and the reduction of estrogen related to her cancer history, and I will prescribe it. However, I provided a detailed warning about the anticipated difficulties with insurance approval, explaining that they often require prior authorization and may demand trials of other treatments first. I reviewed her lab results, noting the A1C of 5.2 rules out prediabetes, and confirmed her liver enzymes are normal. I also addressed medication refills and advised a follow-up visit in three months for repeat labs. Patient Instructions - Increase your duloxetine (Cymbalta) dose to 40 mg once daily to help with your depression. A one-month supply has been sent. - Continue taking your iron supplement (ferrous sulfate) for mild anemia. A refill has been sent to your pharmacy. - An urgent ultrasound of your abdomen has been ordered to investigate the cause of your right-sided pain. Please complete this test as soon as possible. - A prescription for Zepbound has been sent to your pharmacy for weight management. Please be aware that your insurance company will require a prior authorization, which may take time and could be denied. - Refills for omeprazole, clonazepam, and nicotine patches have been sent to your pharmacy. - Continue your current lifestyle of healthy eating, walking, and physical therapy. - Please schedule a follow-up appointment in three months to review your progress and for repeat lab work. Orders: Orders AMB Hemoglobin A1c 07/14/25 Z13.9 - Encounter for screening, unspecified US abdomen limited 07/14/25 R10.11 - Right upper quadrant pain Complete Blood Count Auto Diff 3 Months C50.912 - Malignant neoplasm of unspecified site of left female breast, D64.9 - Anemia, unspecified, E66.811 - Obesity, class 1, F32.A - Depression, unspecified, F41.9 - Anxiety disorder, unspecified, G47.00 - Insomnia, unspecified, M25.551 - Pain in right hip, M25.552 - Pain in left hip, M25.561 - Pain in right knee, M25.562 - Pain in left knee, R74.01 - Elevation of levels of liver transaminase levels IRON PROFILE 3 Months C50.912 - Malignant neoplasm of unspecified site of left female breast, D64.9 - Anemia, unspecified, E66.811 - Obesity, class 1, F32.A - Depression, unspecified, F41.9 - Anxiety disorder, unspecified, G47.00 - Insomnia, unspecified, M25.551 - Pain in right hip, M25.552 - Pain in left hip, M25.561 - Pain in right knee, M25.562 - Pain in left knee, R74.01 - Elevation of levels of liver transaminase levels UA CC w/rflx Micro + Cult 3 Months C50.912 - Malignant neoplasm of unspecified site of left female breast, D64.9 - Anemia, unspecified, E66.811 - Obesity, class 1, F32.A - Depression, unspecified, F41.9 - Anxiety disorder, unspecified, G47.00 - Insomnia, unspecified, M25.551 - Pain in right hip, M25.552 - Pain in left hip, M25.561 - Pain in right knee, M25.562 - Pain in left knee, R74.01 - Elevation of levels of liver transaminase levels Vitamin D 25-OH Total 3 Months C50.912 - Malignant neoplasm of unspecified site of left female breast, D64.9 - Anemia, unspecified, E66.811 - Obesity, class 1, F32.A - Depression, unspecified, F41.9 - Anxiety disorder, unspecified, G47.00 - Insomnia, unspecified, M25.551 - Pain in right hip, M25.552 - Pain in left hip, M25.561 - Pain in right knee, M25.562 - Pain in left knee, R74.01 - Elevation of levels of liver transaminase levels Comprehensive [place]. Panel Fast 3 Months C50.912 - Malignant neoplasm of un specified site of left female breast, D64.9 - Anemia, unspecified, E66.811 - Obesity, class 1, F32.A - Depression, unspecified, F41.9 - Anxiety disorder, unspecified, G47.00 - Insomnia, unspecified, M25.551 - Pain in right hip, M25.552 - Pain in left hip, M25.561 - Pain in right knee, M25.562 - Pain in left knee, R74.01 - Elevation of levels of liver transaminase levels Lipid Panel 3 Months C50.912 - Malignant neoplasm of unspecified site of left female breast, D64.9 - Anemia, unspecified, E66.811 - Obesity, class 1, F32.A - Depression, unspecified, F41.9 - Anxiety disorder, unspecified, G47.00 - Insomnia, unspecified, M25.551 - Pain in right hip, M25.552 - Pain in left hip, M25.561 - Pain in right knee, M25.562 - Pain in left knee, R74.01 - Elevation of levels of liver transaminase levels TSH reflex Free T4 3 Months C50.912 - Malignant neoplasm of unspecified site of left female breast, D64.9 - Anemia, unspecified, E66.811 - Obesity, class 1, F32.A - Depression, unspecified, F41.9 - Anxiety disorder, unspecified, G47.00 - Insomnia, unspecified, M25.551 - Pain in right hip, M25.552 - Pain in left hip, M25.561 - Pain in right knee, M25.562 - Pain in left knee, R74.01 - Elevation of levels of liver transaminase levels Vitamin B12 and Folate 3 Months C50.912 - Malignant neoplasm of unspecified site of left female breast, D64.9 - Anemia, unspecified, E66.811 - Obesity, class 1, F32.A - Depression, unspecified, F41.9 - Anxiety disorder, unspecified, G47.00 - Insomnia, unspecified, M25.551 - Pain in right hip, M25.552 - Pain in left hip, M25.561 - Pain in right knee, M25.562 - Pain in left knee, R74.01 - Elevation of levels of liver transaminase levels Medications: New tirzepatide (weight loss) (Zepbound) for 4 weeks 2.5 mg (0.5 mL) subcut QWEEK 2 mL 0RF E66.811 - Obesity, class 1 tirzepatide (weight loss) (Zepbound) for 4 weeks 2.5 mg (0.5 mL) subcut QWEEK 2 mL 0RF E66.811 - Obesity, class 1 Changed From omeprazole 20 mg PO DAILY 14 days 30 caps 3RF To omeprazole 20 mg PO DAILY 90 caps 3RF Refilled clonazepam 0.5 mg (1/2 x 1 mg) PO TID 45 tabs 0RF 30 days duloxetine 40 mg PO DAILY 30 caps 0RF duloxetine 40 mg PO DAILY 30 caps 3RF ferrous sulfate 324 mg PO DAILY 90 tabs 3RF 90 days nicotine 21 mg transdermal DAILY 30 ea 3RF 30 days Discontinued duloxetine Discontinued Reason: Doctor's Order 30 mg PO DAILY 90 caps 1RF
== END 2025-07-14 09:49 | disposition home or self-care (01) ==
LOC: HO.HMCH 08:27
DX: Z13.9 Encounter for screening, unspecified (principal)

== ENCOUNTER → 2025-07-14 08:27 | Outpatient (BNVA) | payer OTHER, SELFPAY | DX: M17.12 Unilateral primary osteoarthritis, left knee (principal); M25.551 Pain in right hip; M25.552 Pain in left hip; M22.2X1 Patellofemoral disorders, right knee; M22.2X2 Patellofemoral disorders, left knee; M54.50 Low back pain, unspecified; R10.11 Right upper quadrant pain; F32.A Depression, unspecified; F41.9 Anxiety disorder, unspecified; E66.811 Obesity, class 1; D64.9 Anemia, unspecified; G47.00 Insomnia, unspecified; Z68.34 Body mass index [BMI] 34.0-34.9, adult; Z90.13 Acquired absence of bilateral breasts and nipples | CPT/HCPCS: 83036; 99202; 99212 ==

== ENCOUNTER 2025-07-14 10:06 | Outpatient (AMB) | payer OTHER, SELFPAY ==
--- NOTE | 2025-07-14 10:31 | A.OFFVIS_ITS ---
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 Patient was referred by PCP for left knee pain, however she reported bilateral knee pain. Today patient reports that she uses medication that causes joint and muscle pain. States having pain in her joints, however noticed that her left knee has been popping. States that her knee janette causing her to stumble however denies fall. She mentions that she is currently attending PT for her hips which is helping. Her knee pain is located in her knee joint and the lateral side. Denies injury. No previous treatment. S he has been applying heating pads and bengay to her knee. Allergies adhesive tape Allergy (Severe, Verified 07/14/25 10:35) adh.medical tape, steri strips, tegaderm-rash paclitaxel (From Taxol) Allergy (Severe, Verified 07/14/25 10:35) Rash tramadol Allergy (Severe, Verified 07/14/25 10:35) Rash amoxicillin Adverse Reaction (Intermediate, Verified 07/14/25 10:35) Diarrhea Medication List - Last Reconciled 07/14/25 by Rose Mary Gasca PA-C acetaminophen-codeine 300-30 mg 1 tab PO Q8H PRN biotin (Hair, Skin and Nails (biotin)) 10,000 mcg PO DAILY calcium carbonate-vitamin D3 600 mg-10 mcg (400 unit) (Calcium 600 + D(3)) 1 tab PO DAILY clonazepam 0.5 mg (1/2 x 1 mg) PO TID 30 days clonidine HCl 0.3 mg (3 x 0.1 mg) PO BID 90 days duloxetine 40 mg PO DAILY exemestane 25 mg PO DAILY ferrous sulfate 324 mg PO DAILY 90 days gabapentin 600 mg (2 x 300 mg) PO BID leuprolide acetate (3 month) (Lupron Depot) 11.25 mg IM [id number] magnesium 400 mg PO DAILY naloxone 4 mg/actuation (Narcan) 4 mg intranasal Q2M PRN nicotine 21 mg transdermal DAILY 30 days omeprazole 20 mg PO DAILY prochlorperazine maleate (Compazine) 5 mg PO BID PRN ribociclib 400 mg PO DAILY tirzepatide (weight loss) (Zepbound) 2.5 mg (0.5 mL) subcut QWEEK trazodone 50 mg PO BEDTIME vit C-s.iscgyj-zpalsa-hngjs sd [id number] mg (Tart [place]) 600 caps PO DAILY HPI Comments Details: History of Present Illness The patient is a 44 year old female presenting with muscle pain in her hips, back, and knees. She reports that her knees have been popping lately, and the pain is aggravated by activities such as using stairs, bending, and twisting. This has significantly impacted her ability to walk, to the extent that she cannot make it to a nearby corner store. She is currently undergoing physical therapy for hip pain, which she feels exacerbates her back pain. The hip pain is located on the outside and seems to radiate to her back, and physical therapy has not been effective so far. The patient has a history of breast cancer diagnosed on February 2024, and she underwent a mastectomy earlier this year. She is currently in remission and taking maintenance medications, exemestane and ribociclib. Due to her medications affecting the liver, she avoids taking ibuprofen. 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 - Functional Status: She was previously very active and walked a lot, but her current pain prevents her from walking even short distances. PENDING SALE TO [facility] Medical History Muscle pain Port-A-Cath in place Post-operative nausea and vomiting Breast cancer, left Heartburn Anxiety Depression Surgical History S/P mastectomy, bilateral (11/02/24) Invasive ductal carcinoma of left breast Hx of dilation and curettage Hx of carpal tunnel repair Hx of section History of cholecystectomy Family History Paternal Grandmother Breast cancer Family/Other Breast cancer Other Mental health disorder Substance use disorder Social History Household Members: Family Household Members Other:: Son and Dad Housing: House Are you a primary vocational childcare teacher to a significant other at home: Yes (minor son) Do you presently have visiting nurse or other home services: No Alcohol intake: current Alcohol intake frequency: does not drink Comment: counts correct Patient Tobacco Use Status: Former Tobacco user Tobacco use type: Cigarette Cigarettes Per Day: 6 Years Smoked: 17 e-Cigarette/Vaping Use: Never Used Second Hand Smoke Exposure: Yes Substance Use Type: Marijuana Advance Directives Date on File: 02/13/25 service: No Current occupational status: employed and unemployed Sexual orientation: Straight/Heterosexual Gender identity: Female Cognitive needs: No Hearing needs: No Vision needs: No Female Reproductive History Menstrual Age of Menarche: 10 Review of Systems Narrative Review of Systems - Musculoskeletal: Reports pain in hips, back, and knees. - Reports knee popping and a crunching sensation with movement. - Pain is exacerbated by stairs, bending, and twisting. Physical Exam Exam Exam: Physical Exam - Musculoskeletal: Palpable crepitus noted bilaterally in the knees with active flexion and extension, worse in left knee. - Tenderness to palpation over the medial joint line bilaterally Vital Signs: BMI result Body Mass Index 34.0 Const General: cooperative and no acute distress Orientation/consciousness: patient oriented x3 Resp Effort & Inspection: normal respiratory effort and able to speak in complete sentences Cardio Peripheral pulses: Peripheral pulses 2+ throughout Neuro General: patient oriented x3 Results AMB Hemoglobin A1c AMB Hemoglobin A1c 5.2 % Last Edit by Zahra Akbar MA on 07/14/25 09:56 Assessment & Plan Assessment & Plan (1) Patellofemoral arthralgia of both knees: Code(s): M22.2X1 - Patellofemoral disorders, right knee; M22.2X2 - Patellofemoral disorders, left knee Category: Medical Plan Plan 1. Bilateral Knee Pain The patient's knee pain is attributed to patellofemoral irritation, secondary to lateral patellar tracking noted on x-ray. X-rays also showed some sclerosis, an early arthritic finding. The plan is to tailor her physical therapy to include knee-focused exercises, strengthening the hip stabilizers, hamstrings, quads, and core. A knee brace will be provided for support during walking. The patient cannot take NSAIDs like ibuprofen due to an interaction with her cancer medications. Cortisone and gel injections were discussed as future options, though the patient prefers to avoid steroids at this time. 2. Hip Pain And Low Back Pain The patient's hip pain, which radiates to her back, has not improved with physical therapy and may be multifactorial or originating from her back. As the current therapy is not helping, it is recommended she see a vehicle service attendant for further evaluation of a potential back issue. The patient agreed to cancel her follow-up hip appointment and a referral will be placed to physiatry. Consent Patient was informed and verbally consented to the use of an ambient scribe for clinic note documentation during this visit. Orders: Orders PT Evaluation and Treatment Today M22.2X1 - Patellofemoral disorders, right knee, M22.2X2 - Patellofemoral disorders, left knee Coding Level of Care Code New Pt Level 3 (88830) Add On Problem Visit Only Diagnoses Patellofemoral arthralgia of both knees M22.2X1; M22.2X2
[2025-07-14 10:41] VITALS: BMI 34.0
== END 2025-07-14 11:48 | disposition home or self-care (01) ==
LOC: HO.HOS 10:07
PROVIDERS: Visit Provider Physician Assistant
DX: M22.2X1 Patellofemoral disorders, right knee (principal); M22.2X2 Patellofemoral disorders, left knee
CPT/HCPCS: 99203